=== PATIENT | female | born 1985 | race Caucasian/White ===

== ENCOUNTER 2017-06-12 14:47 | Emergency (ER) | payer MEDICAID, SELFPAY ==
[2017-06-12 14:48] VITALS: BP 134/87; PULSE 119; RESP 22; TEMP 36.7; O2SAT 100; BMI 26.2
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
[2017-06-12 15:32] VITALS: O2SAT 96
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
[2017-06-12] MEDS: Metoclopramide 10 MG/2 ML Vial IV (16:13)
[2017-06-12 16:22] LABS: Anion Gap 6 (5-15); BUN 11 mg/dL (7-18); BUN/Creat Ratio 22.1 RATIO (10-20); Calcium,Total 8.4 mg/dL (8.5-10.1); Chloride 106 mmol/L (98-107); EST Glomerular Filtration Rate 152 mL/min (>60); Est Glom Filt Rate - Afr Amer 185 mL/min (>60); Estimated Creatinine Clearance 162.95 ml/min; Glucose 86 mg/dL (74-106); Potassium 3.8 mmol/L (3.5-5.1); Sodium Level 139 mmol/L (136-145)
[2017-06-12 16:29] LABS: Pregnancy, Serum, hCG Quali. NEGATIVE Negative (0-9 Nonpreg)
[2017-06-12 16:31] LABS: Hematocrit 32.8 % (37-47); Hemoglobin 11.2 g/dl (12.0-15.0); Mean Corp Hgb Conc 34.1 g/gl (32-36); Mean Corpuscular Hgb 32.2 pg (27.0-32.0); Mean Corpuscular Volume 94.3 fL (81-99); Mean Platelet Vol. 9.9 fl (6.2-12.0); Platelet Count 239 K/mm3 (150-450); RBC Distribution Width SD 44.8 fl (35.1-43.9); Red Blood Count 3.48 M/mm3 (4.2-5.4); White Blood Count 7.5 K/mm3 (4.4-11.0)
[2017-06-12 16:34] LABS: Scan Indicated on CBC? Y/N NO
[2017-06-12 16:36] LABS: Red Blood Cells-Urine 0 SEEN /hpf (0-5)
[2017-06-12 16:51] LABS: Color, Urine Yellow (Yellow); Glucose, Dipstick Normal (Normal); Ketone-Dipstick 5 mg/dl (Negative); Leukocyte Esterase-Dipstick 25 /ul (Negative); Nitrite-Dipstick Negative (Negative); Occult Blood-Urine Negative /ul (Negative); Protein-Dipstick 15 mg/dl (Negative); Specific Gravity, Urine 1.015 (1.002-1.030); Urine Bilirubin Dipstick Negative (Negative); Urine Clarity Cloudy (Clear); Urine Urobilinogen 1 mg/dl (Normal)
[2017-06-12 16:57] VITALS: BP 114/77; PULSE 93; RESP 16; O2SAT 100
[2017-06-12 16:59] LABS: Bacteria 1+ /hpf (None Seen); Mucous, Urine 2+ /hpf (<or=2+); Squamous Epithelial Cells - UA 10-25 SEEN /hpf (5-10); White Blood Cells 0-5 SEEN /hpf (0-5)
[2017-06-12] MEDS: HYDROmorphone 0.5 MG/0.5 ML SYRINGE IV (17:53)
[2017-06-12] MEDS: 0.9% Normal Saline 1,000 ML 100 ML IV (17:53)
--- NOTE | 2017-06-12 17:53 | ED.RN ---
Verbal order by Dr Jiménez to hang NS 100ml/hr to each IV. Unable to enter second order.
[2017-06-12 17:59] VITALS: BP 118/76; PULSE 96; RESP 13; O2SAT 97
[2017-06-12 18:12] LABS: International Normalized Ratio 1.1; Prothrombin Time (Protime)PT. 14.4 SECONDS (11.7-14.9)
[2017-06-12 18:13] LABS: Partial Thromboplast Time 32.4 Seconds (24.1-36.2)
[2017-06-12 18:27] VITALS: BP 118/76; PULSE 96; RESP 13; O2SAT 97
== END 2017-06-12 18:18 | disposition short-term general hospital (02) ==
PROVIDERS: Emergency Provider Emergency Medicine; Family Provider Family Medicine; PCP Family Medicine
DX: S36.898A Other injury of other intra-abdominal organs, initial encounter (principal); S00.83XA Contusion of other part of head, initial encounter; S20.219A Contusion of unspecified front wall of thorax, initial encounter; Y09 Assault by unspecified means; Y93.89 Activity, other specified; Y92.89 Other specified places as the place of occurrence of the external cause; Y99.8 Other external cause status
CPT/HCPCS: 74177; 80048; 81001; 84703; 85027; 85610; 85730; 96374; 96375; 99285; J7030; Q9967; A4216

== ENCOUNTER 2018-03-06 21:22 | Emergency (ER) | payer SELFPAY ==
[2018-03-06 21:23] VITALS: BP 140/88; PULSE 127; RESP 18; TEMP 36.7; O2SAT 97; BMI 28.5
[2018-03-06 22:01] VITALS: RESP 16
[2018-03-06 22:24] LABS: Bacteria 0 SEEN /hpf (None Seen); Mucous, Urine 0 SEEN /hpf (<or=2+); Red Blood Cells-Urine 0 SEEN /hpf (0-5)
[2018-03-06 22:25] LABS: Absolute Lymphocyte Count 2.01 X10^3/ul (0.83-4.51); Absolute Neutrophil Count 5.6 X10^3/uL (2.0-7.7); Basophil# 0.03 X10^3/uL; Basophil% 0.3 % (0-1); Eosinophils% 3.4 % (0-5); Hematocrit 41.4 % (37-47); Hemoglobin 14.4 g/dl (12.0-15.0); Lymphocyte # 2.01 X10^3/ul (4.0); Lymphocyte % 23.1 % (19-41); Mean Corp Hgb Conc 34.8 g/gl (32-36); Mean Corpuscular Hgb 33.3 pg (27.0-32.0); Mean Corpuscular Volume 95.6 fL (81-99); Mean Platelet Vol. 9.9 fl (6.2-12.0); Monocyte# 0.77 X10^3/uL; Monocyte% 8.9 % (0-10); Neutrophil # 5.58 X10^3/uL (2.7-7.7); Neutrophil % 64.2 % (47-70); Platelet Count 311 K/mm3 (150-450); RBC Distribution Width CV 12.4 % (11.6-14.6); RBC Distribution Width SD 42.3 fl (35.1-43.9); Red Blood Count 4.33 M/mm3 (4.2-5.4); White Blood Count 8.7 K/mm3 (4.4-11.0)
[2018-03-06 22:26] LABS: POSITIVE COUNT NO; POSITIVE DIFFERENTIAL NO; POSITIVE MORPHOLOGY NO
[2018-03-06 22:27] LABS: Color, Urine Yellow (Yellow); Glucose, Dipstick Normal (Normal); Ketone-Dipstick 5 mg/dl (Negative); Leukocyte Esterase-Dipstick 100 /ul (Negative); Nitrite-Dipstick Negative (Negative); Occult Blood-Urine Negative /ul (Negative); Protein-Dipstick 30 mg/dl (Negative); Specific Gravity, Urine 1.025 (1.002-1.030); Urine Bilirubin Dipstick Negative (Negative); Urine Clarity Sl. Cloudy (Clear); Urine Urobilinogen 1 mg/dl (Normal); Urine pH 6.5 (5.0 - 8.0)
--- NOTE | 2018-03-06 22:27 | ED.DCSUM_ITS ---
- ER Visit Summary Date of Service: 03/06/18 Chief Complaint: Rash History of Present Illness: The patient is a 32 F presenting for evaluation secondary to a rash. Patient reports that over the course of last 2 weeks she has had a waxing and waning rash that is diffuse. She reports that when lesions arrived they are both burning and itching. She states that she is tried multiple [id number]-[id number] remedies and has not seemed to alleviate these. Patient denies any new exposures, she denies any sick contacts. Patient states that she typically has very clear skin, but is noticed that she has been having some more issues. She is spontaneously losing her toenails and getting cracked skin on her feet. Patient states that she does take a large amount of ibuprofen daily, 800 mg 4 times a day. She denies any recent surgeries or injections. Review of systems otherwise negative. Physical Examination: Vital signs are within normal limits except for tachycardia on triage with a rate of 127 on my exam with a rate of 100, patient is afebrile. General: Patient is well-nourished well-developed and in no acute distress. Head: Normocephalic, atraumatic Eyes: Pupils equal round and reactive bilaterally, extra occular motion intact bialterally ENT: Moist mucous membranes Neck: Supple, no lymphadenopathy, no JVD, no meningismus CVS: Heart regular rate and rhythm, no murmurs, rubs or gallops, radial pulses 2+ bilaterally Resp: Respirations nondistressed, lung sounds clear bilaterally Abdomen: Soft, nontender, nondistended, no palpable masses, normal bowel sounds Back: Nontender Extremities: Nontender, atraumatic, active full range of motion, no peripheral edema Skin: warm, diffuse nonpalpable blanching macules on the patient's arms legs and back. Patient has evidence of cracked skin on the soles of her feet., no petechia Neuro: Alert and oriented x 4, CN 2-12 intact, no lateralizing neurological defecits Psyc: Normal affect Test Results: CBC chemistry and urinalysis found to be unremarkable Emergency Department Course and Treatment: Patient presented secondary to a rash with some swelling of her fingers and loss of skin on her feet. There was some concern for the possibility of renal insufficiency or nephrotic syndrome given the patient's frequent use of NSAIDs, so I did obtain labs and these were found to be negative. I believe the patient would benefit from a short course of steroids. Patient will be given this, he is instructed she needs to follow-up with primary care to ensure resolution. Disposition: DC Impression: Rash This note was generated with [employer] dictation software. It may contain incorrect words, spelling, and punctuation that were not noted in review of the chart prior to signing ED Disposition - Plan for ED Patient: Disposition: Home or Assisted Living Chief Complaint: Rash Diagnosis: Rash Instructions: ED Dermatitis Non Specific Rash Prescriptions: Prednisone [Deltasone] 40 mg PO DAILY #10 tab Referrals: Madalyn Castellanos MD [Primary Care Provider] - 1-2 Weeks
[2018-03-06 22:33] LABS: Internal QC Validated? YES +Cl - CLEAR BKGD; Pregnancy, Urine Negative Negative
[2018-03-06 22:35] LABS: White Blood Cells 5-10 SEEN /hpf (0-5)
[2018-03-06 22:36] LABS: Amorphous Sediment 1+ URATE; Squamous Epithelial Cells - UA 0-5 SEEN /hpf (5-10)
[2018-03-06 22:37] LABS: Anion Gap 9 (5-15); BUN 18 mg/dL (7-18); BUN/Creat Ratio 26.9 RATIO (10-20); Calcium,Total 8.5 mg/dL (8.5-10.1); Chloride 109 mmol/L (98-107); Creatinine, Serum 0.67 mg/dL (0.55-1.02); EST Glomerular Filtration Rate 108 mL/min (>60); Est Glom Filt Rate - Afr Amer 130 mL/min (>60); Glucose 135 mg/dL (74-106); Potassium 3.5 mmol/L (3.5-5.1); Sodium Level 141 mmol/L (136-145)
[2018-03-06] MEDS: predniSONE 20 MG Tablet 40 MG PO (23:05)
[2018-03-06 23:06] VITALS: RESP 14
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
== END 2018-03-06 23:07 | disposition home or self-care (01) ==
PROVIDERS: Emergency Provider Emergency Medicine; Family Provider Family Medicine; PCP Family Medicine
DX: R21 Rash and other nonspecific skin eruption (principal); Z72.0 Tobacco use
CPT/HCPCS: 80048; 81001; 81025; 85025; 99283

== ENCOUNTER 2018-04-02 08:57 | Emergency (ER) | payer SELFPAY ==
[2018-04-02 08:58] VITALS: BP 108/69; PULSE 111; RESP 20; TEMP 36.6; O2SAT 99; BMI 24.3
--- NOTE | 2018-04-02 09:14 | CT_ITS ---
STUDY: CT ABDOMEN AND PELVIS WITHOUT CONTRAST REASON FOR EXAM: Female, 33 years old. Abdominal pain. RADIATION DOSAGE (If Supplied By Facility): CTDIvol = ( 9.10 ) mGy, DLP = ( 488.98 ) mGycm TECHNIQUE: Transaxial images were obtained from the dome of the diaphragm to the symphysis pubis without oral contrast, and without intravenous contrast. Sagittal and coronal images were reconstructed. Individualized dose optimization techniques were used for this CT. COMPARISON: CT of the abdomen and pelvis dated June 12, 2017. FINDINGS: There is bilateral basilar dependent atelectasis. No pleural effusions are visualized. The visualized portions of the heart are within normal limits. Normal liver. Normal gallbladder and extrahepatic biliary system. Normal spleen. Normal pancreas. Normal bilateral adrenal glands. Normal right kidney. Normal left kidney. Normal visualized stomach. There is no evidence for dilated bowel, ascites or pneumoperitoneum. Stool is visible throughout the colon with scattered diverticula. There is non-visualization of the appendix. Normal abdominal aorta. Normal inferior vena cava. Normal retroperitoneum. Normal urinary bladder. Normal visualized uterus. There is a small umbilical hernia containing fat. Normal osseous structures. CT/Abdomen/Pelvis without Cont IMPRESSION: No CT evidence of acute intra-abdominal disease. Electronically Signed: Laila Patel MD at 10:40 EST , Service support ,
--- NOTE | 2018-04-02 09:18 | ED.DCSUM_ITS ---
- ER Visit Summary Date of Service: 04/02/18 Chief Complaint: Abdominal pain History of Present Illness: The patient is a 33 F who presents for abdominal pain. Pain began last night and is been constant, gradually worsening in intensity. Main pain is in the left lower quadrant but is radiating now into th e back and into the right side. Patient has associated nausea but denies any vomiting, diarrhea, fever, chest pain or shortness of breath. She has associated dysuria and hematuria. She states she just finished her period. Patient has a history of hemoperitoneum secondary to a right ovarian cyst rupture and is status post right oophorectomy. She is also had surgery on her left ovary for cyst removal. She has history of colitis as well. Denies any history of kidney stones. Patient has tried ibuprofen for pain. She is not on any blood thinners. Physical Examination: Vital signs: afebrile, hemodynamically stable, no hypoxia on room air General: well nourished, well developed, tearful and appears uncomfortable, holding hand to her left lower quadrant Skin: warm, dry, no rash, no pallor HEENT: normocephalic and atraumatic; PERRL, EOMI, moist mucous membranes Cardiovascular: Tachycardic rate and rhythm without murmurs, no peripheral edema, 2+ pulses all distal extremities Respiratory: No increased work of breathing, lungs are clear to auscultation bilaterally, no rales, rhonchi or wheezing Abdominal: Abdomen is soft, tender in the left lower quadrant with rebound tenderness, tender in the right lower quadrant, right CVA tenderness positive, normoactive bowel sounds, no guarding, no masses MSK: Moves all extremities, no deformities, normal strength Neuro: Awake and alert, oriented ?4. No facial droop, sensation and motor function intact and symmetric Test Results: Abnormal Lab Results 04/02/18 04/02/18 04/02/18 09:25 09:25 09:35 WBC 14.4 H RBC 4.24 Hgb 13.9 Hct 40.9 MCV 96.5 MCH 32.8 H MCHC 34.0 RDW 12.8 RDW Differential 43.5 Plt Count 286 MPV 9.9 Immature Gran % (Auto) 0.200 Neut % (Auto) 83.9 H Lymph % (Auto) 8.3 L [place] % (Auto) 7.3 Eos % (Auto) 0.2 Baso % (Auto) 0.1 Absolute Neuts (auto) 12.1 H Absolute Lymphs (auto) 1.20 Total Counted Not Reportable Sodium Potassium Chloride Carbon Dioxide Anion Gap BUN Creatinine Estim Creat Clear Calc Est GFR (MDRD) Af Amer Est GFR (MDRD) Non-Af BUN/Creatinine Ratio Glucose Calcium Total Bilirubin AST ALT Alkaline Phosphatase Total Protein Albumin Globulin Albumin/Globulin Ratio Urine Color Brown Urine Clarity Cloudy Urine pH 8.0 Ur Specific [place] 1.015 Urine Protein 100 H Urine Glucose (UA) Normal Urine Ketones 15 H Urine Occult Blood 250 H Urine Nitrite Negative Urine Bilirubin Negative Urine Urobilinogen Normal Ur Leukocyte Esterase 100 H Urine RBC > 100 SEEN Urine WBC 0-5 SEEN Ur Squamous Epith Cells 0-5 SEEN Urine Bacteria 1+ Urine Mucus 0 SEEN Urine Test Negative 04/02/18 09:35 WBC RBC Hgb Hct MCV MCH MCHC RDW RDW Differential Plt Count MPV Immature Gran % (Auto) Neut % (Auto) Lymph % (Auto) [place] % (Auto) Eos % (Auto) Baso % (Auto) Absolute Neuts (auto) Absolute Lymphs (auto) Total Counted Sodium 135 L Potassium 3.6 Chloride 101 Carbon Dioxide 27.0 Anion Gap 7 BUN 9 Creatinine 0.65 Estim Creat Clear Calc 124.18 Est GFR (MDRD) Af Amer 134 Est GFR (MDRD) Non-Af 111 BUN/Creatinine Ratio 13.8 Glucose 114 H Calcium 8.7 Total Bilirubin 1.20 H AST 16 ALT 34 Alkaline Phosphatase 63 Total Protein 7.5 Albumin 3.7 Globulin 3.8 Albumin/Globulin Ratio 1.0 Urine Color Urine Clarity Urine pH Ur Specific [place] Urine Protein Urine Glucose (UA) Urine Ketones Urine Occult Blood Urine Nitrite Urine Bilirubin Urine Urobilinogen Ur Leukocyte Esterase Urine RBC Urine WBC Ur Squamous Epith Cells Urine Bacteria Urine Mucus Urine Test Clinical Impression(s) from Imaging Studies Abdomen/Pelvis CT 04/02/18 09:14 IMPRESSION: No CT evidence of acute intra-abdominal disease. Electronically Signed: Laila Patel MD at 10:40 EST , Service support , Pelvis Ultrasound 04/02/18 11:35 IMPRESSION: Status post right oophorectomy. No acute abnormality is seen. Electronically Signed: Jhonny Rhodes MD at 13:04 EST , Service support , Medications Given Discontinued Medications Sodium Chloride () 1,000 mls @ 1,000 mls/hr IV .Q1H ONE Stop: 04/02/18 10:13 Last Admin: 04/02/18 09:37 Dose: 1,000 mls/hr Ketorolac Tromethamine (Toradol) 15 mg IV X1 ONE Stop: 04/02/18 14:49 Last Admin: 04/02/18 14:56 Dose: 15 mg Morphine Sulfate () 4 mg IV X1 ONE Stop: 04/02/18 09:15 Last Admin: 04/02/18 09:37 Dose: 4 mg Morphine Sulfate () 4 mg IV X1 ONE Stop: 04/02/18 11:45 Last Admin: 04/02/18 12:02 Dose: 4 mg Ondansetron HCl (Zofran) 4 mg IV X1 ONE Stop: 04/02/18 09:15 Last Admin: 04/02/18 09:37 Dose: 4 mg Emergency Department Course and Treatment: Patient presents for gradually worsening left lower quadrant abdominal pain and appears very uncomfortable. She does have gross hematuria in her urine sample and also has history of hemorrhagic cysts and colitis. CT scan of the abdomen and pelvis performed. Patient given IV fluids, morphine and Zofran for symptomatic relief. She had initial improvement with the morphine. UA showed hematuria without any sign of infection. Labs were unremarkable. CT scan of the abdomen and pelvis showed no acute process. Because of patient's continued lower abdominal pain pain requiring another dose of morphine, pelvic ultrasound was performed and showed no sign of ovarian torsion, cyst or other acute gynecologic pathology. Patient was unable to tolerate the transvaginal ultrasound and states that blood gushed out afterwards. On further questioning, patient states she was on her period yesterday but does not think she is on it today. A pelvic exam was attempted, and noted that patient has a maxi pad in her underwear that shows spotting with blood that appears old. It appeared consistent with menstrual bleeding, which would explain patient's hematuria. Patient would not tolerate lying flat for the pelvic exam and complained that her right upper quadrant and right side of her chest was painful. She began using profanity against the nurse and I, insisting that she be sat back up, so pelvic exam was aborted without any visualization of the external genitalia or the vagina. I do suspect patient's hematuria is secondary to menstrual blood. Because patient is complaining of the severe right-sided upper abdominal pain and chest pain that was not a complaint when she first presented, she was given Toradol for additional pain and a chest x-ray performed to rule out any obvious pathology. There was no right upper quadrant pathology noted on her CT scan. X-ray showed no infiltrate, pneumothorax, or free air under the diaphragm. Patient's pelvic ultrasound had shown no free fluid in the pelvis, and the CT scan showed the same. Patient's workup is not showing any findings that would be concerning for causing peritonitis or irritation to the diaphragm. Patient did have improvement with the Toradol. She went to the bathroom and had vaginal bleeding consistent with menstrual period. She said her period was post and yesterday and we discussed that sometimes menstrual periods will last longer than normal. Patient was given a prescription for naproxen and discharged home. She is to follow-up with her primary care doctor. Treatment Plan: [] Disposition: [] Impression: Dysmenorrhea This note was generated with [employer] dictation software. It may contain incorrect words, spelling, and punctuation that were not noted in review of the chart prior to signing ED Disposition - Plan for ED Patient: Disposition: Home or Assisted Living Instructions: ED Bleed Irregular Vaginal, ED Cramping Menstrual Prescriptions: Naproxen [Naprosyn] 500 mg PO BID PRN #20 tab Referrals: Madalyn Castellanos MD [Primary Care Provider] - 1-2 Days if not improving Additional Instructions: Please use naproxen as needed for pain. Follow-up with your doctor if you are not having improvement in 1-2 days. If you have any worsening of your condition or any new concerning symptoms, please return immediately to the emergency department for another evaluation.
[2018-04-02 09:30] LABS: Mucous, Urine 0 SEEN /hpf (<or=2+)
[2018-04-02] MEDS: Morphine 4 MG/ML Syringe IV ×2 (09:37→12:02)
[2018-04-02] MEDS: Ondansetron 4 MG/2 ML Vial IV (09:37)
[2018-04-02] MEDS: 0.9% Normal Saline 1,000 ML 1000 ML IV (09:37)
[2018-04-02 09:46] LABS: Absolute Neutrophil Count 12.1 X10^3/uL (2.0-7.7); Basophil# 0.01 X10^3/uL; Basophil% 0.1 % (0-1); Eosinophil# 0.03 X10^3/uL; Eosinophils% 0.2 % (0-5); Hematocrit 40.9 % (37-47); Hemoglobin 13.9 g/dl (12.0-15.0); Lymphocyte % 8.3 % (19-41); Mean Corpuscular Hgb 32.8 pg (27.0-32.0); Mean Corpuscular Volume 96.5 fL (81-99); Mean Platelet Vol. 9.9 fl (6.2-12.0); Monocyte# 1.06 X10^3/uL; Monocyte% 7.3 % (0-10); Neutrophil # 12.11 X10^3/uL (2.7-7.7); Neutrophil % 83.9 % (47-70); Platelet Count 286 K/mm3 (150-450); RBC Distribution Width CV 12.8 % (11.6-14.6); RBC Distribution Width SD 43.5 fl (35.1-43.9); Red Blood Count 4.24 M/mm3 (4.2-5.4); White Blood Count 14.4 K/mm3 (4.4-11.0)
[2018-04-02 09:47] LABS: Internal QC Validated? YES +Cl - CLEAR BKGD; Pregnancy, Urine Negative Negative
[2018-04-02 09:49] LABS: POSITIVE COUNT NO; POSITIVE DIFFERENTIAL NO; POSITIVE MORPHOLOGY NO
[2018-04-02 09:49] LABS: Color, Urine Brown (Yellow); Glucose, Dipstick Normal (Normal); Ketone-Dipstick 15 mg/dl (Negative); Leukocyte Esterase-Dipstick 100 /ul (Negative); Nitrite-Dipstick Negative (Negative); Occult Blood-Urine 250 /ul (Negative); Protein-Dipstick 100 mg/dl (Negative); Specific Gravity, Urine 1.015 (1.002-1.030); Urine Bilirubin Dipstick Negative (Negative); Urine Clarity Cloudy (Clear); Urine Urobilinogen Normal (Normal)
[2018-04-02 09:53] LABS: Bacteria 1+ /hpf (None Seen); Red Blood Cells-Urine > 100 SEEN /hpf (0-5); Squamous Epithelial Cells - UA 0-5 SEEN /hpf (5-10); White Blood Cells 0-5 SEEN /hpf (0-5)
[2018-04-02 10:04] LABS: AST(SGOT) 16 U/L (15-37); Alanine Aminotransfer ALT/SGPT 34 U/L (13-56); Albumin, Serum 3.7 g/dL (3.2-5.0); Alkaline Phosphatase 63 U/L (45-117); Anion Gap 7 (5-15); BUN 9 mg/dL (7-18); BUN/Creat Ratio 13.8 RATIO (10-20); Calcium,Total 8.7 mg/dL (8.5-10.1); Chloride 101 mmol/L (98-107); Creatinine, Serum 0.65 mg/dL (0.55-1.02); EST Glomerular Filtration Rate 111 mL/min (>60); Est Glom Filt Rate - Afr Amer 134 mL/min (>60); Estimated Creatinine Clearance 124.18 ml/min; Globulin 3.8 g/dL (2.2-4.2); Glucose 114 mg/dL (74-106); Potassium 3.6 mmol/L (3.5-5.1); Protein, Total 7.5 g/dL (6.4-8.2); Sodium Level 135 mmol/L (136-145)
[2018-04-02 10:07] VITALS: BP 102/69; PULSE 79; RESP 16; O2SAT 99
--- NOTE | 2018-04-02 11:35 | US_ITS ---
STUDY: ULTRASOUND OF THE FEMALE PELVIS - COMPLETE REASON FOR EXAM: Female, 33 years old. Pelvic pain and abdominal pain. LMP: March 29, 2018. TECHNIQUE: Transabdominal TECHNICAL QUALITY: Adequate. COMPARISON: None. FINDINGS: The uterus is retroflexed and is tilted to the left side of the pelvis. The uterus measures 8.3 cm x 5.6 cm x 4.9 cm. Normal uterine cervix. The endometrium measures 8 mm in thickness, and is hyperechoic. There is no demonstrated endometrial mass. There is no demonstrated myometrial mass. I.U.D. - The patient does not have an I.U.D. The patient is status post right oophorectomy. The left ovary is visualized. The left ovary measures 5.2 cm x 5.2 cm x 3.8 cm. There is no left ovarian cyst or ovarian mass. There is no visualized left adnexal mass or complex lesion. There is normal arterial and normal venous vascularity. There is no fluid in the cul-de-sac. The pre void volume of the bladder was 121 ml. Polycystic ovary disease: No. US/Pelvic (Non ) IMPRESSION: Status post right oophorectomy. No acute abnormality is seen. Electronically Signed: Jhonny Rhodes MD at 13:04 EST , Service support ,
[2018-04-02 12:44] VITALS: BP 113/69; PULSE 97; RESP 18; O2SAT 98
[2018-04-02 14:38] VITALS: RESP 18
--- NOTE | 2018-04-02 14:48 | RAD_ITS ---
STUDY: X-RAY CHEST REASON FOR EXAM: Female, 33 years old. Right upper quadrant and left lower quadrant pain TECHNIQUE: PA and lateral views of the chest. COMPARISON: None. FINDINGS: The lungs are clear and expanded. There is no demonstrated pleural abnormality. Normal size heart. Normal mediastinum and lelia. Normal visualized pulmonary arteries. Normal visualized aortic arch and descending thoracic aorta. Normal visualized thoracic spine. Normal visualized ribs, clavicles, and shoulders. There is no demonstrated abnormality of the visualized soft tissue structures of the upper abdomen. RAD/Chest PA and Lateral IMPRESSION: Normal x-ray examination of the chest. Electronically Signed: Jhonny Rhodes MD at 16:04 EST , Service support ,
[2018-04-02] MEDS: Ketorolac 15 MG/ML Vial IV (14:56)
--- NOTE | 2018-04-02 15:46 | ED.DEP ---
ED Disposition - Plan for ED Patient: Disposition: Home or Assisted Living Instructions: ED Cramping Menstrual, ED Bleed Irregular Vaginal Prescriptions: Naproxen [Naprosyn] 500 mg PO BID PRN #20 tab Referrals: Madalyn Castellanos MD [Primary Care Provider] - 1-2 Days if not improving Additional Instructions: Please use naproxen as needed for pain. Follow-up with your doctor if you are not having improvement in 1-2 days. If you have any worsening of your condition or any new concerning symptoms, please return immediately to the emergency department for another evaluation.
[2018-04-02 16:02] VITALS: RESP 18; O2SAT 97
== END 2018-04-02 16:02 | disposition home or self-care (01) ==
PROVIDERS: Emergency Provider Emergency Medicine; Family Provider Family Medicine; PCP Family Medicine
DX: N94.6 Dysmenorrhea, unspecified (principal); Z72.0 Tobacco use
CPT/HCPCS: 71046; 74176; 76856; 80053; 81001; 81025; 85025; 93976; 96361; 96374; 96375; 96376; 99283; J7030; A4216; J2405

== ENCOUNTER 2019-06-11 04:36 | Emergency (ER) | payer MEDICAID, SELFPAY ==
[2018-06-17 14:47] VITALS: BMI 28.1
[2019-06-11 04:38] VITALS: BP 135/92; PULSE 91; RESP 18; TEMP 36.3; O2SAT 99; BMI 30.5
--- NOTE | 2019-06-11 04:46 | CT_ITS ---
STUDY: CT ABDOMEN AND PELVIS WITH CONTRAST REASON FOR EXAM: Female, 34 years old. Lower abdomen pain x 2 days, UTI ? Prior right oophorectomy, left ovarian cyst removed. RADIATION DOSAGE (If Supplied By Facility): CTDIvol = ( 17.10 ) mGy, DLP = ( 968.98 ) mGycm TECHNIQUE: Transaxial images were obtained from the dome of the diaphragm to the symphysis pubis with oral contrast. Oral and amp; IV Gastrografin and amp; 100mL Isovue-370 was administered. Sagittal and coronal images were reconstructed. Individualized dose optimization techniques were used for this CT. COMPARISON: CT abdomen/pelvis from 04/02/2018. FINDINGS: The visualized lung bases are unremarkable. The visualized portions of the heart are within normal limits. Normal liver. Focal fatty infiltration along the falciform ligament. Normal gallbladder and extrahepatic biliary system. Normal spleen. Normal pancreas. Normal bilateral adrenal glands. Normal right kidney. Normal left kidney. No ureteral calculus or hydronephrosis. Normal visualized stomach. Normal small intestine. Normal colon. The appendix is visualized and appears normal. Normal abdominal aorta. Normal inferior vena cava. Normal retroperitoneum. Normal urinary bladder. There is a left adnexal round hyperdensity measuring approximately 3.2 cm in diameter. There is a small umbilical hernia containing fat. Normal osseous structures. CT/Abdomen/Pelvis WITH Contrast IMPRESSION: Negative enhanced CT of the abdomen and pelvis for acute abnormality. New left adnexal rounded 3.2 cm hypodensity likely representing ovarian cyst. Further evaluation with pelvic ultrasound could be obtained. Electronically Signed: Joseluis Pires, at 7:12 EDT Tel , Service support ,
[2019-06-11] MEDS: Dicyclomine 20 MG/2 ML Vial IM (04:56)
[2019-06-11] MEDS: Ondansetron 4 MG/2 ML Vial IV (04:56)
[2019-06-11] MEDS: 0.9% Normal Saline 1,000 ML 125 ML IV (05:17)
[2019-06-11 05:35] LABS: Mucous, Urine 0 SEEN /hpf (<or=2+); Squamous Epithelial Cells - UA 0 SEEN /hpf (5-10)
[2019-06-11 05:39] LABS: Absolute Lymphocyte Count 1.96 X10^3/uL (0.83-4.51); Basophil# 0.02 X10^3/uL; Basophil% 0.3 % (0-1); Eosinophil# 0.46 X10^3/uL; Eosinophils% 5.8 % (0-5); Hematocrit 38.6 % (37-47); Hemoglobin 13.6 g/dL (12.0-15.0); Lymphocyte # 1.96 X10^3/ul (4.0); Lymphocyte % 24.5 % (19-41); Mean Corp Hgb Conc 35.2 g/dL (32-36); Mean Corpuscular Hgb 32.6 pg (27.0-32.0); Mean Corpuscular Volume 92.6 fL (81-99); Mean Platelet Vol. 10.8 fl (6.2-12.0); Monocyte# 0.58 X10^3/uL; Monocyte% 7.3 % (0-10); NRBC Flagged by Analyzer 0 % (0-5); Neutrophil # 4.96 X10^3/uL (2.7-7.7); Neutrophil % 61.8 % (47-70); Platelet Count 181 K/mm3 (150-450); RBC Distribution Width CV 11.9 % (11.6-14.6); RBC Distribution Width SD 40.8 fl (35.1-43.9); Red Blood Count 4.17 M/mm3 (4.2-5.4)
[2019-06-11 05:43] LABS: Color, Urine Brown (Yellow); Glucose, Dipstick Normal (Normal); Ketone-Dipstick 15 mg/dl (Negative); Leukocyte Esterase-Dipstick 500 /ul (Negative); Nitrite-Dipstick Positive (Negative); Occult Blood-Urine 250 /ul (Negative); Protein-Dipstick 100 mg/dl (Negative); Urine Clarity Cloudy (Clear); Urine Urobilinogen 4 mg/dl (Normal); Urine pH 6.5 (5.0 - 8.0)
[2019-06-11 05:46] LABS: Internal QC Validated? YES +Cl - CLEAR BKGD; Pregnancy, Serum, hCG Quali. NEGATIVE Negative
[2019-06-11 05:53] LABS: ALB/GLOB Ratio 1.1 RATIO (0.9-2.4); AST(SGOT) 27 U/L (15-37); Alanine Aminotransfer ALT/SGPT 46 U/L (13-56); Albumin, Serum 3.6 g/dL (3.2-5.0); Alkaline Phosphatase 46 U/L (45-117); Anion Gap 6 (5-15); BUN 9 mg/dL (7-18); BUN/Creat Ratio 17.9 RATIO (10-20); Calcium,Total 8.4 mg/dL (8.5-10.1); Chloride 105 mmol/L (98-107); EST Glomerular Filtration Rate 149 mL/min (>60); Est Glom Filt Rate - Afr Amer 181 mL/min (>60); Estimated Creatinine Clearance 154.17 ml/min; Globulin 3.4 g/dL (2.2-4.2); Glucose 109 mg/dL (74-106); Potassium 2.9 mmol/L (3.5-5.1); Sodium Level 138 mmol/L (136-145)
[2019-06-11 05:54] LABS: Urine Bilirubin Dipstick 1 mg/dL (Negative)
[2019-06-11 05:55] LABS: Bacteria 2+ /hpf (None Seen); Red Blood Cells-Urine > 100 SEEN /hpf (0-5); White Blood Cells >100 SEEN /hpf (0-5)
[2019-06-11] MEDS: Ketorolac 30 MG/ML Syringe IV (05:57)
[2019-06-11 06:02] LABS: Lactic Acid 0.8 mmol/L (0.4-1.9)
[2019-06-11 06:06] VITALS: BP 138/95; PULSE 78; RESP 18; TEMP 36.8; O2SAT 100
[2019-06-11] MEDS: Ciprofloxacin 400 MG/200 ML BAG 200 MG IV (06:15)
--- NOTE | 2019-06-11 06:27 | ED.VISSUMM ---
- ER Visit Summary Date of Service: 06/11/19 Chief Complaint: [Abdominal pain] History of Present Illness: The patient is a 34 F [presents to the emergency department complaint of abdominal pain that started 3 days ago. Patient denies any fever. She is had nausea but no vomiting. She describes some dark urine but no frequency or dysuria. She actually states that she has been urinating less than usual. Her last menstrual period was week and a half ago. Pain is become worse since yesterday and is mostly left lower quadrant and suprapubic. Patient has history of ulcerative colitis. She has had no prior abdominal surgeries.] Physical Examination: [HEENT-PERRLA, EOMI. Cranial nerves II through XII grossly intact. TMs clear. Mucous membranes moist. No adenopathy. Cardiovascular-regular rate and rhythm without murmur or ectopy Lungs-clear to auscultation, chest wall stable without crepitus or subcu emphysema Abdomen-normoactive bowel sounds, soft. Patient has tenderness palpation over the left lower quadrant and suprapubic region. There is no rebound, rigidity, or peritoneal signs. Extremities-intact ?4, normal range of motion, normal pulses, atraumatic] Test Results: [CBC with differential obtained was normal. Chemistries unremarkable other than a slightly depressed potassium of 2.9. Urinalysis was positive for 500 leukocyte esterase, positive nitrites, grade 100 WBCs, greater than 100 RBCs and +2 bacteria. hCG was negative.] Emergency Department Course and Treatment: [IV line established. She given Zofran IV as well as Bentyl IM. He was started on Cipro 400 mg IV. Patient was given Toradol 30 mg IV.] Treatment Plan: [Care of patient turned over the morning physician awaiting CT results and final disposition] Disposition: [Pending] Impression: [Abdominal pain UTI] This note was generated with [employer] dictation software. It may contain incorrect words, spelling, and punctuation that were not noted in review of the chart prior to signing ED Disposition - Plan for ED Patient: Referrals: Care Physician,No Primary [Primary Care Provider] -
[2019-06-11 07:09] VITALS: BP 138/95; PULSE 78; RESP 18; TEMP 36.8; O2SAT 100
--- NOTE | 2019-06-11 07:20 | ED.VISSUMM ---
- ER Visit Summary Date of Service: 06/11/19 This patient was checked out to me with a CT pending. This has returned. Test Results: Clinical Impression(s) from Imaging Studies Abdomen/Pelvis CT 06/11/19 04:46 IMPRESSION: Negative enhanced CT of the abdomen and pelvis for acute abnormality. New left adnexal rounded 3.2 cm hypodensity likely representing ovarian cyst. Further evaluation with pelvic ultrasound could be obtained. Electronically Signed: Joseluis Pires, at 7:12 EDT Tel , Service support , Emergency Department Course and Treatment: Patient is resting comfortably. She was given a dose of Cipro IV. 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 Treatment Plan: Patient will be discharged with Cipro, Pyridium, and Zofran. Instructed to use Tylenol and/or ibuprofen for pain. Follow-up with Dr. Faustin in 1 week if not improving. Return to the emergency department for any worsening symptoms. Disposition: To home in improved and stable condition. Impression: 1. Urinary tract infection. 2. Left ovarian cyst. This note was generated with [employer] dictation software. It may contain incorrect words, spelling, and punctuation that were not noted in review of the chart prior to signing ED Disposition - Plan for ED Patient: Instructions: ED CYSTITIS Female Adult, ED Cyst Ovarian Prescriptions: Ciprofloxacin [Cipro] 500 mg PO BID #14 tablet Phenazopyridine HCl [Pyridium] 200 mg PO BID PRN PRN #10 tablet PRN Reason: Pain Ondansetron [Zofran Odt] 4 mg PO Q8H PRN PRN #10 tablet PRN Reason: Nausea Referrals: Prema Faustin DO [STAFF PHYSICIAN] - 1 Week if not improving
[2019-06-11 07:47] VITALS: BP 136/86; PULSE 83; RESP 16; TEMP 36.4; O2SAT 100
== END 2019-06-11 07:56 | disposition home or self-care (01) ==
LOC: ED 05:13
PROVIDERS: Emergency Provider Emergency Medicine
DX: N39.0 Urinary tract infection, site not specified (principal); N83.202 Unspecified ovarian cyst, left side; Z72.0 Tobacco use
CPT/HCPCS: 74177; 80053; 81001; 83605; 84703; 85025; 87086; 87088; 87186; 96361; 96365; 96366; 96372; 96375; 99284; J7030; Q9967; A4216; J0744; J2405

== ENCOUNTER 2020-01-22 12:37 | Emergency (ER) | payer MEDICAID, SELFPAY ==
[2020-01-22 12:38] VITALS: BP 104/49; PULSE 58; RESP 14; TEMP 35.9; O2SAT 100; BMI 29.2
--- NOTE | 2020-01-22 13:02 | EKG12_ITS ---
Test Reason : DIZZINESS/SOB Blood Pressure : / mmHG Vent. Rate : 056 BPM Atrial Rate : 056 BPM P-R Int : 162 ms QRS Dur : 104 ms QT Int : 442 ms P-R-T Axes : 048 052 054 degrees QTc Int : 426 ms Sinus bradycardia Nonspecific T wave abnormality Abnormal ECG Confirmed by DEON BARKLEY, JOSEPH ([id number]), online content editor SIDNEY STEWART ([id number]) on 01/25/2020 1:21:22 PM Referred By: RADHA/LUH Confirmed By:JOSEPH CHAVARRIA MD
--- NOTE | 2020-01-22 13:03 | CT_ITS ---
STUDY: CTA CHEST REASON FOR EXAM: Female, 34 years old. DIZZINESS, CONGESTION, NOVAK, BODY ACHES, FATIGUE. RADIATION DOSAGE (If Supplied By Facility): CTDIvol = ( 18.98 ) mGy, DLP = ( 1548.35 ) mGycm TECHNIQUE: The examination was performed with the intravenous administration of IV 100mL Isovue-370. Post-processing of the angiographic images was performed, with multiplanar reformation and 3D reconstruction. Individualized dose optimization techniques were used for this CT. COMPARISON: None. FINDINGS: Normal enhancement of the main pulmonary artery and right and left pulmonary arteries. Normal enhancement of the bilateral peripheral pulmonary arteries. There is no demonstrated pulmonary embolism. Normal thoracic aorta and visualized great vessels. There is no demonstrated aortic dissection. Normal heart and pericardium. Normal mediastinum. Normal hilar regions. Normal visualized trachea and bronchi. The lungs are well expanded. Minimal increased markings at the lung bases suggestive of atelectasis. Minimal increased markings in the posterior aspect of the right upper lobe abutting the right major fissure. Minimal increased markings are also seen in the lateral anterior aspect of the right middle lobe. Normal pleura. Normal chest wall structures. Normal osseous structures. Normal visualized upper abdomen. CT/CTA Chest W/WO Contrast IMPRESSION: Mild degree of nonspecific increased markings at the lung bases as well as the posterior aspect of the right upper lobe and anterior aspect of the right middle. This may represent either atelectasis and/or early infiltrates. Follow-up is recommended. Electronically Signed: Jhonny Rhodes, at 14:56 EST , Service support ,
--- NOTE | 2020-01-22 13:03 | CT_ITS ---
STUDY: CT SOFT TISSUE NECK WITH CONTRAST REASON FOR EXAM: Female, 34 years old. DIZZINESS, CONGESTION, NOVAK, BODY ACHES, FATIGUE. RADIATION DOSAGE (If Supplied By Facility): CTDIvol = ( 18.98 ) mGy, DLP = ( 1548.35 ) mGycm TECHNIQUE: The patient was scanned in a multi-detector CT scanner. High resolution transaxial imaging was performed following intravenous administration of IV 100mL Isovue-370. Sagittal and coronal images were reconstructed. Individualized dose optimization techniques were used for this CT. COMPARISON: None. FINDINGS: Normal bilateral parotid glands. Normal bilateral assembly detailer spaces. Normal bilateral parapharyngeal spaces. Normal bilateral carotid spaces. Normal bilateral sublingual and submandibular glands and spaces. Normal visualized nasopharynx. Normal retropharyngeal space. Normal perivertebral space. Inhomogeneous enlargement with the 1.2 cm x 1.3 cm area of enhancement involving the left tonsils. Inflammatory change should be ruled out. The visualized tongue, tongue base and oropharynx are normal. The visualized cervical lymph nodes (levels I-) are within normal size limits, and maintain normal morphology. There is no demonstrated solid or cystic mass lesion. There is no abnormal contrast enhancement. Normal epiglottis, bilateral vallecula and hypopharynx. The pre-epiglottic and paraglottic adipose spaces are normal. Normal visualized bilateral piriform sinuses, aryepiglottic folds, vocal cords, and arytenoid-cricoid articulations. Normal subglottic trachea. Normal bilateral lobes of the thyroid gland. Normal visualized pulmonary apices. Normal visualized paranasal sinuses. Normal visualized cervical spine. CT/Soft Tissue Neck WITH Contrast IMPRESSION: Inhomogeneous enlargement with area of enhancement in the left tonsils. Tonsillitis should be ruled out. Electronically Signed: Jhonny Rhodes, at 14:58 EST , Service support ,
[2020-01-22] MEDS: Ondansetron 4 MG/2 ML Vial IV (13:42)
[2020-01-22] MEDS: 0.9% Normal Saline 1,000 ML 1000 ML IV (13:42)
[2020-01-22] MEDS: Ketorolac 15 MG/ML Vial IV (13:42)
[2020-01-22 14:08] LABS: Absolute Lymphocyte Count 2.88 X10^3/uL (0.83-4.51); Absolute Neutrophil Count 5.9 X10^3/uL (2.0-7.7); Basophil# 0.05 X10^3/uL; Basophil% 0.5 % (0-1); Eosinophil# 0.68 X10^3/uL; Eosinophils% 6.5 % (0-5); Hematocrit 42.4 % (37-47); Hemoglobin 14.5 g/dL (12.0-15.0); Lymphocyte # 2.88 X10^3/ul (4.0); Lymphocyte % 27.3 % (19-41); Mean Corp Hgb Conc 34.2 g/dL (32-36); Mean Corpuscular Hgb 32.3 pg (27.0-32.0); Mean Corpuscular Volume 94.4 fL (81-99); Mean Platelet Vol. 10.2 fl (6.2-12.0); Monocyte# 0.99 X10^3/uL; Monocyte% 9.4 % (0-10); NRBC Flagged by Analyzer 0 % (0-5); Neutrophil # 5.91 X10^3/uL (2.7-7.7); Platelet Count 336 K/mm3 (150-450); RBC Distribution Width CV 12.3 % (11.6-14.6); RBC Distribution Width SD 42.8 fl (35.1-43.9); Red Blood Count 4.49 M/mm3 (4.2-5.4); White Blood Count 10.5 K/mm3 (4.4-11.0)
[2020-01-22 14:13] LABS: Anion Gap 4 (5-15); BUN 14 mg/dL (7-18); BUN/Creat Ratio 27.1 RATIO (10-20); Calcium,Total 9.1 mg/dL (8.5-10.1); Chloride 101 mmol/L (98-107); Creatinine, Serum 0.52 mg/dL (0.55-1.02); EST Glomerular Filtration Rate 144 mL/min (>60); Est Glom Filt Rate - Afr Amer 174 mL/min (>60); Glucose 75 mg/dL (74-106); Potassium 3.4 mmol/L (3.5-5.1); Sodium Level 135 mmol/L (136-145)
[2020-01-22 14:49] VITALS: PULSE 57; RESP 8; O2SAT 100
[2020-01-22 15:14] VITALS: PULSE 61; RESP 10; O2SAT 100
--- NOTE | 2020-01-22 15:42 | ED.DCSUM_ITS ---
- ER Visit Summary Date of Service: 01/22/20 Chief Complaint: Sore throat, cough, myalgias History of Present Illness: The patient is a 34 F presenting with multiple complaints. She states her symptoms started on Saturday. She had subjective fever and chills. She has had a sore throat. She has painful swallowing but no difficulty swallowing. She complains of chest pain and shortness of breath. She has a dry cough. She has myalgias. She has been exposed to Covid. She has dizziness with no syncope. She is a smoker. Physical Examination: Vitals are stable. Patient is afebrile. Alert no acute distress. HEENT exam pharyngeal erythema, uvula midline, left greater than right tonsillar swelling Neck is supple. No meningismus Lungs are clear and equal bilaterally. Heart is regular rate and rhythm. Abdomen is soft nontender nondistended. Extremities are unremarkable. Skin is warm and dry. No rash No focal neurologic deficit. Remainder of exam is unremarkable. Emergency Department Course and Treatment: EKG is sinus bradycardia rate of 56. CBC, chemistries unremarkable. Troponin is negative. Rapid strep is negative. Covid is negative. She is given IV fluids, Toradol, Zofran. CT soft tissue neck shows Inhomogeneous enlargement with area of enhancement in the left tonsils. Tonsillitis should be ruled out. CTA chest shows Mild degree of nonspecific increased markings at the lung bases as well as the posterior aspect of the right upper lobe and anterior aspect of the right middle. This may represent either atelectasis and/or early infiltrates. Follow-up is recommended. Patient continues to feel fatigued and does not feel she can go home. She has been observed in the ED for several hours. She now states that she has had reactions in the past with Toradol which has made her very sleepy. She is now more awake and alert on multiple re-evaluations. She was given Zithromax secondary to penicillin allergy for her tonsillitis. Discussed with hospitalist for observation. Patient was seen by the hospitalist. She is awake and alert with a pulse ox of 100% on room air. She does not qualify for admission at this time. She is advised possibility of false negative Covid test and advised to continue social distancing. Advised signs and symptoms for which to return to the ED. She was given prescription for Zithromax. Disposition: Discharge home Impression: Viral illness; tonsillitis This note was generated with [employer] dictation software. It may contain incorrect words, spelling, and punctuation that were not noted in review of the chart prior to signing ED Disposition - Plan for ED Patient: Referrals: Care Physician,No Primary [Primary Care Provider] -
[2020-01-22 16:12] VITALS: O2SAT 100
[2020-01-22 16:28] LABS: Mucous, Urine 0 SEEN /hpf (<or=2+); Red Blood Cells-Urine 0 SEEN /hpf (0-5)
[2020-01-22 16:31] LABS: Color, Urine Yellow (Yellow); Glucose, Dipstick Normal (Normal); Ketone-Dipstick 5 mg/dl (Negative); Leukocyte Esterase-Dipstick 25 /ul (Negative); Nitrite-Dipstick Negative (Negative); Occult Blood-Urine Negative /ul (Negative); Protein-Dipstick 30 mg/dl (Negative); Specific Gravity, Urine 1.025 (1.002-1.030); Urine Bilirubin Dipstick Negative (Negative); Urine Clarity Cloudy (Clear); Urine Urobilinogen 1 mg/dl (Normal)
[2020-01-22 16:51] LABS: Amphetamine Urine VISTA POSITIVE (<1000 ng/mL); Barbiturate Urine VISTA NEGATIVE (< 200 ng/mL); Benzodiazepine Urine VISTA NEGATIVE (< 200 ng/mL); Cocaine Urine VISTA NEGATIVE (< 300 ng/mL); Ecstacy Urine VISTA POSITIVE (< 500 ng/mL); Methadone Urine VISTA NEGATIVE (< 300 ng/mL); PCP Urine VISTA NEGATIVE (< 25 ng/mL); THC Urine VISTA NEGATIVE (< 50 ng/mL); Vista UDS pH Range 5
[2020-01-22 17:02] VITALS: BP 108/69; PULSE 60; RESP 12; O2SAT 93
[2020-01-22 17:11] LABS: White Blood Cells 0-5 SEEN /hpf (0-5)
[2020-01-22 17:12] LABS: Amorphous Sediment 2+; Bacteria 2+ /hpf (None Seen); Calcium Oxalate Crystals Ur 2+ /hpf (<or=2+); Squamous Epithelial Cells - UA 10-25 SEEN /hpf (5-10)
--- NOTE | 2020-01-22 17:50 | ED.DEP ---
ED Disposition - Plan for ED Patient: Instructions: ED Tonsillitis Prescriptions: Azithromycin [Zithromax Z-Odin] 250 mg PO UD #1 box Prescription Printed Referrals: Ananda Mckeon MD [STAFF PHYSICIAN] - Obey Brown MD [NON-STAFF] -
[2020-01-22] MEDS: Azithromycin 250 MG Tablet 500 MG PO (17:54)
[2020-01-22 18:10] VITALS: BP 112/82; PULSE 55; RESP 18; O2SAT 97
== END 2020-01-22 18:11 | disposition home or self-care (01) ==
LOC: ED 13:42
PROVIDERS: Emergency Provider Emergency Medicine
DX: J03.90 Acute tonsillitis, unspecified (principal); B34.9 Viral infection, unspecified; Z20.828 Contact with and (suspected) exposure to other viral communicable diseases; F17.200 Nicotine dependence, unspecified, uncomplicated
CPT/HCPCS: 70491; 71275; 80048; 80307; 81001; 84484; 85025; 87426; 87880; 93005; 96361; 96374; 96375; 99284; J7030; Q9967; A4216; J2405

== ENCOUNTER 2020-10-31 18:21 | Emergency (ER) | payer MEDICAID, SELFPAY ==
[2020-10-31 18:22] VITALS: BP 127/89; PULSE 101; RESP 16; TEMP 36.4; O2SAT 98; BMI 24.3
[2020-10-31 20:12] LABS: Internal QC Validated? YES +Cl - CLEAR BKGD; Pregnancy, Serum, hCG Quali. NEGATIVE Negative
[2020-10-31 20:15] LABS: Anion Gap 6 (5-15); BUN 16 mg/dL (7-18); BUN/Creat Ratio 30.8 RATIO (10-20); Calcium,Total 9.1 mg/dL (8.5-10.1); Chloride 103 mmol/L (98-107); Creatinine, Serum 0.52 mg/dL (0.55-1.02); EST Glomerular Filtration Rate 142 mL/min (>60); Est Glom Filt Rate - Afr Amer 172 mL/min (>60); Estimated Creatinine Clearance 146.84 ml/min; Glucose 84 mg/dL (74-106); Potassium 3.7 mmol/L (3.5-5.1); Sodium Level 136 mmol/L (136-145)
[2020-10-31 20:19] LABS: Absolute Lymphocyte Count 2.16 X10^3/uL (0.83-4.51); Absolute Neutrophil Count 7.5 X10^3/uL (2.0-7.7); Basophil# 0.04 X10^3/uL; Basophil% 0.4 % (0-1); Eosinophil# 0.36 X10^3/uL; Eosinophils% 3.3 % (0-5); Hematocrit 29.8 % (37-47); Hemoglobin 9.8 g/dL (12.0-15.0); Lymphocyte # 2.16 X10^3/ul (0.83-4.51); Lymphocyte % 19.6 % (19-41); Mean Corp Hgb Conc 32.9 g/dL (32-36); Mean Corpuscular Hgb 30.2 pg (27.0-32.0); Mean Platelet Vol. 10.3 fl (6.2-12.0); Monocyte% 8.2 % (0-10); NRBC Flagged by Analyzer 0 % (0-5); Neutrophil # 7.52 X10^3/uL (2.7-7.7); Neutrophil % 68.1 % (47-70); Platelet Count 314 K/mm3 (150-450); RBC Distribution Width CV 13.3 % (11.6-14.6); RBC Distribution Width SD 45.1 fl (35.1-43.9); Red Blood Count 3.24 M/mm3 (4.2-5.4)
--- NOTE | 2020-10-31 20:52 | ED.RN ---
Name called; pt not in waiting area. [id number]
== END 2020-10-31 20:45 | disposition left against medical advice (07) ==
LOC: ED 20:57
DX: N93.9 Abnormal uterine and vaginal bleeding, unspecified (principal)
CPT/HCPCS: 80048; 84703; 85025

== ENCOUNTER 2022-01-27 20:32 | Emergency (ER) | payer MEDICAID, SELFPAY ==
[2022-01-27 20:32] VITALS: BP 135/88; PULSE 89; RESP 18; TEMP 36.2; O2SAT 99; BMI 29.1
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
[2022-01-27] MEDS: Clindamycin HCl 150 MG Capsule 300 MG PO (21:11)
[2022-01-27 21:17] VITALS: BP 130/67; PULSE 70; RESP 16
== END 2022-01-27 21:17 | disposition home or self-care (01) ==
PROVIDERS: Emergency Provider Emergency Medicine; Visit Provider Emergency Medicine
DX: H92.01 Otalgia, right ear (principal); K08.89 Other specified disorders of teeth and supporting structures; F17.210 Nicotine dependence, cigarettes, uncomplicated; H91.90 Unspecified hearing loss, unspecified ear; K02.9 Dental caries, unspecified; R42 Dizziness and giddiness
CPT/HCPCS: 99284

== ENCOUNTER 2022-04-03 14:01 | Emergency (ER) | payer MEDICAID, SELFPAY ==
[2022-04-03 14:02] VITALS: BP 152/104; PULSE 79; RESP 24; TEMP 37; O2SAT 98; BMI 28.0
--- NOTE | 2022-04-03 14:20 | EKG12_ITS ---
Test Reason : CP Blood Pressure : / mmHG Vent. Rate : 069 BPM Atrial Rate : 069 BPM P-R Int : 158 ms QRS Dur : 094 ms QT Int : 384 ms P-R-T Axes : 030 036 031 degrees QTc Int : 411 ms Normal sinus rhythm Normal ECG Confirmed by GINO BARKLEY, CHAD ([id number]), loan expeditor ALINA CASTRO ([id number]) on 04/04/2022 1:45:21 PM Referred By: AR Confirmed By:CHAD CHRISTIAN MD
--- NOTE | 2022-04-03 14:20 | ED.VIS.DYS ---
HPI History of Present Illness Chief Complaint: Chest Pain Informant: patient and spouse/S.O. Narrative Narrative: Sent from urgent care for evaluation. Upper respiratory symptoms for the past 2 weeks cough mild productive sputum subjective fevers. A week ago saw urgent care placed on doxycycline last dose today. She goes to [facility] for history of IV drug use she has been clean for 6 months. Reported as a nurse to evaluate her reported there was Rales. She went back to urgent care and was sent directly here without any testing. States yesterday increasing dyspnea. Tobacco history. Denies recent travel or surgeries. No history of PE or DVT. Denies any asthma or COPD history. Mild chest discomfort with cough. [facility] Medical History Substance abuse Home Medications clindamycin HCl 300 mg capsule (Cleocin HCl) 300 mg PO Q6H #40 CAPSULES 01/27/22 [Rx Last Taken Unknown] naproxen 500 mg tablet 500 mg PO BID #14 tabs 01/27/22 [Rx Last Taken Unknown] albuterol sulfate 90 mcg/actuation aerosol inhaler (Ventolin HFA) 1 - 2 puff inhalation Q4H PRN PRN Wheezing ##1 04/03/22 [Rx Last Taken Unknown] Allergy/AdvReac Type Severity Reaction Status Date / Time cefaclor [From Ceclor] Allergy Unknown Verified 04/03/22 14:04 duloxetine [From Cymbalta] Allergy Other Verified 04/03/22 14:04 Penicillins Allergy Unknown Verified 04/03/22 14:04 tramadol Allergy PT UNSURE Verified 04/03/22 14:04 OF REACTION ketorolac [From Toradol] AdvReac PT UNSURE Verified 04/03/22 14:04 OF REACTION Social History Smoking Status: Current every day smoker tobacco type: cigarettes ROS ROS ED Constitutional Constitutional ED: Reports fever(s); Denies chills or sweats Eyes Eyes: Denies change in vision ENT ENT ED: Denies dysphagia or sore throat Cardiovascular Cardiovascular: Denies chest pain, leg edema, palpitations or racing heartbeat Respiratory/Chest Respiratory/Chest: Reports cough and dyspnea; Denies dyspnea on exertion Gastrointestinal Gastrointestinal: Denies abdominal pain, diarrhea, nausea or vomiting Genitourinary Genitourinary ED: Denies dysuria, hematuria or urinary frequency Musculoskeletal Musculoskeletal: Denies back pain, extremity pain or neck pain Integumentary Denies rash or wounds Neurologic Neurologic: Denies headache(s), paresthesias or weakness EXAM Physical Exam Const Vital Signs: 04/03/22 14:02 04/03/22 14:04 Temperature 98.6 F Temperature Source Temporal Pulse Rate 79 Respiratory Rate 24 H Respiratory Effort Normal Blood Pressure 152/104 H Blood Pressure Mean 120 Pulse Ox 98 Oxygen Delivery Method Room Air Positive well nourished and well developed General Appearance ED: well developed and NAD HEENT Reports moist mucous membranes normocephalic and atraumatic Eyes PERRL, EOMs intact bilaterally and conjunctivae normal General Eye ED: Yes normal appearance of both eyes Neck no lymphadenopathy and supple General: Negative for tenderness Chest Wall Chest: Negative for tenderness Resp normal respiratory effort and normal air movement Effort and Inspection: symmetric chest movement; Negative for respiratory distress Cardio regular rate, regular rhythm and no murmurs Peripheral Pulses: pulses 2+ throughout GI normal to inspection, nondistended, normoactive bowel sounds and non-tender Palpation: Negative for guarding or rebound tenderness present Back/Spine no CVA tenderness and no thoracic nor lumbar tenderness Extremity normal to inspection General Extremety ED: Negative for edema or tenderness General Extremity: Negative for edema Neuro oriented x3 and no sensory deficits noted Sensorium / Orientation: awake and alert Skin no rashes or lesions noted and no wounds MDM MDM MDM Narrative Medical decision making narrative: Interventions / MDM: Differential diagnosis: Acute bronchitis, pneumonia, viral syndrome Diagnosis considered but do not suspect: Pulmonary embolism however PERC criteria negative, pneumothorax however symmetric breath sounds. My EKG interpretation: Sinus rate of 69, no ST or T wave changes. Imaging independently reviewed and interpreted by myself: 2 view chest x-ray: No pneumothorax no infiltrates External documents reviewed: N/A Test considered but not ordered:N/A ED course: All protocol EKG per nursing obtained was normal. History evaluation upper respiratory symptoms with dyspnea she has no PE risk factors PE RC criteria negative. There is no rales on my exam. Two-view chest x-ray interpreted by myself and read by radiology no acute process. Discussed viral syndrome with the patient. Discussed tobacco cessation. I discussed adjunct therapies to help with cough symptoms. She understands. She reports wheezing at home, she has used inhaler before. Albuterol MDI sent to her pharmacy. Return precautions. Outpatient follow-up given. All questions were answered. Re-evaluation: stable Disposition discussed with patient/family/significant other: Case discussed with consulting clinician: N/A Radiography Diagnostic Testing: Clinical Impression(s) from Imaging Studies Chest X-Ray 04/03/22 14:39 IMPRESSION: Normal x-ray examination of the chest. Electronically Signed: Jhonny Rhodes MD at 14:58 EST , EKG Initial EKG: Attestation: I personally reviewed and interpreted this EKG as follows: Comments: Sinus rate of 69, no ST or T wave changes. Discharge Plan Triage Chief Complaint: Chest Pain Other Complaint: Shortness of Breath ED Provider: Ulises Martin Dx/Rx/DC Orders Clinical Impression: Bronchitis, Tobacco dependence Instructions: ED Bronchitis, No Antibiotic (Adult) Prescriptions: New albuterol sulfate [Ventolin HFA] 90 mcg/actuation HFA aerosol inhaler 1 - 2 puff inhalation Q4H PRN PRN (Reason: Wheezing) Qty: 1 0RF No Action clindamycin HCl [Cleocin HCl] 300 mg capsule 300 mg PO Q6H Qty: 40 0RF naproxen 500 mg tablet 500 mg PO BID Qty: 14 0RF Primary Care Provider: Care Physician,No Primary Referrals: Tami Garcia [Non-Staff] - 1-2 Weeks Care Physician,No Primary [Primary Care Provider] - Disposition Disposition: Home, Self Care
--- NOTE | 2022-04-03 14:39 | RAD_ITS ---
STUDY: X-RAY CHEST REASON FOR EXAM: Female, 37 years old. 2 week history of cough and shortness of breath. TECHNIQUE: PA and lateral views of the chest. COMPARISON: Comparison is made with prior study dated 04/02/2018. FINDINGS: The lungs are clear and expanded. There is no demonstrated pleural abnormality. Normal size heart. Normal mediastinum and lelia. Normal visualized pulmonary arteries. Normal visualized aortic arch and descending thoracic aorta. Normal visualized thoracic spine. Normal visualized ribs, clavicles, and shoulders. There is no demonstrated abnormality of the visualized soft tissue structures of the upper abdomen. RAD/Chest PA and Lateral IMPRESSION: Normal x-ray examination of the chest. Electronically Signed: Jhonny Rhodes MD at 14:58 EST ,
--- NOTE | 2022-04-03 15:39 | CM.ED ---
Social Work Note Referral Source: Case Find Referral Reason: no PCP SW met with patient and patient's guest and introduced herself and role as [facility] Acls Specialist. Patient was agreeable to speak to SW and provided permission for SW to speak with guest present. SW inquired about patient's insurance and current PCP. Patient verified insurance and stated she did not have a PCP. SW provided patient with a list of PCP accepting new patients in network with her insurance. Patient was receptive towards list, no other needs voiced at this time. Saba Jain MSW, [place]
== END 2022-04-03 15:48 | disposition home or self-care (01) ==
PROVIDERS: Emergency Provider Emergency Medicine; Visit Provider Emergency Medicine
DX: J40 Bronchitis, not specified as acute or chronic (principal); F17.210 Nicotine dependence, cigarettes, uncomplicated
CPT/HCPCS: 71046; 93005; 99282

== ENCOUNTER → 2022-05-01 | Outpatient (CLI) | payer MEDICAID, SELFPAY ==
[2022-05-01 16:18] LABS: Absolute Lymphocyte Count 3.38 X10^3/uL (0.83-4.51); Absolute Neutrophil Count 3.5 X10^3/uL (2.0-7.7); Basophil# 0.05 X10^3/uL; Basophil% 0.6 % (0-1); Eosinophil# 0.43 X10^3/uL; Eosinophils% 5.3 % (0-5); Hematocrit 37.1 % (37-47); Hemoglobin 11.2 g/dL (12.0-15.0); Lymphocyte # 3.38 X10^3/ul (0.83-4.51); Lymphocyte % 41.7 % (19-41); Mean Corp Hgb Conc 30.2 g/dL (32-36); Mean Corpuscular Hgb 23.7 pg (27.0-32.0); Mean Corpuscular Volume 78.6 fL (81-99); Mean Platelet Vol. 9.5 fl (6.2-12.0); Monocyte# 0.71 X10^3/uL; Monocyte% 8.8 % (0-10); NRBC Flagged by Analyzer 0 % (0-5); Neutrophil # 3.51 X10^3/uL (2.7-7.7); Neutrophil % 43.4 % (47-70); Platelet Count 390 K/mm3 (150-450); RBC Distribution Width CV 16.2 % (11.6-14.6); RBC Distribution Width SD 46.5 fl (35.1-43.9); Red Blood Count 4.72 M/mm3 (4.2-5.4); White Blood Count 8.1 K/mm3 (4.4-11.0)
[2022-05-01 16:42] LABS: AST(SGOT) 30 U/L (15-37); Alanine Aminotransfer ALT/SGPT 70 U/L (13-56); Albumin, Serum 3.9 g/dL (3.2-5.0); Alkaline Phosphatase 58 U/L (45-117); Anion Gap 6 (5-15); BUN 11 mg/dL (7-18); BUN/Creat Ratio 16.9 RATIO (10-20); Calcium,Total 9.3 mg/dL (8.5-10.1); Chloride 108 mmol/L (98-107); Creatinine, Serum 0.65 mg/dL (0.55-1.02); EST Glomerular Filtration Rate 109 mL/min (>60); Est Glom Filt Rate - Afr Amer 132 mL/min (>60); Globulin 3.8 g/dL (2.2-4.2); Glucose 83 mg/dL (74-106); Potassium 3.9 mmol/L (3.5-5.1); Protein, Total 7.7 g/dL (6.4-8.2); Sodium Level 139 mmol/L (136-145)
[2022-05-01 17:20] LABS: HIV - WCH Non-Reactive (Nonreactive); Hepatitis B Surface Antibody Reactive
[2022-05-02 13:28] LABS: Iron 22 ug/dL (50-170); Iron Binding Capacity,Total 485 ug/dL (250-450); PERCENT IRON SATURATION 4.5 % (15.0-55.0)
== END | disposition home or self-care (01) ==
LOC: LAB 15:53
PROVIDERS: Visit Provider Nurse Practitioner Family
DX: F19.11 Other psychoactive substance abuse, in remission (principal); D64.9 Anemia, unspecified
CPT/HCPCS: 36415; 80053; 80074; 83540; 83550; 85025; 86703; 86706; 86708

== ENCOUNTER → 2022-09-13 | Outpatient (CLI) | payer MEDICAID, SELFPAY ==
[2022-09-13 16:48] LABS: Hematocrit 37.7 % (37-47); Hemoglobin 12.6 g/dL (12.0-15.0); Mean Corp Hgb Conc 33.4 g/dL (32-36); Mean Corpuscular Hgb 32.5 pg (27.0-32.0); Mean Corpuscular Volume 97.2 fL (81-99); Mean Platelet Vol. 10.7 fl (6.2-12.0); Platelet Count 283 K/mm3 (150-450); RBC Distribution Width CV 14.3 % (11.6-14.6); RBC Distribution Width SD 50.9 fl (35.1-43.9); Red Blood Count 3.88 M/mm3 (4.2-5.4); White Blood Count 8.1 K/mm3 (4.4-11.0)
[2022-09-13 17:21] LABS: Vitamin D,25 Hydroxy 34.9 ng/mL
[2022-09-13 17:29] LABS: ALB/GLOB Ratio 1.2 RATIO (0.9-2.4); AST(SGOT) 32 U/L (15-37); Alanine Aminotransfer ALT/SGPT 58 U/L (13-56); Albumin, Serum 3.7 g/dL (3.2-5.0); Alkaline Phosphatase 49 U/L (45-117); Anion Gap 6 (5-15); BUN 17 mg/dL (7-18); BUN/Creat Ratio 25.3 RATIO (10-20); Chloride 110 mmol/L (98-107); Creatinine, Serum 0.67 mg/dL (0.55-1.02); EST Glomerular Filtration Rate 105 mL/min (>60); Est Glom Filt Rate - Afr Amer 127 mL/min (>60); Globulin 3.2 g/dL (2.2-4.2); Glucose 69 mg/dL (74-106); Iron Binding Capacity,Total 279 ug/dL (250-450); Potassium 3.8 mmol/L (3.5-5.1); Protein, Total 6.9 g/dL (6.4-8.2); Sodium Level 142 mmol/L (136-145); Thyroid Stim Hormone (TSH) 1.98 uIU/mL (0.358-3.74)
== END | disposition home or self-care (01) ==
PROVIDERS: Referring Provider Nurse Practitioner Family; Visit Provider Nurse Practitioner Family
DX: R53.83 Other fatigue (principal); D50.9 Iron deficiency anemia, unspecified; G47.10 Hypersomnia, unspecified
CPT/HCPCS: 36415; 80053; 82306; 83550; 84443; 85027

== ENCOUNTER 2022-10-03 22:35 | Emergency (ER) | payer MEDICAID, SELFPAY ==
[2022-10-03 22:37] VITALS: BP 137/90; PULSE 93; RESP 16; TEMP 36.4; O2SAT 98; BMI 25.0
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
--- NOTE | 2022-10-03 23:15 | RAD_ITS ---
INDICATION: injury EXAMINATION/TECHNIQUE: X-RAY - LEFT XR Foot Min 3 Views 3 VIEWS COMPARISON: FINDINGS: SOFT TISSUES: No soft tissue swelling or gas. No radiopaque foreign body. BONES/JOINTS: There is a plantar calcaneal spur. No acute fracture or subluxation.. Normal alignment. Preservation of the joint space.. No sclerotic or destructive changes observed. RAD/Foot min 3 Views IMPRESSION: No acute bony injury of the left foot. Electronically Signed: Jhon Krishnamurthy MD at 23:31 EDT ,
[2022-10-03 23:59] VITALS: PULSE 78; RESP 18; O2SAT 97
== END 2022-10-04 | disposition home or self-care (01) ==
PROVIDERS: Emergency Provider Emergency Medicine; Visit Provider Emergency Medicine
DX: S90.32XA Contusion of left foot, initial encounter (principal); F17.210 Nicotine dependence, cigarettes, uncomplicated; W01.0XXA Fall on same level from slipping, tripping and stumbling without subsequent striking against object, initial encounter
CPT/HCPCS: 73630; 99283

== ENCOUNTER 2022-11-01 06:57 | Emergency (ER) | payer MEDICAID, SELFPAY ==
[2022-11-01 06:58] VITALS: BP 129/90; PULSE 101; RESP 18; TEMP 36.5; O2SAT 98; BMI 24.5
--- NOTE | 2022-11-01 07:27 | EDS_ITS ---
HPI History of Present Illness Chief Complaint: General Illness [facility] Medical History History of ischemic colitis Substance abuse Home Medications omeprazole magnesium 20 mg tablet,delayed release (Prilosec OTC) 20 mg PO DAILY 05/08/22 [History Last Taken Unknown] buprenorphine 1.4 mg-naloxone 0.36 mg sublingual tablet (Zubsolv) 1 tab sublingual Q24H 10/03/22 [History Last Taken Unknown] doxycycline hyclate 100 mg capsule 100 mg PO BID 5 days #10 caps 11/01/22 [Rx Last Taken Unknown] ondansetron 4 mg disintegrating tablet 4 mg PO Q8H PRN nausea and vomiting 3 days #9 tabs 11/01/22 [Rx Last Taken Unknown] Allergy/AdvReac Type Severity Reaction Status Date / Time cefaclor [From Ceclor] Allergy Unknown Verified 11/01/22 07:04 duloxetine [From Cymbalta] Allergy Other Verified 11/01/22 07:04 Penicillins Allergy Unknown Verified 11/01/22 07:04 tramadol Allergy PT UNSURE Verified 11/01/22 07:04 OF REACTION ketorolac [From Toradol] AdvReac PT UNSURE Verified 11/01/22 07:04 OF REACTION Social History Smoking Status: Current every day smoker tobacco type: cigarettes EXAM Physical Exam Const Vital Signs: 11/01/22 06:58 11/01/22 07:03 Temperature 97.7 F L Temperature Source Oral Pulse Rate 101 H Respiratory Rate 18 Respiratory Effort Short of Breath Respiratory Pattern Normal Blood Pressure 129/90 H Blood Pressure Mean 103 Pulse Ox 98 Oxygen Delivery Method Room Air MDM MDM MDM Narrative Medical decision making narrative: HISTORY OF PRESENT ILLNESS: 37-year-old female with patient notes body aches sinus pressure nausea and vomiting for 3 days. States she is concerned may have Q-tip stuck in her left ear. Notes this occurred 4 days ago. she further notes skin lesions. No sick contacts. Notes fever and chills. REVIEW OF SYSTEMS: Pertinent positives: Sinus pressure, nausea and vomiting Pertinent negatives: Abdominal pain PHYSICAL EXAM: Nursing triage notes reviewed, Vital signs reviewed Constitutional: please see mdm HENT: MMM, left and right TM pearly hutchins, no hyperemia no evidence of ear foreign body. Eyes: Pupils equal round and reactive to light, Extraocular muscles intact Neck: No stridor, no JVD, full neck ROM Lungs: Clear to auscultation, No wheezing or rales. No increased work of breathing, no conversational dyspnea, no accessory muscle use, no nasal flaring. No respiratory distress noted Heart: Regular rate and rhythm, No murmurs, No rubs and No gallops, 2+ distal pulses (radial, femoral, posterior tibial) in all extremities Abdomen: Soft, there is no tenderness, rigidity, rebound or guarding, no obvious peritoneal signs, no palpable pulsatile abdominal masses, no auscultated abdominal bruit : No CVAT Extremities: No edema Neuro: Alert and oriented x3, neuro exam at baseline, cranial nerves II through XII are intact. No pain with extraocular muscle movement. There is negative test of skew. Normal speech. 5 of 5 strength in upper and lower extremities in flexion extension. Intact sensation to light touch in upper and lower extremity dermatomes. No truncal or extremity ataxia. No dysdiadochokinesia. Normal gait. 2+ reflexes. No meningeal signs. Negative Babinski. NIH of 0 Skin: Scattered excoriations appears like skin picking with surrounding erythema no obvious fluctuance induration or crepitus noted MEDICAL DECISION MAKING: Chief Complaint: Sinus pressure, nausea vomit External records reviewed: Last encounter for bronchitis in 2022, last ED visit for left foot contusion in September 2022 Factors affecting care: History of opioid abuse Social determinants of health: History of opioid abuse ALL IMAGES (IF OBTAINED) HAVE BEEN PERSONALLY REVIEWED AND INTERPRETED BY MYSELF. MDM Narrative: The patient was hemodynamically stable, afebrile, nontoxic-appearing I considered the following differential diagnosis: Viral illness, pneumonia I obtained COVID swab, chest x-ray give symptomatic treatment in the form of ibuprofen, Tylenol and Zofran. Chest x-ray by my read shows evidence of left- sided infiltrate. COVID and flu swab are negative. Will give oral antibiotics here for home-going. The patient and/or family, caregivers express understanding. The patient and/or family, caregivers agrees with the plan. Shared decision making: I will have a discussion with the patient and or visitors regarding risk/benefits of further testing or admission. They will be made aware of of the risk/benefits inherent in this decision they will be given the opportunity to voice understanding. Total critical care time today provided was at least 0 minutes. This excludes separately billable procedures. Critical care time (if documented) is secondary to the patient having high probability of clinically significant/life threatening deterioration in the patient's condition which required my urgent intervention. Impression: 1. Community-acquired pneumonia Dispo: Discharge Radiography Chest X-Ray - ED: Read by ED Physician Diagnostic Testing: Clinical Impression(s) from Imaging Studies Chest X-Ray 11/01/22 09:30 IMPRESSION: Lingular infiltrate. Electronically Signed: Jhonny Rhodes MD at 9:12 EDT , Chest x-ray read reviewed myself shows evidence of infiltrate. Discharge Plan Triage Chief Complaint: General Illness ED Provider: Jarvis Conde Dx/Rx/DC Orders Clinical Impression: Community acquired pneumonia Prescriptions: New doxycycline hyclate 100 mg capsule 100 mg PO BID 5 Days Qty: 10 0RF ondansetron 4 mg tablet,disintegrating 4 mg PO Q8H PRN (Reason: nausea and vomiting) 3 Days Qty: 9 0RF No Action omeprazole magnesium [Prilosec OTC] 20 mg tablet,delayed release (DR/EC) 20 mg PO DAILY Zubsolv 1.4-0.36 mg tablet, sublingual 1 tab SUBLINGUAL Q24H Patient Comments: DISSOLVE ONE TABLET UNDER THE TONGUE EVERY DAY Stand Alone Forms: ED Work / School Excuse [facility] Care [facility] - Activity Restrictions/Additional Instructions: Thank you for trusting us with your care today! Please take Tylenol (2 pills, 650 mg), ibuprofen (2 pills, 400 mg) every 6 hours as needed for pain and fever control. Please take antibiotics until course is complete Please return to the emergency department if your symptoms change or worsen. Specifically cannot tell antibiotic by mouth. Develop worsening shortness of breath. Please follow with your primary care physician for further outpatient evaluation and management. Disposition Disposition: Home, Self Care
[2022-11-01] MEDS: Ibuprofen 200 MG Tablet 400 MG PO (08:28)
[2022-11-01] MEDS: Ondansetron ODT 4 MG Tablet PO (08:29)
[2022-11-01] MEDS: Acetaminophen 325 MG Tablet PO (08:29)
--- NOTE | 2022-11-01 09:30 | RAD_ITS ---
STUDY: X-RAY CHEST REASON FOR EXAM: Female, 37 years old. Cough, SOB TECHNIQUE: PA and lateral views of the chest. COMPARISON: Comparison is made with prior study April 03, 2022. FINDINGS: Lingular infiltrate. There is no demonstrated pleural abnormality. Normal size heart. Normal mediastinum and lelia. Normal visualized pulmonary arteries. Normal visualized aortic arch and descending thoracic aorta. Normal visualized thoracic spine. Normal visualized ribs, clavicles, and shoulders. There is no demonstrated abnormality of the visualized soft tissue structures of the upper abdomen. RAD/Chest PA and Lateral IMPRESSION: Lingular infiltrate. Electronically Signed: Jhonny Rhodes MD at 9:12 EDT ,
[2022-11-01] MEDS: Doxycycline 100 MG CAPSULE PO (10:00)
[2022-11-01 10:04] VITALS: BP 120/81; PULSE 68; RESP 16; TEMP 36.7; O2SAT 98
== END 2022-11-01 10:08 | disposition home or self-care (01) ==
PROVIDERS: Emergency Provider Emergency Medicine; Visit Provider Emergency Medicine
DX: J18.9 Pneumonia, unspecified organism (principal); F11.10 Opioid abuse, uncomplicated; F17.210 Nicotine dependence, cigarettes, uncomplicated
CPT/HCPCS: 71046; 87428; 99283

== ENCOUNTER 2022-11-11 04:48 | Inpatient (IN) | payer MEDICAID, SELFPAY ==
[2022-11-11] VITALS (7 sets, daily range): BP systolic 138–161; BP diastolic 71–98; PULSE 57–81; RESP 14–18; TEMP 35.8–37.2; O2SAT 95–100; BMI 24.5; BMI 24.0
--- NOTE | 2022-11-11 05:07 | CT_ITS ---
EXAM: CT abdomen and pelvis with contrast. HISTORY: diffuse pain TECHNIQUE: CT Abdomen And Pelvis W/ Contrast Injection. A radiation dose optimization technique was used for this scan. COMPARISON: CT abdomen and pelvis June 11, 2019. LIMITATIONS: None. LOWER CHEST: Normal. LIVER: Normal. GALLBLADDER: Normal. BILE DUCTS: Normal. PANCREAS: Normal. SPLEEN: Normal. ADRENAL GLANDS: Normal. KIDNEYS/URETERS/BLADDER: Normal. AORTA: Normal caliber. BOWEL/MESENTERY: Multiple loops of proximal and mid small bowel are dilated with air-fluid levels measuring up to 3.8 cm in diameter. The zone of transition is likely within the right lower quadrant. There is wall thickening of few of the dilated loops proximal to the transition point. Multiple punctate hyperdensities, likely metallic, are presumably ingested within the stomach and small bowel. APPENDIX: Normal. PERITONEUM: Mild free fluid in abdomen and pelvis. REPRODUCTIVE ORGANS: 5.5 cm left ovarian cyst. Parauterine vessels are prominent, greater on the left. BONES/SOFT TISSUES: No acute fracture. OTHER: None. CONCLUSION: Mid small bowel obstruction. Zone of transition is likely in the right lower quadrant. Associated small bowel wall thickening consistent with enteritis. Mild free fluid. 5.5 cm left ovarian cyst. Pelvic ultrasound is recommended. Electronically Signed: James Fitzgerald MD at 6:47 EDT , CT/Abdomen/Pelvis W IV Cont ONLY IMPRESSION: undefined
--- NOTE | 2022-11-11 05:08 | EDS_ITS ---
HPI HPI - GI History of Present Illness Chief Complaint: Abd Pain Informant: patient, spouse/S.O. and EMS Narrative Narrative: Patient presenting by EMS at 5 AM for diffuse abdominal pain that is severe and has been going on for a couple days, but has become severe this morning. She has been vomiting. She does not know what it looks like. She think she had a bowel movement that was normal. Prior abdominal surgery is only removal of one of her ovaries. She is in a lot of pain and is very upset that I am asking her questions and therefore is a poor informant, limiting the history and exam. PFSH PFS Medical History History of ischemic colitis Substance abuse Home Medications buprenorphine 1.4 mg-naloxone 0.36 mg sublingual tablet (Zubsolv) 1 tab sublingual Q24H 10/03/22 [History Last Taken Unknown] Allergy/AdvReac Type Severity Reaction Status Date / Time cefaclor [From Ceclor] Allergy Unknown Verified 11/11/22 04:49 duloxetine [From Cymbalta] Allergy Other Verified 11/11/22 04:49 Penicillins Allergy Unknown Verified 11/11/22 04:49 tramadol Allergy PT UNSURE Verified 11/11/22 04:49 OF REACTION ketorolac [From Toradol] AdvReac PT UNSURE Verified 11/11/22 04:49 OF REACTION Social History Smoking Status: Current every day smoker tobacco type: cigarettes ROS ROS ED Review of Systems ROS Unobtainable: other Details: Limited ROS due to acuity Constitutional Constitutional ED: Reports fever(s) and subjective Eyes Eyes: Denies change in vision or diplopia Cardiovascular Cardiovascular: Denies chest pain or palpitations Respiratory/Chest Respiratory/Chest: Denies cough or dyspnea Gastrointestinal Gastrointestinal: Reports abdominal pain, nausea and vomiting; Denies diarrhea or melena Musculoskeletal Musculoskeletal: Denies neck pain Integumentary Denies abscess or rash Neurologic Neurologic: Denies headache(s), paresthesias or weakness Psychiatric Psychiatric: Reports anxiety; Denies suicidal thoughts EXAM Physical Exam Const Vital Signs: 11/11/22 04:49 11/11/22 06:49 11/11/22 07:44 Temperature 98.9 F Temperature Source Temporal Pulse Rate 67 57 L 58 L Respiratory Rate 16 14 Blood Pressure 157/98 H 138/71 H 160/97 H Blood Pressure Mean 117 93 118 Pulse Ox 97 98 Oxygen Delivery Method Room Air Positive well nourished and well developed Constitutional Narrative: In painful distress, moaning General Appearance ED: well developed HEENT Reports moist mucous membranes normocephalic and atraumatic Eyes PERRL and EOMs intact bilaterally Neck full ROM and supple Resp normal respiratory effort and clear to auscultation bilaterally Cardio regular rate, regular rhythm and no murmurs Rate: Negative for tachycardic GI non-distended GI Narrative: Diffuse tenderness. Voluntary guarding. Not distended. Bowel sounds are normal. Auscultation: normoactive bowel sounds Palpation: soft Back/Spine General Back: other FROM Extremity normal to inspection General Extremety ED: Negative for edema, pulses abnormal or tenderness General Extremity: Negative for edema or pulses abnormal Neuro oriented x3, CN's II-XII intact bilaterally and no sensory deficits noted Sensorium / Orientation: awake and alert Motor Exam: strength 5/5 throughout Psych Mood & Affect: anxious and tearful Skin no rashes or lesions noted and no wounds MDM MDM MDM Narrative Medical decision making narrative: Labs and a CT of the abdomen/pelvis were obtained, I reviewed the images and the report which I agree with, consistent with a small bowel obstruction. Liver enzymes and lipase are within normal limits, negative, blood counts show mild leukocytosis. She is doing better after morphine and Zofran but still nauseated and still in pain. Discussed with hospitalist for admission and placed an NG in the ED; portable KUB shows good placement on my interpretation 1 view. Discussed with surgery and subsequently obtained additional information from the patient. She did not ingest any known metallic foreign bodies, she does take iron pills on occasion, does not recall taking them in the last day or 2. Also no history in her or family of inflammatory bowel disease, and the episode of ischemic colitis that she had in the past is of unknown etiology and she states was a one-time thing about 10 years ago not at this hospital. Lab Data Attestation: I reviewed the patient's lab results. Labs: Laboratory Results - last 24 hr 11/11/22 11/11/22 05:20 07:20 WBC 12.5 H RBC 5.44 H Hgb 17.5 H Hct 53.0 H MCV 97.4 MCH 32.2 H MCHC 33.0 RDW Std Deviation 45.0 H RDW Coeff of Celestino 12.7 Plt Count 368 MPV 10.2 Immature Gran % (Auto) 0.300 Neut % (Auto) 69.7 Lymph % (Auto) 21.3 Dawes % (Auto) 5.1 Eos % (Auto) 3.0 Baso % (Auto) 0.6 Absolute Neuts (auto) 8.7 H Absolute Lymphs (auto) 2.66 Nucleated RBC % 0 Sodium 134 L Potassium 4.2 Chloride 99 Carbon Dioxide 30.0 Anion Gap 5 BUN 9 Creatinine 0.63 Estim Creat Clear Calc 123.33 Est GFR (MDRD) Af Amer 136 Est GFR (MDRD) Non-Af 112 BUN/Creatinine Ratio 14.2 Glucose 131 H Lactic Acid 1.2 Calcium 10.0 Total Bilirubin 0.50 AST 25 ALT 43 Alkaline Phosphatase 67 Total Protein 8.8 H Albumin 4.3 Globulin 4.5 H Albumin/Globulin Ratio 1.0 Lipase 19 Serum , Qual NEGATIVE Urine Color Yellow Urine Clarity Sl. Cloudy Urine pH 8.0 Ur Specific Keller 1.010 Urine Protein 15 H Urine Glucose (UA) Normal Urine Ketones Negative Urine Occult Blood Negative Urine Nitrite Negative Urine Bilirubin Negative Urine Urobilinogen Normal Ur Leukocyte Esterase Negative Urine RBC 0 SEEN Urine WBC 0 SEEN Ur Squamous Epith Cells 0-5 SEEN Amorphous Sediment 1+ Urine Bacteria 1+ Urine Mucus 0 SEEN Radiography Diagnostic Testing: Clinical Impression(s) from Imaging Studies Abdomen/Pelvis CT 11/11/22 05:07 IMPRESSION: undefined CONCLUSION: Mid small bowel obstruction. Zone of transition is likely in the right lower quadrant. Associated small bowel wall thickening consistent with enteritis. Mild free fluid. 5.5 cm left ovarian cyst. Pelvic ultrasound is recommended. Electronically Signed: James Fitzgerald MD at 6:47 EDT Reading Location ID and State: [id number] / [place] Management Discussion w/another healthcare provider: Hospitalist and Electrical Mechanical Technician (Elijah Salas) Discharge Plan Dx/Rx/DC Orders Clinical Impression: Small bowel obstruction, Diffuse abdominal pain, Vomiting Disposition Disposition: Acute Care Hospital [facility]
[2022-11-11] MEDS: 0.9% Normal Saline (1000mL) 1,000 ML 1000 ML IV (05:22)
[2022-11-11] MEDS: Ondansetron 4 MG/2 ML Vial IV ×2 (05:22→17:51)
[2022-11-11] MEDS: Morphine 4 MG/ML Syringe IV ×2 (05:22→07:25)
[2022-11-11 05:32] LABS: Absolute Lymphocyte Count 2.66 X10^3/uL (0.83-4.51); Absolute Neutrophil Count 8.7 X10^3/uL (2.0-7.7); Basophil# 0.07 X10^3/uL; Basophil% 0.6 % (0-1); Eosinophil# 0.37 X10^3/uL; Hemoglobin 17.5 g/dL (12.0-15.0); Lymphocyte # 2.66 X10^3/ul (0.83-4.51); Lymphocyte % 21.3 % (19-41); Mean Corpuscular Hgb 32.2 pg (27.0-32.0); Mean Corpuscular Volume 97.4 fL (81-99); Mean Platelet Vol. 10.2 fl (6.2-12.0); Monocyte# 0.64 X10^3/uL; Monocyte% 5.1 % (0-10); NRBC Flagged by Analyzer 0 % (0-5); Neutrophil # 8.69 X10^3/uL (2.7-7.7); Neutrophil % 69.7 % (47-70); Platelet Count 368 K/mm3 (150-450); RBC Distribution Width CV 12.7 % (11.6-14.6); Red Blood Count 5.44 M/mm3 (4.2-5.4); White Blood Count 12.5 K/mm3 (4.4-11.0)
--- NOTE | 2022-11-11 05:35 | ED.RN ---
pt was crying and yelling due to abdominal pain, skin cool, clammy, diaphoretic at times and IV dressing was changed by Flory Le RN. Pt's face with profuse diaphoresis, pt's skin with goose bumps.
[2022-11-11 05:52] LABS: Internal QC Validated? YES +Cl - CLEAR BKGD; Pregnancy, Serum, hCG Quali. NEGATIVE Negative
[2022-11-11 06:04] LABS: AST(SGOT) 25 U/L (15-37); Alanine Aminotransfer ALT/SGPT 43 U/L (13-56); Albumin, Serum 4.3 g/dL (3.2-5.0); Alkaline Phosphatase 67 U/L (45-117); Anion Gap 5 (5-15); BUN 9 mg/dL (7-18); BUN/Creat Ratio 14.2 RATIO (10-20); Chloride 99 mmol/L (98-107); Creatinine, Serum 0.63 mg/dL (0.55-1.02); EST Glomerular Filtration Rate 112 mL/min (>60); Est Glom Filt Rate - Afr Amer 136 mL/min (>60); Estimated Creatinine Clearance 123.33 ml/min; Globulin 4.5 g/dL (2.2-4.2); Glucose 131 mg/dL (74-106); Lipase 19 U/L (13-75); Potassium 4.2 mmol/L (3.5-5.1); Protein, Total 8.8 g/dL (6.4-8.2); Sodium Level 134 mmol/L (136-145)
[2022-11-11 06:41] LABS: Lactic Acid 1.2 mmol/L (0.4-1.9)
--- NOTE | 2022-11-11 07:13 | RAD_ITS ---
INDICATION: NG Insertion EXAMINATION/TECHNIQUE: X-RAY - XR Abdomen 1 View COMPARISON: CT dated November 11, 2022 FINDINGS: BOWEL GAS PATTERN: There is an enteric tube in place terminating within the gastric fundus. Non-obstructive. No bowel or stomach distention. There is retained contrast within the gastric fundus. FREE AIR: Not assessed on a single supine view. LOWER CHEST: No acute pathology. BONES AND SOFT TISSUES: No acute pathology. RAD/Abdomen Single View (Portable) IMPRESSION: Nonspecific bowel gas pattern. Electronically Signed: Vandana Jenkins MD at 8:09 EDT ,
[2022-11-11 07:32] LABS: Mucous, Urine 0 SEEN /hpf (<or=2+); Red Blood Cells-Urine 0 SEEN /hpf (0-5); White Blood Cells 0 SEEN /hpf (0-5)
[2022-11-11 07:36] LABS: Color, Urine Yellow (Yellow); Glucose, Dipstick Normal (Normal); Ketone-Dipstick Negative (Negative); Leukocyte Esterase-Dipstick Negative /ul (Negative); Nitrite-Dipstick Negative (Negative); Occult Blood-Urine Negative /ul (Negative); Protein-Dipstick 15 mg/dl (Negative); Urine Bilirubin Dipstick Negative (Negative); Urine Clarity Sl. Cloudy (Clear); Urine Urobilinogen Normal (Normal)
--- NOTE | 2022-11-11 07:37 | PCM.HP.STD ---
HPI - General General Date of Admission: 11/11/22 Date of Service: 11/11/22 Chief Complaint: abdominal pain, nausea and vomiting HPI Narrative MARILY BOCANEGRA, is a 37 F with no significant PMH who presents via the ED on 11/11/2022 with a complaint of diffuse abdominal pain. Abdominal pain started a few days ago, and she had associated nausea and vomiting. Her symptoms were persistent so she came in to the ED. She has a history of previous abdominal surgery, supoosedly an oophrectomy. Review of systems is otherwise negative Vitals in the ED were BP of 138/71, AK of 57, RR of 14 and oxygen sats of 98% on room air. CBC showed Hb of 17.5, wbc of 12.5 and platelets of 368. CHemistry was largely unremarkable and significant only for sodium of 134. Urinalysis showed no evidence of UTI. CT abdomen and pelvis showed mid small bowel obstruction with the zone of transition likely in the right lower quadrant and associated small bowel wall thickening consistent with enteritis, as well as mild free fluid and a 5.5cm left ovarian cyst. She is being admitted to be managed for small bowel obstruction [facility] Medical History History of ischemic colitis Substance abuse Home Medications buprenorphine 1.4 mg-naloxone 0.36 mg sublingual tablet (Zubsolv) 1 tab sublingual Q24H 10/03/22 [History Last Taken Unknown] Allergy/AdvReac Type Severity Reaction Status Date / Time cefaclor [From Ceclor] Allergy Unknown Verified 11/11/22 04:49 duloxetine [From Cymbalta] Allergy Other Verified 11/11/22 04:49 Penicillins Allergy Unknown Verified 11/11/22 04:49 tramadol Allergy PT UNSURE Verified 11/11/22 04:49 OF REACTION ketorolac [From Toradol] AdvReac PT UNSURE Verified 11/11/22 04:49 OF REACTION Social History (Updated 11/11/22 @ 09:44 by Jennifer Meadows) household members: significant other housing: apartment number of children: 1 current occupational status: employed Smoking Status: Current every day smoker tobacco type: cigarettes alcohol intake: never substance use type: former substance user ROS Constitutional Constitutional: Reports anorexia and malaise; Denies chills, fatigue, fever(s) or weakness Eyes Eyes: Denies change in vision ENT HEENT: Denies dysphagia or sore throat Cardiovascular Cardiovascular: Denies chest pain, edema, orthopnea, palpitations, paroxysmal nocturnal dyspnea or syncope Respiratory/Chest Respiratory/Chest: Denies cough, shortness of breath at rest or shortness of breath with exertion Gastrointestinal Gastrointestinal: Reports abdominal pain, nausea and vomiting; Denies diarrhea, hematemesis, hematochezia or melena Genitourinary Genitourinary: Denies dysuria, nocturia or urinary frequency Musculoskeletal Musculoskeletal: Denies back pain, joint pain or muscle weakness Neurologic Neurologic: Denies confusion, dizziness, focal weakness or headache(s) Psychiatric Psychiatric: Denies anxiety or depression Vital Signs Vital Signs Vital Signs: 11/11/22 04:49 11/11/22 06:49 Temperature 98.9 F Temperature Source Temporal Pulse Rate 67 57 L Respiratory Rate 16 14 Blood Pressure 157/98 H 138/71 H Blood Pressure Mean 117 93 Pulse Ox 97 98 Oxygen Delivery Method Room Air Weight Weight: 161 lb 9.581 oz Body Mass Index (BMI) 24.5 Physical Exam Const alert and oriented x3 Constitutional Narrative: very uncomfortable due to abdominal pain General Appearance: cooperative HEENT normocephalic and head/scalp atraumatic Mouth: dry mucous membranes Eyes PERRL and EOMs intact bilaterally Neck no lymphadenopathy and supple Lymph Lymphatic: no lymphadenopathy noted Resp normal respiratory effort, normal air movement and clear to auscultation bilaterally Cardio regular rate, regular rhythm, S1 normal heart sound, S2 normal heart sound and no murmurs GI GI Narrative: abdomen soft, diffusely tender, no guarding or rebound tenderness, increased hyperactive bowel sounds Extremity normal capillary refill, no clubbing, cyanosis or edema and no calf tenderness General Extremity: no tenderness to palpation of joints or extremities Skin General Skin Exam: no breakdown Neuro CN's II-XII intact bilaterally, no focal motor deficits and no sensory deficits noted Motor Exam: strength 5/5 throughout and general weakness Psych thought process normal and cooperative Attitude: agitated Results Lab / Micro Data 11/11/22 05:20 11/11/22 05:20 Labs: Laboratory Results - last 24 hr 11/11/22 05:20: WBC 12.5 H, RBC 5.44 H, Hgb 17.5 H, Hct 53.0 H, MCV 97.4, MCH 32.2 H, MCHC 33.0, RDW Std Deviation 45.0 H, RDW Coeff of Celestino 12.7, Plt Count 368, MPV 10.2, Immature Gran % (Auto) 0.300, Neut % (Auto) 69.7, Lymph % (Auto) 21.3, Izard % (Auto) 5.1, Eos % (Auto) 3.0, Baso % (Auto) 0.6, Absolute Neuts (auto) 8.7 H, Absolute Lymphs (auto) 2.66, Nucleated RBC % 0, Sodium 134 L, Potassium 4.2, Chloride 99, Carbon Dioxide 30.0, Anion Gap 5, BUN 9, Creatinine 0.63, Estim Creat Clear Calc 123.33, Est GFR (MDRD) Af Amer 136, Est GFR (MDRD) Non-Af 112, BUN/Creatinine Ratio 14.2, Glucose 131 H, Lactic Acid 1.2, Calcium 10.0, Total Bilirubin 0.50, AST 25, ALT 43, Alkaline Phosphatase 67, Total Protein 8.8 H, Albumin 4.3, Globulin 4.5 H, Albumin/Globulin Ratio 1.0, Lipase 19, Serum , Qual NEGATIVE Radiology Impression Abdomen/Pelvis CT 11/11/22 05:07 IMPRESSION: undefined Assessment & Plan Assessment/Plan (1) Small bowel obstruction: PLAN: Plan #Small bowel obstruction admitted with a complaint of nausea and vomiting. CT abdomen showed mid small bowel obstruction, with transition point in right lower quadrant admit to med surg keep NPO NG tube inserted in ED as she was persistently vomiting consult general surgery hyrate with iVF IV morphine prn for pain DVT prophylaxis: lovenox Charges/Coding Visit Charges Inpatient E&M: 79501 Init Hosp L3
[2022-11-11] MEDS: Oxymetazoline 0.05% 1 SPRAY SPRAY.BTL 2 SPRAY NASAL (07:42)
[2022-11-11 07:48] LABS: Amorphous Sediment 1+; Bacteria 1+ /hpf (None Seen); Squamous Epithelial Cells - UA 0-5 SEEN /hpf (5-10)
--- NOTE | 2022-11-11 07:56 | NURSING ---
MED SURG [facility]ALI SBO
[2022-11-11 09:32] LABS: Amphetamine Urine VISTA NEGATIVE (<1000 ng/mL); Barbiturate Urine VISTA NEGATIVE (< 200 ng/mL); Benzodiazepine Urine VISTA NEGATIVE (< 200 ng/mL); Cocaine Urine VISTA NEGATIVE (< 300 ng/mL); Ecstacy Urine VISTA NEGATIVE (< 500 ng/mL); Methadone Urine VISTA NEGATIVE (< 300 ng/mL); PCP Urine VISTA NEGATIVE (< 25 ng/mL); THC Urine VISTA NEGATIVE (< 50 ng/mL); Vista UDS pH Range 8
[2022-11-11] MEDS: 0.9% Normal Saline (1000mL) 1,000 ML 125 ML IV ×2 (10:36→17:51)
[2022-11-11] MEDS: 0.9% Saline Lock 10 ML Syringe IV (10:36)
--- NOTE | 2022-11-11 14:28 | EX.PCM.CON.S ---
Assessment & Plan Assessment/Plan (1) Small bowel obstruction: PLAN: This is a 37-year-old female with past medical history inclusive of polysubstance use, tobacco use, and a remote episode of ischemic colitis who presents with signs and symptoms of a small bowel obstruction developing just yesterday. Nasogastric tube was placed by emergency medicine with only a modest amount of output. Radiology notes on the follow-up KUB that patient's bowel gas pattern is nonspecific and nonobstructive. Her CT imaging is directly reviewed and there is evidence of dilated and decompressed small bowel as well as bowel wall thickening consistent with enteritis. This latter feature is unusual for typical small bowel obstructions and does not seem to be localized just to the terminal ileum but throughout the jejunum. Patient is also mildly diaphoretic. Taking these observations together, I remain suspicious for a cause of this clinical picture other than a mechanical obstruction. Patient denies any drug use recently. She is rather uncooperative during my exam and I have to repeatedly ask her for permission to examine her abdomen. Eventually she complies with my requests and my exam findings are found under that section of this note. I have asked for her cooperation as a means of facilitating her care. I also shared with her that it is highly unusual to experience ischemic colitis in one's 20s but patient insists that she only had these pain medications around the time of her prior issue. Given patient's reassuring exam, recommend: ? Continued NG tube decompression ? Initiation of small bowel follow-through this afternoon ? Maintain aspiration precautions (patient was briefed about this concern and encouraged to be out of bed in a chair or upright as possible during her small bowel follow-through) HPI Consult Data Date of Consult: 11/11/22 HPI Narrative Reason for Consultation: Small bowel obstruction HPI Narrative: MARILY BOCANEGRA, is a 37 F who presented to [facility] earlier today due to complaints of severe abdominal pain and associated nausea and vomiting. She states that the symptoms began yesterday without precedent. He states that the abdominal pain is diffuse and not localized to any particular region of the abdomen. ER work-up is notable for CBC with evidence of hemoconcentration given a hemoglobin of 17.5 and leukocytosis of 12,500. CT imaging of the abdomen pelvis shows evidence of a small bowel obstruction with likely transition in the right lower quadrant. Additionally radiology noted some thickening of the small bowel consistent with enteritis. Lastly they identified some hyperdense lesions scattered throughout the stomach and small bowel. Patient confirms a history of iron tablet ingestion and states that she takes these tablets for a diagnosis of anemia. She confirms that she has had some of this medication in the past couple of days. Patient has a remote history of ischemic colitis that she estimates approximately 10 years ago. She is not able to give much further detail and attempts to evade further questioning because of pain complaints. She confesses to a history of polysubstance abuse, but states that this is primarily pain medications. Patient has a history of laparoscopic oophorectomy which she describes as secondary to an ovarian torsion event. Lastly patient denies any family history of inflammatory bowel disease or other GI diagnoses. [facility] Medical History History of ischemic colitis Substance abuse Home Medications buprenorphine 1.4 mg-naloxone 0.36 mg sublingual tablet (Zubsolv) 1 tab sublingual Q24H 10/03/22 [History Last Taken Unknown] Allergy/AdvReac Type Severity Reaction Status Date / Time cefaclor [From Ceclor] Allergy Unknown Verified 11/11/22 04:49 duloxetine [From Cymbalta] Allergy Other Verified 11/11/22 04:49 Penicillins Allergy Unknown Verified 11/11/22 04:49 tramadol Allergy PT UNSURE Verified 11/11/22 04:49 OF REACTION ketorolac [From Toradol] AdvReac PT UNSURE Verified 11/11/22 04:49 OF REACTION Social History (Updated 11/11/22 @ 09:44 by Jennifer Meadows) household members: significant other housing: apartment number of children: 1 current occupational status: employed Smoking Status: Current every day smoker tobacco type: cigarettes alcohol intake: never substance use type: former substance user Physical Exam Const alert Constitutional Narrative: Appears in distress and agitated. Overall uncooperative. Repeatedly questions whether she can remove her nasogastric tube. Resp normal respiratory effort GI GI Narrative: Nondistended, soft, voluntary guarding present. Nasogastric tube in place with yellow bilious output of moderate volume Lab / Micro Data 11/11/22 05:20 11/11/22 05:20 Labs: Laboratory Results - last 24 hr 11/11/22 05:20: WBC 12.5 H, RBC 5.44 H, Hgb 17.5 H, Hct 53.0 H, MCV 97.4, MCH 32.2 H, MCHC 33.0, RDW Std Deviation 45.0 H, RDW Coeff of Celestino 12.7, Plt Count 368, MPV 10.2, Immature Gran % (Auto) 0.300, Neut % (Auto) 69.7, Lymph % (Auto) 21.3, Baldwin % (Auto) 5.1, Eos % (Auto) 3.0, Baso % (Auto) 0.6, Absolute Neuts (auto) 8.7 H, Absolute Lymphs (auto) 2.66, Nucleated RBC % 0, Sodium 134 L, Potassium 4.2, Chloride 99, Carbon Dioxide 30.0, Anion Gap 5, BUN 9, Creatinine 0.63, Estim Creat Clear Calc 123.33, Est GFR (MDRD) Af Amer 136, Est GFR (MDRD) Non-Af 112, BUN/Creatinine Ratio 14.2, Glucose 131 H, Lactic Acid 1.2, Calcium 10.0, Total Bilirubin 0.50, AST 25, ALT 43, Alkaline Phosphatase 67, Total Protein 8.8 H, Albumin 4.3, Globulin 4.5 H, Albumin/Globulin Ratio 1.0, Lipase 19, Serum , Qual NEGATIVE 11/11/22 07:20: Urine Color Yellow, Urine Clarity Sl. Cloudy, Urine pH 8.0, Ur Specific Ophelia 1.010, Urine Protein 15 H, Urine Glucose (UA) Normal, Urine Ketones Negative, Urine Occult Blood Negative, Urine Nitrite Negative, Urine Bilirubin Negative, Urine Urobilinogen Normal, Ur Leukocyte Esterase Negative, Urine RBC 0 SEEN, Urine WBC 0 SEEN, Ur Squamous Epith Cells 0-5 SEEN, Amorphous Sediment 1+, Urine Bacteria 1+, Urine Mucus 0 SEEN 11/11/22 08:50: Urine Opiates Screen POSITIVE H, Urine Methadone Screen NEGATIVE, Ur Barbiturates Screen NEGATIVE, Ur Phencyclidine Scrn NEGATIVE, Ur Amphetamines Screen NEGATIVE, MDMA (Ecstasy) Screen NEGATIVE, U Benzodiazepines Scrn NEGATIVE, Urine Cocaine Screen NEGATIVE, U Cannabinoids Screen NEGATIVE, Ur Drug Screen Comment Radiology Impression Abdomen/Pelvis CT 11/11/22 05:07 IMPRESSION: undefined KUB X-Ray 11/11/22 07:13 IMPRESSION: Nonspecific bowel gas pattern. Electronically Signed: Vandana Jenkins MD at 8:09 EDT , Charges/Coding Visit Charges Inpatient E&M: 35615 Init Hosp L2
--- NOTE | 2022-11-11 14:50 | RAD_ITS ---
STUDY: LIMITED GASTROGRAFIN SMALL BOWEL FOLLOW-THROUGH EXAMINATION. REASON FOR EXAM: Female, 37 years old. F/u SBO -- Films: Immediately post GG, 6 h, 12 h, and 24h TECHNIQUE: Gastrografin was introduced through the indwelling nasogastric tube. Immediate image as well as a 6 hour and 12 hour image were obtained. COMPARISON: Comparison is made with prior abdominal radiographs dated November 11, 2022. FINDINGS: There is mild dilatation of small bowel loops. Within 12 hours, the entire colon is opacified. No residual small bowel contrast is seen. RAD/Small Bowel Series Only IMPRESSION: Findings suggestive of a possible small bowel ileus. Electronically Signed: Jhonny Rhodes MD at 8:57 EDT ,
[2022-11-11] MEDS: Morphine 2 MG/ML Syringe IV ×2 (17:51→22:27)
[2022-11-12] MEDS: 0.9% Normal Saline (1000mL) 1,000 ML 125 ML IV (02:13)
[2022-11-12 03:30] VITALS: BP 147/73; PULSE 68; RESP 16; TEMP 36.6; O2SAT 97
[2022-11-12 07:03] LABS: Absolute Lymphocyte Count 3.06 X10^3/uL (0.83-4.51); Absolute Neutrophil Count 5.9 X10^3/uL (2.0-7.7); Basophil# 0.02 X10^3/uL; Basophil% 0.2 % (0-1); Eosinophil# 0.11 X10^3/uL; Eosinophils% 1.1 % (0-5); Hematocrit 39.1 % (37-47); Lymphocyte # 3.06 X10^3/ul (0.83-4.51); Lymphocyte % 30.1 % (19-41); Mean Corp Hgb Conc 33.2 g/dL (32-36); Mean Corpuscular Volume 99.2 fL (81-99); Mean Platelet Vol. 10.7 fl (6.2-12.0); Monocyte# 1.05 X10^3/uL; Monocyte% 10.3 % (0-10); NRBC Flagged by Analyzer 0 % (0-5); Neutrophil # 5.92 X10^3/uL (2.7-7.7); Neutrophil % 58.1 % (47-70); Platelet Count 315 K/mm3 (150-450); RBC Distribution Width CV 12.8 % (11.6-14.6); RBC Distribution Width SD 46.8 fl (35.1-43.9); Red Blood Count 3.94 M/mm3 (4.2-5.4); White Blood Count 10.2 K/mm3 (4.4-11.0)
[2022-11-12 07:29] LABS: Anion Gap 5 (5-15); BUN 14 mg/dL (7-18); Calcium,Total 8.4 mg/dL (8.5-10.1); Chloride 110 mmol/L (98-107); Creatinine, Serum 0.37 mg/dL (0.55-1.02); EST Glomerular Filtration Rate 209 mL/min (>60); Est Glom Filt Rate - Afr Amer 253 mL/min (>60); Glucose 87 mg/dL (74-106); Potassium 3.8 mmol/L (3.5-5.1); Sodium Level 141 mmol/L (136-145)
--- NOTE | 2022-11-12 08:28 | PN.SURG_ITS ---
Subjective Subjective Patient was evaluated this morning in conjunction with Dr. Salas. Patient notes fulness in her upper abdomen, however does not feel bloated. She denies nausea, vomiting, fever. She denies flatus and BM. She continues to have the NG tube in place and was off of suction overnight. Patient did not have any nausea over night being off of suction. KUB and small bowel follow-through were obtained yesterday. Results were reviewed with the patient this morning. Contrast appears all in the colon. At 6 hours after contrast, there appears to be a moderate amount of contrast within the stomach suggestive of some degree of gastroparesis. Patient does note she was teated for pneumonia approximately 10 days ago. Objective Data Objective Data Vital Signs: Vital Signs Temp Pulse Resp BP Pulse Ox O2 Del Method 98 F 68 16 147/73 H 97 Room Air 11/12/22 03:30 11/12/22 03:30 11/12/22 03:30 11/12/22 03:30 11/12/22 03:30 11/12/22 03:30 Oxygen Delivery Method Room Air Weight: 157 lb 13.616 oz Body Mass Index (BMI) 24.0 Intake & Output: Intake and Output for Last 24 Hours 11/10/22 11/11/22 11/12/22 23:59 23:59 23:59 Intake Total 1906.25 / 1906.25 1000 / 1000 Output Total 300 / 300 Balance 1606.25 / 1606.25 1000 / 1000 Lab / Micro Data 11/12/22 05:32 11/12/22 05:32 Labs: Laboratory Results - last 24 hr 11/11/22 08:50: Urine Opiates Screen POSITIVE H, Urine Methadone Screen NEGATIVE, Ur Barbiturates Screen NEGATIVE, Ur Phencyclidine Scrn NEGATIVE, Ur Amphetamines Screen NEGATIVE, MDMA (Ecstasy) Screen NEGATIVE, U Benzodiazepines Scrn NEGATIVE, Urine Cocaine Screen NEGATIVE, U Cannabinoids Screen NEGATIVE, Ur Drug Screen Comment 11/12/22 05:32: WBC 10.2, RBC 3.94 L, Hgb 13.0, Hct 39.1, MCV 99.2 H, MCH 33.0 H , MCHC 33.2, RDW Std Deviation 46.8 H, RDW Coeff of Celestino 12.8, Plt Count 315, MPV 10.7, Immature Gran % (Auto) 0.200, Neut % (Auto) 58.1, Lymph % (Auto) 30.1, Sterling % (Auto) 10.3 H, Eos % (Auto) 1.1, Baso % (Auto) 0.2, Absolute Neuts (auto) 5.9, Absolute Lymphs (auto) 3.06, Nucleated RBC % 0, Sodium 141, Potassium 3.8, Chloride 110 H, Carbon Dioxide 26.0, Anion Gap 5, BUN 14, Creatinine 0.37 L, Estim Creat Clear Calc 210.00, Est GFR (MDRD) Af Amer 253, Est GFR (MDRD) Non-Af 209, BUN/Creatinine Ratio 38.0 H, Glucose 87, Calcium 8.4 L Physical Exam GI normal to inspection, nondistended, normoactive bowel sounds Assessment & Plan Assessment/Plan (1) Small bowel obstruction: PLAN: Dr. Salas also evaluated this patient at the same setting Plan to remove NG tube this morning Start clear liquids If patient tolerated clear liquids, plan to advance to full liquids later today Potential discharge tomorrow We will continue to monitor this patient Charges/Coding Visit Charges Inpatient E&M: 38451 Subs Hosp L1
--- NOTE | 2022-11-12 08:44 | PN.HOSP_ITS ---
Reason for Visit Reason for Visit: Diagnoses Unspecified intestinal obstruction, unspecified as to partial versus complete o bstruction (11/11/22) Subjective Subjective Feels well. NGT removed. Objective Data Objective Data Vital Signs: Vital Signs Temp Pulse Resp BP Pulse Ox O2 Del Method 36.6 C 68 16 147/73 H 97 Room Air 11/12/22 03:30 11/12/22 03:30 11/12/22 03:30 11/12/22 03:30 11/12/22 03:30 11/12/22 03:30 Oxygen Delivery Method Room Air Weight: 71.6 kg Body Mass Index (BMI) 24.0 Intake & Output: Intake and Output for Last 24 Hours 11/10/22 11/11/22 11/12/22 23:59 23:59 23:59 Intake Total 1906.25 / 1906.25 1000 / 1000 Output Total 300 / 300 Balance 1606.25 / 1606.25 1000 / 1000 Lab / Micro Data 11/12/22 05:32 11/12/22 05:32 Labs: Laboratory Results - last 24 hr 11/11/22 08:50: Urine Opiates Screen POSITIVE H, Urine Methadone Screen NEGATIVE, Ur Barbiturates Screen NEGATIVE, Ur Phencyclidine Scrn NEGATIVE, Ur Amphetamines Screen NEGATIVE, MDMA (Ecstasy) Screen NEGATIVE, U Benzodiazepines Scrn NEGATIVE, Urine Cocaine Screen NEGATIVE, U Cannabinoids Screen NEGATIVE, Ur Drug Screen Comment 11/12/22 05:32: WBC 10.2, RBC 3.94 L, Hgb 13.0, Hct 39.1, MCV 99.2 H, MCH 33.0 H , MCHC 33.2, RDW Std Deviation 46.8 H, RDW Coeff of Celestino 12.8, Plt Count 315, MPV 10.7, Immature Gran % (Auto) 0.200, Neut % (Auto) 58.1, Lymph % (Auto) 30.1, Deuel % (Auto) 10.3 H, Eos % (Auto) 1.1, Baso % (Auto) 0.2, Absolute Neuts (auto) 5.9, Absolute Lymphs (auto) 3.06, Nucleated RBC % 0, Sodium 141, Potassium 3.8, Chloride 110 H, Carbon Dioxide 26.0, Anion Gap 5, BUN 14, Creatinine 0.37 L, Estim Creat Clear Calc 210.00, Est GFR (MDRD) Af Amer 253, Est GFR (MDRD) Non-Af 209, BUN/Creatinine Ratio 38.0 H, Glucose 87, Calcium 8.4 L Physical Exam Const alert and no apparent distress HEENT head/scalp atraumatic Resp normal respiratory effort, no retractions, no use of accessory muscles and clear to auscultation bilaterally Cardio regular rate, regular rhythm, S1 normal heart sound and S2 normal heart sound GI normal to inspection, nondistended, normoactive bowel sounds, soft to palpation, non-tender and non-distended Psych affect normal Assessment & Plan Assessment/Plan (1) Small bowel obstruction: PLAN: CT abdomen showed mid small bowel obstruction, with transition point in right lower quadrant clear diet tolerated advanced to full liquids. NG tube inserted in ED as she was persistently vomiting general surgery following PLAN: Plan DVT prophylaxis: lovenox Charges/Coding Visit Charges Inpatient E&M: 31264 Subs Hosp L2
[2022-11-12] MEDS: Ondansetron 4 MG/2 ML Vial IV ×2 (08:54→17:06)
[2022-11-12] MEDS: Morphine 2 MG/ML Syringe IV ×2 (08:55→17:06)
[2022-11-12] MEDS: 0.9% Saline Lock 10 ML Syringe IV (08:55)
[2022-11-12 09:30] VITALS: BP 117/73; PULSE 75; RESP 16; TEMP 36.6; O2SAT 99
--- NOTE | 2022-11-12 11:10 | CASEMGMT ---
RN LETTY Face to Face with patient for initial transition planning/care coordination assessment. RN CM introduced self and role at [facility]. Patient lying in bed, alert and oriented. Patient willing to participate in assessment and is able to answer all questions appropriately. Care providers, pharmacy, and demographics verified. Patient wishes to discharge home, denies need for home health at this time. Patient states she has no further needs or concerns at this time. CM to follow for discharge planning needs that may arise. PCP: Tami Garcia Specialists: none Preferred Pharmacy: [facility] at discharge. Insurance: [facility] Prescription Benefit: yes Living Will/HPOA: none LNOK: sister Living Arrangements: Patient lives with boyfriend in a 2nd floor apartment. Patient is independent and able to ambulate stairs at home. Transportation: self, friends DME/HHC: Patient denies DME in the home. No previous HHC or SNF Disposition Plan: Patient to discharge home with family support and follow-up plans in place. Joanna SILVER, RN, CM
--- NOTE | 2022-11-12 13:21 | CASEMGMT ---
Social Work SW introduced self and role to patient. SW explained SDOH indicator and patient agreed to answer questions. Pt did not indicate any current needs due to having assistance with [employer]. Pt reports moving this week but now that she is sick her partner will be completing this move for her. Pt reports having some needs but that they are already in progress to be solved due to [employer] and probation assistance. Pt denied the need for any further assistance and denied resources. Lou Denson [employer]ATERWORKS SUPERVISOR, BED [employer] BREAKFAST INNKEEPER
[2022-11-12 15:30] VITALS: BP 124/76; PULSE 72; RESP 18; TEMP 36.7; O2SAT 98
[2022-11-12 21:30] VITALS: BP 109/66; PULSE 56; RESP 16; TEMP 36.6; O2SAT 98
[2022-11-13 03:30] VITALS: BP 102/67; PULSE 55; RESP 16; TEMP 36.6; O2SAT 97
[2022-11-13] MEDS: Morphine 2 MG/ML Syringe IV (05:25)
[2022-11-13] MEDS: Ondansetron 4 MG/2 ML Vial IV (05:25)
[2022-11-13 05:57] LABS: Absolute Lymphocyte Count 3.05 X10^3/uL (0.83-4.51); Absolute Neutrophil Count 1.7 X10^3/uL (2.0-7.7); Basophil# 0.04 X10^3/uL; Basophil% 0.7 % (0-1); Eosinophil# 0.37 X10^3/uL; Eosinophils% 6.5 % (0-5); Hemoglobin 11.8 g/dL (12.0-15.0); Lymphocyte # 3.05 X10^3/ul (0.83-4.51); Lymphocyte % 53.7 % (19-41); Mean Corp Hgb Conc 32.8 g/dL (32-36); Mean Corpuscular Hgb 32.6 pg (27.0-32.0); Mean Corpuscular Volume 99.4 fL (81-99); Mean Platelet Vol. 10.3 fl (6.2-12.0); Monocyte# 0.46 X10^3/uL; Monocyte% 8.1 % (0-10); NRBC Flagged by Analyzer 0 % (0-5); Neutrophil # 1.74 X10^3/uL (2.7-7.7); Neutrophil % 30.6 % (47-70); Platelet Count 256 K/mm3 (150-450); RBC Distribution Width CV 12.6 % (11.6-14.6); RBC Distribution Width SD 46.3 fl (35.1-43.9); Red Blood Count 3.62 M/mm3 (4.2-5.4); White Blood Count 5.7 K/mm3 (4.4-11.0)
[2022-11-13 06:39] LABS: Anion Gap 3 (5-15); BUN 9 mg/dL (7-18); BUN/Creat Ratio 21.8 RATIO (10-20); Calcium,Total 8.1 mg/dL (8.5-10.1); Chloride 108 mmol/L (98-107); Creatinine, Serum 0.41 mg/dL (0.55-1.02); EST Glomerular Filtration Rate 184 mL/min (>60); Est Glom Filt Rate - Afr Amer 222 mL/min (>60); Estimated Creatinine Clearance 189.51 ml/min; Glucose 80 mg/dL (74-106); Potassium 3.9 mmol/L (3.5-5.1); Sodium Level 138 mmol/L (136-145)
--- NOTE | 2022-11-13 08:29 | PN.HOSP_ITS ---
Reason for Visit Reason for Visit: Diagnoses Unspecified intestinal obstruction, unspecified as to partial versus complete o bstruction (11/11/22) Subjective Subjective Tolerating diet. No BM nor flatus today. Objective Data Objective Data Vital Signs: Vital Signs Temp Pulse Resp BP Pulse Ox O2 Del Method 36.6 C 55 L 16 102/67 97 Room Air 11/13/22 03:30 11/13/22 03:30 11/13/22 03:30 11/13/22 03:30 11/13/22 03:30 11/13/22 03:30 Oxygen Delivery Method Room Air Weight: 71.6 kg Body Mass Index (BMI) 24.0 Intake & Output: Intake and Output for Last 24 Hours 11/11/22 11/12/22 11/13/22 23:59 23:59 23:59 Intake Total 1906.25 / 1906.25 3840 / 4090 360 / 360 Output Total 300 / 300 Balance 1606.25 / 1606.25 3840 / 4090 360 / 360 Lab / Micro Data 11/13/22 05:14 11/13/22 05:14 Labs: Laboratory Results - last 24 hr 11/13/22 05:14: WBC 5.7, RBC 3.62 L, Hgb 11.8 L, Hct 36.0 L, MCV 99.4 H, MCH 32.6 H, MCHC 32.8, RDW Std Deviation 46.3 H, RDW Coeff of Celestino 12.6, Plt Count 256, MPV 10.3, Immature Gran % (Auto) 0.400, Neut % (Auto) 30.6 L, Lymph % (Auto) 53.7 H, Carver % (Auto) 8.1, Eos % (Auto) 6.5 H, Baso % (Auto) 0.7, Absolute Neuts (auto) 1.7 L, Absolute Lymphs (auto) 3.05, Nucleated RBC % 0, Sodium 138, Potassium 3.9, Chloride 108 H, Carbon Dioxide 27.0, Anion Gap 3 L, BUN 9, Creatinine 0.41 L, Estim Creat Clear Calc 189.51, Est GFR (MDRD) Af Amer 222, Est GFR (MDRD) Non-Af 184, BUN/Creatinine Ratio 21.8 H, Glucose 80, Calcium 8.1 L Radiography Diagnostic Testing: Radiology Impression Small Bowel X-Ray 11/11/22 14:50 IMPRESSION: Findings suggestive of a possible small bowel ileus. Electronically Signed: Jhonny Rhodes MD at 8:57 EDT , Physical Exam Const alert and no apparent distress Constitutional Narrative: flat affect. Resp normal respiratory effort, no retractions, no use of accessory muscles and clear to auscultation bilaterally Cardio regular rate, regular rhythm, S1 normal heart sound and S2 normal heart sound GI normal to inspection, nondistended, normoactive bowel sounds, soft to palpation, non-tender and non-distended Assessment & Plan Assessment/Plan (1) Small bowel obstruction: PLAN: CT abdomen showed mid small bowel obstruction, with transition point in right lower quadrant clear diet tolerated advanced to full liquids. NG tube inserted in ED as she was persistently vomiting. DC'd on 11/12. Has tolerated diet. general surgery following DW constance Thompson for discharge. PLAN: Plan DVT prophylaxis: lovenox
[2022-11-13 09:18] VITALS: BP 96/47; PULSE 50; RESP 18; TEMP 36.6; O2SAT 98
--- NOTE | 2022-11-13 09:41 | PCM.PN.SRG ---
Subjective Subjective Patient seen and examined during AM rounds. She denies any significant abdominal discomfort. She confirms tolerance of her diet yesterday. Objective Data Objective Data Vital Signs: Vital Signs Temp Pulse Resp BP Pulse Ox O2 Del Method 97.8 F 50 L 28 H 96/47 L 98 Room Air 11/13/22 09:18 11/13/22 09:18 11/13/22 09:18 11/13/22 09:18 11/13/22 09:18 11/13/22 09:18 Oxygen Delivery Method Room Air Weight: 157 lb 13.616 oz Body Mass Index (BMI) 24.0 Intake & Output: Intake and Output for Last 24 Hours 11/11/22 11/12/22 11/13/22 23:59 23:59 23:59 Intake Total 1906.25 / 1906.25 3840 / 4090 360 / 360 Output Total 300 / 300 Balance 1606.25 / 1606.25 3840 / 4090 360 / 360 Lab / Micro Data 11/13/22 05:14 11/13/22 05:14 Labs: Laboratory Results - last 24 hr 11/13/22 05:14: WBC 5.7, RBC 3.62 L, Hgb 11.8 L, Hct 36.0 L, MCV 99.4 H, MCH 32.6 H, MCHC 32.8, RDW Std Deviation 46.3 H, RDW Coeff of [place]est[place] 12.6, Plt Count 256, MPV 10.3, Immature Gran % (Auto) 0.400, Neut % (Auto) 30.6 L, Lymph % (Auto) 53.7 H, [place] % (Auto) 8.1, Eos % (Auto) 6.5 H, Baso % (Auto) 0.7, Absolute Neuts (auto) 1.7 L, Absolute Lymphs (auto) 3.05, Nucleated RBC % 0, Sodium 138, Potassium 3.9, Chloride 108 H, Carbon Dioxide 27.0, Anion Gap 3 L, BUN 9, Creatinine 0.41 L, Estim Creat Clear Calc 189.51, Est GFR (MDRD) Af Amer 222, Est GFR (MDRD) Non-Af 184, BUN/Creatinine Ratio 21.8 H, Glucose 80, Calcium 8.1 L Physical Exam Const oriented x3 and no apparent distress Resp normal respiratory effort GI GI Narrative: Nondistended, soft, minimally tender to palpation Assessment & Plan Assessment/Plan (1) Small bowel obstruction: PLAN: Patient's status post successful Gastrografin challenge with tolerance of a diet?reinitiated yesterday. Abdominal exam was benign today. Did recommend patient discharge on a soft, low residue diet with lots of water x2 weeks in case patient has persistently edematous small bowel. Also recommended follow-up with patient's PCP within 1 to 2 weeks of hospital discharge. From a surgical standpoint patient is cleared for discharge today. Charges/Coding Visit Charges Inpatient E&M: 06063 Subs Hosp L2
--- NOTE | 2022-11-13 10:17 | DS.PCM_ITS ---
Providers Date of Admission: 11/11/22 Primary Care Physician: Tami [facility] Consultations 11/11/22 09:38 Consult: General Surgery Routine Consulting Provider: Jose Salas Reason for Consult: small bowel obstruction EMERGENT Consult: No MD Notified: Yes Date Notified: 11/11/22 Time Notified: 07:49 Method of Notification: Text Reason For Visit: SMALL BOWEL OBSTRUCTION Diagnosis Discharge Diagnosis (1) Small bowel obstruction: Status: Acute Code(s): K56.609 - Unspecified intestinal obstruction, unspecified as to partial versus complete obstruction Plan: CT abdomen showed mid small bowel obstruction, with transition point in right lower quadrant clear diet tolerated advanced to full liquids. NG tube inserted in ED as she was persistently vomiting. DC'd on 11/12. Has tolerated diet. general surgery following DW constance Thompson for discharge. Plan H/O substance abuse: receives Zubsolve through Dr. Lloyd. Last Rx filled on 10/15 for #28. Follow up with Dr. Lloyd. Additionally, I will not prescribe narcotics upon discharge. May use acetaminophen and/or ibuprofen for pain control. DVT prophylaxis: lovenox Medications at Discharge Home Medications buprenorphine 1.4 mg-naloxone 0.36 mg sublingual tablet (Zubsolv) 1 tab sublingual Q24H 10/03/22 acetaminophen 500 mg capsule 1,000 mg (2 x 500 mg) PO Q6H PRN pain #30 caps 11/13/22 ondansetron 4 mg disintegrating tablet 4 mg PO Q6H PRN nausea and vomiting #10 tabs 11/13/22 Hospital Course Operations None Procedures None Summary of Care Provided Minutes Spent on Discharge: 35 Weight / BMI Weight Weight: 71.6 kg Body Mass Index (BMI) 24.0 ABG / Lab / Microbiology Data 11/13/22 05:14 11/13/22 05:14 Laboratory: Laboratory Results - last 24 hr 11/13/22 05:14: WBC 5.7, RBC 3.62 L, Hgb 11.8 L, Hct 36.0 L, MCV 99.4 H, MCH 32.6 H, MCHC 32.8, RDW Std Deviation 46.3 H, RDW Coeff of [place] 12.6, Plt Count 256, MPV 10.3, Immature Gran % (Auto) 0.400, Neut % (Auto) 30.6 L, Lymph % (Auto) 53.7 H, [place] % (Auto) 8.1, Eos % (Auto) 6.5 H, Baso % (Auto) 0.7, Absolute Neuts (auto) 1.7 L, Absolute Lymphs (auto) 3.05, Nucleated RBC % 0, Sodium 138, Potassium 3.9, Chloride 108 H, Carbon Dioxide 27.0, Anion Gap 3 L, BUN 9, Creatinine 0.41 L, Estim Creat Clear Calc 189.51, Est GFR (MDRD) Af Amer 222, Est GFR (MDRD) Non-Af 184, BUN/Creatinine Ratio 21.8 H, Glucose 80, Calcium 8.1 L D/C Instructions Discharge Diet: - ([place]ud[place] diet, advance as tolerated. Avoid high-fiber foods. ) Call your doctor if you observe: - (worsening abdominal pain. ) Meaningful Use Info Meaningful Use Diagnoses (Choose all that apply): None applicable Discharge Plan Admission Admit Date/Time: 11/11/22 07:47 Attending Provider: Ananda Caratgena [facility] Providers: Jose Salas; Patricia Green Instructions Additional Instructions / Restrictions: You had a small bowel obstruction. It fortunately resolved spontaneously. Start with a bland diet and advance as tolerated. You may take acetaminophen pain control. Resume your Zubsolv as previously prescribe with Dr. Lloyd and follow up with Dr. Lloyd per your normal routine. Discharge Orders/Prescriptions Prescriptions: New acetaminophen 500 mg capsule 1,000 mg PO Q6H PRN (Reason: pain) Qty: 30 0RF ondansetron 4 mg tablet,disintegrating 4 mg PO Q6H PRN (Reason: nausea and vomiting) Qty: 10 0RF Continued Zubsolv 1.4-0.36 mg tablet, sublingual 1 tab SUBLINGUAL Q24H Patient Comments: DISSOLVE ONE TABLET UNDER THE TONGUE EVERY DAY [facility]: [facility] - Within 2 Weeks Disposition Disposition (needs filled in before D/C Order can be placed): Home, Self Care Charges/Coding Visit Charges Inpatient E&M: 63345 Disch Hosp >30min
--- NOTE | 2022-11-13 11:05 | PHA.DC.MC.R ---
Pharmacy [facility] has performed discharge medication reconciliation and counseling for this patient. The patient's discharge medication list was reviewed for discrepancies and discrepancies were resolved. The patient was counseled on the following discharge medications and changes in medications for homegoing were reviewed. The Reason for Use, instructions for use, and potential side effects were reviewed for all new medications. The patient's questions regarding all of their medications were answered. 1. Acetaminophen 1000 mg PO Q6H PRN pain 2. Ondansetron 4 mg PO Q6H PRN n/v The patient was able to verbally demonstrate an understanding of their discharge medications. Medications at Discharge Home Medications buprenorphine 1.4 mg-naloxone 0.36 mg sublingual tablet (Zubsolv) 1 tab sublingual Q24H 10/03/22 acetaminophen 500 mg capsule 1,000 mg (2 x 500 mg) PO Q6H PRN pain #30 caps 11/13/22 ondansetron 4 mg disintegrating tablet 4 mg PO Q6H PRN nausea and vomiting #10 tabs 11/13/22
--- NOTE | 2022-11-13 11:26 | CASEMGMT ---
Patient has order for discharge. RN CM in to discuss needs at discharge. Patient denies needs at discharge. Patient had no further questions or concerns.
== END 2022-11-13 12:45 | disposition home or self-care (01) | DRG 247 ==
LOC: ED 07:11 → PCU 11-12 07:02
PROVIDERS: Emergency Medicine; Physician Assistant; Admitting Provider Student in an Organized Health Care Education/Training Program; Emergency Provider Emergency Medicine
DX: K56.609 Unspecified intestinal obstruction, unspecified as to partial versus complete obstruction (principal); F17.210 Nicotine dependence, cigarettes, uncomplicated; K31.84 Gastroparesis
CPT/HCPCS: 36415; 74018; 74177; 74250; 80048; 80053; 80307; 81001; 83605; 83690; 84703; 85025; 97802; 99285; 99406; J7030; Q9967; A4216; J2405

== ENCOUNTER 2023-01-03 09:55 | Emergency (ER) | payer MEDICAID, SELFPAY ==
[2023-01-03 09:57] VITALS: BP 117/81; PULSE 79; RESP 16; TEMP 37.2; O2SAT 100; BMI 23.4
--- NOTE | 2023-01-03 10:08 | RAD_ITS ---
STUDY: X-RAY CHEST REASON FOR EXAM: Female, 37 years old. Shortness of breath. Cough. TECHNIQUE: Frontal and lateral views of the chest. COMPARISON: November 01, 2022. FINDINGS: Stable mild hyperinflation. There is no demonstrated pleural abnormality. Normal size heart. Normal mediastinum and lelia. Normal visualized pulmonary arteries. Normal visualized aortic arch and descending thoracic aorta. Normal visualized thoracic spine. Normal visualized ribs, clavicles, and shoulders. No abnormality of the visualized soft tissue structures of the upper abdomen. RAD/Chest PA and Lateral IMPRESSION: Stable mild hyperinflation with no acute or active cardiopulmonary disease. Electronically Signed: Malik Brooke MD at 10:56 [facility] ,
--- NOTE | 2023-01-03 10:09 | EX.ED.VIS.UR ---
HPI HPI - URI History of Present Illness Chief Complaint: Shortness of Breath Narrative Narrative: 37-year-old female presents with upper respiratory infection type symptoms for the last 4 days. She states she has had shortness of breath, cough productive of yellow to green sputum, runny nose, occasional sore throat, and body aches. She had subjective fever as well and started getting the chills. She is a smoker. She states she had pneumonia twice this year already. She denies any exacerbating or alleviating factors, stating that she has cut back on her smoking since she has been ill. ROS ROS ED ROS Narrative Constitutional: Subjective fever, positive chills. HEENT: Occasional ore throat. No neck pain. No loss of vision. Positive rhinorrhea. Cardiovascular: No chest pain. No palpitations. No pedal edema. Respiratory: Productive cough, positive shortness of breath. Abdominal: No abdominal pain. No nausea. No vomiting. Genitourinary: No dysuria. No hematuria. Musculoskeletal: No myalgias. No arthralgias. Neurologic: No headaches. No dizziness. No lightheadedness. Skin: No rash. No change in color. Psychiatric: No depression. No anxiety. [facility] Medical History History of ischemic colitis Substance abuse Home Medications buprenorphine 1.4 mg-naloxone 0.36 mg sublingual tablet (Zubsolv) 1 tab sublingual Q24H 10/03/22 [History Last Taken Unknown] acetaminophen 500 mg capsule 1,000 mg (2 x 500 mg) PO Q6H PRN pain #30 caps 11/13/22 [Rx Last Taken Unknown] ondansetron 4 mg disintegrating tablet 4 mg PO Q6H PRN nausea and vomiting #10 tabs 11/13/22 [Rx Last Taken Unknown] albuterol sulfate 90 mcg/actuation aerosol inhaler (Ventolin HFA) 1 - 2 puff inhalation Q4H PRN PRN Wheezing #1 ea 01/03/23 [Rx Last Taken Unknown] prednisone 20 mg tablet 40 mg (2 x 20 mg) PO DAILY #7 tabs 01/03/23 [Rx Last Taken Unknown] Allergy/AdvReac Type Severity Reaction Status Date / Time cefaclor [From Ceclor] Allergy Unknown Verified 01/03/23 09:55 duloxetine [From Cymbalta] Allergy Other Verified 01/03/23 09:55 Penicillins Allergy Unknown Verified 01/03/23 09:55 tramadol Allergy PT UNSURE Verified 01/03/23 09:55 OF REACTION ketorolac [From Toradol] AdvReac PT UNSURE Verified 01/03/23 09:55 OF REACTION Social History household members: significant other housing: apartment number of children: 1 current occupational status: employed Smoking Status: Current every day smoker tobacco type: cigarettes alcohol intake: never substance use type: former substance user EXAM Physical Exam Narrative Exam Narrative: Afebrile. Vital signs noted. HEENT: Normocephalic. Atraumatic. PERRL, EOMI. Neck soft and supple. No point tenderness or step off. Positive nasal congestion. Airway patent. No drooling or trismus. Cardiovascular: Regular rate and rhythm. No murmurs, rubs, or gallops appreciated. Respiratory: No tachypnea. Lungs clear to auscultation bilaterally. Gastrointestinal: Abdomen soft, nontender, with normoactive bowel sounds. No rebound or guarding. Neurological: Awake. Alert. Nonfocal, nonlateralizing. Skin: No rash. Normal color. No pallor. Musculoskeletal: No pedal edema. Full range of motion extremities. Const Vital Signs: 01/03/23 09:57 01/03/23 10:18 Temperature 99 F Temperature Source Temporal Pulse Rate 79 Respiratory Rate 16 Respiratory Effort Normal Respiratory Depth Normal Respiratory Pattern Normal Blood Pressure 117/81 H Blood Pressure Mean 93 Pulse Ox 100 Oxygen Delivery Method Room Air MDM MDM MDM Narrative Medical decision making narrative: In the differential diagnosis of viral syndrome versus pneumonia versus pneumothorax for shortness of breath. She may have COVID versus influenza versus bronchitis as she is a smoker. Smoking cessation was discussed. Her pulse ox is 100% on room air, and I have low concern for pulmonary embolism as she is PERC negative. I do feel two-view chest x-ray is indicated. She will be swabbed for COVID and influenza as well. 2 view chest x-ray interpreted by myself independently shows no evidence of an acute pneumonia or consolidation, no pneumothorax. I do not feel antibiotics are indicated. Her respiratory swabs for COVID and influenza a and B are negative. Smoking cessation was discussed with her. I do not feel antibiotics are indicated for pneumonia, however she will be given prescriptions for an albuterol inhaler and prednisone burst for 7 days which she has taken previously. I do not feel she requires observation at this time. Return instructions to the emergency department were reviewed. Disposition is discharged home in stable condition. Radiography Diagnostic Testing: Clinical Impression(s) from Imaging Studies Chest X-Ray 01/03/23 10:08 IMPRESSION: Stable mild hyperinflation with no acute or active cardiopulmonary disease. Electronically Signed: Malik Brooke MD at 10:56 EST , Discharge Plan Triage Chief Complaint: Shortness of Breath ED Provider: Kevin Gregory Dx/Rx/DC Orders Clinical Impression: URI (upper respiratory infection), Bronchitis Instructions: ED Bronchitis, No Antibiotic (Adult), ED URI, Viral, No Abx (Adult) Prescriptions: New prednisone 20 mg tablet 40 mg PO DAILY Qty: 7 0RF albuterol sulfate [Ventolin HFA] 90 mcg/actuation HFA aerosol inhaler 1 - 2 puff inhalation Q4H PRN PRN (Reason: Wheezing) Qty: 1 0RF No Action Zubsolv 1.4-0.36 mg tablet, sublingual 1 tab SUBLINGUAL Q24H Patient Comments: DISSOLVE ONE TABLET UNDER THE TONGUE EVERY DAY acetaminophen 500 mg capsule 1,000 mg PO Q6H PRN (Reason: pain) Qty: 30 0RF ondansetron 4 mg tablet,disintegrating 4 mg PO Q6H PRN (Reason: nausea and vomiting) Qty: 10 0RF Primary Care Provider: [facility] Estrella [facility] - 1 Week if not improving Activity Restrictions/Additional Instructions: Stop smoking. Medications as directed. Disposition Disposition: Home, Self Care
== END 2023-01-03 11:41 | disposition home or self-care (01) ==
PROVIDERS: Emergency Provider Emergency Medicine; Visit Provider Emergency Medicine
DX: J06.9 Acute upper respiratory infection, unspecified (principal); F17.210 Nicotine dependence, cigarettes, uncomplicated; J40 Bronchitis, not specified as acute or chronic
CPT/HCPCS: 71046; 87428; 99282

== ENCOUNTER 2023-01-08 09:34 | Emergency (ER) | payer MEDICAID, SELFPAY ==
[2023-01-08 09:35] VITALS: BP 134/83; PULSE 93; RESP 14; TEMP 36.7; O2SAT 98; BMI 23.2
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
[2023-01-08 10:44] LABS: Erythrocyte Sedimentation Rate 13 mm/hr (0-30)
[2023-01-08 10:46] LABS: Absolute Lymphocyte Count 0.78 X10^3/uL (0.83-4.51); Absolute Neutrophil Count 3.9 X10^3/uL (2.0-7.7); Basophil# 0.02 X10^3/uL; Basophil% 0.4 % (0-1); Hematocrit 40.4 % (37-47); Hemoglobin 13.5 g/dL (12.0-15.0); Lymphocyte # 0.78 X10^3/ul (0.83-4.51); Lymphocyte % 16.1 % (19-41); Mean Corp Hgb Conc 33.4 g/dL (32-36); Mean Corpuscular Hgb 31.1 pg (27.0-32.0); Mean Corpuscular Volume 93.1 fL (81-99); Mean Platelet Vol. 9.9 fl (6.2-12.0); Monocyte# 0.12 X10^3/uL; Monocyte% 2.5 % (0-10); NRBC Flagged by Analyzer 0 % (0-5); Neutrophil % 80.8 % (47-70); Platelet Count 398 K/mm3 (150-450); RBC Distribution Width CV 12.3 % (11.6-14.6); RBC Distribution Width SD 42.6 fl (35.1-43.9); Red Blood Count 4.34 M/mm3 (4.2-5.4); White Blood Count 4.8 K/mm3 (4.4-11.0)
[2023-01-08 10:48] LABS: Alcohol, Blood (Medical)-Serum < 3.0 mg/dL
[2023-01-08 10:52] LABS: ALB/GLOB Ratio 0.9 RATIO (0.9-2.4); AST(SGOT) 24 U/L (15-37); Alanine Aminotransfer ALT/SGPT 34 U/L (13-56); Albumin, Serum 3.6 g/dL (3.2-5.0); Alkaline Phosphatase 66 U/L (45-117); Anion Gap 4 (5-15); BUN 17 mg/dL (7-18); BUN/Creat Ratio 34.1 RATIO (10-20); Chloride 105 mmol/L (98-107); EST Glomerular Filtration Rate 148 mL/min (>60); Est Glom Filt Rate - Afr Amer 179 mL/min (>60); Globulin 3.8 g/dL (2.2-4.2); Glucose 140 mg/dL (74-106); Potassium 4.3 mmol/L (3.5-5.1); Protein, Total 7.4 g/dL (6.4-8.2); Sodium Level 135 mmol/L (136-145)
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
[2023-01-08 11:04] LABS: Amphetamine Urine VISTA POSITIVE (<1000 ng/mL); Barbiturate Urine VISTA NEGATIVE (< 200 ng/mL); Benzodiazepine Urine VISTA NEGATIVE (< 200 ng/mL); Cocaine Urine VISTA NEGATIVE (< 300 ng/mL); Ecstacy Urine VISTA NEGATIVE (< 500 ng/mL); Methadone Urine VISTA NEGATIVE (< 300 ng/mL); PCP Urine VISTA NEGATIVE (< 25 ng/mL); THC Urine VISTA NEGATIVE (< 50 ng/mL); Vista UDS pH Range 7
== END 2023-01-08 12:27 | disposition home or self-care (01) ==
PROVIDERS: Emergency Provider Emergency Medicine; Visit Provider Emergency Medicine
DX: J06.9 Acute upper respiratory infection, unspecified (principal); F15.10 Other stimulant abuse, uncomplicated; S09.93XA Unspecified injury of face, initial encounter; R63.4 Abnormal weight loss; T74.11XA Adult physical abuse, confirmed, initial encounter; Y07.030 Male partner, current, perpetrator of maltreatment and neglect; Y04.2XXA Assault by strike against or bumped into by another person, initial encounter; F17.210 Nicotine dependence, cigarettes, uncomplicated; F41.9 Anxiety disorder, unspecified; F32.A Depression, unspecified
CPT/HCPCS: 80053; 80307; 82077; 85025; 85652; 99285; A4216

== ENCOUNTER 2023-05-17 07:30 | Emergency (ER) | payer MEDICAID, SELFPAY ==
[2023-05-17 07:31] VITALS: BP 103/84; PULSE 72; RESP 15; TEMP 36.2; O2SAT 100; BMI 25.9
--- NOTE | 2023-05-17 07:40 | EKG12_ITS ---
Test Reason : SYNCOPE Blood Pressure : / mmHG Vent. Rate : 060 BPM Atrial Rate : 060 BPM P-R Int : 186 ms QRS Dur : 096 ms QT Int : 392 ms P-R-T Axes : 052 038 031 degrees QTc Int : 392 ms Normal sinus rhythm with sinus arrhythmia Normal ECG Confirmed by DEON BARKLEY, JOSEPH ([id number]), editor continuity and script ALINA CASTRO ([id number]) on 05/20/2023 11:05:09 AM Referred By: Emil Confirmed By:JOSEPH CHAVARRIA MD
--- NOTE | 2023-05-17 07:40 | EX.ED.DYSGE1 ---
HPI History of Present Illness Chief Complaint: Syncope Informant: patient and EMS Narrative Narrative: 38-year-old presents after syncopal episode. 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 She states she has been feeling relatively well lately. She is been drinking plenty of fluids lately, mostly water or occasionally a caffeinated beverage, no more than 1 cup of coffee in the mornings. She had some coffee this morning, she went out to smoke and then when she came back and she felt lightheaded and this progressed to a syncopal episode. She had no injury, she was already sitting. There were other residents who witnessed this. She had no other prodromal symptoms that she can recall except she has been having some abdominal cramping since she states she just started her menstrual cycle. No recent illness. No chest discomfort or palpitations or sudden headaches prior to this episode. States she has had this happen before but it has been a while. [facility] Medical History Bowel obstruction Depression History of ischemic colitis Low iron Ovarian torsion Substance abuse Home Medications buprenorphine 1.4 mg-naloxone 0.36 mg sublingual tablet (Zubsolv) 1 tab sublingual Q24H 10/03/22 [History Last Taken 01/07/23] acetaminophen 500 mg capsule 1,000 mg (2 x 500 mg) PO Q6H PRN pain #30 caps 11/13/22 [Rx Last Taken Unknown] albuterol sulfate 90 mcg/actuation aerosol inhaler (Ventolin HFA) 1 - 2 puff inhalation Q4H PRN PRN Wheezing #1 ea 01/03/23 [Rx Last Taken Unknown] Allergy/AdvReac Type Severity Reaction Status Date / Time cefaclor [From Ceclor] Allergy Unknown Verified 01/08/23 09:35 duloxetine [From Cymbalta] Allergy Other Verified 01/08/23 09:35 Penicillins Allergy Unknown Verified 01/08/23 09:35 tramadol Allergy PT UNSURE Verified 01/08/23 09:35 OF REACTION ketorolac [From Toradol] AdvReac PT UNSURE Verified 01/08/23 09:35 OF REACTION Surgical History H/O shoulder surgery History of hip surgery Hx of knee surgery Hx of tympanostomy tubes Social History household members: significant other housing: apartment number of children: 1 current occupational status: employed Smoking Status: Current every day smoker tobacco type: cigarettes alcohol intake: never substance use type: former substance user ROS ROS ED Constitutional Constitutional ED: Denies chills or fever(s) Eyes Eyes: Denies change in vision or diplopia ENT ENT ED: Denies rhinorrhea or sore throat Cardiovascular Cardiovascular: Reports lightheadedness and syncope; Denies chest pain or palpitations Respiratory/Chest Respiratory/Chest: Denies cough or dyspnea Gastrointestinal Gastrointestinal: Denies abdominal pain, diarrhea, nausea or vomiting Genitourinary Genitourinary ED: Denies dysuria or hematuria Musculoskeletal Musculoskeletal: Denies back pain or neck pain Integumentary Denies abscess or rash Neurologic Neurologic: Denies headache(s), paresthesias or weakness Psychiatric Psychiatric: Denies anxiety or suicidal thoughts EXAM Physical Exam Const Vital Signs: 05/17/23 07:31 05/17/23 08:09 Temperature 97.2 F L Temperature Source Temporal Pulse Rate 72 Pulse Rate [Lying] 57 L Pulse Rate [Sitting (for 1 minute prior to obtaining)] 55 L Pulse Rate [Standing (for 1 minute prior to obtaining)] 72 Respiratory Rate 15 Blood Pressure 103/84 H Blood Pressure [Lying] 99/60 Blood Pressure [Sitting (for 1 minute prior to obtaining)] 102/73 Blood Pressure [Standing (for 1 minute prior to obtaining)] 109/82 H Blood Pressure Mean 90 Blood Pressure Mean [Lying] 73 Blood Pressure Mean [Sitting (for 1 minute prior to obtaining)] 82 Blood Pressure Mean [Standing (for 1 minute prior to obtaining)] 91 Pulse Ox 100 Oxygen Delivery Method Room Air Positive well nourished and well developed Constitutional Narrative: Well-appearing General Appearance ED: well developed and NAD HEENT Reports moist mucous membranes normocephalic and atraumatic Eyes PERRL and EOMs intact bilaterally Neck full ROM and supple Chest Wall inspection of chest normal and palpation of chest normal Resp normal respiratory effort and clear to auscultation bilaterally Cardio regular rate, regular rhythm and no murmurs GI non-tender and non-distended Auscultation: normoactive bowel sounds Palpation: soft Back/Spine no CVA tenderness General Back: other FROM Extremity normal to inspection General Extremety ED: Negative for edema, pulses abnormal or tenderness General Extremity: Negative for edema or pulses abnormal Neuro oriented x3, CN's II-XII intact bilaterally and no sensory deficits noted Sensorium / Orientation: awake and alert Motor Exam: strength 5/5 throughout Psych mental status grossly normal Skin no rashes or lesions noted and no wounds MDM MDM MDM Narrative Medical decision making narrative: My suspicion is the patient has a vagal episode related to abdominal cramping, related to her menstrual cycle. She feels normal now and she is not dehydrated clinically. Her heart rate is on the low side around 60. She is on no AV amee blockade medications. She has had iron deficiency anemia in the past, so anemia is in the differential as is dehydration, cardiac dysrhythmia, ectopic , less likely to be a seizure since this was witnessed and there were no reports of that. Patient says she woke up sweaty, but that is a nonspecific symptom that can go along with any cause of syncope. Her EKG is normal. I reviewed her labs they are normal as well, and her is negative ruling out ectopic. No telemetry events here. Orthostatics negative, the patient felt a little lightheaded when she first stood up and then it faded and she felt normal, which is a normal reaction. Patient reassured, more likely to be vagal reaction, not able to rule out dysrhythmia but she did not have symptoms to suggest that, and as I discussed with her, this is a low risk syncope and she is stable for discharge and close outpatient follow-up. Lab Data Attestation: I reviewed the patient's lab results. Labs: Laboratory Results - last 24 hr 05/17/23 07:37 WBC 6.0 RBC 4.16 L Hgb 14.0 Hct 40.3 MCV 96.9 MCH 33.7 H MCHC 34.7 RDW Std Deviation 45.7 H RDW Coeff of Celest[place] 12.7 Plt Count 267 MPV 10.0 Immature Gran % (Auto) 0.200 Neut % (Auto) 39.1 L Lymph % (Auto) 42.9 H [place] % (Auto) 9.2 Eos % (Auto) 7.8 H Baso % (Auto) 0.8 Absolute Neuts (auto) 2.3 Absolute Lymphs (auto) 2.57 Nucleated RBC % 0 Sodium 141 Potassium 4.0 Chloride 112 H Carbon Dioxide 25.0 Anion Gap 4 L BUN 12 Creatinine 0.61 Estim Creat Clear Calc 136.80 Est GFR (MDRD) Af Amer 142 Est GFR (MDRD) Non-Af 117 BUN/Creatinine Ratio 19.7 Glucose 104 Calcium 8.6 Serum , Qual NEGATIVE Rhythm Strip Rhythm Strip: Sinus Rhythm Rate: 60 Ectopy: None EKG Initial EKG: Attestation: I personally reviewed and interpreted this EKG as follows: Interpretation: Sinus Rhythm and No Acute Injury Pattern Comments: Normal EKG Prior EKG tracings: available for review Prior: Unchanged Discharge Plan Triage Chief Complaint: Syncope ED Provider: Brian Hernadez Dx/Rx/DC Orders Clinical Impression: Vasovagal syncope Instructions: ED Fainting, Vagal Reaction Prescriptions: No Action Zubsolv 1.4-0.36 mg tablet, sublingual 1 tab SUBLINGUAL Q24H Patient Comments: DISSOLVE ONE TABLET UNDER THE TONGUE EVERY DAY acetaminophen 500 mg capsule 1,000 mg PO Q6H PRN (Reason: pain) Qty: 30 0RF albuterol sulfate [Ventolin HFA] 90 mcg/actuation HFA aerosol inhaler 1 - 2 puff inhalation Q4H PRN PRN (Reason: Wheezing) Qty: 1 0RF [facility]-5 Days if not improving Disposition Disposition: Home, Self Care
[2023-05-17 07:52] LABS: Absolute Lymphocyte Count 2.57 X10^3/uL (0.83-4.51); Absolute Neutrophil Count 2.3 X10^3/uL (2.0-7.7); Basophil# 0.05 X10^3/uL; Basophil% 0.8 % (0-1); Eosinophil# 0.47 X10^3/uL; Eosinophils% 7.8 % (0-5); Hematocrit 40.3 % (37-47); Lymphocyte # 2.57 X10^3/ul (0.83-4.51); Lymphocyte % 42.9 % (19-41); Mean Corp Hgb Conc 34.7 g/dL (32-36); Mean Corpuscular Hgb 33.7 pg (27.0-32.0); Mean Corpuscular Volume 96.9 fL (81-99); Monocyte# 0.55 X10^3/uL; Monocyte% 9.2 % (0-10); NRBC Flagged by Analyzer 0 % (0-5); Neutrophil # 2.34 X10^3/uL (2.7-7.7); Neutrophil % 39.1 % (47-70); Platelet Count 267 K/mm3 (150-450); RBC Distribution Width CV 12.7 % (11.6-14.6); RBC Distribution Width SD 45.7 fl (35.1-43.9); Red Blood Count 4.16 M/mm3 (4.2-5.4)
[2023-05-17 07:55] LABS: Internal QC Validated? YES +Cl - CLEAR BKGD; Pregnancy, Serum, hCG Quali. NEGATIVE Negative
[2023-05-17 08:00] LABS: Anion Gap 4 (5-15); BUN 12 mg/dL (7-18); BUN/Creat Ratio 19.7 RATIO (10-20); Calcium,Total 8.6 mg/dL (8.5-10.1); Chloride 112 mmol/L (98-107); Creatinine, Serum 0.61 mg/dL (0.55-1.02); EST Glomerular Filtration Rate 117 mL/min (>60); Est Glom Filt Rate - Afr Amer 142 mL/min (>60); Glucose 104 mg/dL (74-106); Sodium Level 141 mmol/L (136-145)
[2023-05-17 08:09] VITALS: BP 102/73; BP 109/82; BP 99/60; PULSE 55; PULSE 57; PULSE 72
[2023-05-17 08:40] VITALS: BP 91/68; PULSE 60; RESP 16; TEMP 36.6; O2SAT 98
== END 2023-05-17 08:41 | disposition home or self-care (01) ==
PROVIDERS: Emergency Provider Emergency Medicine; Visit Provider Emergency Medicine
DX: R55 Syncope and collapse (principal); F15.11 Other stimulant abuse, in remission; F11.11 Opioid abuse, in remission; F17.210 Nicotine dependence, cigarettes, uncomplicated
CPT/HCPCS: 80048; 84703; 85025; 93005; 99284; A4216

== ENCOUNTER → 2023-05-27 | Outpatient (CLI) | payer MEDICAID, SELFPAY ==
[2023-05-27 10:36] LABS: Hematocrit 42.1 % (37-47); Hemoglobin 14.6 g/dL (12.0-15.0); Mean Corp Hgb Conc 34.7 g/dL (32-36); Mean Corpuscular Hgb 33.6 pg (27.0-32.0); Mean Corpuscular Volume 96.8 fL (81-99); Platelet Count 301 K/mm3 (150-450); RBC Distribution Width CV 12.2 % (11.6-14.6); RBC Distribution Width SD 43.8 fl (35.1-43.9); Red Blood Count 4.35 M/mm3 (4.2-5.4); White Blood Count 9.9 K/mm3 (4.4-11.0)
[2023-05-27 11:03] LABS: Vitamin B12 374 pg/mL (211-911)
[2023-05-27 12:00] LABS: ALB/GLOB Ratio 1.1 RATIO (0.9-2.4); AST(SGOT) 48 U/L (15-37); Alanine Aminotransfer ALT/SGPT 83 U/L (13-56); Albumin, Serum 4.1 g/dL (3.2-5.0); Alkaline Phosphatase 56 U/L (45-117); Anion Gap 7 (5-15); BUN 20 mg/dL (7-18); BUN/Creat Ratio 30.1 RATIO (10-20); Chloride 106 mmol/L (98-107); Creatinine, Serum 0.66 mg/dL (0.55-1.02); EST Glomerular Filtration Rate 106 mL/min (>60); Est Glom Filt Rate - Afr Amer 128 mL/min (>60); Globulin 3.6 g/dL (2.2-4.2); Glucose 85 mg/dL (74-106); Iron 202 ug/dL (50-170); Iron Binding Capacity,Total 329 ug/dL (250-450); PERCENT IRON SATURATION 61.4 % (15.0-55.0); Potassium 3.6 mmol/L (3.5-5.1); Protein, Total 7.7 g/dL (6.4-8.2); Sodium Level 138 mmol/L (136-145); Thyroid Stim Hormone (TSH) 0.66 uIU/mL (0.358-3.74)
[2023-05-29 12:09] LABS: Vitamin D 1,25-Dihydroxy 29.3 pg/mL (24.8-81.5)
== END | disposition home or self-care (01) ==
LOC: LAB 10:16
PROVIDERS: PCP Nurse Practitioner Family; Referring Provider Nurse Practitioner Family; Visit Provider Nurse Practitioner Family
DX: D50.9 Iron deficiency anemia, unspecified (principal); E56.9 Vitamin deficiency, unspecified; R53.83 Other fatigue
CPT/HCPCS: 36415; 80053; 82607; 82652; 82746; 83540; 83550; 84443; 85027

== ENCOUNTER → 2023-09-04 | Outpatient (CLI) | payer MEDICAID, SELFPAY | END | disposition home or self-care (01) | LOC: SL 11:26 | PROVIDERS: PCP Nurse Practitioner Family; Visit Provider Nurse Practitioner Family | DX: G47.10 Hypersomnia, unspecified (principal) | CPT/HCPCS: 95806 ==

== ENCOUNTER 2023-11-15 22:46 | Emergency (ER) | payer SELFPAY ==
[2023-11-15 22:47] VITALS: BP 133/91; PULSE 63; RESP 18; TEMP 36.6; O2SAT 100; BMI 26.1
[2023-11-16] MEDS: Amox/Clavulanate 875 MG Tablet PO (01:18)
--- NOTE | 2023-11-16 02:00 | EX.ED.DYSGE1 ---
HPI History of Present Illness Chief Complaint: Ear Problem Narrative Narrative: Patient is a 30-year-old female with past medical history of substance abuse on Vivitrol, depression who presented to the emergency department with a chief complaint of right ear discharge. Patient states that she was following with ears nose and throat for right ear problems for a significant mount time however notes that she lost her insurance and had to discontinue this. States that she has not followed up with them in quite some time. States that she had discharge out of her right ear now for several weeks and states that she finally was able to come in today for the evaluation management. Patient states that she had been using Tylenol/ibuprofen for pain control. [facility] Medical History Ovarian torsion Low iron Depression Bowel obstruction History of ischemic colitis Substance abuse Home Medications ?Medication ?Instructions ?Recorded ?Last Taken ?Type buprenorphine 1.4 mg-naloxone 0.36 1 tab sublingual Q24H 10/03/22 01/07/23 History mg sublingual tablet (Zubsolv) acetaminophen 500 mg capsule 1,000 mg (2 x 500 mg) PO Q6H PRN 11/13/22 Unknown Rx pain #30 caps albuterol sulfate 90 mcg/actuation 1 - 2 puff inhalation Q4H PRN PRN 01/03/23 Unknown Rx aerosol inhaler (Ventolin HFA) Wheezing #1 ea amoxicillin 875 mg-potassium 1 tab PO Q12H 7 days #14 tabs 11/16/23 Unknown Rx clavulanate 125 mg tablet Allergy/AdvReac Type Severity Reaction Status Date / Time cefaclor (From Ceclor) Allergy Unknown Verified 11/15/23 22:47 duloxetine (From Cymbalta) Allergy Other Verified 11/15/23 22:47 Penicillins Allergy Unknown Verified 11/15/23 22:47 tramadol Allergy PT UNSURE Verified 11/15/23 22:47 OF REACTION ketorolac (From Toradol) AdvReac PT UNSURE Verified 11/15/23 22:47 OF REACTION Surgical History Hx of tympanostomy tubes Hx of knee surgery History of hip surgery H/O shoulder surgery Social History household members: significant other housing: apartment number of children: 1 current occupational status: employed Smoking Status: Current every day smoker tobacco type: cigarettes alcohol intake: never substance use type: former substance user ROS ROS ED ROS Narrative Constitutional: Denies fevers, chills, headaches, lightness, dizziness Eyes, ears, nose, throat: Complains of right ear discharge as noted above Cardiovascular: Denies chest pain or palpitations Respiratory: Denies shortness of breath Neurological: Denies numbness, weakness, tingling Skin: Denies rashes or lesions EXAM Physical Exam Narrative Exam Narrative: General: Patient is lying in bed rest comfortably did not appear to be acute distress Head: Atraumatic, normocephalic Eyes ears, nose, throat: PERRL bilaterally, EOMI bilaterally, no conjunctival injection noted, patient does have some discharge noted in her right external auditory ear canal however no evidence of otitis externa, is finding suggestive of a right otitis media, left ear evaluated TMs normal bilaterally, external auditory canal normal on the left side as well. No concern for mastoiditis Neck: Soft, supple, trachea midline Cardiovascular: Regular rate and rhythm no murmurs gallops rubs noted Respiratory: Clear to auscultation bilaterally no rales rhonchi or wheezes noted Abdomen: Soft, nondistended, nontender to palpation bowel sounds present x 4 Extremities: +5/5 strength noted in the bilateral upper and lower extremities Neurological: Patient follow commands knew that she was at [facility] years 2023 Skin: Warm, dry, intact Const Vital Signs: 11/15/23 22:47 Temperature 97.9 F Temperature Source Oral Pulse Rate 63 Respiratory Rate 18 Blood Pressure 133/91 H Blood Pressure Mean 105 Pulse Ox 100 Oxygen Delivery Method Room Air MDM MDM MDM Narrative Medical decision making narrative: Patient is a 38-year-old female who presented to the Emergency Department with a chief complaint of right ear discharge. Patient will have a workup performed on the differential diagnose includes but not limited to otitis externa, otitis media. Does appear that the patient has a right otitis media she will be given her first dose of antibiotics here. States that she has not had amoxicillin since being a child and does not recall what the reaction is. Patient states that she has had Augmentin in the past and tolerated this well without any difficulty. She will be given a dose of Augmentin here. On reevaluation the patient and she tolerated this antibiotic well she will be given a prescription for this sent to her pharmacy. She was advised to follow-up with her primary care physician outpatient setting. She is encouraged return with worsening symptoms or other concerns. She is agreeable to plan she would like to go home concerns answered she is discharged home in stable condition. Discharge Plan Triage Chief Complaint: Ear Problem ED Provider: Duc Oden Dx/Rx/DC Orders Clinical Impression: Otitis media Prescriptions: New amoxicillin-pot clavulanate 875-125 mg tablet 1 tab PO Q12H 7 Days Qty: 14 0RF No Action Zubsolv 1.4-0.36 mg tablet, sublingual 1 tab SUBLINGUAL Q24H Patient Comments: DISSOLVE ONE TABLET UNDER THE TONGUE EVERY DAY acetaminophen 500 mg capsule 1,000 mg PO Q6H PRN (Reason: pain) Qty: 30 0RF albuterol sulfate [Ventolin HFA] 90 mcg/actuation HFA aerosol inhaler 1 - 2 puff inhalation Q4H PRN PRN (Reason: Wheezing) Qty: 1 0RF Primary Care Provider: Jennifer Kwon Referrals: Jenniefr Kwon, [employer] [Primary Care Provider] - Activity Restrictions/Additional Instructions: Follow with your primary care physician outpatient setting. Take antibiotics as prescribed. Return with worsening symptoms or other concerns. Print Language: Nepali Disposition Disposition: Home, Self Care
== END 2023-11-16 02:11 | disposition home or self-care (01) ==
PROVIDERS: Emergency Provider Emergency Medicine; PCP Nurse Practitioner Family; Visit Provider Emergency Medicine
DX: H66.91 Otitis media, unspecified, right ear (principal); F32.A Depression, unspecified; Z79.899 Other long term (current) drug therapy; F17.210 Nicotine dependence, cigarettes, uncomplicated
CPT/HCPCS: 99282

== ENCOUNTER 2024-02-12 22:30 | Emergency (ER) | payer SELFPAY ==
[2024-02-12 22:31] VITALS: BP 126/88; PULSE 72; RESP 15; TEMP 36.7; O2SAT 100; BMI 26.3
[2024-02-12 22:40] VITALS: O2SAT 100
--- NOTE | 2024-02-12 22:49 | RAD_ITS ---
EXAM: XR CHEST, 2 VIEWS CLINICAL INDICATION: cough TECHNIQUE: Frontal and lateral views of the chest. COMPARISON: 01/03/2023 FINDINGS: LUNGS AND PLEURAL SPACES: No significant abnormality. No consolidation or edema. No pneumothorax. No effusion. HEART: No significant abnormality. Cardiac silhouette not enlarged. MEDIASTINUM: Central airways and mediastinal contour are unremarkable. BONES/JOINTS: No significant abnormality. No acute fracture. SOFT TISSUES: No significant abnormality. RAD/Chest PA and Lateral IMPRESSION: No radiographic evidence of acute cardiopulmonary disease. Electronically Signed: Carlos Eduardo Salazar DO at 23:10 EST ,
--- NOTE | 2024-02-12 23:35 | EDS_ITS ---
HPI History of Present Illness Chief Complaint: Shortness of Breath Informant: patient Narrative Narrative: Patient is a 38-year-old female with past medical history of smoking but she denies any diagnosis of COPD or emphysema. She states that over the last 2 days she has had increased fatigue sinus pressure and cough. She states that she has had pneumonia in the past. The patient reports she has concern she is developing pneumonia at this time because of her progressive symptoms and therefore comes in for evaluation [facility] Medical History Ovarian torsion Low iron Depression Bowel obstruction History of ischemic colitis Substance abuse Home Medications ?Medication ?Instructions ?Recorded ?Last Taken ?Type acetaminophen 500 mg capsule 1,000 mg (2 x 500 mg) PO Q6H PRN 11/13/22 Unknown Rx pain #30 caps albuterol sulfate 90 mcg/actuation 1 - 2 puff inhalation Q4H PRN PRN 01/03/23 Unknown Rx aerosol inhaler (Ventolin HFA) Wheezing #1 ea ibuprofen 800 mg tablet 800 mg PO TID PRN PRN pain 02/12/24 Unknown History naltrexone microspheres 380 mg 380 mg IM QMONTH 02/12/24 Unknown History intramuscular suspension,extended release (Vivitrol) azelastine 137 mcg (0.1 %) nasal 2 spray intranasal BID #30 mL 02/13/24 Unknown Rx spray benzonatate 200 mg capsule 200 mg PO TID PRN cough #30 caps 02/13/24 Unknown Rx prednisone 20 mg tablet 40 mg (2 x 20 mg) PO DAILY 5 days 02/13/24 Unknown Rx #10 tabs Allergy/AdvReac Type Severity Reaction Status Date / Time cefaclor (From Ceclor) Allergy Unknown Verified 02/12/24 22:34 duloxetine (From Cymbalta) Allergy Other Verified 02/12/24 22:34 Penicillins Allergy Unknown Verified 02/12/24 22:34 tramadol Allergy PT UNSURE Verified 02/12/24 22:34 OF REACTION ketorolac (From Toradol) AdvReac PT UNSURE Verified 02/12/24 22:34 OF REACTION Surgical History Hx of tympanostomy tubes Hx of knee surgery History of hip surgery H/O shoulder surgery Social History household members: significant other housing: apartment number of children: 1 current occupational status: employed Smoking Status: Current every day smoker tobacco type: cigarettes and e- cigarettes alcohol intake: never substance use type: former substance user ROS ROS ED Constitutional Constitutional ED: Denies chills or fever(s) Eyes Eyes: Denies change in vision or diplopia ENT ENT ED: Reports rhinorrhea; Denies sore throat Cardiovascular Cardiovascular: Denies chest pain Respiratory/Chest Respiratory/Chest: Reports cough; Denies dyspnea Gastrointestinal Gastrointestinal: Denies abdominal pain, diarrhea, nausea or vomiting Genitourinary Genitourinary ED: Denies dysuria Musculoskeletal Musculoskeletal: Reports myalgias Integumentary Denies rash Neurologic Neurologic: Denies headache(s) Hematologic/Lymphatic Hematologic/Lymphatic: Denies easy bleeding or easy bruising Allergic/Immunologic Allergic/Immunologic ED: Denies mouth swelling or tongue swelling EXAM Physical Exam Const Vital Signs: 02/12/24 22:31 02/12/24 22:40 Temperature 98.1 F Temperature Source Temporal Pulse Rate 72 Respiratory Rate 15 Respiratory Effort Normal Non-Labored Respiratory Depth Normal Respiratory Pattern Normal Blood Pressure 126/88 H Blood Pressure Mean 100 Pulse Ox 100 Oxygen Delivery Method Room Air Room Air Positive well nourished and well developed General Appearance ED: well developed; Negative for pallor HEENT HEENT Narrative: Nasal mucosa is hyperemic and boggy with enlarged inferior nasal turbinates right greater than left There is cobblestoning noted in the posterior pharynx consistent with sinus drainage without airway edema or compromise No secondary findings to suggest infection Eyes PERRL and EOMs intact bilaterally Neck supple and no JVD Neck Narrative: No nuchal rigidity or meningeal signs Chest Wall palpation of chest normal Resp normal respiratory effort Resp Narrative: Breath sounds are diminished throughout with faint expiratory wheeze diffusely and scattered rhonchi in the bilateral bases consistent with history of smoking but no signs of respiratory distress Cardio regular rate and regular rhythm Extremity normal to inspection Extremity Narrative: No asymmetric edema no pitting edema negative Homans' sign bilaterally Neuro oriented x3, CN's II-XII intact bilaterally and no sensory deficits noted Sensorium / Orientation: alert Motor Exam: strength 5/5 throughout Psych mental status grossly normal Skin no rashes or lesions noted General Skin Exam: Negative for jaundice or pallor MDM MDM MDM Narrative Medical decision making narrative: Patient arrived to the ER with stable vitals. Her pulse ox was 100% on room air and she had no signs of respiratory distress. Her constellation of symptoms and physical exam is most consistent with a viral URI which could be related to COVID versus influenza versus RSV. Therefore a viral swab will be obtained. Physical exam does not suggest pneumonia but she has concern for this so a two- view chest x-ray was ordered. X-ray confirmed no acute lung pathology such as pneumonia pneumothorax or pleural effusion. Viral swab was negative for COVID RSV or influenza but her constellation of symptoms is most consistent with a developing viral process. However at this time she is not in respiratory distress and she is not requiring supplemental oxygen so there is no need for further workup. Patient will be discharged home with symptomatic care History & Record Review Discussion w/independent historian: Patient Radiography Diagnostic Testing: Clinical Impression(s) from Imaging Studies Chest X-Ray 02/12/24 22:49 IMPRESSION: No radiographic evidence of acute cardiopulmonary disease. Electronically Signed: Carlos Eduardo Salazar DO at 23:10 EST , 2 view chest x-ray as interpreted by the emergency medicine physician reveals no acute infiltrate pneumothorax pleural effusion or widening the mediastinum Discharge Plan Triage Chief Complaint: Shortness of Breath ED Provider: Gopi Betts Dx/Rx/DC Orders Clinical Impression: Viral upper respiratory tract infection with cough, Tobacco use disorder, moderate, dependence Instructions: ED URI, Viral, No Abx (Adult) Prescriptions: New prednisone 20 mg tablet 40 mg PO DAILY 5 Days Qty: 10 0RF azelastine 137 mcg (0.1 %) spray,non-aerosol 2 spray intranasal BID Qty: 30 0RF Rx Instructions: administer into each nostril benzonatate 200 mg capsule 200 mg PO TID PRN (Reason: cough) Qty: 30 0RF No Action acetaminophen 500 mg capsule 1,000 mg PO Q6H PRN (Reason: pain) Qty: 30 0RF albuterol sulfate [Ventolin HFA] 90 mcg/actuation HFA aerosol inhaler 1 - 2 puff inhalation Q4H PRN PRN (Reason: Wheezing) Qty: 1 0RF Vivitrol 380 mg suspension,extended rel recon 380 mg IM QMONTH ibuprofen 800 mg tablet 800 mg PO TID PRN PRN (Reason: pain) Primary Care Provider: Jennifer Kwon Referrals: Jennifer Kwon, [employer] [Primary Care Provider] - Activity Restrictions/Additional Instructions: You tested negative for COVID influenza and RSV and your chest x-ray does not show pneumonia. Your symptoms and exam are consistent with an upper respiratory tract infection which is a viral infection and will typically take 2 to 3 weeks to resolve completely. Take the prescribed medication as directed to help reduce symptoms and return to the ER should you have any further concerns Print Language: Thai Disposition Disposition: Home, Self Care
[2024-02-13] MEDS: Benzonatate 100 MG Capsule 200 MG PO (00:27)
[2024-02-13] MEDS: predniSONE 20 MG Tablet 60 MG PO (00:27)
== END 2024-02-13 00:29 | disposition home or self-care (01) ==
PROVIDERS: Emergency Provider Emergency Medicine; PCP Nurse Practitioner Family; Visit Provider Emergency Medicine
DX: J06.9 Acute upper respiratory infection, unspecified (principal); F17.210 Nicotine dependence, cigarettes, uncomplicated; F17.290 Nicotine dependence, other tobacco product, uncomplicated; R05.9 Cough, unspecified
CPT/HCPCS: 71046; 87631; 99283

== ENCOUNTER → 2024-03-27 | Outpatient (CLI) | payer OTHER, SELFPAY | END | disposition home or self-care (01) | LOC: LABSPEC 17:00 | PROVIDERS: PCP Nurse Practitioner Family | DX: N39.0 Urinary tract infection, site not specified (principal) | CPT/HCPCS: 87086 ==

== ENCOUNTER → 2024-03-31 | Outpatient (CLI) | payer OTHER, SELFPAY ==
[2024-03-31 12:47] LABS: Absolute Lymphocyte Count 2.69 X10^3/uL (0.83-4.51); Absolute Neutrophil Count 2.2 X10^3/uL (2.0-7.7); Basophil# 0.03 X10^3/uL; Basophil% 0.5 % (0-1); Eosinophil# 0.28 X10^3/uL; Eosinophils% 4.8 % (0-5); Hematocrit 42.9 % (37-47); Hemoglobin 14.4 g/dL (12.0-15.0); Lymphocyte # 2.69 X10^3/ul (0.83-4.51); Lymphocyte % 46.1 % (19-41); Mean Corp Hgb Conc 33.6 g/dL (32-36); Mean Corpuscular Hgb 31.2 pg (27.0-32.0); Mean Corpuscular Volume 92.9 fL (81-99); Mean Platelet Vol. 10.4 fl (6.2-12.0); Monocyte# 0.59 X10^3/uL; Monocyte% 10.1 % (0-10); NRBC Flagged by Analyzer 0 % (0-5); Neutrophil # 2.24 X10^3/uL (2.7-7.7); Neutrophil % 38.3 % (47-70); Platelet Count 250 K/mm3 (150-450); RBC Distribution Width CV 12.8 % (11.6-14.6); RBC Distribution Width SD 43.6 fl (35.1-43.9); Red Blood Count 4.62 M/mm3 (4.2-5.4); White Blood Count 5.8 K/mm3 (4.4-11.0)
[2024-03-31 13:57] LABS: AST(SGOT) 48 U/L (15-37); Alanine Aminotransfer ALT/SGPT 84 U/L (13-56); Albumin, Serum 3.9 g/dL (3.2-5.0); Alkaline Phosphatase 56 U/L (45-117); Anion Gap 6 (5-15); BUN 17 mg/dL (7-18); BUN/Creat Ratio 27.9 RATIO (10-20); Calcium,Total 9.2 mg/dL (8.5-10.1); Chloride 107 mmol/L (98-107); Cholesterol 202 mg/dL (200); Creatinine, Serum 0.61 mg/dL (0.55-1.02); EST Glomerular Filtration Rate 116 mL/min (>60); Est Glom Filt Rate - Afr Amer 141 mL/min (>60); Globulin 3.9 g/dL (2.2-4.2); Glucose 89 mg/dL (74-106); High Density Lipoprotein 71 mg/dL; Potassium 4.5 mmol/L (3.5-5.1); Protein, Total 7.8 g/dL (6.4-8.2); Sodium Level 137 mmol/L (136-145); Triglycerides 65 mg/dL; Very Low Density Lipoprotein 13 mg/dL (5-40)
== END | disposition home or self-care (01) ==
PROVIDERS: PCP Nurse Practitioner Family
DX: Z13.6 Encounter for screening for cardiovascular disorders (principal); Z13.1 Encounter for screening for diabetes mellitus; Z13.220 Encounter for screening for lipoid disorders
CPT/HCPCS: 36415; 80053; 80061; 83036; 84443; 85025

== ENCOUNTER → 2024-07-10 | Outpatient (CLI) | payer OTHER, SELFPAY ==
[2024-07-10 10:41] LABS: Bacteria 0 SEEN /hpf (None Seen); Mucous, Urine 0 SEEN /hpf (<or=2+)
[2024-07-10 11:21] LABS: Color, Urine Yellow (Yellow); Glucose, Dipstick Normal (Normal); Ketone-Dipstick Negative (Negative); Leukocyte Esterase-Dipstick Negative /ul (Negative); Nitrite-Dipstick Negative (Negative); Occult Blood-Urine Negative /ul (Negative); Protein-Dipstick 15 mg/dl (Negative); Specific Gravity, Urine 1.015 (1.002-1.030); Urine Bilirubin Dipstick Negative (Negative); Urine Clarity Clear (Clear); Urine Urobilinogen Normal (Normal)
[2024-07-10 11:28] LABS: Absolute Lymphocyte Count 2.13 X10^3/uL (0.83-4.51); Absolute Neutrophil Count 4.4 X10^3/uL (2.0-7.7); Basophil# 0.03 X10^3/uL; Basophil% 0.4 % (0-1); Eosinophil# 0.34 X10^3/uL; Eosinophils% 4.6 % (0-5); Hematocrit 44.3 % (37-47); Hemoglobin 15.1 g/dL (12.0-15.0); Lymphocyte # 2.13 X10^3/ul (0.83-4.51); Lymphocyte % 28.6 % (19-41); Mean Corp Hgb Conc 34.1 g/dL (32-36); Mean Corpuscular Hgb 31.9 pg (27.0-32.0); Mean Corpuscular Volume 93.7 fL (81-99); Mean Platelet Vol. 10.4 fl (6.2-12.0); Monocyte# 0.54 X10^3/uL; Monocyte% 7.2 % (0-10); NRBC Flagged by Analyzer 0 % (0-5); Neutrophil # 4.41 X10^3/uL (2.7-7.7); Neutrophil % 59.1 % (47-70); Platelet Count 276 K/mm3 (150-450); RBC Distribution Width CV 12.7 % (11.6-14.6); Red Blood Count 4.73 M/mm3 (4.2-5.4); White Blood Count 7.5 K/mm3 (4.4-11.0)
[2024-07-10 11:36] LABS: Red Blood Cells-Urine 0-5 SEEN /hpf (0-5); Squamous Epithelial Cells - UA 0-5 SEEN /hpf (5-10); White Blood Cells 0-5 SEEN /hpf (0-5)
[2024-07-10 12:25] LABS: Iron 267 ug/dL (50-170); Iron Binding Capacity,Total 337 ug/dL (250-450); Iron Binding Capacity,Unsat 70 ug/dL (228-428)
[2024-07-10 12:27] LABS: Ferritin 23 ng/mL (22-378); Thyroid Stim Hormone (TSH) 0.883 uIU/mL (0.300-4.200); Vitamin B12 602 pg/mL (180-914); Vitamin D,25 Hydroxy 27.8 ng/mL (30-100)
[2024-07-10 15:38] LABS: Color, Urine Straw (Yellow); Glucose, Dipstick Normal (Normal); Ketone-Dipstick Negative (Negative); Leukocyte Esterase-Dipstick Negative /ul (Negative); Nitrite-Dipstick Negative (Negative); Occult Blood-Urine Negative /ul (Negative); Protein-Dipstick Negative (Negative); Specific Gravity, Urine 1.005 (1.002-1.030); Urine Bilirubin Dipstick Negative (Negative); Urine Clarity Clear (Clear); Urine Urobilinogen Normal (Normal); Urine pH 6.5 (5.0 - 8.0)
[2024-07-15 14:08] LABS: HEPATITIS B SURFACE AG Negative (Negative); Hep C Antibodies Reactive (Non Reactive); Hepatitis A IgM Antibody Negative (Negative); Hepatitis B Core AB IgM Negative (Negative); Hepatitis C Quant 251000 IU/mL (.)
== END | disposition home or self-care (01) ==
PROVIDERS: PCP Nurse Practitioner Family
DX: R74.8 Abnormal levels of other serum enzymes (principal); R53.83 Other fatigue; R35.0 Frequency of micturition
CPT/HCPCS: 36415; 80074; 81001; 81002; 82306; 82607; 82728; 83540; 83550; 84443; 85025; 87086; 87088

== ENCOUNTER → 2024-07-22 | Outpatient (CLI) | payer OTHER, SELFPAY ==
[2024-07-22 15:47] LABS: International Normalized Ratio 0.9; Prothrombin Time (Protime)PT. 12.1 SECONDS (11.7-14.9)
[2024-07-22 16:39] LABS: ALB/GLOB Ratio 1.6 RATIO (0.9-2.4); AST(SGOT) 27 U/L (<=31); Alanine Aminotransfer ALT/SGPT 43 U/L (<=34); Albumin, Serum 4.5 g/dL (3.5-5.0); Alkaline Phosphatase 48 U/L (35-104); Anion Gap 13 (5-15); BUN 14 mg/dL (4-19); BUN/Creat Ratio 21.7 RATIO (10-20); Calcium,Total 9.2 mg/dL (7.6-11.0); Carbon Dioxide 19.2 mmol/L (21.0-32.0); Chloride 105 mmol/L (98-108); Creatinine, Serum 0.63 mg/dL (0.70-1.20); EST Glomerular Filtration Rate 116 (>60); Globulin 2.8 g/dL (2.2-4.2); Glucose 116 mg/dL (70-99); Potassium 3.8 mmol/L (3.3-5.1); Protein, Total 7.2 g/dL (5.9-8.4); Sodium Level 138 mmol/L (133-145); Total Bilirubin 0.47 mg/dL (0.00-1.30)
[2024-07-22 16:49] LABS: HIV Nonreactive (Nonreactive)
[2024-07-26 23:07] LABS: Hepatitis C Genotype 1a (.)
== END | disposition home or self-care (01) ==
LOC: LAB 14:34
PROVIDERS: Student in an Organized Health Care Education/Training Program; PCP Nurse Practitioner Family
DX: B18.2 Chronic viral hepatitis C (principal)
CPT/HCPCS: 36415; 80053; 85610; 86703; 87902

== ENCOUNTER → 2024-07-30 | Outpatient (CLI) | payer OTHER, SELFPAY ==
--- OUTSIDE RECORDS SUMMARY | 2024-07-30 07:13 | XMS RPT_ITS | CCD ---
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 liver, risk for hepatocellular carcinoma, diabetes, and heart disease due to iron accumulation. Life expectancy may be decreased in individuals who develop cirrhosis. Treatment for clinically symptomatic individuals may include therapeutic phlebotomy. Liver transplant may be used to treat end stage liver failure. For preventive care, monitoring for iron overload is recommended for patients who are homozygous for c.845G>A (p.Hvp792Uhl) and have yet to experience clinical symptoms. Comments: The most common HFE variants associated with hereditary hemochromatosis are c.845G>A (p.Ruy722Kml), c.187C>G (p.Yto74Vfw), c.193A>T (p.Zue87Fnc). While patients homozygous for c.845G>A (p.Kea405Fmp) are the most likely to present clinical symptoms, less than 10% develop clinically significant iron overload with tissue and organ damage. Genetic counseling is recommended to discuss the potential clinical implications of positive results, as well as recommendations for testing family members. Genetic Coordinators are available for health care providers to discuss results at [phone] Test Details: Three variants analyzed: c.845G>A (p.Gjo958Iaa), commonly referred to as C282Y c.187C>G (p.Zew37Mkr), commonly referred to as H63D c.193A>T (p.Ijn46Yaj), commonly referred to as S65C Methods/Limitations: DNA Analysis of the HFE gene (NM_000410.4) was performed by PCR amplification followed by restriction enzyme digestion analyses. Results must be combined with clinical information for the most accurate interpretation. Molecular- based testing is highly accurate, but as in any laboratory test, diagnostic errors may occur. False positive or false negative results may occur for reasons that include genetic variants, blood transfusions, bone marrow transplantation, somatic or tissue-specific mosaicism, mislabeled samples, or erroneous representation of family relationships. This test was developed and its performance characteristics determined by [employer]. It has not been cleared or approved by the Food and Drug Administration. References: Ignacio BR, Law PC, Andres KV, Stiven LW, Payton ; [employer]. Diagnosis and management of hemochromatosis: 2011 practice guideline by the [employer] Liver Diseases. Hepatology. 2011 Aug;54(1):328-43. doi: 10.1002/hep.08532. PMID: 73645048; PMCID: DJH8015368. Asif G, Aida P, Aury DW, Lynn H, Cuong O, Kaiden S, Balta I, Sage M, Saranya S. [facility] best practice guidelines for the molecular genetic diagnosis of hereditary hemochromatosis (HH). Eur J Hum Anali. 2016 May;24(4):479-95. doi: 10.1038/ejhg.2015.128. Epub 2014Aug 25. PMID: 02124785; PMCID: ZHX9875991. Reviewed by: Comment Reference Range: . Technical Component performed at [facility] RTP Professional Component performed by: Joe Mack, PhD, [facility] TPTGD5, [facility], [address] [facility] [id number] Performed at: [facility] RT [address] [facility], [facility], [place] [id number] Brickmason: Alesia Olivares [facility], Phone: [phone] Performed at: [address] [id number] Brickmason: Junior Vo PhD, Phone: [phone] Performed By: #### L 881.8562, Q169.4440, Z5764.9085 ####[facility] [address] [place], [address] Hepatitis C Genotypeon 07-26 HEP C GENOTYPE 1a Normal . [facility] Comment on above: Order Comment: Test( s) 457273-Pjmamnbca C Genotypewas developed and its performance characteristicsdetermined by [facility]. It has not been cleared or approvedby the Food and Drug Administration. Result Comment: Perf ormed at: [address], [place] [id number] Brickmason: Radha Lord MD, Phone: [phone] Performed By: #### L 7000.8000, L3410.9992, L3890.6006 ####[facility] [address] [place], [address] Anion gap in Serum or Plasma Ordered By: Xiomara Aguillon on 07-22-2024 Anion gap [Moles/Vol] 13 mmol/L 5- [facility] BUN/creatinine ratioOrdered By: Xiomara Aguillon on 07-22-2024 Urea nitrogen/Creatinine [Mass ratio] 21.7 mg/mg High 10-20 [facility] Bilirubin, totalOrdered By: Xiomara Aguillon on 07-22-2024 Bilirubin [Mass/Vol] 0.47 mg/dL 0.00-1.30 [facility] Carbon dioxide, total [Moles /volume] in Central venous bloodOrdered By: Xiomara Aguillon on 07-22-2024 CO2 [Moles/Vol] 19.2 mmol/L Low 21.0-32.0 [facility] Chloride assayOrdered By: Margo Aguillon on 07-22-2024 Chloride [Moles/Vol] 105 mmol/L 98-108 [facility] Comprehensive Metabolic Prof ilon 07-22-2024 Albumin [Mass/Vol] 4.5 g/dL Normal 3.5-5.0 [facility] Comment on above: Performed By: #### L 500.4050, L300.3900, L3410.9992 ####[facility] [address] [place], [address] Albumin/Globulin [Mass ratio] 1.6 {ratio} Normal 0.9-2.4 [facility] Comment on above: Performed By: #### L 500.4050, L300.3900, L3410.9992 ####[facility] [address] [place], [address] ALK PHOS 48 U/L Normal 35-104 [facility] Comment on above: Performed By: #### L 500.4050, L300.3900, L3410.9992 ####[facility] [address] [place], [address] ALT [Catalytic activity/Vol] 43 U/L High <=34 [facility] Comment on above: Performed By: #### L 500.4050, L300.3900, L3410.9992 ####[facility] [address] [place], [address] AST [Catalytic activity/Vol] 27 U/L Normal <=31 [facility] Comment on above: Performed By: #### L 500.4050, L300.3900, L3410.9992 ####[facility] [address] [place], [address] Bilirubin [Mass/Vol] 0.47 mg/dL Normal 0.00-1.30 [facility] Comment on above: Performed By: #### L 500.4050, L300.3900, L3410.9992 ####[facility] [address] [place], [address] BUN/CRE 21.7 RATIO High 10-20 [facility] Comment on above: Performed By: #### L 500.4050, L300.3900, L3410.9992 ####[facility] [address] [place], [address] Calcium [Mass/Vol] 9.2 mg/dL Normal 7.6-11.0 [facility] Comment on above: Performed By: #### L 500.4050, L300.3900, L3410.9992 ####[facility] [address] [place], [address] Chloride [Moles/Vol] 105 mmol/L Normal 98-108 [facility] Comment on above: Performed By: #### L 500.4050, L300.3900, L3410.9992 ####[facility] [address] [place], [address] CO2 [Moles/Vol] 19.2 mmol/L Low 21.0-32.0 [facility] Comment on above: Performed By: #### L 500.4050, L300.3900, L3410.9992 ####[facility] [address] [place], [address] Creatinine [Mass/Vol] 0.63 mg/dL Low 0.70-1.20 [facility] Comment on above: Performed By: #### L 500.4050, L300.3900, L3410.9992 ####[facility] [address] [place], [address] GAP 13 Normal 5-15 [facility] Comment on above: Performed By: #### L 500.4050, L300.3900, L3410.9992 ####[facility] [address] [place], [address] GFR/1.73 sq M.predicted among non-blacks MDRD (S/P/Bld) [Vol rate/Area] 116 mL/min/{1.73_m2} Normal >60 [facility] Comment on above: Result Comment: mL/m in/1.73m2 CKD-EPI Creatinine Equation (2020) Performed By: #### L 500.4050, L300.3900, L3410.9992 ####[facility] [address] [place], [address] Globulin (S) [Mass/Vol] 2.8 g/dL Normal 2.2-4.2 [facility] Comment on above: Performed By: #### L 500.4050, L300.3900, L3410.9992 ####[facility] [address] [place], [address] Glucose [Mass/Vol] 116 mg/dL High 70-99 [facility] Comment on above: Performed By: #### L 500.4050, L300.3900, L3410.9992 ####[facility] [address] [place], [address] Potassium [Moles/Vol] 3.8 mmol/L Normal 3.3-5.1 [facility] Comment on above: Performed By: #### L 500.4050, L300.3900, L3410.9992 ####[facility] [address] [place], [address] Sodium [Moles/Vol] 138 mmol/L Normal 133-145 [facility] Comment on above: Performed By: #### L 500.4050, L300.3900, L3410.9992 ####[facility] [address] [place], [address] T PROT 7.2 g/dL Normal 5.9-8.4 [facility] Comment on above: Performed By: #### L 500.4050, L300.3900, L3410.9992 ####[facility] [address] [place], [address] Urea nitrogen [Mass/Vol] 14 mg/dL Normal 4-19 [facility] Comment on above: Performed By: #### L 500.4050, L300.3900, L3410.9992 ####[facility] [address] [place], [address] Gastroenterology Visit Repor ton 07-22-2024 Gastroenterology Visit Report [facility] [address] [place] [address] OFFICE VISIT Date of Service: 07/22/24 MR#: [id number] Acct: [id number] Name: MARILEE BOCANEGRA Rep #: [id number] : 1985 Provider: ZOË Benoit Age/Sex: 39/F Location: [facility] Status: Signed Intake Vital Signs 02/12/24 22:31 07/21/24 08:07 Height 5 ft 8 in 5 ft 8 in Intake Visit Reasons: pre colonoscopy abdominal pain Chief Complaint: hep C Allergies cefaclor (From Ceclor) Allergy (Verified 02/12/24 22:34) Unknown duloxetine (From Cymbalta) Allergy (Verified 02/12/24 22:34) Other Penicillins Allergy (Verified 02/12/24 22:34) Unknown tramadol Allergy (Verified 02/12/24 22:34) PT UNSURE OF REACTION ketorolac (From Toradol) Adverse Reaction (Verified 02/12/24 22:34) PT UNSURE OF REACTION Medications ???Medication ???Instructions ???Recorded ???Confirmed ???Type acetaminophen 500 mg capsule 1,000 mg (2 x 500 mg) PO Q6H PRN 0 11/13/22 07/22/24 Rx pain #30 caps ibuprofen 800 mg tablet 800 mg PO TID PRN PRN pain 4 07/22/24 History cholecalciferol (vitamin D3) 50 50 mcg PO QDAY 07/22/24 07/22/24 H istory mcg (2,000 unit) capsule omeprazole 40 mg capsule,delayed mg PO QDAY 07/22/24 07/22/24 Histo ry release Patient : No Nurse's Note: OV 07/22/24 Pt here to establish care with [facility]. Pt reports abdominal pain, constipation, gas, bloating, and heartburn. Prior hx of colonoscopy in 2012. Takes omeprazole daily. PFSH Medical History Ovarian torsion Low iron Depression Bowel obstruction History of ischemic colitis Substance abuse Surgical History Hx of tympanostomy tubes Hx of knee surgery History of hip surgery H/O shoulder surgery Social History household members: significant other housing: apartment number of children: 1 current occupational status: employed Smoking Status: Current every day smoker tobacco type: cigarettes and e-cigarettes alcohol intake: never substance use type: former substance user HPI HPI Chief Complaint: hep C Details: MARILEE BOCANEGRA, is a 39 F who presents to the office today for establishment with [facility]. Referred to [facility] from PCP for hep C, elevated LFTs and elevated iron with high saturation and low ferritin. Pt has hx of IVDU in past but has been sober for about 17 months on Vivitrol. She has been sober from alcohol for 8 years. She has not had treatment for hepatitis C. Per chart she had hep c antibody in 2022. Pt notes she typically has low iron. She endorses fatigue and intermittent abdominal pain. She had a colonoscopy about 10 years ago for ischemic colitis and was found to have polyps. ROS Const Constitutional: Positive for fatigue and headache(s); No fever(s) or weight change ENT ENT: Positive for headache(s); No difficulty swallowing Gastro GI: Positive for abdominal pain, bloating, constipation, heartburn, excessive flatus and Blood in stool; No belching, change in bowel habits, change in stool character, coffee ground emesis, cramping, diarrhea, difficulty swallowing, feeling full early, incontinent of stools, Vomiting blood/hematemesis, loose stools, Black,tarry stools, nausea/dyspepsia, pain with swallowing, vomiting or other Musc Musculoskeletal: Positive for joint pain, back pain, muscle cramps and sciatica Skin Skin: No yellowing of the eye or itchy eyes Neuro Neurology: Positive for headache(s) Psych Psychiatric: No anxiety and No depression Endo Endocrine: Positive for fatigue; No weight change Aller/Imm Allergy/Immunologic: No itchy eyes Ho/Lymp Hematologic/Lymphatic: No easy bleeding or easy bruising Exam Const General: cooperative and healthy appearing Resp Effort Inspection: normal respiratory effort Cardio Rate: regular rate Rhythm: regular rhythm GI Inspection: normal to inspection Auscultation: normal bowel sounds Palpation: soft, no hepatosplenomegaly and nontender Assessment and Plan Assessment and Plan (1) Hepatitis C: Status: Acute Plan: Marilee is a 39 yo female pt here today for evaluation of hepatitis c antibodies with viral load. She has never been treated for acute infection. Per chart, it does show she positive antibody for Hepatitis C in 2022 as well as form June 2024. SHe will need treatment for Hep C and will f/u with Dr. Hopper for this. Blood work from June 2024 also showing, elevated iron, high saturation and low ferritin. Elevated iron is consistent with hereditary hemochromatosis however ferritin is lower end of normal which would be abnormal for someone with hemochromatosis. Will order genetic testing for HFE. She will will al (more content not included)... Normal [facility] Glomerular filtration rate ( GFR) estimation/1.73 sq m using serum, plasma, or whole bOrdered By: Xiomara Aguillon on 07-22-2024 GFR/1.73 sq M.predicted among non-blacks MDRD (S/P/Bld) [Vol rate/Area] 116 mL/min/{1.73_m2} >60 [facility] Comment on above: mL/min/1.73m2 CKD-EP I Creatinine Equation (2020) HIVon 07-22-2024 HIV Non-Reactive Normal Nonreactive [facility] Comment on above: Result Comment: Non- Reactive Reactive Repeatedly reactive samples must be confirmed according to CDC recommended confirmatory algorithms. The subresults for either HIVAG or AHIV can be used as an aid in the selection of the confirmation algorithm for reactive samples. Send out specimens with Reactive results to [facility] for confirmation. Order the HIV antibody detection and differentiation: #[id number] Performed By: #### L 7000.8000, L3410.9992, L3890.6006 ####[facility] [address] [place], [place], [id number] International normalized rat io (INR) calculationOrdered By: Xiomara Aguillon on 07-22-2024 INR Coag (Bld) [Relative time] 0.9 {INR} [facility] Laboratory - Chemistry and C hemistry - challengeOrdered By: Xiomara Aguillon on 07-22-2024 AST [Catalytic activity/Vol] 27 U/L <32 [facility] No Panel InformationOrdered By: Meenakshi Fernández on 07-22-2024 HIV (1&2) Antibody Non-Reactive Nonreactive [facility] Comment on above: Non-ReactiveReactive Repeatedly reactive samples must be confirmed according to CDC recommended confirmatory algorithms. The subresults for either HIVAG or AHIV can be used as an aid in the selection of the confirmation algorithm for reactive samples.Send out specimens with Reactive results to [facility] for confirmation.Order the HIV antibody detection and differentiation: #[id number] Potassium measurement (mass/ volume)Ordered By: Xiomara Aguillon on 07-22-2024 Potassium (Unsp spec) [Mass/Vol] 3.8 mmol/L 3.3-5.1 [facility] Prothrombin Time w/INRon INR Coag (PPP) [Relative time] 0.9 {INR} Normal [facility] Comment on above: Performed By: #### L 500.4050, L300.3900, L3410.9992 ####[facility] [address] [place], [place], [address] PT Coag (PPP) [Time] 12.1 s Normal 11.7-14.9 [facility] Comment on above: Performed By: #### L 500.4050, L300.3900, L3410.9992 ####[facility] [address] [place], [address] Prothrombin timeOrdered By: Xiomara Aguillon on 07-22-2024 PT Coag (PPP) [Time] 12.1 s 11.7-14.9 [facility] Serum creatinine measurement (mass/volume)Ordered By: Xiomara Aguillon on 07-22-2024 Creatinine [Mass/Vol] 0.63 mg/dL Low 0.70-1.20 [facility] Serum globulin measurementOr dered By: Xiomara Aguillon on 07-22-2024 Globulin (S) [Mass/Vol] 2.8 g/dL 2.2-4.2 [facility] Serum glucose measurement (m ass/volume)Ordered By: Xiomara Aguillon on 07-22-2024 Glucose [Mass/Vol] 116 mg/dL High 70-99 [facility] Serum or plasma alanine miranda otransferase (ALT) measurementOrdered By: Xiomara Aguillon on 07-22-2024 ALT [Catalytic activity/Vol] 43 U/L High <35 [facility] Serum or plasma albumin erasto urement (mass/volume)Ordered By: Xiomara Aguillon on 07-22-2024 Albumin [Mass/Vol] 4.5 g/dL 3.5-5.0 [facility] Serum or plasma albumin/glob ulin mass ratioOrdered By: Xiomara Aguillon on 07-22-2024 Albumin/Globulin [Mass ratio] 1.6 {ratio} 0.9-2.4 [facility] Serum or plasma alkaline rigo sphatase measurementOrdered By: Xiomara Aguillon on 07-22-2024 ALP [Catalytic activity/Vol] 48 U/L 35-104 [facility] Serum or plasma calcium erasto urement (mass/volume)Ordered By: Xiomara Aguillon on 07-22-2024 Calcium [Mass/Vol] 9.2 mg/dL 7.6-11.0 [facility] Serum or plasma urea nitroge n measurement (mass/volume)Ordered By: Xiomara Aguillon on 07-22-2024 Urea nitrogen [Mass/Vol] 14 mg/dL 4-19 [facility] Sodium levelOrdered By: Dorota Aguillon on 07-22-2024 Sodium [Moles/Vol] 138 mmol/L 133-145 [facility] Total proteinOrdered By: Alyson Aguillon on 07-22-2024 Protein [Mass/Vol] 7.2 g/dL 5.9-8.4 [facility] Hepatitis Panel Acuteon 05-2 HCV Interpretat Comment Normal . [facility] Comment on above: Result Comment: Posi tive HCV antibody screen with the presence of HCV RNA is consistent with active infection. Performed at: [facility] [address] [id number] Brickmason: Junior Vo PhD, Phone: [phone] Performed at: [facility] [address] [id number] Brickmason: Radha Lord MD, Phone: [phone] Performed By: #### L 503.0106, L400.0001, L501.9520, L503.6550, L506.1001, L503.6030, M100.2200, L100.0100, L3000.0375 ####[facility] [address] [place], [place], [address] HCV log 10 5.400 Normal . [facility] Comment on above: Result Comment: Resu lt Units: log10 IU/mL Performed By: #### L 503.0106, L400.0001, L501.9520, L503.6550, L506.1001, L503.6030, M100.2200, L100.0100, L3000.0375 ####[facility] [address] [place], [place], [address] HEP B CORE,IgM Negative Normal Negative [facility] Comment on above: Performed By: #### L 503.0106, L400.0001, L501.9520, L503.6550, L506.1001, L503.6030, M100.2200, L100.0100, L3000.0375 ####[facility] [address] [place], [place], [address] HEP B SURF AG Negative Normal Negative [facility] Comment on above: Performed By: #### L 503.0106, L400.0001, L501.9520, L503.6550, L506.1001, L503.6030, M100.2200, L100.0100, L3000.0375 ####[facility] [address] [place], [place], [address] Hep C Quant 313272 IU/mL Normal . [facility] Comment on above: Performed By: #### L 503.0106, L400.0001, L501.9520, L503.6550, L506.1001, L503.6030, M100.2200, L100.0100, L3000.0375 ####[facility] [address] [place], [place], [address] HEP C VIRUS AB Reactive Abnormal Non Reactive [facility] Comment on above: Performed By: #### L 503.0106, L400.0001, L501.9520, L503.6550, L506.1001, L503.6030, M100.2200, L100.0100, L3000.0375 ####[facility] [address] [place], [place], [address] HEPATITIS A-IgM Negative Normal Negative [facility] Comment on above: Result Comment: A ne gative anti-HAV IgM result suggests no recent or current HAV infection. Performed By: #### L 503.0106, L400.0001, L501.9520, L503.6550, L506.1001, L503.6030, M100.2200, L100.0100, L3000.0375 ####[facility] [address] [place], [address] Test Informatio Comment Normal . [facility] Comment on above: Result Comment: The quantitative range of this assay is 15 IU/mL to 100 million IU/mL. Performed By: #### L 503.0106, L400.0001, L501.9520, L503.6550, L506.1001, L503.6030, M100.2200, L100.0100, L3000.0375 ####[facility] [address] [place], [address] Urine Cultureon 07-12-2024 URC Below infection leve l. Mixed Gram Positive Organisms [place] Count <1000 MIXC Mixed contaminants. Submit a new specimen if indicated. Normal [facility] Comment on above: Performed By: #### L 400.2010, M100.2200 ####[facility] [address] [facility] [place], [place], [address] URC Below infection leve l. Mixed Gram Positive Organisms [place] Count 1000-10,000 MIXC Mixed contaminants. Submit a new specimen if indicated. Normal [facility] Comment on above: Performed By: #### L 503.0106, L400.0001, L501.9520, L503.6550, L506.1001, L503.6030, M100.2200, L100.0100, L3000.0375 ####[facility] [address] [place], [place], [address] Absolute lymphocyte countOrd ered By: Zebulun Beam on 07-10-2024 Lymphocytes Auto (Unsp spec) [#/Vol] 2.13 10*3/uL 0.83-4.51 [facility] Absolute neutrophil countOrd ered By: Zebulun Beam on 07-10-2024 Neutrophils (Bld) [#/Vol] 4.4 10*3/uL 2.0-7.7 [facility] Automated lymphocyte count a s percentage of total leukocytesOrdered By: Zebulun Beam on 07-10-2024 Lymphocytes/100 WBC Auto (Unsp spec) 28.6 % 19-41 [facility] Basophil percentageOrdered B y: Zebulun Beam on 07-10-2024 Basophils/100 WBC (Bld) 0.4 % 0-1 [facility] Bilirubin Test strip Ql (U)O rdered By: Zebulun Beam on 07-10-2024 Bilirubin Ql (U) Negative Negative [facility] CBC W/Diff, Automatedon 06-19 Absolute Lymph 2.13 X10 3/uL Normal 0.83-4.51 [facility] Comment on above: Performed By: #### L 503.0106, L400.0001, L501.9520, L503.6550, L506.1001, L503.6030, M100.2200, L100.0100, L3000.0375 ####[facility] [address] [place], [place], [id number] Absolute Neut 4.4 X10 3/uL Normal 2.0-7.7 [facility] Comment on above: Performed By: #### L 503.0106, L400.0001, L501.9520, L503.6550, L506.1001, L503.6030, M100.2200, L100.0100, L3000.0375 ####[facility] [address] [place], [address] Basophils/100 WBC (Bld) 0.4 % Normal 0-1 [facility] Comment on above: Performed By: #### L 503.0106, L400.0001, L501.9520, L503.6550, L506.1001, L503.6030, M100.2200, L100.0100, L3000.0375 ####[facility] [address] [place], [address] Eosinophils/100 WBC (Bld) 4.6 % Normal 0-5 [facility] Comment on above: Performed By: #### L 503.0106, L400.0001, L501.9520, L503.6550, L506.1001, L503.6030, M100.2200, L100.0100, L3000.0375 ####[facility] [address] [place], [phone] Erythrocyte distribution width (RBC) [Ratio] 12.7 % Normal 11.6-14.6 [facility] Comment on above: Performed By: #### L 503.0106, L400.0001, L501.9520, L503.6550, L506.1001, L503.6030, M100.2200, L100.0100, L3000.0375 ####[facility] [address] [place], [place], [phone] Hematocrit (Bld) [Volume fraction] 44.3 % Normal 37-47 [facility] Comment on above: Performed By: #### L 503.0106, L400.0001, L501.9520, L503.6550, L506.1001, L503.6030, M100.2200, L100.0100, L3000.0375 ####[facility] [address] [place], [address] Hemoglobin (Bld) [Mass/Vol] 15.1 g/dL High 12.0-15.0 [facility] Comment on above: Performed By: #### L 503.0106, L400.0001, L501.9520, L503.6550, L506.1001, L503.6030, M100.2200, L100.0100, L3000.0375 ####[facility] [address] [place], [address] IG% 0.100 Normal 0.0-0.9 [facility] Comment on above: Result Comment: IG% - Immature Granulocytes (promyelocytes, myelocytes and metamyelocytes) > 1% indicates that a LEFT SHIFT is Present. Performed By: #### L 503.0106, L400.0001, L501.9520, L503.6550, L506.1001, L503.6030, M100.2200, L100.0100, L3000.0375 ####[facility] [address] [place], [address] Lymphocytes/100 WBC (Bld) 28.6 % Normal 19-41 [facility] Comment on above: Performed By: #### L 503.0106, L400.0001, L501.9520, L503.6550, L506.1001, L503.6030, M100.2200, L100.0100, L3000.0375 ####[facility] [address] [place], [address] MCH (RBC) [Entitic mass] 31.9 pg Normal 27.0-32.0 [facility] Comment on above: Performed By: #### L 503.0106, L400.0001, L501.9520, L503.6550, L506.1001, L503.6030, M100.2200, L100.0100, L3000.0375 ####[facility] [address] [place], [address] MCHC (RBC) [Mass/Vol] 34.1 g/dL Normal 32-36 [facility] Comment on above: Performed By: #### L 503.0106, L400.0001, L501.9520, L503.6550, L506.1001, L503.6030, M100.2200, L100.0100, L3000.0375 ####[facility] [address] [place], [address] MCV (RBC) [Entitic vol] 93.7 fL Normal 81-99 [facility] Comment on above: Performed By: #### L 503.0106, L400.0001, L501.9520, L503.6550, L506.1001, L503.6030, M100.2200, L100.0100, L3000.0375 ####[facility] [address] [place], [address] Monocytes/100 WBC (Bld) 7.2 % Normal 0-10 [facility] Comment on above: Performed By: #### L 503.0106, L400.0001, L501.9520, L503.6550, L506.1001, L503.6030, M100.2200, L100.0100, L3000.0375 ####[facility] [address] [place], [address] Neutrophils/100 WBC (Bld) 59.1 % Normal 47-70 [facility] Comment on above: Performed By: #### L 503.0106, L400.0001, L501.9520, L503.6550, L506.1001, L503.6030, M100.2200, L100.0100, L3000.0375 ####[facility] [address] [place], [address] Nucleated RBC (Bld) [#/Vol] 0 10*3/uL Normal 0-5 [facility] Comment on above: Performed By: #### L 503.0106, L400.0001, L501.9520, L503.6550, L506.1001, L503.6030, M100.2200, L100.0100, L3000.0375 ####[facility] [address] [place], [address] Platelet mean volume (Bld) [Entitic vol] 10.4 fL Normal 6.2-12.0 [facility] Comment on above: Performed By: #### L 503.0106, L400.0001, L501.9520, L503.6550, L506.1001, L503.6030, M100.2200, L100.0100, L3000.0375 ####[facility] [address] [place], [address] Platelets (Bld) [#/Vol] 276 10*3/uL Normal 150-450 [facility] Comment on above: Performed By: #### L 503.0106, L400.0001, L501.9520, L503.6550, L506.1001, L503.6030, M100.2200, L100.0100, L3000.0375 ####[facility] [address] [place], [address] RBC (Bld) [#/Vol] 4.73 10*6/uL Normal 4.2-5.4 [facility] Comment on above: Performed By: #### L 503.0106, L400.0001, L501.9520, L503.6550, L506.1001, L503.6030, M100.2200, L100.0100, L3000.0375 ####[facility] [address] [place], [address] RDW SD 44.0 fl High 35.1-43.9 [facility] Comment on above: Performed By: #### L 503.0106, L400.0001, L501.9520, L503.6550, L506.1001, L503.6030, M100.2200, L100.0100, L3000.0375 ####[facility] [address] [place], [address] WBC (Bld) [#/Vol] 7.5 10*3/uL Normal 4.4-11.0 [facility] Comment on above: Performed By: #### L 503.0106, L400.0001, L501.9520, L503.6550, L506.1001, L503.6030, M100.2200, L100.0100, L3000.0375 ####[facility] [address] [place], [address] Eosinophil percentageOrdered By: Zebulun Beam on 07-10-2024 Eosinophils/100 WBC (Bld) 4.6 % 0-5 [facility] Erythrocyte distribution wid th ratioOrdered By: Zebulun Beam on 07-10-2024 Erythrocyte distribution width (RBC) [Ratio] 12.7 % 11.6-14.6 [facility] Erythrocyte distribution wid th standard deviationOrdered By: Zebulun Beam on 07-10-2024 Erythrocyte distribution width (RBC) [Ratio] 44.0 fl High 35.1-43.9 [facility] Ferritinon 07-10-2024 Ferritin [Mass/Vol] 23 ng/mL Normal 22-378 [facility] Comment on above: Performed By: #### L 503.0106, L400.0001, L501.9520, L503.6550, L506.1001, L503.6030, M100.2200, L100.0100, L3000.0375 ####[facility] [address] [place], [place], [id number] Hematocrit Auto (Bld) [Volum e fraction]Ordered By: Zebulun Beam on 07-10-2024 Hematocrit (Bld) [Volume fraction] 44.3 % 37-47 [facility] Hemoglobin measurementOrdere d By: Zebulun Beam on 07-10-2024 Hemoglobin (Bld) [Mass/Vol] 15.1 g/dL High 12.0-15.0 [facility] Immature granulocytes/100 WB C Auto (Bld)Ordered By: Zebulun Beam on 07-10-2024 Immature granulocytes/100 WBC (Bld) 0.100 % 0.0-0.9 [facility] Comment on above: IG% - Immature Granu locytes (promyelocytes, myelocytes and metamyelocytes) > 1% indicates that a LEFT SHIFT is Present. Iron measurement (mass/mass) Ordered By: Zebulun Beam on 07-10-2024 Iron (Unsp spec) [Mass/Mass] 267 ug/dL High 50-170 [facility] Iron+Iron Binding Capacityon 07-10-2024 Iron [Mass/Vol] 267 ug/dL High 50-170 [facility] Comment on above: Performed By: #### L 503.0106, L400.0001, L501.9520, L503.6550, L506.1001, L503.6030, M100.2200, L100.0100, L3000.0375 ####[facility] [address] [place], [address] IRON SATURATION 79.0 High 13-59 [facility] Comment on above: Performed By: #### L 503.0106, L400.0001, L501.9520, L503.6550, L506.1001, L503.6030, M100.2200, L100.0100, L3000.0375 ####[facility] [address] [place], [address] TIBC 337 ug/dL Normal 250-450 [facility] Comment on above: Performed By: #### L 503.0106, L400.0001, L501.9520, L503.6550, L506.1001, L503.6030, M100.2200, L100.0100, L3000.0375 ####[facility] [address] [place], [address] UIBC 70 ug/dL Low 228-428 [facility] Comment on above: Performed By: #### L 503.0106, L400.0001, L501.9520, L503.6550, L506.1001, L503.6030, M100.2200, L100.0100, L3000.0375 ####[facility] [address] [place], [address] Ketones Test strip Ql (U)Ord ered By: [facility] 07-[facility] Ketones Ql (U) Negative Negative [facility] MCV (mean corpuscular volume ) determinationOrdered By: [facility] Pradeep on 07-10-2024 MCV (RBC) [Entitic vol] 93.7 fL 81-99 [facility] Mean corpuscular hemoglobin (MCH) determinationOrdered By: [facility] on 07-10-2024 MCH (RBC) [Entitic mass] 31.9 pg 27.0-32.0 [facility] Mean corpuscular hemoglobin concentration (MCHC) determinationOrdered By: [facility] on 07-10-2024 MCHC (RBC) [Mass/Vol] 34.1 g/dL 32-36 [facility] Mean platelet volume determi nationOrdered By: [facility] on 07-10-2024 Platelet mean volume (Bld) [Entitic vol] 10.4 fL 6.2-12.0 [facility] Microscopic analysis of urin e for red blood cells (RBC)Ordered By: christa Fernández on 07-10-2024 Microscopic analysis of urine for red blood cells (RBC) 0-5 SEEN /hpf 0-5 [facility] Monocyte percentageOrdered B y: [facility] on 07-10-2024 Monocytes/100 WBC (Bld) 7.2 % 0-10 [facility] Mucus LM Ql (Urine sed)Order ed By: [facility] on 07-10-2024 Mucus Ql (Urine sed) 0 SEEN /hpf [facility] Neutrophil percentageOrdered By: [facility] on 07-10-2024 Neutrophils/100 WBC (Bld) 59.1 % 47-70 [facility] Nitrite Test strip Ql (U)Ord ered By: christa Fernández on 07-10-2024 Nitrite Ql (U) Negative Negative [facility] No Panel InformationOrdered By: Meenakshi Fernández on 07-10-2024 HCV log10 Confirmation 5.400 . [facility] Comment on above: Result Units: log10 IU/mL Hepatitis C RNA Qnt (PCR) Test Info Comment . [facility] Comment on above: The quantitative ran ge of this assay is 15 IU/mL to 100million IU/mL. Hepatitis C Virus Note Comment . [facility] Comment on above: Positive HCV antibod y screen with the presence of HCV RNAis consistent with active infection.Performed at: [facility] [id number] [place], [place] [id number] Director: Junior Vo PhD, Phone: [phone] at: [facility] [address] [id number] Director: Radha Lord MD, Phone: [phone] Unsaturated Iron Binding Capacity 70 ug/dL Low 228-428 [facility] Nucleated red blood cell per centageOrdered By: Meenakshi Fernández on 07-10-2024 Nucleated RBC/100 WBC (Bld) [Ratio] 0 % 0-5 [facility] Platelet countOrdered By: Haris Fernández on 07-10-2024 Platelets (Bld) [#/Vol] 276 10*3/uL 150-450 [facility] Protein Test strip Ql (U)Ord ered By: Meenakshi Fernánedz on 07-10-2024 Protein Ql (U) Negative Negative [facility] RBC Auto (Bld) [#/Vol]Ordere d By: Meenakshi Fernández on 07-10-2024 RBC (Bld) [#/Vol] 4.73 10*6/uL 4.2-5.4 [facility] Serum or plasma ferritin shelby surement (mass/volume)Ordered By: Meenakshi Fernández on 07-10-2024 Ferritin [Mass/Vol] 23 ng/mL 22-378 [facility] Serum or plasma hepatitis B virus surface antigen detection by immunoassayOrdered By: Meenakshi Fernández on 07-10-2024 HBV surface Ag IA Ql Negative Negative [facility] Serum or plasma iron saturat ion measurement (mass fraction)Ordered By: Meenakshi Fernández on 07-10-2024 Iron saturation [Mass fraction] 79.0 % High 13-59 [facility] Squamous epithelial cells de tection in urine sediment by light microscopyOrdered By: Zebulun Beam on 07-10-2024 Epithelial cells.squamous LM Ql (Urine sed) 0-5 SEEN /hpf -10 [facility] TSH DL <= 0.005 mIU/L QnOrde red By: Zebulun Beam on 07-10-2024 TSH Qn 0.883 uIU/mL 0.300-4.200 [facility] Thyroid Stim Hormone (TSH)on 07-10-2024 TSH 0.883 uIU/mL Normal 0.300-4.200 [facility] Comment on above: Performed By: #### L 503.0106, L400.0001, L501.9520, L503.6550, L506.1001, L503.6030, M100.2200, L100.0100, L3000.0375 ####[facility] [address] [place], [place], [id number] Urinalysis, Completeon 07-10 EPI,SQUAMOUS 0-5 SEEN Normal - [facility] Comment on above: Order Comment: Urine , Random Performed By: #### L 503.0106, L400.0001, L501.9520, L503.6550, L506.1001, L503.6030, M100.2200, L100.0100, L3000.0375 ####[facility] [address] [place], [place], [id number] RBC 0-5 SEEN Normal 0-5 [facility] Comment on above: Order Comment: Urine , Random Performed By: #### L 503.0106, L400.0001, L501.9520, L503.6550, L506.1001, L503.6030, M100.2200, L100.0100, L3000.0375 ####[facility] [address] [place], [address] WBC 0-5 SEEN Normal 0-5 [facility] Comment on above: Order Comment: Urine , Random Performed By: #### L 503.0106, L400.0001, L501.9520, L503.6550, L506.1001, L503.6030, M100.2200, L100.0100, L3000.0375 ####[facility] [address] [place], [address] BACTERIA 0 SEEN Normal None Seen [facility] Comment on above: Order Comment: Urine , Random Performed By: #### L 503.0106, L400.0001, L501.9520, L503.6550, L506.1001, L503.6030, M100.2200, L100.0100, L3000.0375 ####[facility] [address] [place], [address] Mucus Ql (Urine sed) 0 SEEN Normal [facility] Comment on above: Order Comment: Urine , Random Performed By: #### L 503.0106, L400.0001, L501.9520, L503.6550, L506.1001, L503.6030, M100.2200, L100.0100, L3000.0375 ####[facility] [address] [place], [address] Urinalysis, Routine (Dipstic k)on 07-10-2024 BILIRUBIN URINE Negative Normal Negative [facility] Comment on above: Order Comment: Urine , Random Performed By: #### L 400.2010, ####[facility] [address] [place], [address] Clarity (U) Clear Normal Clear [facility] Comment on above: Order Comment: Urine , Random Performed By: #### L 400.2010, ####[facility] [address] [place], [address] Color (U) Straw Normal Yellow [facility] Comment on above: Order Comment: Urine , Random Performed By: #### L 400.2010, ####[facility] [address] [place], [address] GLUCOSE, UR Normal Normal Normal [facility] Comment on above: Order Comment: Urine , Random Performed By: #### L 400.2010, ####[facility] [address] [place], [address] KETONE UR Negative Normal Negative [facility] Comment on above: Order Comment: Urine , Random Performed By: #### L 400.2010, ####[facility] [address] [place], [address] LEUK ESTERASE Negative Normal Negative [facility] Comment on above: Order Comment: Urine , Random Performed By: #### L 400.2010, ####[facility] [address] [place], [address] Nitrite Ql (U) Negative Normal Negative [facility] Comment on above: Order Comment: Urine , Random Performed By: #### L 400.2010, ####[facility] [address] [place], [address] OCCULT BLOOD-UR Negative Normal Negative [facility] Comment on above: Order Comment: Urine , Random Performed By: #### L 400.2010, ####[facility] [address] [place], [address] pH UR 6.5 Normal 5.0 - 8.0 [facility] Comment on above: Order Comment: Urine , Random Performed By: #### L 400.2010, ####[facility] [address] [place], [address] PROT DIPSTX Negative Normal Negative [facility] Comment on above: Order Comment: Urine , Random Performed By: #### L 400.2010, ####[facility] [address] [place], [address] SP.GR. DIPSTX 1.005 Normal 1.002-1.030 [facility] Comment on above: Order Comment: Urine , Random Performed By: #### L 400.2010, ####[facility] [address] [place], [address] UROBILI Normal Normal Normal [facility] Comment on above: Order Comment: Urine , Random Performed By: #### L 400.2010, ####[facility] [address] [place], [address] Urine clarityOrdered By: Can Fernández on 07-10-2024 Clarity (U) Clear Clear [facility] Urine color determinationOrd ered By: Meenakshi Fernández on 07-10-2024 Color (U) Straw Yellow [facility] Urine cultureOrdered By: Can Fernández on 07-10-2024 Bacteria identified Cx Nom (U) Positive Abnormal [facility] Bacteria identified Cx Nom (U) Positive Abnormal [facility] Urine glucose detectionOrder ed By: Meenakshi Fernández on 07-10-2024 Glucose Ql (U) Normal mg/dl Normal [facility] Urine leukocyte esterase det ection by dipstickOrdered By: Meenakshi Fernández on 07-10-2024 Leukocyte esterase Test strip Ql (U) Negative Negative [facility] Urine pHOrdered By: Meenakshi Fernández on 07-10-2024 pH (U) 6.5 [pH] 5.0 - 8.0 [facility] Urine sediment bacteria coun t by microscopy (number/high power field)Ordered By: Meenakshi Fernández on 07-10-2024 Bacteria LM.HPF (Urine sed) [#/Area] 0 /[HPF] None Seen [facility] Urine specific gravity measu rementOrdered By: Meenakshi Fernández on 07-10-2024 Specific gravity (U) [Rel density] 1.005 1.002-1.030 [facility] Urine urobilinogen measureme ntOrdered By: Meenakshi Fernández on 07-10-2024 Urobilinogen Ql (U) Normal mg/dl Normal [facility] Vitamin B12on 07-10-2024 Cobalamin (Vitamin B12) [Mass/Vol] 602 pg/mL Normal 180-914 [facility] Comment on above: Performed By: #### L 503.0106, L400.0001, L501.9520, L503.6550, L506.1001, L503.6030, M100.2200, L100.0100, L3000.0375 ####[facility] [address] [place], [address] Vitamin B12 ser/plasOrdered By: Meenakshi Fernández on 07-10-2024 Cobalamin (Vitamin B12) [Mass/Vol] 602 pg/mL 180-914 [facility] Vitamin D,25 Hydroxyon 07-10 Vitamin D 25-OH 27.8 ng/mL Low 30-100 [facility] Comment on above: Result Comment: Bindu min D Status Deficiency: <20 ng/mL (50nmol/L) Insufficiency: 20-30 ng/mL (50-75 nmol/L) Sufficiency: 30-100 ng/mL (75-250 nmol/L) Toxicity: >100 ng/mL (>250 nmol/L) Performed By: #### L 503.0106, L400.0001, L501.9520, L503.6550, L506.1001, L503.6030, M100.2200, L100.0100, L3000.0375 ####[facility] [address] [place], [place], [id number] White blood cell (WBC) count Ordered By: Meenakshi Fernández on 07-10-2024 WBC (Bld) [#/Vol] 7.5 10*3/uL 4.4-11.0 [facility] White blood cell countOrdere d By: Meenakshi Fernández on 07-10-2024 White blood cell count 0-5 SEEN /hpf 0-5 [facility] Absolute lymphocyte countOrd ered By: bulun Beam on 03-31-2024 Lymphocytes Auto (Unsp spec) [#/Vol] 2.69 10*3/uL 0.83-4.51 [facility] Absolute neutrophil countOrd ered By: bulun Beam on 03-31-2024 Neutrophils (Bld) [#/Vol] 2.2 10*3/uL 2.0-7.7 [facility] Albumin to globulin ratioOrd ered By: bulun Beam on 03-31-2024 Albumin/Globulin [Mass ratio] 1.0 {ratio} 0.9-2.4 [facility] Automated lymphocyte count a s percentage of total leukocytesOrdered By: bulun Beam on 03-31-2024 Lymphocytes/100 WBC Auto (Unsp spec) 46.1 % High 19-41 [facility] Basophil percentageOrdered B y: Zebulun Beam on 03-31-2024 Basophils/100 WBC (Bld) 0.5 % 0-1 [facility] Bilirubin, totalOrdered By: [facility] on 03-31-2024 Bilirubin [Mass/Vol] 0.60 mg/dL 0.20-1.00 [facility] Comment on above: For patients on eltr ombopag therapy, use of Dimension [place] TBIL is not recommended. Blood urea nitrogen (BUN)/cr eatinine ratioOrdered By: [facility] on 03-31-2024 Urea nitrogen/Creatinine [Mass ratio] 27.9 mg/mg High 10-20 [facility] CBC W/Diff, Automatedon 03-21 Absolute Lymph 2.69 X10 3/uL Normal 0.83-4.51 [facility] Comment on above: Performed By: #### L 100.0100, L500.4100, L500.4050, L501.9985, L501.9520 #### [facility] [address] [place], [place], [id number] Absolute Neut 2.2 X10 3/uL Normal 2.0-7.7 [facility] Comment on above: Performed By: #### L 100.0100, L500.4100, L500.4050, L501.9985, L501.9520 #### [facility] [address] [place], [address] Basophils/100 WBC (Bld) 0.5 % Normal 0-1 [facility] Comment on above: Performed By: #### L 100.0100, L500.4100, L500.4050, L501.9985, L501.9520 #### [facility] [address] [place], [address] Eosinophils/100 WBC (Bld) 4.8 % Normal 0-5 [facility] Comment on above: Performed By: #### L 100.0100, L500.4100, L500.4050, L501.9985, L501.9520 #### [facility] [address] [place], [address] Erythrocyte distribution width (RBC) [Ratio] 12.8 % Normal 11.6-14.6 [facility] Comment on above: Performed By: #### L 100.0100, L500.4100, L500.4050, L501.9985, L501.9520 #### [facility] [address] [place], [address] Hematocrit (Bld) [Volume fraction] 42.9 % Normal 37-47 [facility] Comment on above: Performed By: #### L 100.0100, L500.4100, L500.4050, L501.9985, L501.9520 #### [facility] [address] [place], [address] Hemoglobin (Bld) [Mass/Vol] 14.4 g/dL Normal 12.0-15.0 [facility] Comment on above: Performed By: #### L 100.0100, L500.4100, L500.4050, L501.9985, L501.9520 #### [facility] [address] [place], [address] IG% 0.200 Normal 0.0-0.9 [facility] Comment on above: Result Comment: IG% - Immature Granulocytes (promyelocytes, myelocytes and metamyelocytes) > 1% indicates that a LEFT SHIFT is Present. Performed By: #### L 100.0100, L500.4100, L500.4050, L501.9985, L501.9520 #### [facility] [address] [place], [address] Lymphocytes/100 WBC (Bld) 46.1 % High 19-41 [facility] Comment on above: Performed By: #### L 100.0100, L500.4100, L500.4050, L501.9985, L501.9520 #### [facility] [address] [place], [address] MCH (RBC) [Entitic mass] 31.2 pg Normal 27.0-32.0 [facility] Comment on above: Performed By: #### L 100.0100, L500.4100, L500.4050, L501.9985, L501.9520 #### [facility] [address] [place], [address] MCHC (RBC) [Mass/Vol] 33.6 g/dL Normal 32-36 [facility] Comment on above: Performed By: #### L 100.0100, L500.4100, L500.4050, L501.9985, L501.9520 #### [facility] [address] [place], [address] MCV (RBC) [Entitic vol] 92.9 fL Normal 81-99 [facility] Comment on above: Performed By: #### L 100.0100, L500.4100, L500.4050, L501.9985, L501.9520 #### [facility] [address] [place], [address] Monocytes/100 WBC (Bld) 10.1 % High 0-10 [facility] Comment on above: Performed By: #### L 100.0100, L500.4100, L500.4050, L501.9985, L501.9520 #### [facility] [address] [place], [address] Neutrophils/100 WBC (Bld) 38.3 % Low 47-70 [facility] Comment on above: Performed By: #### L 100.0100, L500.4100, L500.4050, L501.9985, L501.9520 #### [facility] [address] [place], [address] Nucleated RBC (Bld) [#/Vol] 0 10*3/uL Normal 0-5 [facility] Comment on above: Performed By: #### L 100.0100, L500.4100, L500.4050, L501.9985, L501.9520 #### [facility] [address] [place], [address] Platelet mean volume (Bld) [Entitic vol] 10.4 fL Normal 6.2-12.0 [facility] Comment on above: Performed By: #### L 100.0100, L500.4100, L500.4050, L501.9985, L501.9520 #### [facility] [address] [place], [address] Platelets (Bld) [#/Vol] 250 10*3/uL Normal 150-450 [facility] Comment on above: Performed By: #### L 100.0100, L500.4100, L500.4050, L501.9985, L501.9520 #### [facility] [address] [place], [address] RBC (Bld) [#/Vol] 4.62 10*6/uL Normal 4.2-5.4 [facility] Comment on above: Performed By: #### L 100.0100, L500.4100, L500.4050, L501.9985, L501.9520 #### [facility] [address] [place], [address] RDW SD 43.6 fl Normal 35.1-43.9 [facility] Comment on above: Performed By: #### L 100.0100, L500.4100, L500.4050, L501.9985, L501.9520 #### [facility] [address] [place], [address] WBC (Bld) [#/Vol] 5.8 10*3/uL Normal 4.4-11.0 [facility] Comment on above: Performed By: #### L 100.0100, L500.4100, L500.4050, L501.9985, L501.9520 #### [facility] [address] [place], [address] Carbon dioxide measurementOr dered By: Zebulun Beam on 03-31-2024 CO2 [Moles/Vol] 24.0 mmol/L 21.0-32.0 [facility] Chloride measurementOrdered By: Zebulun Beam on 03-31-2024 Chloride [Moles/Vol] 107 mmol/L 98-107 [facility] Comprehensive Metabolic Prof ilon 03-31-2024 Albumin [Mass/Vol] 3.9 g/dL Normal 3.2-5.0 [facility] Comment on above: Performed By: #### L 100.0100, L500.4100, L500.4050, L501.9985, L501.9520 #### [facility] [address] [place], [address] Albumin/Globulin [Mass ratio] 1.0 {ratio} Normal 0.9-2.4 [facility] Comment on above: Performed By: #### L 100.0100, L500.4100, L500.4050, L501.9985, L501.9520 #### [facility] [address] [place], [address] ALK P 56 U/L Normal 45-117 [facility] Comment on above: Performed By: #### L 100.0100, L500.4100, L500.4050, L501.9985, L501.9520 #### [facility] [address] [place], [address] ALT [Catalytic activity/Vol] 84 U/L High 13-56 [facility] Comment on above: Performed By: #### L 100.0100, L500.4100, L500.4050, L501.9985, L501.9520 #### [facility] [address] [place], [address] AST [Catalytic activity/Vol] 48 U/L High 15-37 [facility] Comment on above: Performed By: #### L 100.0100, L500.4100, L500.4050, L501.9985, L501.9520 #### [facility] [address] [place], [address] Bilirubin [Mass/Vol] 0.60 mg/dL Normal 0.20-1.00 [facility] Comment on above: Result Comment: For patients on eltrombopag therapy, use of Dimension [place] TBIL is not recommended. Performed By: #### L 100.0100, L500.4100, L500.4050, L501.9985, L501.9520 #### [facility] [address] [place], [address] BUN/CRE 27.9 RATIO High 10-20 [facility] Comment on above: Performed By: #### L 100.0100, L500.4100, L500.4050, L501.9985, L501.9520 #### [facility] [address] [place], [address] CA,Total 9.2 mg/dL Normal 8.5-10.1 [facility] Comment on above: Performed By: #### L 100.0100, L500.4100, L500.4050, L501.9985, L501.9520 #### [facility] [address] [place], [address] Chloride [Moles/Vol] 107 mmol/L Normal 98-107 [facility] Comment on above: Performed By: #### L 100.0100, L500.4100, L500.4050, L501.9985, L501.9520 #### [facility] [address] [place], [address] CO2 [Moles/Vol] 24.0 mmol/L Normal 21.0-32.0 [facility] Comment on above: Performed By: #### L 100.0100, L500.4100, L500.4050, L501.9985, L501.9520 #### [facility] [address] [place], [address] Creatinine [Mass/Vol] 0.61 mg/dL Normal 0.55-1.02 [facility] Comment on above: Result Comment: The validity of the calculated GFR GFRAA in patients over 70 years has not been determined. Clinical correlation is essential. Performed By: #### L 100.0100, L500.4100, L500.4050, L501.9985, L501.9520 #### [facility] [address] [place], [address] EST GFR - AA 141 mL/min Normal >60 [facility] Comment on above: Result Comment: Afri can Beninese GFR Calc Performed By: #### L 100.0100, L500.4100, L500.4050, L501.9985, L501.9520 #### [facility] [address] [place], [address] GAP 6 Normal 5-15 [facility] Comment on above: Performed By: #### L 100.0100, L500.4100, L500.4050, L501.9985, L501.9520 #### [facility] [address] [place], [address] GFR/1.73 sq M.predicted among non-blacks MDRD (S/P/Bld) [Vol rate/Area] 116 mL/min/{1.73_m2} Normal >60 [facility] Comment on above: Result Comment: Non- GFR Calc Performed By: #### L 100.0100, L500.4100, L500.4050, L501.9985, L501.9520 #### [facility] [address] [place], [address] Globulin (S) [Mass/Vol] 3.9 g/dL Normal 2.2-4.2 [facility] Comment on above: Performed By: #### L 100.0100, L500.4100, L500.4050, L501.9985, L501.9520 #### [facility] [address] [place], [address] Glucose [Mass/Vol] 89 mg/dL Normal 74-106 [facility] Comment on above: Performed By: #### L 100.0100, L500.4100, L500.4050, L501.9985, L501.9520 #### [facility] [address] [place], [address] Potassium [Moles/Vol] 4.5 mmol/L Normal 3.5-5.1 [facility] Comment on above: Performed By: #### L 100.0100, L500.4100, L500.4050, L501.9985, L501.9520 #### [facility] [address] [place], [address] Sodium [Moles/Vol] 137 mmol/L Normal 136-145 [facility] Comment on above: Performed By: #### L 100.0100, L500.4100, L500.4050, L501.9985, L501.9520 #### [facility] [address] [place], [address] T PROT 7.8 g/dL Normal 6.4-8.2 [facility] Comment on above: Performed By: #### L 100.0100, L500.4100, L500.4050, L501.9985, L501.9520 #### [facility] [address] [place], [address] Urea nitrogen [Mass/Vol] 17 mg/dL Normal 7-18 [facility] Comment on above: Performed By: #### L 100.0100, L500.4100, L500.4050, L501.9985, L501.9520 #### [facility] [address] [place], [address] Eosinophil percentageOrdered By: Harisbulun Beam on 03-31-2024 Eosinophils/100 WBC (Bld) 4.8 % 0-5 [facility] Erythrocyte distribution wid th ratioOrdered By: Zebulun Beam on 03-31-2024 Erythrocyte distribution width (RBC) [Ratio] 12.8 % 11.6-14.6 [facility] Erythrocyte distribution wid th standard deviationOrdered By: bulun Beam on 03-31-2024 Erythrocyte distribution width (RBC) [Ratio] 43.6 fl 35.1-43.9 [facility] Glomerular filtration rate ( GFR) estimationOrdered By: Alanlun Beam on 03-31-2024 GFR/1.73 sq M.predicted among non-blacks MDRD (S/P/Bld) [Vol rate/Area] 116 mL/min/{1.73_m2} >60 [facility] Comment on above: Non- GFR Calc Glucose measurementOrdered B y: Meenakshi Fernández on 03-31-2024 Glucose [Mass/Vol] 89 mg/dL 74-106 [facility] Hematocrit Auto (Bld) [Volum e fraction]Ordered By: Meenakshi Fernández on 03-31-2024 Hematocrit (Bld) [Volume fraction] 42.9 % 37-47 [facility] Hemoglobin A1con 03-31-2024 HbA1c (Bld) [Mass fraction] 5.0 % Normal 3.8-5.6 [facility] Comment on above: Result Comment: Norm al < 5.7 % Prediabetic 5.7 - 6.4 % Diabetic >or= 6.5 % Please note range changes. Performed By: #### L 100.0100, L500.4100, L500.4050, L501.9985, L501.9520 ####[facility] [address] [place], [address] Hemoglobin A1c percentageOrd ered By: Meenakshi Fernández on 03-31-2024 HbA1c (Bld) [Mass fraction] 5.0 % 3.8-5.6 [facility] Comment on above: Normal < 5.7 % Predi abetic 5.7 - 6.4 % Diabetic >or= 6.5 % Please note range changes. Hemoglobin measurementOrdere d By: Meenakshi Fernández on 03-31-2024 Hemoglobin (Bld) [Mass/Vol] 14.4 g/dL 12.0-15.0 [facility] High density lipoprotein (HD L) measurementOrdered By: Meenakshi Fernández on 03-31-2024 Cholesterol in HDL [Mass/Vol] 71 mg/dL >40 [facility] Comment on above: The drugs N-Acetylcy steine and Metamizole may falsely depress this assay. Reference Range HDL <40 mg/dL Low HDL Cholesterol HDL >or= 60 mg/dL High HDL Cholesterol Immature granulocytes/100 WB C Auto (Bld)Ordered By: Meenakshi Fernández on 03-31-2024 Immature granulocytes/100 WBC (Bld) 0.200 % 0.0-0.9 [facility] Comment on above: IG% - Immature Granu locytes (promyelocytes, myelocytes and metamyelocytes) > 1% indicates that a LEFT SHIFT is Present. Laboratory - Chemistry and C hemistry - challengeOrdered By: Meenakshi Fernández on 03-31-2024 AST [Catalytic activity/Vol] 48 U/L High 15-37 [facility] Lipid Profileon 03-31-2024 Cholesterol [Mass/Vol] 202 mg/dL High 200 [facility] Comment on above: Result Comment: <200 mg/dL Desirable 200-240 mg/dL Borderline >240 mg/dL High Risk Performed By: #### L 100.0100, L500.4100, L500.4050, L501.9985, L501.9520 #### [facility] [address] [place], [address] Cholesterol in HDL [Mass/Vol] 71 mg/dL Normal [facility] Comment on above: Result Comment: The drugs N-Acetylcysteine and Metamizole may falsely depress this assay. Reference Range HDL <40 mg/dL Low HDL Cholesterol HDL >or= 60 mg/dL High HDL Cholesterol Performed By: #### L 100.0100, L500.4100, L500.4050, L501.9985, L501.9520 #### [facility] [address] [place], [address] Cholesterol in LDL [Mass/Vol] 118 mg/dL Normal 0-130 [facility] Comment on above: Performed By: #### L 100.0100, L500.4100, L500.4050, L501.9985, L501.9520 #### [facility] [address] [place], [address] Cholesterol in VLDL [Mass/Vol] 13 mg/dL Normal 5-40 [facility] Comment on above: Performed By: #### L 100.0100, L500.4100, L500.4050, L501.9985, L501.9520 #### [facility] [address] [place], [address] Triglyceride [Mass/Vol] 65 mg/dL Normal [facility] Comment on above: Result Comment: The drugs N-Acetylcysteine and Metamizole may falsely depress this assay. Serum Triglycerides Reference Interval Normal <150 mg/dL Borderline high 150 - 199 mg/dL High 200 - 499 mg/dL Very High > or = 500 mg/dL Performed By: #### L 100.0100, L500.4100, L500.4050, L501.9985, L501.9520 #### [facility] [address] [place], [address] Low density lipoprotein (LDL ) cholesterol measurementOrdered By: Harisbulun Beam on 03-31-2024 Cholesterol in LDL [Mass/Vol] 118 mg/dL 0-130 [facility] MCV (mean corpuscular volume ) determinationOrdered By: bulun Beam on 03-31-2024 MCV (RBC) [Entitic vol] 92.9 fL 81-99 [facility] Mean corpuscular hemoglobin (MCH) determinationOrdered By: bulun Beam on 03-31-2024 MCH (RBC) [Entitic mass] 31.2 pg 27.0-32.0 [facility] Mean corpuscular hemoglobin concentration (MCHC) determinationOrdered By: bulun Beam on 03-31-2024 MCHC (RBC) [Mass/Vol] 33.6 g/dL 32-36 [facility] Mean platelet volume determi nationOrdered By: Zebulun Beam on 03-31-2024 Platelet mean volume (Bld) [Entitic vol] 10.4 fL 6.2-12.0 [facility] Monocyte percentageOrdered B y: Zebulun Beam on 03-31-2024 Monocytes/100 WBC (Bld) 10.1 % High 0-10 [facility] Neutrophil percentageOrdered By: Zebulun Beam on 03-31-2024 Neutrophils/100 WBC (Bld) 38.3 % Low 47-70 [facility] Nucleated red blood cell per centageOrdered By: bulun Beam on 03-31-2024 Nucleated RBC/100 WBC (Bld) [Ratio] 0 % 0-5 [facility] Platelet countOrdered By: Haris Fernández on 03-31-2024 Platelets (Bld) [#/Vol] 250 10*3/uL 150-450 [facility] Potassium measurementOrdered By: Meenakshi Fernández on 03-31-2024 Potassium [Moles/Vol] 4.5 mmol/L 3.5-5.1 [facility] RBC Auto (Bld) [#/Vol]Ordere d By: Meenakshi Fernández on 03-31-2024 RBC (Bld) [#/Vol] 4.62 10*6/uL 4.2-5.4 [facility] Serum anion gap measurementO rdered By: Meenakshi Fernández on 03-31-2024 Anion gap [Moles/Vol] 6 mmol/L 5-15 [facility] Serum globulin measurementOr dered By: Meenakshi Fernández on 03-31-2024 Globulin (S) [Mass/Vol] 3.9 g/dL 2.2-4.2 [facility] Serum or plasma alanine miranda otransferase (ALT) measurementOrdered By: Meenakshi Fernández on 03-31-2024 ALT [Catalytic activity/Vol] 84 U/L High 13-56 [facility] Serum or plasma albumin erasto urement (mass/volume)Ordered By: Meenakshi Fernández on 03-31-2024 Albumin [Mass/Vol] 3.9 g/dL 3.2-5.0 [facility] Serum or plasma alkaline rigo sphatase measurementOrdered By: Meenakshi Fernández on 03-31-2024 ALP [Catalytic activity/Vol] 56 U/L 45-117 [facility] Serum or plasma calcium erasto urement (mass/volume)Ordered By: Meenakshi Fernández on 03-31-2024 Calcium [Mass/Vol] 9.2 mg/dL 8.5-10.1 [facility] Serum or plasma cholesterol measurement (mass/volume)Ordered By: Meenakshi Fernández on 03-31-2024 Cholesterol [Mass/Vol] 202 mg/dL High <200 [facility] Comment on above: <200 mg/dL Desirable 200-240 mg/dL Borderline >240 mg/dL High Risk Serum or plasma creatinine m easurement (mass/volume)Ordered By: Meenakshi Fernández on 03-31-2024 Creatinine [Mass/Vol] 0.61 mg/dL 0.55-1.02 [facility] Comment on above: The validity of the calculated GFR & GFRAA in patients over 70 years has not been determined. Clinical correlation is essential. Serum or plasma thyroid stim ulating hormone (TSH) measurement (units/volume)Ordered By: Meenakshi Fernández on 03-31-2024 TSH Qn 1.490 uIU/mL 0.358-3.740 [facility] Serum or plasma urea nitroge n measurement (mass/volume)Ordered By: Meenakshi Fernández on 03-31-2024 Urea nitrogen [Mass/Vol] 17 mg/dL 7-18 [facility] Sodium levelOrdered By: Alan Fernández on 03-31-2024 Sodium [Moles/Vol] 137 mmol/L 136-145 [facility] Thyroid Stim Hormone (TSH)on 03-31-2024 TSH 1.490 uIU/mL Normal 0.358-3.740 [facility] Comment on above: Performed By: #### L 100.0100, L500.4100, L500.4050, L501.9985, L501.9520 #### [facility] [address] [place], [place], [id number] Total proteinOrdered By: Can Fernández on 03-31-2024 Protein [Mass/Vol] 7.8 g/dL 6.4-8.2 [facility] Triglycerides measurementOrd ered By: Meenakshi Fernández on 03-31-2024 Triglyceride [Mass/Vol] 65 mg/dL <199 [facility] Comment on above: The drugs N-Acetylcy steine and Metamizole may falsely depress this assay.Serum Triglycerides Reference Interval Normal <150 mg/dL Borderline high 150 - 199 mg/dL High 200 - 499 mg/dL Very High > or = 500 mg/dL Very low density lipoprotein (VLDL) cholesterol measurementOrdered By: Meenakshi Fernández on 03-31-2024 Very low density lipoprotein (VLDL) cholesterol measurement 13 mg/dL 5-40 [facility] White blood cell (WBC) count Ordered By: Meenakshi Fernández on 03-31-2024 WBC (Bld) [#/Vol] 5.8 10*3/uL 4.4-11.0 [facility] Urine Cultureon 03-28-2024 [facility] Culture exhibits no growth. [facility] Comment on above: Performed By: #### M 100.2200 #### [facility] [address] [place], [place], [id number] Urine cultureOrdered By: Can garay Beam on 03-27-2024 Bacteria identified Cx Nom (U) Culture exhibits no growth. [facility] M100.678on 02-13-2024 SARS-CoV-2 (COVID-19) RNA JUAN JOSE+probe Ql (Unsp spec) Pending SARS-CoV-2 (COVID 19) Negative INFLUENZA A Negative INFLUENZA B Negative RSV PCR Negative * This is an amended result. * A prior result that was reported as final has been changed. 02/13/24 0855 by GINGER Wallis [facility] Comment on above: Performed By: #### M 100.678 #### [facility] [address] [place], [address] Chest PA and Lateralon 02-11 Chest PA and Lateral [facility] [address] [place] [address] Chest PA and Lateral MR#: [id number] Acct: [id number] Name: MARILEE BOCANEGRA OUSMANE Rep #: [id number] : 1985 F 38 From: Carlos Eduardo cifuentes DO PCP: Jennifer Kwon Bijan, [employer] Status: REG ER Study: Chest PA and Lateral Date of Exam: 02/12/24 Exam# [id number] Ordering Dr: Gopi Betts DO [id number] EXAM: XR CHEST, 2 VIEWS CLINICAL INDICATION: cough TECHNIQUE: Frontal and lateral views of the chest. COMPARISON: 01/03/2023 FINDINGS: LUNGS AND PLEURAL SPACES: No significant abnormality. No consolidation or edema. No pneumothorax. No effusion. HEART: No significant abnormality. Cardiac silhouette not enlarged. MEDIASTINUM: Central airways and mediastinal contour are unremarkable. BONES/JOINTS: No significant abnormality. No acute fracture. SOFT TISSUES: No significant abnormality. RAD/Chest PA and Lateral IMPRESSION: No radiographic evidence of acute cardiopulmonary disease. Electronically Signed: Carlos Eduardo Salazar DO at 23:10 EST , CC: Bijan [employer] Jennifer Kwon; Gopi Betts DO Cytology Teacher: Signed Normal [facility] Emergency Department Summary on 02-12-2024 Emergency Department Summary [facility] Medical Records Department [address] [place] [id number] Emergency Department Summary 02/12/24 MR#: [id number] Acct: [id number] Name: MARILEE BOCANEGRA Rep #: [id number] : 1985 38 From: Gopi Betts DO PCP: NEETA Spears, [employer] Status:REG ER Location: ED HPI History of Present Illness Chief Complaint: Shortness of Breath Informant: patient Narrative Narrative: Patient is a 38-year-old female with past medical history of smoking but she denies any diagnosis of COPD or emphysema. She states that over the last 2 days she has had increased fatigue sinus pressure and cough. She states that she has had pneumonia in the past. The patient reports she has concern she is developing pneumonia at this time because of her progressive symptoms and therefore comes in for evaluation [facility] Medical History Ovarian torsion Low iron Depression Bowel obstruction History of ischemic colitis Substance abuse Home Medications ???Medication ???Instructions ???Recorded ???Last Taken ???Type acetaminophen 500 mg capsule 1,000 mg (2 x 500 mg) PO Q6H PRN 11/13/22 Unknown Rx pain #30 caps albuterol sulfate 90 mcg/actuation 1 - 2 puff inhalation Q4H PRN PRN 01/03/23 Unknown Rx aerosol inhaler (Ventolin HFA) Wheezing #1 ea ibuprofen 800 mg tablet 800 mg PO TID PRN PRN pain 02/12/24 Unknown History naltrexone microspheres 380 mg 380 mg IM QMONTH 02/12/24 Unknown History intramuscular suspension,extended release (Vivitrol) azelastine 137 mcg (0.1 %) nasal 2 spray intranasal BID #30 mL 02/13/24 Unknown Rx spray benzonatate 200 mg capsule 200 mg PO TID PRN cough #30 caps 02/13/24 Unknown Rx prednisone 20 mg tablet 40 mg (2 x 20 mg) PO DAILY 5 days 02/13/24 Unknown Rx #10 tabs Allergy/AdvReac Type Severity Reaction Status Date / Time cefaclor (From Ceclor) Allergy Unknown Verified 02/12/24 22:34 duloxetine (From Cymbalta) Allergy Other Verified 02/12/24 22:34 Penicillins Allergy Unknown Verified 02/12/24 22:34 tramadol Allergy PT UNSURE Verified 02/12/24 22:34 OF REACTION ketorolac (From Toradol) AdvReac PT UNSURE Verified 02/12/24 22:34 OF REACTION Surgical History Hx of tympanostomy tubes Hx of knee surgery History of hip surgery H/O shoulder surgery Social History household members: significant other housing: apartment number of children: 1 current occupational status: employed Smoking Status: Current every day smoker tobacco type: cigarettes and e-cigarettes alcohol intake: never substance use type: former substance user ROS ROS ED Constitutional Constitutional ED: Denies chills or fever(s) Eyes Eyes: Denies change in vision or diplopia ENT ENT ED: Reports rhinorrhea; Denies sore throat Cardiovascular Cardiovascular: Denies chest pain Respiratory/Chest Respiratory/Chest: Reports cough; Denies dyspnea Gastrointestinal Gastrointestinal: Denies abdominal pain, diarrhea, nausea or vomiting Genitourinary Genitourinary ED: Denies dysuria Musculoskeletal Musculoskeletal: Reports myalgias Integumentary Denies rash Neurologic Neurologic: Denies headache(s) Hematologic/Lymphatic Hematologic/Lymphatic: Denies easy bleeding or easy bruising Allergic/Immunologic Allergic/Immunologic ED: Denies mouth swelling or tongue swelling EXAM Physical Exam Const Vital Signs: 02/12/24 22:31 02/12/24 22:40 Temperature 98.1 F Temperature Source Temporal Pulse Rate 72 Respiratory Rate 15 Respiratory Effort Normal Non-Labored Respiratory Depth Normal Respiratory Pattern Normal Blood Pressure 126/88 H Blood Pressure Mean 100 Pulse Ox 100 Oxygen Delivery Method Room Air Room Air Positive well nourished and well developed General Appearance ED: well developed; Negative for pallor HEENT HEENT Narrative: Nasal mucosa is hyperemic and boggy with enlarged inferior nasal turbinates right greater than left There is cobblestoning noted in the posterior pharynx consistent with sinus drainage without airway edema or compromise No secondary findings to suggest infection Eyes PERRL and EOMs intact bilaterally Neck supple and no JVD Neck Narrative: No nuchal rigidity or meningeal signs Chest Wall palpation of chest normal Resp normal respiratory effort Resp Narrative: Breath sounds are diminished throughout with faint expiratory wheeze diffusely and scattered rhonchi in the bilateral bases consistent with history of smoking but no signs of respiratory distress Cardio regular rate and regular rhythm Extremity normal to inspection Extremity Narrative: No a (more content not included)... Normal [facility] Emergency Department Summary on 11-16-2023 Emergency Department Summary [facility] Medical Records Department [address] [place] [address] Emergency Department Summary 11/16/23 MR#: [id number] Acct: [id number] Name: MARILEE BOCANEGRA OUSMANE Rep #: [id number] : 1985 38 From: Duc Oden DO PCP: NEETA Spears, TIGHT COOPER-C Status:REG ER Location: ED HPI History of Present Illness Chief Complaint: Ear Problem Narrative Narrative: Patient is a 30-year-old female with past medical history of substance abuse on Vivitrol, depression who presented to the emergency department with a chief complaint of right ear discharge. Patient states that she was following with ears nose and throat for right ear problems for a significant mount time however notes that she lost her insurance and had to discontinue this. States that she has not followed up with them in quite some time. States that she had discharge out of her right ear now for several weeks and states that she finally was able to come in today for the evaluation management. Patient states that she had been using Tylenol/ibuprofen for pain control. [facility] Medical History Ovarian torsion Low iron Depression Bowel obstruction History of ischemic colitis Substance abuse Home Medications ???Medication ???Instructions ???Recorded ???Last Taken ???Type buprenorphine 1.4 mg-naloxone 0.36 1 tab sublingual Q24H 10/03/22 01/07/23 History mg sublingual tablet (Zubsolv) acetaminophen 500 mg capsule 1,000 mg (2 x 500 mg) PO Q6H PRN 11/13/22 Unknown Rx pain #30 caps albuterol sulfate 90 mcg/actuation 1 - 2 puff inhalation Q4H PRN PRN 01/03/23 Unknown Rx aerosol inhaler (Ventolin HFA) Wheezing #1 ea amoxicillin 875 mg-potassium 1 tab PO Q12H 7 days #14 tabs 11/16/23 Unknown Rx clavulanate 125 mg tablet Allergy/AdvReac Type Severity Reaction Status Date / Time cefaclor (From Ceclor) Allergy Unknown Verified 11/15/23 22:47 duloxetine (From Cymbalta) Allergy Other Verified 11/15/23 22:47 Penicillins Allergy Unknown Verified 11/15/23 22:47 tramadol Allergy PT UNSURE Verified 11/15/23 22:47 OF REACTION ketorolac (From Toradol) AdvReac PT UNSURE Verified 11/15/23 22:47 OF REACTION Surgical History Hx of tympanostomy tubes Hx of knee surgery History of hip surgery H/O shoulder surgery Social History household members: significant other housing: apartment number of children: 1 current occupational status: employed Smoking Status: Current every day smoker tobacco type: cigarettes alcohol intake: never substance use type: former substance user ROS ROS ED ROS Narrative Constitutional: Denies fevers, chills, headaches, lightness, dizziness Eyes, ears, nose, throat: Complains of right ear discharge as noted above Cardiovascular: Denies chest pain or palpitations Respiratory: Denies shortness of breath Neurological: Denies numbness, weakness, tingling Skin: Denies rashes or lesions EXAM Physical Exam Narrative Exam Narrative: General: Patient is lying in bed rest comfortably did not appear to be acute distress Head: Atraumatic, normocephalic Eyes ears, nose, throat: PERRL bilaterally, EOMI bilaterally, no conjunctival injection noted, patient does have some discharge noted in her right external auditory ear canal however no evidence of otitis externa, is finding suggestive of a right otitis media, left ear evaluated TMs normal bilaterally, external auditory canal normal on the left side as well. No concern for mastoiditis Neck: Soft, supple, trachea midline Cardiovascular: Regular rate and rhythm no murmurs gallops rubs noted Respiratory: Clear to auscultation bilaterally no rales rhonchi or wheezes noted Abdomen: Soft, nondistended, nontender to palpation bowel sounds present x 4 Extremities: +5/5 strength noted in the bilateral upper and lower extremities Neurological: Patient follow commands knew that she was at [facility] years 2023 Skin: Warm, dry, intact Const Vital Signs: 11/15/23 22:47 Temperature 97.9 F Temperature Source Oral Pulse Rate 63 Respiratory Rate 18 Blood Pressure 133/91 H Blood Pressure Mean 105 Pulse Ox 100 Oxygen Delivery Method Room Air MDM MDM MDM Narrative Medical decision making narrative: Patient is a 38-year-old female who presented to the Emergency Department with a chief complaint of right ear discharge. Patient will have a workup performed on the differential diagnose includes but not limited to otitis externa, otitis media. Does appear that the patient has a right otitis media she will be given her first dose of antibiotics here. States that she has not had amoxicillin since being a child and do (more content not included)... Normal [facility] CNOVon 09-09-2023 CNOV Office Visit (UCWSTR ) -- MARILEE BOCANEGRA ([id number]) 1985 F CHT Date Time Provider Department 09/09/23 8:30 AM JENNIFER FULLER [facility] During your visit today, we recorded the following information about you: Temperature Pulse Respiration Blood pressure 98.2 degrees 82/minute 20/minute 120/80 Weight 76.8 kg Jennifer Fuller APRN.CNP 09/09/2023 9:27 AM Signed This note was created using NoteWriter. Subjective Marilee Bocanegra is a 38 year old female. 38 year old female with PMH GERD presents for eye complaints. Acute onset this morning. Endorses that she woke up this morning Bilateral eyes, left greater than right +eyelids crusting +drainage +itching Denies trauma or injury Denies feelings of FB Denies pain. Denies loss or reduced vision. Denies URI sx. Denies cough Denies skin rash or lesions. 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 The history is provided by the patient. No tractor trailer truck driver was used. Eye Problem This is a new problem. The current episode started today. The problem occurs constantly. The problem has been unchanged. Pertinent negatives include no abdominal pain, anorexia, arthralgias, chest pain, chills, congestion, coughing, fatigue, fever, headaches, nausea, rash, sore throat, swollen glands, visual change or vomiting. Nothing aggravates the symptoms. She has tried nothing for the symptoms. The treatment provided no relief. PAST MEDICAL HISTORY Diagnosis Date Anxiety Depression Fibromyalgia 2000 Migraine S/P shoulder surgery PAST SURGICAL HISTORY Procedure Laterality Date ORTHOPEDIC SURGERY HX Left 11/05/2012 Left knee arthroscopy with chondroplasty ORTHOPEDIC SURGERY HX Left 11/05/2012 Left hip arthroscopy ORTHOPEDIC SURGERY HX Left 10/15/2013 Left hip arthroscopy ORTHOPEDIC SURGERY HX Left Left shoulder x 4 ORTHOPEDICS SURGERY HX L hip surgery x 2 in [place] OVARIAN CYST RIGHT, FLUID removal of right ovarian cyst/ruptured ALLERGIES Ceclor [Cefaclor], Cymbalta [Duloxetine], and Penicillins MEDICATIONS VITAMIN D 25 mcg (1,000 unit) tab tablet Take 1 tablet by mouth every afternoon. thiamine (VITAMIN B1) 100 mg tablet Take 1 tablet by mouth every afternoon. VIVITROL 380 mg injection omeprazole (PRILOSEC) 40 mg capsule Take 40 mg by mouth once daily. ciprofloxacin HCl (CILOXAN) 0.3 % ophthalmic solution Use 1-2 drops inside both lower eyelid(s) every 2 hours while awake for 2 days, then 1-2 drops every 4 hours for next 5 days. albuterol HFA (PROVENTIL HFA, VENTOLIN HFA) 90 mcg/actuation inhaler Inhale 2 Puffs as instructed every 4 hours as needed for wheezing/shortness of breath. (Patient not taking: Reported on 09/09/2023) meloxicam (MOBIC) 7.5 mg tablet Take 7.5 mg by mouth once daily. (Patient not taking: Reported on 03/27/2022) naproxen (NAPROSYN) 500 mg tablet Take 500 mg by mouth twice daily with meals. (Patient not taking: Reported on 03/27/2022) DICYCLOMINE HCL (BENTYL ORAL) Take by mouth. (Patient not taking: Reported on 03/27/2022) SERTRALINE HCL (ZOLOFT ORAL) Take by mouth. (Patient not taking: Reported on 03/27/2022) busPIRone (BUSPAR) 15 mg tablet Take 15 mg by mouth three times daily. (Patient not taking: Reported on 03/27/2022) Ujtjgmro-Zi-Gnm-Fe-FA tab Take 1 tablet by mouth once daily. (Patient not taking: Reported on 03/27/2022) FAMILY HISTORY Problem Relation Age of Onset Diabetes Paternal Grandmother Hypertension Mother other (depression) Mother Hypertension Father COPD Father other (Chronic pain) Father Thyroid Maternal Aunt Social History Tobacco Use Smoking status: Every Day Packs/day: 0.50 Years: 8.00 Additional pack years: 0.00 Total pack years: 4.00 Types: Cigarettes Smokeless tobacco: Never Substance Use Topics Alcohol use: Yes Comment: rarely Drug use: No Review of Systems Constitutional: Negative for chills, fatigue and fever. HENT: Negative for congestion, ear pain, rhinorrhea, sinus pressure, sinus pain and sore throat. Eyes: Positive for discharge, redness and itching. Negative for photophobia, pain and visual disturbance. Respiratory: Negative for apnea, cough, choking and chest tightness. Cardiovascular: Negative for chest pain, palpitations and leg swelling. Gastrointestinal: Negative for abdominal pain, anorexia, diarrhea, nausea and vomiting. Musculoskeletal: Negative for arthralgias, back pain and gait problem. Skin: Negative for rash. Allergic/Immunologic: Negative for environmental allergies, food allergies and immunocompromised state. Neurological: Negative for dizziness, facial asymmetry and headaches. Hematological: Negative for adenopathy. Does not bruise/bleed easily. Psychiatric/Behavioral: Negative for agitation. Objective BP 120/80 Pulse 82 Temp 36.8 ?C (98.2 ?F) Resp 20 Wt 76.8 (more content not included)... Normal [facility] Basophil percentageOrdered B y: [facility] Jennifer Kwon on 05-27-2023 Bilirubin [Mass/Vol] 0.60 mg/dL 0.20-1.00 [facility] Comment on above: For patients on eltr ombopag therapy, use of Dimension [place] TBIL is not recommended. Chloride [Moles/Vol] 106 mmol/L 98-107 [facility] Glucose [Mass/Vol] 85 mg/dL 74-106 [facility] Hemoglobin (Bld) [Mass/Vol] 14.6 g/dL 12.0-15.0 [facility] Potassium [Moles/Vol] 3.6 mmol/L 3.5-5.1 [facility] Protein [Mass/Vol] 7.7 g/dL 6.4-8.2 [facility] Sodium [Moles/Vol] 138 mmol/L 136-145 [facility] WBC (Bld) [#/Vol] 9.9 10*3/uL 4.4-11.0 [facility] Determination of erythrocyte mean corpuscular volume (MCV)Ordered By: [facility] Jennifer Kwon on 05-27-2023 MCV (RBC) [Entitic vol] 96.8 fL 81-99 [facility] Erythrocyte distribution wid th ratioOrdered By: [facility] Jennifer Kwon on 05-27-2023 Erythrocyte distribution width (RBC) [Ratio] 12.2 % 11.6-14.6 [facility] Erythrocyte distribution wid th standard deviationOrdered By: [facility] Jennifer Kwon on 05-27-2023 Erythrocyte distribution width (RBC) [Entitic vol] 43.8 fL 35.1-43.9 [facility] Hematocrit Auto (Bld) [Volum e fraction]Ordered By: [facility] Jennifer Kwon on 05-27-2023 Hematocrit (Bld) [Volume fraction] 42.1 % 37-47 [facility] Iron measurement (mass/mass) Ordered By: [facility] Jennifer Kwon on 05-27-2023 Iron (Unsp spec) [Mass/Mass] 202 ug/dL 50-170 [facility] Laboratory - Chemistry and C hemistry - challengeOrdered By: [facility] Jennifer Kwon on 05-27-2023 Albumin/Globulin [Mass ratio] 1.1 {ratio} 0.9-2.4 [facility] ALP [Catalytic activity/Vol] 56 U/L 45-117 [facility] ALT [Catalytic activity/Vol] 83 U/L 13-56 [facility] CO2 [Moles/Vol] 25.0 mmol/L 21.0-32.0 [facility] Cobalamin (Vitamin B12) [Mass/Vol] 374 pg/mL 211-911 [facility] Globulin (S) [Mass/Vol] 3.6 g/dL 2.2-4.2 [facility] Urea nitrogen/Creatinine [Mass ratio] 30.1 mg/mg 10-20 [facility] Laboratory - Hematology and Cell countsOrdered By: [facility] Jennifer Kwon on 05-27-2023 MCH (RBC) [Entitic mass] 33.6 pg 27.0-32.0 [facility] MCHC (RBC) [Mass/Vol] 34.7 g/dL 32-36 [facility] Platelet mean volume (Bld) [Entitic vol] 10.0 fL 6.2-12.0 [facility] Platelets (Bld) [#/Vol] 301 10*3/uL 150-450 [facility] No Panel InformationOrdered By: [facility] Jennifer Kwon on 05-27-2023 Estimated GFR (MDRD) Amer 128 mL/min >60 [facility] Comment on above: GFR Calc Estimated GFR (MDRD) Non-Af Amer 106 mL/min >60 [facility] Comment on above: Non- GFR Calc Folate 27.80 ng/mL 3.1-55.4 [facility] Total Iron Binding Capacity 329 ug/dL 250-450 [facility] RBC Auto (Bld) [#/Vol]Ordere d By: [facility] Jennifer Doyle on 05-27-2023 RBC (Bld) [#/Vol] 4.35 10*6/uL 4.2-5.4 [facility] Serum or plasma calcitriol m easurement (mass/volume)Ordered By: [facility] Jennifer Kwon on 05-27-2023 1,25-dihydroxyvitamin D3 [Mass/Vol] 29.3 pg/mL 24.8-81.5 [facility] Comment on above: Performed at: - [address] [id number] Director: Radha Lord MD, Phone: [phone] Serum or plasma calcium erasto urement (mass/volume)Ordered By: [facility] Jennifer Kwon on 05-27-2023 Calcium [Mass/Vol] 9.0 mg/dL 8.5-10.1 [facility] Serum or plasma creatinine m easurement (mass/volume)Ordered By: [facility] K[facility] on 05-27-2023 Creatinine [Mass/Vol] 0.66 mg/dL 0.55-1.02 [facility] Comment on above: The validity of the calculated GFR & GFRAA in patients over 70 years has not been determined. Clinical correlation is essential. Serum or plasma iron saturat ion measurement (mass fraction)Ordered By: [facility] Kwon on 05-27-2023 Iron saturation [Mass fraction] 61.4 % 15.0-55.0 [facility] Serum or plasma thyroid stim ulating hormone (TSH) measurement (units/volume)Ordered By: [facility] Kwon on 05-27-2023 TSH Qn 0.66 uIU/mL 0.358-3.74 [facility] Serum or plasma urea nitroge n measurement (mass/volume)Ordered By: [facility] Kwon on 05-27-2023 Urea nitrogen [Mass/Vol] 20 mg/dL 7-18 [facility] Thin prep Papanicolaou smear with manual screeningOrdered By: [facility] Kwon on 05-27-2023 Thin prep Papanicolaou smear with manual screening 4.1 g/dL 3.2-5.0 [facility] Thin prep Papanicolaou smear with manual screening 48 U/L 15-37 [facility] Thin prep Papanicolaou smear with manual screening 7 5-15 [facility] CNOVon 05-21-2023 CNOV Office Visit (UCWSTR ) -- SHRUTHIMARILEE Lan Taylor ([id number]) 1985 F T Date Time Provider Department 05/21/23 11:00 AM MIGUEL BRYANT [facility] During your visit today, we recorded the following information about you: Temperature Pulse Respiration Blood pressure 98.1 degrees 70/minute 16/minute 122/70 Weight 76 kg Miguel Bryant APRN.TIE HACKER 05/21/2023 12:04 PM Signed Subjective HPI Nontoxic-appearing female presents urgent care chief complaint cough chest congestion. Duration of symptoms 2 to 3 weeks. Associated symptoms listed above. Most prominent symptom today is cough. He is currently living in a fdc. Was seen by the nurse. Last week states she did have some wheezing as per nurse auscultation. She did have a syncopal episode last week. Was sent to [facility] via EMS. No abnormal findings were noted on assessment. States blood pressure was a little lower than normal for her. Otherwise she was discharged in stable condition. Presents today with persistent cough. History of pneumonia. Concerned about possible pneumonia. States history of drug use. Has been clean for 3 months. 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 Denies any fever body aches chills productive cough chest pain shortness of breath pleuritic pain hemoptysis nausea vomiting abdominal pain or change in bowel or bladder habits past medical history prescription medications allergies reviewed. Denies chance of . Is not breast-feeding. .Patient presents with: Chest Congestion: sob x couple weeks PAST MEDICAL HISTORY Diagnosis Date Anxiety Depression Fibromyalgia 2000 Migraine S/P shoulder surgery PAST SURGICAL HISTORY Procedure Laterality Date ORTHOPEDIC SURGERY HX Left 11/05/2012 Left knee arthroscopy with chondroplasty ORTHOPEDIC SURGERY HX Left 11/05/2012 Left hip arthroscopy ORTHOPEDIC SURGERY HX Left 10/15/2013 Left hip arthroscopy ORTHOPEDIC SURGERY HX Left Left shoulder x 4 ORTHOPEDICS SURGERY HX L hip surgery x 2 in [place] OVARIAN CYST RIGHT, FLUID removal of right ovarian cyst/ruptured ALLERGIES Ceclor [Cefaclor], Cymbalta [Duloxetine], and Penicillins MEDICATIONS omeprazole (PRILOSEC) 40 mg capsule Take 40 mg by mouth once daily. VIVITROL 380 mg injection meloxicam (MOBIC) 7.5 mg tablet Take 7.5 mg by mouth once daily. (Patient not taking: Reported on 03/27/2022) naproxen (NAPROSYN) 500 mg tablet Take 500 mg by mouth twice daily with meals. (Patient not taking: Reported on 03/27/2022) DICYCLOMINE HCL (BENTYL ORAL) Take by mouth. (Patient not taking: Reported on 03/27/2022) SERTRALINE HCL (ZOLOFT ORAL) Take by mouth. (Patient not taking: Reported on 03/27/2022) busPIRone (BUSPAR) 15 mg tablet Take 15 mg by mouth three times daily. (Patient not taking: Reported on 03/27/2022) Ditppscg-Qt-Qqb-Fe-FA tab Take 1 tablet by mouth once daily. (Patient not taking: Reported on 03/27/2022) FAMILY HISTORY Problem Relation Age of Onset Diabetes Paternal Grandmother Hypertension Mother other (depression) Mother Hypertension Father COPD Father other (Chronic pain) Father Thyroid Maternal Aunt Social History Tobacco Use Smoking status: Every Day Packs/day: 0.50 Years: 8.00 Additional pack years: 0.00 Total pack years: 4.00 Types: Cigarettes Smokeless tobacco: Never Substance Use Topics Alcohol use: Yes Comment: rarely Drug use: No BP 122/70 Pulse 70 Temp 36.7 ?C (98.1 ?F) Resp 16 Wt 76 kg (167 lb 8.8 oz) LMP 08/05/2016 SpO2 99% BMI 26.24 kg/m? Review of Systems Constitutional: Negative for chills, fever and malaise/fatigue. HENT: Positive for congestion. Negative for ear discharge, ear pain, sinus pain and sore throat. Eyes: Negative for blurred vision, pain, discharge and redness. Respiratory: Positive for cough. Negative for hemoptysis, sputum production, shortness of breath, wheezing and stridor. Cardiovascular: Negative for chest pain. Gastrointestinal: Negative for abdominal pain, diarrhea, nausea and vomiting. Musculoskeletal: Negative for myalgias. Skin: Negative for itching and rash. Neurological: Negative for dizziness and headaches. Objective Physical Exam Constitutional: General: She is not in acute distress. Appearance: She is not diaphoretic. HENT: Head: Normocephalic. Jaw: No trismus, tenderness, swelling or pain on movement. Mouth/Throat: Mouth: Mucous membranes are moist. Pharynx: Oropharynx is clear. Uvula midline. No pharyngeal swelling, oropharyngeal exudate, posterior oropharyngeal erythema or uvula swelling. Eyes: Conjunctiva/sclera: Conjunctivae normal. Pupils: Pupils are equal, round, and reactive to light. Cardiovascular: Rate and Rhythm: Normal rate and regular rhythm. Heart sounds: Normal heart sounds. Pulmonary: Effort: Pulmonary effort is normal. No tachypn (more content not included)... Normal [facility] XR CHEST 2V FRONTAL/LATon XR CHEST 2V FRONTAL/LAT * * *Final Report* * * DATE OF EXAM: May 21 2023 11:23AM WOX [id number] - XR CHEST 2V FRONTAL/LAT / PROCEDURE REASON: Acute cough * * * * Physician Interpretation * * * * EXAMINATION: CHEST RADIOGRAPH (2 VIEW FRONTAL and LATERAL) CLINICAL HISTORY: Acute cough MQ: [id number] EXAM DATE/TIME: 05/21/2023 11:23 AM COMPARISON: Chest x-ray dated April 27, 2022 RESULT: Lines, tubes, and devices: None. Lungs and pleura: No consolidation. No lung mass. No pleural effusion. No pneumothorax. Cardiomediastinal silhouette: Normal cardiomediastinal silhouette. Bones and soft tissues: Unremarkable. IMPRESSION: No acute radiographic abnormality. Cytology Teacher: PSCEmil Transcribe Date/Time: May 21 2023 11:26A Dictated by : GEOVANNA MIR MD This examination was interpreted and the report reviewed and electronically signed by: GEOVANNA MIR MD on May 21 2023 11:27AM EST [id number] Normal [facility] XR Chest PA and Lateralon IMPRESSION: No acute radiographic abnormality. Cytology Teacher: ROMAINE Transcribe Date/Time: May 21 2023 11:26A Dictated by : GEOVANNA MIR MD This examination was interpreted and the report reviewed and electronically signed by: GEOVANNA MIR MD on May 21 2023 11:27AM [facility] DIVISION OF RADIOLOGY * * *Final Report* * * DATE OF EXAM: May 21 2023 11:23AM WOX 5291 - XR CHEST 2V FRONTAL/LAT / PROCEDURE REASON: Acute cough * * * * Physician Interpretation * * * * EXAMINATION: CHEST RADIOGRAPH (2 VIEW FRONTAL & LATERAL) CLINICAL HISTORY: Acute cough MQ: XC2_6 EXAM DATE/TIME: 05/21/2023 11:23 AM COMPARISON: Chest x-ray dated April 27, 2022 RESULT: Lines, tubes, and devices: None. Lungs and pleura: No consolidation. No lung mass. No pleural effusion. No pneumothorax. Cardiomediastinal silhouette: Normal cardiomediastinal silhouette. Bones and soft tissues: Unremarkable. DIVISION OF RADIOLOGY Provider, [facility] - 05/21/2023 * * *Final Report* * * DATE OF EXAM: May 21 2023 11:23AM WOX 5291 - XR CHEST 2V FRONTAL/LAT / PROCEDURE REASON: Acute cough * * * * Physician Interpretation * * * * EXAMINATION: CHEST RADIOGRAPH (2 VIEW FRONTAL & LATERAL) CLINICAL HISTORY: Acute cough MQ: XC2_6 EXAM DATE/TIME: 05/21/2023 11:23 AM COMPARISON: Chest x-ray dated April 27, 2022 RESULT: Lines, tubes, and devices: None. Lungs and pleura: No consolidation. No lung mass. No pleural effusion. No pneumothorax. Cardiomediastinal silhouette: Normal cardiomediastinal silhouette. Bones and soft tissues: Unremarkable. IMPRESSION IMPRESSION: No acute radiographic abnormality. Cytology Teacher: ROMAINE Transcribe Date/Time: May 21 2023 11:26A Dictated by : GEOVANNA MIR MD This examination was interpreted and the report reviewed and electronically signed by: GEOVANNA MIR MD on May 21 2023 11:27AM [facility] Radiology Study observation (narrative) [facility] XR Chest PA and LateralOrder ed By: [facility] Provider on 05-21-2023 [facility] Absolute lymphocyte countOrd ered By: Brian Hernadez on 05-17-2023 Lymphocytes Auto (Unsp spec) [#/Vol] 2.57 10*3/uL 0.83-4.51 [facility] Automated lymphocyte count a s percentage of total leukocytesOrdered By: Brian Hernadez on 05-17-2023 Lymphocytes/100 WBC Auto (Unsp spec) 42.9 % 19-41 [facility] Basophil percentageOrdered B y: Brian Hernadez on 05-17-2023 Basophils/100 WBC (Bld) 0.8 % 0-1 [facility] Chloride [Moles/Vol] 112 mmol/L 98-107 [facility] Eosinophils/100 WBC (Bld) 7.8 % 0-5 [facility] Glucose [Mass/Vol] 104 mg/dL 74-106 [facility] Comment on above: Fasting Glucose resu lt from 100 to 125 mg/dL suggests IMPAIRED HOMEOSTASIS per A.D.A. criteria. Hemoglobin (Bld) [Mass/Vol] 14.0 g/dL 12.0-15.0 [facility] Monocytes/100 WBC (Bld) 9.2 % 0-10 [facility] Neutrophils (Bld) [#/Vol] 2.3 10*3/uL 2.0-7.7 [facility] Neutrophils/100 WBC (Bld) 39.1 % 47-70 [facility] Potassium [Moles/Vol] 4.0 mmol/L 3.5-5.1 [facility] Sodium [Moles/Vol] 141 mmol/L 136-145 [facility] WBC (Bld) [#/Vol] 6.0 10*3/uL 4.4-11.0 [facility] Determination of erythrocyte mean corpuscular volume (MCV)Ordered By: Brian Hernadez on 05-17-2023 MCV (RBC) [Entitic vol] 96.9 fL 81-99 [facility] Erythrocyte distribution wid th ratioOrdered By: Brian Hernadez on 05-17-2023 Erythrocyte distribution width (RBC) [Ratio] 12.7 % 11.6-14.6 [facility] Erythrocyte distribution wid th standard deviationOrdered By: Brian Hernadez on 05-17-2023 Erythrocyte distribution width (RBC) [Entitic vol] 45.7 fL 35.1-43.9 [facility] Hematocrit Auto (Bld) [Volum e fraction]Ordered By: Brian Hernadez on 05-17-2023 Hematocrit (Bld) [Volume fraction] 40.3 % 37-47 [facility] Immature granulocytes/100 WB C Auto (Bld)Ordered By: Brian Hernadez on 05-17-2023 Immature granulocytes/100 WBC (Bld) 0.200 % 0.0-0.9 [facility] Comment on above: IG% - Immature Granu locytes (promyelocytes, myelocytes and metamyelocytes) > 1% indicates that a LEFT SHIFT is Present. Laboratory - Chemistry and C hemistry - challengeOrdered By: Brian Hernadez on 05-17-2023 CO2 [Moles/Vol] 25.0 mmol/L 21.0-32.0 [facility] Urea nitrogen/Creatinine [Mass ratio] 19.7 mg/mg 10-20 [facility] Laboratory - Hematology and Cell countsOrdered By: Brian Hernadez on 05-17-2023 MCH (RBC) [Entitic mass] 33.7 pg 27.0-32.0 [facility] MCHC (RBC) [Mass/Vol] 34.7 g/dL 32-36 [facility] Nucleated RBC/100 WBC (Bld) [Ratio] 0 % 0-5 [facility] Platelet mean volume (Bld) [Entitic vol] 10.0 fL 6.2-12.0 [facility] Platelets (Bld) [#/Vol] 267 10*3/uL 150-450 [facility] No Panel InformationOrdered By: Brian Hernadez on 05-17-2023 Estimated Creatinine Clearance Calc 136.80 ml/min [facility] Estimated GFR (MDRD) Amer 142 mL/min >60 [facility] Comment on above: GFR Calc Estimated GFR (MDRD) Non-Af Amer 117 mL/min >60 [facility] Comment on above: Non- GFR Calc RBC Auto (Bld) [#/Vol]Ordere d By: Brian Hernadez on 05-17-2023 RBC (Bld) [#/Vol] 4.16 10*6/uL 4.2-5.4 [facility] Serum or plasma calcium erasto urement (mass/volume)Ordered By: Brian Hernadez on 05-17-2023 Calcium [Mass/Vol] 8.6 mg/dL 8.5-10.1 [facility] Serum or plasma choriogonado tropin detectionOrdered By: Brian Hernadez on 05-17-2023 HCG ( test) Ql Negative [facility] Serum or plasma creatinine m easurement (mass/volume)Ordered By: Brian Hernadez on 05-17-2023 Creatinine [Mass/Vol] 0.61 mg/dL 0.55-1.02 [facility] Comment on above: The validity of the calculated GFR & GFRAA in patients over 70 years has not been determined. Clinical correlation is essential. Serum or plasma urea nitroge n measurement (mass/volume)Ordered By: Brian Hernadez on 05-17-2023 Urea nitrogen [Mass/Vol] 12 mg/dL 7-18 [facility] Thin prep Papanicolaou smear with manual screeningOrdered By: Brian Hernadez on 05-17-2023 Thin prep Papanicolaou smear with manual screening 4 5-15 [facility] Absolute lymphocyte countOrd ered By: Julian Jiménez on 01-08-2023 Lymphocytes Auto (Unsp spec) [#/Vol] 0.78 10*3/uL 0.83-4.51 [facility] Basophil percentageOrdered B y: Julian Jiménez on 01-08-2023 Basophils/100 WBC (Bld) 0.4 % 0-1 [facility] Bilirubin [Mass/Vol] 0.50 mg/dL 0.20-1.00 [facility] Comment on above: For patients on eltr ombopag therapy, use of Dimension [place] TBIL is not recommended. Chloride [Moles/Vol] 105 mmol/L 98-107 [facility] Eosinophils/100 WBC (Bld) 0.0 % 0-5 [facility] Glucose [Mass/Vol] 140 mg/dL 74-106 [facility] Comment on above: Fasting Glucose resu lt greater than or equal to 126 mg/dL suggests DIABETES MELLITUS per A.D.A. criteria. Neutrophils (Bld) [#/Vol] 3.9 10*3/uL 2.0-7.7 [facility] Neutrophils/100 WBC (Bld) 80.8 % 47-70 [facility] Potassium [Moles/Vol] 4.3 mmol/L 3.5-5.1 [facility] Protein [Mass/Vol] 7.4 g/dL 6.4-8.2 [facility] Sodium [Moles/Vol] 135 mmol/L 136-145 [facility] WBC (Bld) [#/Vol] 4.8 10*3/uL 4.4-11.0 [facility] Blood erythrocytes count (nu mber/volume)Ordered By: Julian Jiménez on 01-08-2023 RBC (Bld) [#/Vol] 4.34 10*6/uL 4.2-5.4 [facility] Blood hemoglobin measurement (mass/volume)Ordered By: Julian Jiménez on 01-08-2023 Hemoglobin (Bld) [Mass/Vol] 13.5 g/dL 12.0-15.0 [facility] Blood lymphocytes/100 leukoc ytesOrdered By: [place] Jiménez on 01-08-2023 Lymphocytes/100 WBC (Bld) 16.1 % 19-41 [facility] Blood monocytes/100 leukocyt esOrdered By: Julian Jiménez on 01-08-2023 Monocytes/100 WBC (Bld) 2.5 % 0-10 [facility] Blood platelet mean volumeOr dered By: Julian Jiménez on 01-08-2023 Platelet mean volume (Bld) [Entitic vol] 9.9 fL 6.2-12.0 [facility] Determination of erythrocyte mean corpuscular volume (MCV)Ordered By: Julian Jiménez on 01-08-2023 MCV (RBC) [Entitic vol] 93.1 fL 81-99 [facility] Erythrocyte sedimentation ra teOrdered By: Julian Jiménez on 01-08-2023 ESR (Bld) [Velocity] 13 mm/h 0-30 [facility] Hematocrit Auto (Bld) [Volum e fraction]Ordered By: Julian Jiménez on 01-08-2023 Hematocrit (Bld) [Volume fraction] 40.4 % 37-47 [facility] Laboratory - Chemistry and C hemistry - challengeOrdered By: Julian Jiménez on 01-08-2023 ALP [Catalytic activity/Vol] 66 U/L 45-117 [facility] ALT [Catalytic activity/Vol] 34 U/L 13-56 [facility] CO2 [Moles/Vol] 26.0 mmol/L 21.0-32.0 [facility] Globulin (S) [Mass/Vol] 3.8 g/dL 2.2-4.2 [facility] Urea nitrogen/Creatinine [Mass ratio] 34.1 mg/mg 10-20 [facility] Laboratory - Drug toxicology Ordered By: Julian Jiménez on 01-08-2023 Amphetamines Ql (U) Positive <1000 ng/mL [facility] Benzodiazepines Ql (U) Negative < 200 ng/mL [facility] Cannabinoids Screen Ql (U) Negative < 50 ng/mL [facility] Cocaine Ql (U) Negative < 300 ng/mL [facility] Opiates Ql (U) Negative < 300 ng/mL [facility] Laboratory - Hematology and Cell countsOrdered By: Jul[place] Jiménez on 01-08-2023 Erythrocyte distribution width (RBC) [Entitic vol] 42.6 fL 35.1-43.9 [facility] Erythrocyte distribution width (RBC) [Ratio] 12.3 % 11.6-14.6 [facility] Immature granulocytes/100 WBC (Bld) 0.200 % 0.0-0.9 [facility] Comment on above: IG% - Immature Granu locytes (promyelocytes, myelocytes and metamyelocytes) > 1% indicates that a LEFT SHIFT is Present. MCH (RBC) [Entitic mass] 31.1 pg 27.0-32.0 [facility] Nucleated RBC/100 WBC (Bld) [Ratio] 0 % 0-5 [facility] MCHC Auto (RBC) [Mass/Vol]Or dered By: Julian Jiménez on 01-08-2023 MCHC (RBC) [Mass/Vol] 33.4 g/dL 32-36 [facility] No Panel InformationOrdered By: Julian Jiménez on 01-08-2023 Estimated Creatinine Clearance Calc 155.40 ml/min [facility] Estimated GFR (MDRD) Amer 179 mL/min >60 [facility] Comment on above: GFR Calc Estimated GFR (MDRD) Non-Af Amer 148 mL/min >60 [facility] Comment on above: Non- GFR Calc Ethyl Alcohol Level < 3.0 mg/dL [facility] Comment on above: The serum:whole bloo d ethanol ratio is approximately 1.14and varies slightly with hematocrit. Medical Alcohol reference interval and critical value innon-tolerant individuals; 50 - 100 Impairment 100 Intoxication 100 - 250 Severe Poisoning 250 - 400 Deep/possible fatal coma MDMA (Ecstasy) Screen Negative < 500 ng/mL [facility] Urine Barbiturates Screen Negative < 200 ng/mL [facility] Urine Drug Screen Comment [facility] Comment on above: CONFIRMATORY TESTING FOR ALL POSITIVE URINE DRUG SCREENRESULTS WILL ONLY BE SENT OUT UPON PHYSICIAN ORDER. VISTA Urine Drug Screen methods provide only preliminaryanalytical test results. A more specific alternate chemicalmethod must be used in order to obtain a confirmedanalytical result. Gas chromatography/mass spectrometery(GC/MS) is the preferred confirmatory method. Clinicalconsideration and professional judgement should be appliedto any drug of abuse test result, particularly whenpreliminary positive results are used. URINE TCA TESTING MUST BE ORDERED SEPARATELY. USE TESTMNEMONIC: [facility] Urine Methadone Screen Negative < 300 ng/mL [facility] Platelets bldOrdered By: Julian Jiménez on 01-08-2023 Platelets (Bld) [#/Vol] 398 10*3/uL 150-450 [facility] Serum or plasma albumin erasto urement (mass/volume)Ordered By: Julian Jiménez on 01-08-2023 Albumin [Mass/Vol] 3.6 g/dL 3.2-5.0 [facility] Serum or plasma albumin/glob ulin mass ratioOrdered By: Julian Jiménez on 01-08-2023 Albumin/Globulin [Mass ratio] 0.9 {ratio} 0.9-2.4 [facility] Serum or plasma calcium erasto urement (mass/volume)Ordered By: Julian Jiménez on 01-08-2023 Calcium [Mass/Vol] 9.0 mg/dL 8.5-10.1 [facility] Serum or plasma creatinine m easurement (mass/volume)Ordered By: Julian Jiménez on 01-08-2023 Creatinine [Mass/Vol] 0.50 mg/dL 0.55-1.02 [facility] Comment on above: The validity of the calculated GFR & GFRAA in patients over 70 years has not been determined. Clinical correlation is essential. Serum or plasma urea nitroge n measurement (mass/volume)Ordered By: Julian Jiménez on 01-08-2023 Urea nitrogen [Mass/Vol] 17 mg/dL 7-18 [facility] Thin prep Papanicolaou smear with manual screeningOrdered By: [facility]23 Thin prep Papanicolaou smear with manual screening 24 U/L 15-37 [facility] Thin prep Papanicolaou smear with manual screening 4 5-15 [facility] Urine phencyclidine (PCP) de tectionOrdered By: Julian Jiménez on 01-08-2023 Phencyclidine Ql (U) Negative < 25 ng/mL [facility] Influenza virus A and B and SARS-CoV-2 (COVID-19) Ag panel - Upper respiratory specimOrdered By: Kevin Gregory on 01-03-2023 SARS-CoV-2 (COVID-19) RNA JUAN JOSE+probe Ql (Resp) [facility] Absolute lymphocyte countOrd ered By: Alejandra Britton on 11-13-2022 Lymphocytes Auto (Unsp spec) [#/Vol] 3.05 10*3/uL 0.83-4.51 [facility] Basophil percentageOrdered B y: Alejandra Britton on 11-13-2022 Basophils/100 WBC (Bld) 0.7 % 0-1 [facility] Chloride [Moles/Vol] 108 mmol/L 98-107 [facility] Eosinophils/100 WBC (Bld) 6.5 % 0-5 [facility] Glucose [Mass/Vol] 80 mg/dL 74-106 [facility] Neutrophils (Bld) [#/Vol] 1.7 10*3/uL 2.0-7.7 [facility] Neutrophils/100 WBC (Bld) 30.6 % 47-70 [facility] Potassium [Moles/Vol] 3.9 mmol/L 3.5-5.1 [facility] Sodium [Moles/Vol] 138 mmol/L 136-145 [facility] WBC (Bld) [#/Vol] 5.7 10*3/uL 4.4-11.0 [facility] Blood erythrocytes count (nu mber/volume)Ordered By: Alejandra Britton on 11-13-2022 RBC (Bld) [#/Vol] 3.62 10*6/uL 4.2-5.4 [facility] Blood hemoglobin measurement (mass/volume)Ordered By: Alejandra Britton on 11-13-2022 Hemoglobin (Bld) [Mass/Vol] 11.8 g/dL 12.0-15.0 [facility] Blood lymphocytes/100 leukoc ytesOrdered By: Alejandra Britton on 11-13-2022 Lymphocytes/100 WBC (Bld) 53.7 % 19-41 [facility] Blood monocytes/100 leukocyt esOrdered By: Alejandra Britton on 11-13-2022 Monocytes/100 WBC (Bld) 8.1 % 0-10 [facility] Blood platelet mean volumeOr dered By: Alejandra Britton on 11-13-2022 Platelet mean volume (Bld) [Entitic vol] 10.3 fL 6.2-12.0 [facility] Determination of erythrocyte mean corpuscular volume (MCV)Ordered By: Alejandra Britton on 11-13-2022 MCV (RBC) [Entitic vol] 99.4 fL 81-99 [facility] Hematocrit Auto (Bld) [Volum e fraction]Ordered By: Alejandra Britton on 11-13-2022 Hematocrit (Bld) [Volume fraction] 36.0 % 37-47 [facility] Laboratory - Chemistry and C hemistry - challengeOrdered By: Alejandra Britton on 11-13-2022 CO2 [Moles/Vol] 27.0 mmol/L 21.0-32.0 [facility] Urea nitrogen/Creatinine [Mass ratio] 21.8 mg/mg 10-20 [facility] Laboratory - Hematology and Cell countsOrdered By: Alejandra Britton on 11-13-2022 Erythrocyte distribution width (RBC) [Entitic vol] 46.3 fL 35.1-43.9 [facility] Erythrocyte distribution width (RBC) [Ratio] 12.6 % 11.6-14.6 [facility] Immature granulocytes/100 WBC (Bld) 0.400 % 0.0-0.9 [facility] Comment on above: IG% - Immature Granu locytes (promyelocytes, myelocytes and metamyelocytes) > 1% indicates that a LEFT SHIFT is Present. MCH (RBC) [Entitic mass] 32.6 pg 27.0-32.0 [facility] Nucleated RBC/100 WBC (Bld) [Ratio] 0 % 0-5 [facility] MCHC Auto (RBC) [Mass/Vol]Or dered By: Alejandra Britton on 11-13-2022 MCHC (RBC) [Mass/Vol] 32.8 g/dL 32-36 [facility] No Panel InformationOrdered By: Alejandra Britton on 11-13-2022 Estimated Creatinine Clearance Calc 189.51 ml/min [facility] Estimated GFR (MDRD) Amer 222 mL/min >60 [facility] Comment on above: GFR Calc Estimated GFR (MDRD) Non-Af Amer 184 mL/min >60 [facility] Comment on above: Non- GFR Calc Platelets bldOrdered By: Jennifer Britton on 11-13-2022 Platelets (Bld) [#/Vol] 256 10*3/uL 150-450 [facility] Serum or plasma calcium erasto urement (mass/volume)Ordered By: Alejandra Britton on 11-13-2022 Calcium [Mass/Vol] 8.1 mg/dL 8.5-10.1 [facility] Serum or plasma creatinine m easurement (mass/volume)Ordered By: Alejandra Britton on 11-13-2022 Creatinine [Mass/Vol] 0.41 mg/dL 0.55-1.02 [facility] Comment on above: The validity of the calculated GFR & GFRAA in patients over 70 years has not been determined. Clinical correlation is essential. Serum or plasma urea nitroge n measurement (mass/volume)Ordered By: Alejandra Britton on 11-13-2022 Urea nitrogen [Mass/Vol] 9 mg/dL 7-18 [facility] Thin prep Papanicolaou smear with manual screeningOrdered By: Alejandra Britton on 11-13-2022 Thin prep Papanicolaou smear with manual screening 3 5-15 [facility] Absolute lymphocyte countOrd ered By: Brian Hernadez on 11-11-2022 Lymphocytes Auto (Unsp spec) [#/Vol] 2.66 10*3/uL 0.83-4.51 [facility] Amorphous sediment detection in urine sediment by light microscopyOrdered By: Brian Hernadez on 11-11-2022 Amorphous sediment LM Ql (Urine sed) 1+ [facility] Basophil percentageOrdered B y: Brian Hernadez on 11-11-2022 Basophil percentage 0 SEEN /hpf 0-5 [facility] Basophils/100 WBC (Bld) 0.6 % 0-1 [facility] Bilirubin [Mass/Vol] 0.50 mg/dL 0.20-1.00 [facility] Comment on above: For patients on eltr ombopag therapy, use of Dimension [place] TBIL is not recommended. Chloride [Moles/Vol] 99 mmol/L 98-107 [facility] Eosinophils/100 WBC (Bld) 3.0 % 0-5 [facility] Glucose [Mass/Vol] 131 mg/dL 74-106 [facility] Comment on above: Fasting Glucose resu lt greater than or equal to 126 mg/dL suggests DIABETES MELLITUS per A.D.A. criteria. Lactate [Moles/Vol] 1.2 mmol/L 0.4-2.0 [facility] Neutrophils (Bld) [#/Vol] 8.7 10*3/uL 2.0-7.7 [facility] Neutrophils/100 WBC (Bld) 69.7 % 47-70 [facility] Potassium [Moles/Vol] 4.2 mmol/L 3.5-5.1 [facility] Protein [Mass/Vol] 8.8 g/dL 6.4-8.2 [facility] Sodium [Moles/Vol] 134 mmol/L 136-145 [facility] WBC (Bld) [#/Vol] 12.5 10*3/uL 4.4-11.0 [facility] Beta hCG serum qualOrdered B y: Brian Hernadez on 11-11-2022 Beta HCG ( test) Ql Negative [facility] Bilirubin Test strip Ql (U)O rdered By: Brian Hernadez on 11-11-2022 Bilirubin Ql (U) Negative Negative [facility] Blood erythrocytes count (nu mber/volume)Ordered By: Brian Hernadez on 11-11-2022 RBC (Bld) [#/Vol] 5.44 10*6/uL 4.2-5.4 [facility] Blood hemoglobin measurement (mass/volume)Ordered By: Brian Hernadez on 11-11-2022 Hemoglobin (Bld) [Mass/Vol] 17.5 g/dL 12.0-15.0 [facility] Blood lymphocytes/100 leukoc ytesOrdered By: Brian Hernadez on 11-11-2022 Lymphocytes/100 WBC (Bld) 21.3 % 19-41 [facility] Blood monocytes/100 leukocyt esOrdered By: Brian Hernadez on 11-11-2022 Monocytes/100 WBC (Bld) 5.1 % 0-10 [facility] Blood platelet mean volumeOr dered By: Brian Hernadez on 11-11-2022 Platelet mean volume (Bld) [Entitic vol] 10.2 fL 6.2-12.0 [facility] Determination of erythrocyte mean corpuscular volume (MCV)Ordered By: Brian Hernadez on 11-11-2022 MCV (RBC) [Entitic vol] 97.4 fL 81-99 [facility] Hematocrit Auto (Bld) [Volum e fraction]Ordered By: Brian Hernadez on 11-11-2022 Hematocrit (Bld) [Volume fraction] 53.0 % 37-47 [facility] Ketones Test strip Ql (U)Ord ered By: Brian Hernadez on 11-11-2022 Ketones Ql (U) Negative Negative [facility] Laboratory - Chemistry and C hemistry - challengeOrdered By: Brian Hernadez on 11-11-2022 ALP [Catalytic activity/Vol] 67 U/L 45-117 [facility] ALT [Catalytic activity/Vol] 43 U/L 13-56 [facility] CO2 [Moles/Vol] 30.0 mmol/L 21.0-32.0 [facility] Globulin (S) [Mass/Vol] 4.5 g/dL 2.2-4.2 [facility] Lipase [Catalytic activity/Vol] 19 U/L 13-75 [facility] Comment on above: Please note:LIPASE r evised reference range effective 22. New Lipase methodology. Expected to produce lower values than the previous assay method. NEW Reference Range: 13 - 75 U/L Urea nitrogen/Creatinine [Mass ratio] 14.2 mg/mg 10-20 [facility] Laboratory - Drug toxicology Ordered By: Jeannette Agrawal on 11-11-2022 Amphetamines Ql (U) Negative <1000 ng/mL [facility] Benzodiazepines Ql (U) Negative < 200 ng/mL [facility] Cannabinoids Screen Ql (U) Negative < 50 ng/mL [facility] Cocaine Ql (U) Negative < 300 ng/mL [facility] Opiates Ql (U) Positive < 300 ng/mL [facility] Laboratory - Hematology and Cell countsOrdered By: Brian Hernadez on 11-11-2022 Erythrocyte distribution width (RBC) [Entitic vol] 45.0 fL 35.1-43.9 [facility] Erythrocyte distribution width (RBC) [Ratio] 12.7 % 11.6-14.6 [facility] Immature granulocytes/100 WBC (Bld) 0.300 % 0.0-0.9 [facility] Comment on above: IG% - Immature Granu locytes (promyelocytes, myelocytes and metamyelocytes) > 1% indicates that a LEFT SHIFT is Present. MCH (RBC) [Entitic mass] 32.2 pg 27.0-32.0 [facility] Nucleated RBC/100 WBC (Bld) [Ratio] 0 % 0-5 [facility] MCHC Auto (RBC) [Mass/Vol]Or dered By: Brian Hernadez on 11-11-2022 MCHC (RBC) [Mass/Vol] 33.0 g/dL 32-36 [facility] Mucus LM Ql (Urine sed)Order ed By: Brian Hernadez on 11-11-2022 Mucus Ql (Urine sed) 0 SEEN /hpf [facility] Nitrite Test strip Ql (U)Ord ered By: Brian Hernadez on 11-11-2022 Nitrite Ql (U) Negative Negative [facility] No Panel InformationOrdered By: Jeannette Agrawal on 11-11-2022 MDMA (Ecstasy) Screen Negative < 500 ng/mL [facility] Urine Barbiturates Screen Negative < 200 ng/mL [facility] Urine Drug Screen Comment [facility] Comment on above: CONFIRMATORY TESTING FOR ALL POSITIVE URINE DRUG SCREENRESULTS WILL ONLY BE SENT OUT UPON PHYSICIAN ORDER. VISTA Urine Drug Screen methods provide only preliminaryanalytical test results. A more specific alternate chemicalmethod must be used in order to obtain a confirmedanalytical result. Gas chromatography/mass spectrometery(GC/MS) is the preferred confirmatory method. Clinicalconsideration and professional judgement should be appliedto any drug of abuse test result, particularly whenpreliminary positive results are used. URINE TCA TESTING MUST BE ORDERED SEPARATELY. USE TESTMNEMONIC: [facility] Urine Methadone Screen Negative < 300 ng/mL [facility] No Panel InformationOrdered By: Brian Hernadez on 11-11-2022 Estimated Creatinine Clearance Calc 123.33 ml/min [facility] Estimated GFR (MDRD) Amer 136 mL/min >60 [facility] Comment on above: GFR Calc Estimated GFR (MDRD) Non-Af Amer 112 mL/min >60 [facility] Comment on above: Non- GFR Calc Platelets bldOrdered By: Aristeo Hernadez on 11-11-2022 Platelets (Bld) [#/Vol] 368 10*3/uL 150-450 [facility] Protein Test strip Ql (U)Ord ered By: Brian Hernadez on 11-11-2022 Protein Ql (U) 15 mg/dl Negative [facility] Serum or plasma albumin erasto urement (mass/volume)Ordered By: Brian Hernadez on 11-11-2022 Albumin [Mass/Vol] 4.3 g/dL 3.2-5.0 [facility] Serum or plasma albumin/glob ulin mass ratioOrdered By: Brian Hernadez on 11-11-2022 Albumin/Globulin [Mass ratio] 1.0 {ratio} 0.9-2.4 [facility] Serum or plasma calcium erasto urement (mass/volume)Ordered By: Brian Hernadez on 11-11-2022 Calcium [Mass/Vol] 10.0 mg/dL 8.5-10.1 [facility] Serum or plasma creatinine m easurement (mass/volume)Ordered By: Brian Hernadez on 11-11-2022 Creatinine [Mass/Vol] 0.63 mg/dL 0.55-1.02 [facility] Comment on above: The validity of the calculated GFR & GFRAA in patients over 70 years has not been determined. Clinical correlation is essential. Serum or plasma urea nitroge n measurement (mass/volume)Ordered By: Brian Hernadez on 11-11-2022 Urea nitrogen [Mass/Vol] 9 mg/dL 7-18 [facility] Squamous epithelial cells de tection in urine sediment by light microscopyOrdered By: Brian Hernadez on 11-11-2022 Epithelial cells.squamous LM Ql (Urine sed) 0-5 SEEN /hpf 5-10 [facility] Thin prep Papanicolaou smear with manual screeningOrdered By: Brian Hernadez on 11-11-2022 Thin prep Papanicolaou smear with manual screening 25 U/L 15-37 [facility] Thin prep Papanicolaou smear with manual screening 5 5-15 [facility] Urine blood detectionOrdered By: Brian Hernadez on 11-11-2022 RBC Ql (U) Negative Negative [facility] RBC Ql (U) 0 SEEN /hpf 0-5 [facility] Urine clarityOrdered By: Aristeo Hernadez on 11-11-2022 Clarity (U) Sl. Cloudy Clear [facility] Urine color determinationOrd ered By: Brian Hernadez on 11-11-2022 Color (U) Yellow Yellow [facility] Urine glucose detectionOrder ed By: Brian Hernadez on 11-11-2022 Glucose Ql (U) Normal mg/dl Normal [facility] Urine leukocyte esterase det ection by dipstickOrdered By: Brian Hernadez on 11-11-2022 Leukocyte esterase Test strip Ql (U) Negative Negative [facility] Urine pHOrdered By: Brian Hernadez on 11-11-2022 pH (U) 8.0 [pH] 5.0 - 8.0 [facility] Urine phencyclidine (PCP) de tectionOrdered By: Jeannette Agrawal on 11-11-2022 Phencyclidine Ql (U) Negative < 25 ng/mL [facility] Urine sediment bacteria coun t by microscopy (number/high power field)Ordered By: Brian Hernadez on 11-11-2022 Bacteria LM.HPF (Urine sed) [#/Area] 1 /[HPF] None Seen [facility] Urine specific gravity measu rementOrdered By: Brian Hernadez on 11-11-2022 Specific gravity (U) [Rel density] 1.010 1.002-1.030 [facility] Urobilinogen Auto test strip Ql (U)Ordered By: Brian Hernadez on 11-11-2022 Urobilinogen Ql (U) Normal mg/dl Normal [facility] Influenza virus A and B and SARS-CoV-2 (COVID-19) Ag panel - Upper respiratory specimOrdered By: Jarvis Conde on 11-01-2022 SARS-CoV-2 (COVID-19) RNA JUAN JOSE+probe Ql (Resp) [facility] SARS-CoV-2 (COVID-19) RNA JUAN JOSE+probe Ql (Resp) [facility] PAP TESTon 10-10-2022 ADEQUACY Normal [facility] Comment on above: Order Comment: Speci men Type: FLUID SPECIMEN Ordering Facility: [facility] Address: [address] [place] [address] Result Comment: Sati sfactory for interpretation Lack of menstrual history Excess blood Performed By: #### L [id number] #### [facility] CLIA [id number] [address] [place] [address] [place] CASE REPORT Normal [facility] Comment on above: Order Comment: Speci men Type: FLUID SPECIMEN Ordering Facility: [facility] Address: [address] [place] [address] Result Comment: Gyne cologic Cytology Report Case: [id number] Authorizing Provider: Jennifer Kwon NP Collected: 10/10/2022 11:15 AM Ordering Location: [facility] Received: 10/12/2022 01:56 PM First Screen: [place], Susy, CT, ASCP Specimen: Pap Test, ThinPrep, Cervix Performed By: #### L [id number] #### [facility] CLIA [id number] [address] [id number] [place] CLINICAL HISTORY, CYTOLOGY, 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 Routine Exam Normal [facility] Comment on above: Order Comment: Speci men Type: FLUID SPECIMEN Ordering Facility: [facility] Address: [address] [place] [address], [place] [address] Performed By: #### L [id number] #### [facility] CLIA [id number] [facility] [place] [address] [place] CYTOLOGY PAP OTHER INT Trichomonas vaginalis Normal [facility] Comment on above: Order Comment: Speci men Type: FLUID SPECIMEN Ordering Facility: [facility] Address: [address] [place] [address] Performed By: #### L [id number] #### [facility] CLIA [id number] [address] [place] [address] [place] FINAL PERFORMING LAB Normal [facility] Comment on above: Order Comment: Speci men Type: FLUID SPECIMEN Ordering Facility: [facility] Address: [address] [place] [address], [place] [address] Result Comment: Tech nical component, manager therapy screening performed at [facility], [address] [place], [place] [id number] CLIA# [id number] Diagnostic interpretation performed at [facility], [address] [place], [place] [address] CLIA# [id number] [employer] Employee: Scott De La Cruz M.D. Performed By: #### L [id number] #### [facility] CLIA [id number] [facility] [place] [id number] [place] GROSS DESCRIPTION A. Cervix Normal [facility] Comment on above: Order Comment: Speci men Type: FLUID SPECIMEN Ordering Facility: [facility] Address: [address] [place] [address], [place] [address] Result Comment: Glac ial Acetic Acid added. Performed By: #### L [id number] #### [facility] CLIA [id number] [address] [place] [address] [place] HPV REFLEX No HPV Normal [facility] Comment on above: Order Comment: Speci men Type: FLUID SPECIMEN Ordering Facility: [facility] Address: [address] [place] [address] Performed By: #### L [id number] #### [facility] CLIA [id number] [address] [place] [address] [place] INTERPRETATION, CYTOLOGY, 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 Normal [facility] Comment on above: Order Comment: Speci men Type: FLUID SPECIMEN Ordering Facility: [facility] Address: [address] [place] [address] Result Comment: Nega tive for intraepithelial lesion or malignancy. Performed By: #### L [id number] #### [facility] CLIA [id number] [address] [place] [address] [place] PAP DISCLAIMER COMMENT The Pap Smear is a screening test for cervical cancer. False negative results occur with all screening tests, emphasizing the need for rescreening at recommended intervals, and clinical correlation. Normal [facility] Comment on above: Order Comment: Speci men Type: FLUID SPECIMEN Ordering Facility: [facility] Address: [address] [place] [address] Performed By: #### L [id number] #### [facility] CLIA [id number] [address] [place] [address] [place] PAP DESIGN MAKER COMMENT This specimen has be en analyzed by the ThinPrep Imaging System, an automated imaging and review system, which assists the laboratory in evaluating cells on ThinPrep Pap tests. Following automated imaging, selected beth from every slide are reviewed by a manager therapy. Normal [facility] Comment on above: Order Comment: Speci men Type: FLUID SPECIMEN Ordering Facility: [facility] Address: [address] [place] [address] Performed By: #### L [id number] #### [facility] CLIA [id number] [address] [place] [address] [place] Basophil percentageOrdered B y: Jennifer Kwon on 09-13-2022 Bilirubin [Mass/Vol] 0.40 mg/dL 0.20-1.00 [facility] Comment on above: For patients on eltr ombopag therapy, use of Dimension [place] TBIL is not recommended. Chloride [Moles/Vol] 110 mmol/L 98-107 [facility] Glucose [Mass/Vol] 69 mg/dL 74-106 [facility] Potassium [Moles/Vol] 3.8 mmol/L 3.5-5.1 [facility] Protein [Mass/Vol] 6.9 g/dL 6.4-8.2 [facility] Sodium [Moles/Vol] 142 mmol/L 136-145 [facility] WBC (Bld) [#/Vol] 8.1 10*3/uL 4.4-11.0 [facility] Blood erythrocytes count (nu mber/volume)Ordered By: Jennifer Kwon on 09-13-2022 RBC (Bld) [#/Vol] 3.88 10*6/uL 4.2-5.4 [facility] Blood hemoglobin measurement (mass/volume)Ordered By: Jennifer Kwon on 09-13-2022 Hemoglobin (Bld) [Mass/Vol] 12.6 g/dL 12.0-15.0 [facility] Blood platelet mean volumeOr dered By: Jennifer Kwon on 09-13-2022 Platelet mean volume (Bld) [Entitic vol] 10.7 fL 6.2-12.0 [facility] Determination of erythrocyte mean corpuscular volume (MCV)Ordered By: Jennifer Kwon on 09-13-2022 MCV (RBC) [Entitic vol] 97.2 fL 81-99 [facility] Hematocrit Auto (Bld) [Volum e fraction]Ordered By: Jennifer Kwon on 09-13-2022 Hematocrit (Bld) [Volume fraction] 37.7 % 37-47 [facility] Laboratory - Chemistry and C hemistry - challengeOrdered By: Jennifer Kwon on 09-13-2022 ALP [Catalytic activity/Vol] 49 U/L 45-117 [facility] ALT [Catalytic activity/Vol] 58 U/L 13-56 [facility] CO2 [Moles/Vol] 26.0 mmol/L 21.0-32.0 [facility] Globulin (S) [Mass/Vol] 3.2 g/dL 2.2-4.2 [facility] Urea nitrogen/Creatinine [Mass ratio] 25.3 mg/mg 10-20 [facility] Laboratory - Hematology and Cell countsOrdered By: Jennifer Kwon on 09-13-2022 Erythrocyte distribution width (RBC) [Entitic vol] 50.9 fL 35.1-43.9 [facility] Erythrocyte distribution width (RBC) [Ratio] 14.3 % 11.6-14.6 [facility] MCH (RBC) [Entitic mass] 32.5 pg 27.0-32.0 [facility] MCHC Auto (RBC) [Mass/Vol]Or dered By: Jennifer Kwon on 09-13-2022 MCHC (RBC) [Mass/Vol] 33.4 g/dL 32-36 [facility] No Panel InformationOrdered By: Jennifer Kwon on 09-13-2022 Estimated GFR (MDRD) Amer 127 mL/min >60 [facility] Comment on above: GFR Calc Estimated GFR (MDRD) Non-Af Amer 105 mL/min >60 [facility] Comment on above: Non- GFR Calc Miscellaneous Test See comment [facility] Comment on above: TEST RESULTS LIMITS Iron 100 ug/dL 27 - 139 TESTING PERFORMED AT [facility]. ORIGINAL REPORT ON FILE IN LAB CONTAINS ADDITIONAL TEST SITE INFORMATION. Thyroid Stimulating Hormone (TSH) 1.98 uIU/mL 0.358-3.74 [facility] Total Iron Binding Capacity 279 ug/dL 250-450 [facility] Vitamin D 25-Hydroxy 34.9 ng/mL [facility] Comment on above: Vitamin D 25(OH) Sta tus Range Deficiency <20 ng/mL (50nmol/L) Insufficiency 20 - 30 ng/mL (50 - 75 nmol/L) Sufficiency 30 - 100 ng/mL (75 - 250 nmol/L) Toxicity >100 ng/mL (>250 nmol/L) Platelets bldOrdered By: Giuliana Kwon on 09-13-2022 Platelets (Bld) [#/Vol] 283 10*3/uL 150-450 [facility] Serum or plasma albumin erasto urement (mass/volume)Ordered By: Jennifer Kwon on 09-13-2022 Albumin [Mass/Vol] 3.7 g/dL 3.2-5.0 [facility] Serum or plasma albumin/glob ulin mass ratioOrdered By: Jennifer Kwon on 09-13-2022 Albumin/Globulin [Mass ratio] 1.2 {ratio} 0.9-2.4 [facility] Serum or plasma calcium erasto urement (mass/volume)Ordered By: Jennifer Kwon on 09-13-2022 Calcium [Mass/Vol] 9.0 mg/dL 8.5-10.1 [facility] Serum or plasma creatinine m easurement (mass/volume)Ordered By: Jennifer Kwon on 09-13-2022 Creatinine [Mass/Vol] 0.67 mg/dL 0.55-1.02 [facility] Comment on above: The validity of the calculated GFR & GFRAA in patients over 70 years has not been determined. Clinical correlation is essential. Serum or plasma urea nitroge n measurement (mass/volume)Ordered By: Jennifer Kwon on 09-13-2022 Urea nitrogen [Mass/Vol] 17 mg/dL 7-18 [facility] Thin prep Papanicolaou smear with manual screeningOrdered By: Jennifer Kwon on 09-13-2022 Thin prep Papanicolaou smear with manual screening 32 U/L 15-37 [facility] Thin prep Papanicolaou smear with manual screening 6 5-15 [facility] Absolute lymphocyte countOrd ered By: Jennifer Kwon on 05-01-2022 Lymphocytes Auto (Unsp spec) [#/Vol] 3.38 10*3/uL 0.83-4.51 [facility] Basophil percentageOrdered B y: Jennifer Kwon on 05-01-2022 Basophils/100 WBC (Bld) 0.6 % 0-1 [facility] Bilirubin [Mass/Vol] 0.30 mg/dL 0.20-1.00 [facility] Comment on above: For patients on eltr ombopag therapy, use of Dimension [place] TBIL is not recommended. Chloride [Moles/Vol] 108 mmol/L 98-107 [facility] Eosinophils/100 WBC (Bld) 5.3 % 0-5 [facility] Glucose [Mass/Vol] 83 mg/dL 74-106 [facility] Neutrophils (Bld) [#/Vol] 3.5 10*3/uL 2.0-7.7 [facility] Neutrophils/100 WBC (Bld) 43.4 % 47-70 [facility] Potassium [Moles/Vol] 3.9 mmol/L 3.5-5.1 [facility] Protein [Mass/Vol] 7.7 g/dL 6.4-8.2 [facility] Sodium [Moles/Vol] 139 mmol/L 136-145 [facility] WBC (Bld) [#/Vol] 8.1 10*3/uL 4.4-11.0 [facility] Blood erythrocytes count (nu mber/volume)Ordered By: Jennifer Kwon on 05-01-2022 RBC (Bld) [#/Vol] 4.72 10*6/uL 4.2-5.4 [facility] Blood hemoglobin measurement (mass/volume)Ordered By: Jennifer Kwon on 05-01-2022 Hemoglobin (Bld) [Mass/Vol] 11.2 g/dL 12.0-15.0 [facility] Blood lymphocytes/100 leukoc ytesOrdered By: Jennifer Kwon on 05-01-2022 Lymphocytes/100 WBC (Bld) 41.7 % 19-41 [facility] Blood monocytes/100 leukocyt esOrdered By: Jennifer Kwon on 05-01-2022 Monocytes/100 WBC (Bld) 8.8 % 0-10 [facility] Blood platelet mean volumeOr dered By: Jennifer Kwon on 05-01-2022 Platelet mean volume (Bld) [Entitic vol] 9.5 fL 6.2-12.0 [facility] Determination of erythrocyte mean corpuscular volume (MCV)Ordered By: Jennifer Kwon on 05-01-2022 MCV (RBC) [Entitic vol] 78.6 fL 81-99 [facility] HIV 1 and HIV-2 antibody ass ay with HIV-1 p24 antigen detectionOrdered By: Jennifer Kwon on 05-01-2022 HIV 1+2 Ab+HIV1 p24 Ag IA Ql Non-Reactive Nonreactive [facility] Hematocrit Auto (Bld) [Volum e fraction]Ordered By: Jennifer Kwon on 05-01-2022 Hematocrit (Bld) [Volume fraction] 37.1 % 37-47 [facility] Iron measurement (mass/mass) Ordered By: Jennifer Kwon on 05-01-2022 Iron (Unsp spec) [Mass/Mass] 22 ug/dL 50-170 [facility] Laboratory - Chemistry and C hemistry - challengeOrdered By: Jennifer Kwon on 05-01-2022 ALP [Catalytic activity/Vol] 58 U/L 45-117 [facility] ALT [Catalytic activity/Vol] 70 U/L 13-56 [facility] CO2 [Moles/Vol] 25.0 mmol/L 21.0-32.0 [facility] Globulin (S) [Mass/Vol] 3.8 g/dL 2.2-4.2 [facility] Urea nitrogen/Creatinine [Mass ratio] 16.9 mg/mg 10-20 [facility] Laboratory - Hematology and Cell countsOrdered By: Jennifer Kwon on 05-01-2022 Erythrocyte distribution width (RBC) [Entitic vol] 46.5 fL 35.1-43.9 [facility] Erythrocyte distribution width (RBC) [Ratio] 16.2 % 11.6-14.6 [facility] Immature granulocytes/100 WBC (Bld) 0.200 % 0.0-0.9 [facility] Comment on above: IG% - Immature Granu locytes (promyelocytes, myelocytes and metamyelocytes) > 1% indicates that a LEFT SHIFT is Present. MCH (RBC) [Entitic mass] 23.7 pg 27.0-32.0 [facility] Nucleated RBC/100 WBC (Bld) [Ratio] 0 % 0-5 [facility] MCHC Auto (RBC) [Mass/Vol]Or dered By: Jennifer Kwon on 05-01-2022 MCHC (RBC) [Mass/Vol] 30.2 g/dL 32-36 [facility] No Panel InformationOrdered By: Jennifer Kwon on 05-01-2022 Estimated GFR (MDRD) Amer 132 mL/min >60 [facility] Comment on above: GFR Calc Estimated GFR (MDRD) Non-Af Amer 109 mL/min >60 [facility] Comment on above: Non- GFR Calc Total Iron Binding Capacity 485 ug/dL 250-450 [facility] Platelets bldOrdered By: Giuliana Kwon on 05-01-2022 Platelets (Bld) [#/Vol] 390 10*3/uL 150-450 [facility] Serum hepatitis B virus surf grace antibody IgG detectionOrdered By: Jennifer Kwon on 05-01-2022 HBV surface IgG Ql (S) Reactive [facility] Comment on above: Non Reactive: Incons istent with immunity less than <10 mIU/mL Reactive: Consistent with immunity greater than or equal to 10 mIU/mL Serum or plasma albumin erasto urement (mass/volume)Ordered By: Jennifer Kwon on 05-01-2022 Albumin [Mass/Vol] 3.9 g/dL 3.2-5.0 [facility] Serum or plasma albumin/glob ulin mass ratioOrdered By: Jennifer Kwon on 05-01-2022 Albumin/Globulin [Mass ratio] 1.0 {ratio} 0.9-2.4 [facility] Serum or plasma calcium erasto urement (mass/volume)Ordered By: Jennifer Kwon on 05-01-2022 Calcium [Mass/Vol] 9.3 mg/dL 8.5-10.1 [facility] Serum or plasma creatinine m easurement (mass/volume)Ordered By: Jennifer Kwon on 05-01-2022 Creatinine [Mass/Vol] 0.65 mg/dL 0.55-1.02 [facility] Comment on above: The validity of the calculated GFR & GFRAA in patients over 70 years has not been determined. Clinical correlation is essential. Serum or plasma iron saturat ion measurement (mass fraction)Ordered By: Jennifer Kwon on 05-01-2022 Iron saturation [Mass fraction] 4.5 % 15.0-55.0 [facility] Serum or plasma urea nitroge n measurement (mass/volume)Ordered By: Jennifer Kwon on 05-01-2022 Urea nitrogen [Mass/Vol] 11 mg/dL 7-18 [facility] Thin prep Papanicolaou smear with manual screeningOrdered By: Jennifer Kwon on 05-01-2022 Thin prep Papanicolaou smear with manual screening 30 U/L 15-37 [facility] Thin prep Papanicolaou smear with manual screening 6 5-15 [facility] XR CHEST 2V FRONTAL/LATon [facility] XR Chest PA and Lateralon IMPRESSION: No acute radiographic abnormality. Cytology Teacher: ROMAINE Transcribe Date/Time: Apr 27 2022 3:53P Dictated by : GEOVANNA MIR MD This examination was interpreted and the report reviewed and electronically signed by: GEOVANNA MIR MD on Apr 27 2022 3:54PM [facility] DIVISION OF RADIOLOGY * * *Final Report* * * DATE OF EXAM: Apr 27 2022 3:43PM WOX 5291 - XR CHEST 2V FRONTAL/LAT / PROCEDURE REASON: Acute cough * * * * Physician Interpretation * * * * EXAMINATION: CHEST RADIOGRAPH (2 VIEW FRONTAL & LATERAL) CLINICAL HISTORY: Acute cough MQ: XC2_6 EXAM DATE/TIME: 04/27/2022 3:43 PM COMPARISON: No relevant prior studies available. RESULT: Lines, tubes, and devices: None. Lungs and pleura: No consolidation. No lung mass. No pleural effusion. No pneumothorax. Cardiomediastinal silhouette: Normal cardiomediastinal silhouette. Bones and soft tissues: Degenerative changes. DIVISION OF RADIOLOGY Provider, Jocelyn El Garcia - 04/27/2022 * * *Final Report* * * DATE OF EXAM: Apr 27 2022 3:43PM WOX 5291 - XR CHEST 2V FRONTAL/LAT / PROCEDURE REASON: Acute cough * * * * Physician Interpretation * * * * EXAMINATION: CHEST RADIOGRAPH (2 VIEW FRONTAL & LATERAL) CLINICAL HISTORY: Acute cough MQ: XC2_6 EXAM DATE/TIME: 04/27/2022 3:43 PM COMPARISON: No relevant prior studies available. RESULT: Lines, tubes, and devices: None. Lungs and pleura: No consolidation. No lung mass. No pleural effusion. No pneumothorax. Cardiomediastinal silhouette: Normal cardiomediastinal silhouette. Bones and soft tissues: Degenerative changes. IMPRESSION IMPRESSION: No acute radiographic abnormality. Cytology Teacher: PSCB Transcribe Date/Time: Apr 27 2022 3:53P Dictated by : GEOVANNA MIR MD This examination was interpreted and the report reviewed and electronically signed by: GEOVANNA MIR MD on Apr 27 2022 3:54PM EST [facility] Radiology Study observation (narrative) [facility] XR Chest PA and LateralOrder ed By: [facility] Provider on 04-27-2022 [facility] Discharge Summaryon 07-01-19 18 Discharge Summary Normal [facility] ([place]) .Auto Diffon 06-14-2017 Basophils Auto #/vol (Bld) 0.00 10 3/mcL Normal 0.00-0.27 [facility] ([place]) Comment on above: Performed By: #### C BRUCE POWELL ANEU ####[address] [address] Basophils/100 WBC Auto (Bld) 0.5 % Normal 0.0-2.5 [facility] ([place]) Comment on above: Performed By: #### C BRUCE POWELL ANEU ####[facility] [place] [address] Eosinophils 0.40 10 3/mcL Normal 0.00-0.65 [facility] ([place]) Comment on above: Performed By: #### C BRUCE POWELL ANEU ####[facility] [place] [address] Eosinophils/100 leukocytes 7.0 % High 0.0-6.0 [facility] ([place]) Comment on above: Performed By: #### C BRUCE POWELL, ANEU ####[facility] [place] [address] Lymphocytes 1.70 10 3/mcL Normal 0.90-4.32 [facility] ([place]) Comment on above: Performed By: #### C ROMAN POWELLIFF, ANEU ####[facility] [place] [address] Lymphocytes/100 leukocytes 33.1 % Normal 20.0-40.0 [facility] ([place]) Comment on above: Performed By: #### C BRUCE POWELL, ANEU ####[address] [address] Monocytes 0.60 10 3/mcL Normal 0.09-1.40 [facility] ([place] Comment on above: Performed By: #### C BRUCE POWELL, ANEU ####[address] [address] Monocytes/100 leukocytes 12.4 % Normal 2.0-13.0 [facility] ([place] Comment on above: Performed By: #### C BRUCE POWELL, ANEU ####[address] [address] Neutrophils/100 WBC Auto (Bld) 47.0 % Low 50.0-75.0 [facility] ([place] Comment on above: Performed By: #### C SHERRY, BRUCE, ANEU ####[address] [address] .NEUABSon 06-14-2017 Neutrophils 2.40 10 3/mcL Normal 2.25-8.10 [facility] ([place]) Comment on above: Performed By: #### C SHERRY, ROMANIFF, ANEU ####[facility] [place] [address] CBCon 06-14-2017 Erythrocyte distribution width Auto Ratio (RBC) 13.6 % Normal 11.5-15.5 [facility] ([place] Comment on above: Performed By: #### C SHERRY, ADIFF, ANEU ####[address] [address] Erythrocytes (RBC) 2.88 10 6/mcL Low 4.10-5.30 [facility] ([place]) Comment on above: Performed By: #### C BRUCE POWELL ANEU ####[place] [address] Hematocrit (HCT) 27.6 % Low 34.0-46.0 [facility] ([place] Comment on above: Performed By: #### BRUCE STOREY ANEU ####[place] [address] Hemoglobin mass conc (Bld) 9.6 G/dL Low 12.0-16.0 [facility] ([place] Comment on above: Performed By: #### BRUCE STOREY ANEU ####[place] [address] MCH 33.3 pg High 27.0-33.0 [facility] ([place] Comment on above: Performed By: #### BRUCE STOREY ANEU ####[place] [address] MCHC mass conc (RBC) 34.8 G/dL Normal 32.0-36.0 [facility] ([place]) Comment on above: Performed By: #### BRUCE STOREY ANEU ####[place] [address] MCV 95.8 fL Normal 80.0-99.0 [facility] ([place] Comment on above: Performed By: #### BRUCE STOREY ANEU ####[place] [address] Platelet mean volume (PMV) 8.4 fL Normal 6.6-10.5 [facility] ([place] Comment on above: Performed By: #### BRUCE STOREY ANEU ####[place] [address] Platelets 178 10 3/mcL Normal 150-450 [facility] ([place]) Comment on above: Performed By: #### BRUCE STOREY ANEU ####[place] [address] WBC (Leukocytes) 5.10 10 3/mcL Normal 4.50-10.80 [facility] ([place]) Comment on above: Performed By: #### C BCBRUCE, ANEU ####[address] [address] Depart Summaryon 06-14-2017 Depart Summary Normal [facility] ([place]) Inpatient Patient Summaryon 06-14-2017 Inpatient Patient Summary Normal [facility] ([place]) Surgical Progress Noteon Surgical Progress Note Normal [facility]) .Auto Diffon 06-13-2017 Basophils Auto #/vol (Bld) 0.00 10 3/mcL Normal 0.00-0.27 [facility] ([place]) Comment on above: Performed By: #### C BC, ADIFF, ANEU, BMP, GFR ####[address] [address] Basophils/100 WBC Auto (Bld) 0.7 % Normal 0.0-2.5 [facility] ([place]) Comment on above: Performed By: #### C BC, ADIFF, ANEU, BMP, GFR ####[address] [address] Eosinophils 0.30 10 3/mcL Normal 0.00-0.65 [facility] ([place]) Comment on above: Performed By: #### C BC, ADIFF, ANEU, BMP, GFR ####[address] [address] Eosinophils/100 leukocytes 6.3 % High 0.0-6.0 [facility] ([place] Comment on above: Performed By: #### C BC, ADIFF, ANEU, BMP, GFR ####[address] [address] Lymphocytes 2.10 10 3/mcL Normal 0.90-4.32 [facility] ([place]) Comment on above: Performed By: #### C BC, ADIFF, ANEU, BMP, GFR ####[address] [address] Lymphocytes/100 leukocytes 43.7 % High 20.0-40.0 [facility] ([place] Comment on above: Performed By: #### C BC, ADIFF, ANEU, BMP, GFR ####[address] [address] Monocytes 0.60 10 3/mcL Normal 0.09-1.40 [facility] ([place]) Comment on above: Performed By: #### C BC, ADIFF, ANEU, BMP, GFR ####[address] [address] Monocytes/100 leukocytes 11.5 % Normal 2.0-13.0 [facility] ([place]) Comment on above: Performed By: #### C BC, ADIFF, ANEU, BMP, GFR ####[address] [address] Neutrophils/100 WBC Auto (Bld) 37.8 % Low 50.0-75.0 [facility] ([place]) Comment on above: Performed By: #### C BC, ADIFF, ANEU, BMP, GFR ####[address] [address] .GFRon 06-13-2017 eGFR (non-black) mL/min/{1.73_m2} Normal [facility] ([place]) Comment on above: Result Comment: GFR Population mean for , Non- Americans Ages 20-29 = 116 mL/min/1.73 sq.m. Ages 30-39 = 107 mL/min/1.73 sq.m. Ages 40-49 = 99 mL/min/1.73 sq.m. Ages 50-59 = 93 mL/min/1.73 sq.m. Ages 60-69 = 85 mL/min/1.73 sq.m. Ages 70+ = 75 mL/min/1.73 sq.m.Chronic Kidney Disease: Less than 60 mL/min/1.73 square metersEnd Stage Renal Disease: Less than 15 mL/min/1.73 square meters Performed By: #### C BC, ADIFF, ANEU, BMP, GFR ####[address] [address] .NEUABSon 06-13-2017 Neutrophils 1.90 10 3/mcL Low 2.25-8.10 [facility] ([place]) Comment on above: Performed By: #### C BC, ADIFF, ANEU, BMP, GFR ####[place] [address] BMPon 06-13-2017 BUN/Creatinine Ratio 21.6 ratio Normal 10.0-22.0 [facility] ([place] Comment on above: Performed By: #### C BC, ADIFF, ANEU, BMP, GFR ####[place] [address] Calcium 8.3 mg/dL Low 8.4-10.1 [facility] ([place]) Comment on above: Performed By: #### C BC, ADIFF, ANEU, BMP, GFR ####[place] [address] Chloride 110 mmol/L Normal 98-110 [facility] ([place]) Comment on above: Performed By: #### C BC, ADIFF, ANEU, BMP, GFR ####[place] [address] CO2 27 mmol/L Normal 22-32 [facility] ([place]) Comment on above: Performed By: #### C BC, ADIFF, ANEU, BMP, GFR ####[place] [address] Creatinine 0.51 mg/dL Normal 0.50-1.20 [facility] ([place]) Comment on above: Performed By: #### C BC, ADIFF, ANEU, BMP, GFR ####[place] [address] Electrolyte Balance 6.0 mEq/L Normal 4.0-15.0 [facility] ([place]) Comment on above: Performed By: #### C BC, ADIFF, ANEU, BMP, GFR ####[place] [address] Glucose mass conc 81 mg/dL Normal 70-110 [facility] ([place]) Comment on above: Performed By: #### C BC, ADIFF, ANEU, BMP, GFR ####[place] [address] Potassium molar conc 3.9 mmol/L Normal 3.5-5.0 [facility] ([place] Comment on above: Performed By: #### C BC, ADIFF, ANEU, BMP, GFR ####[place] [address] Sodium 143 mmol/L Normal 136-145 [facility] ([place]) Comment on above: Performed By: #### C BC, ADIFF, ANEU, BMP, GFR ####[place] [address] Urea nitrogen 11.0 mg/dL Normal 8.0-22.0 [facility] ([place]) Comment on above: Performed By: #### C BC, ADIFF, ANEU, BMP, GFR ####[place] [address] CBCon 06-13-2017 Erythrocyte distribution width Auto Ratio (RBC) 13.6 % Normal 11.5-15.5 [facility] ([place]) Comment on above: Performed By: #### C BC, ADIFF, ANEU, BMP, GFR ####[place] [address] Erythrocytes (RBC) 2.96 10 6/mcL Low 4.10-5.30 [facility] ([place]) Comment on above: Performed By: #### C BC, ADIFF, ANEU, BMP, GFR ####[place] [address] Hematocrit (HCT) 28.2 % Low 34.0-46.0 [facility] ([place]) Comment on above: Performed By: #### C BC, ADIFF, ANEU, BMP, GFR ####[place] [address] Hemoglobin mass conc (Bld) 9.8 G/dL Low 12.0-16.0 [facility] ([place]) Comment on above: Performed By: #### C BC, ADIFF, ANEU, BMP, GFR ####[place] [address] MCH 33.2 pg High 27.0-33.0 [facility] ([place]) Comment on above: Performed By: #### C BC, ADIFF, ANEU, BMP, GFR ####[place] [address] MCHC mass conc (RBC) 34.8 G/dL Normal 32.0-36.0 [facility] ([place] Comment on above: Performed By: #### C BC, ADIFF, ANEU, BMP, GFR ####[address] [address] MCV 95.4 fL Normal 80.0-99.0 [facility] ([place]) Comment on above: Performed By: #### C BC, ADIFF, ANEU, BMP, GFR ####[address] [address] Platelet mean volume (PMV) 8.3 fL Normal 6.6-10.5 [facility] ([place]) Comment on above: Performed By: #### C BC, ADIFF, ANEU, BMP, GFR ####[address] [address] Platelets 183 10 3/mcL Normal 150-450 [facility] ([place]) Comment on above: Performed By: #### C BC, ADIFF, ANEU, BMP, GFR ####[address] [address] WBC (Leukocytes) 4.90 10 3/mcL Normal 4.50-10.80 [facility] ([place]) Comment on above: Performed By: #### C BC, ADIFF, ANEU, BMP, GFR ####[address] [address] [address] ABD/PELVIS W/ IV CONTRAST ONLYon 06-13-2017 CT ABD/PELVIS W/ IV CONTRAST ONLY ORIGINALCT ABDOMEN/PELVIS WITH IV CONTRAST:Multiplanar coronal, sagittal, and axial reconstructions were reviewed [...] bruises, complaining of abdominal pain COMPARISON: 06/12/2017 [facility], 07/13/[address] [facility] FINDINGS: The liver is unremarkable in size, [...] findings and interpretation Interpreted By: Stu De [facility]ITAL[facility] Report By: Rui Pendleton DOElectronically Signed By: Stu De MD Dictated Date: 06/12/2017 9:50:07 PM Prelim Date: 06/12/2017 10:11:06 PM Sign Date: 06/12/2017 11:01:41 PM Normal [facility] ([place]) CT MAXILLOFACIAL W/O CONTRAS Ton 06-13-2017 CT MAXILLOFACIAL W/O CONTRAST ORIGINALCT MAXILLOFACIAL W/O CONTRAST CLINICAL STATEMENT: pain; trauma [...] sphenoid sinus and a few posterior RIGHT ethmoid air cells. A few anterior ethmoid air cells bilaterally are opacified. Thickening of the frontal sinuses bilaterally and LEFT maxillary sinus. There are no air-fluid levels in the paranasal sinuses. IMPRESSION: No maxillofacial fracture or intraorbital hematoma. Paranasal sinus disease as described above. I have personally reviewed the images of this examination and agree with the resident's findings and interpretation. Interpreted By: Audrey Young MDPreliminary Report By: Rui Pendleton DOElectronically Signed By: Audrey Young MD Dictated Date: 06/12/2017 9:45:29 PM Prelim Date: 06/12/2017 9:49:11 PM Sign Date: 06/12/2017 10:37:35 PM Normal [facility] ([place]) CT SPINE CERVICAL W/O CONTRA Francois 06-13-2017 CT SPINE CERVICAL W/O CONTRAST ORIGINALCT SPINE CERVICAL W/O CONTRAST CLINICAL STATEMENT: pain; [...] findings and interpretation Interpreted By: Stu De MDPreliminary Report By: Rui Pendleton DOElectronically Signed By: Stu De MD Dictated Date: 06/12/2017 9:42:00 PM Prelim Date: 06/12/2017 9:44:57 PM Sign Date: 06/12/2017 11:53:20 PM Normal [facility] ([place]) ED Note-Provideron 8 ED Note-Provider Normal [facility]) History and Physical Pre-Opo n 06-13-2017 History and Physical Pre-Op Normal [facility]) Patient Summary Documentson 06-13-2017 Patient Summary Documents Normal [facility] ([place]) XR CHEST 2 VIEWSon 8 Thyroid stimulating hormone (TSH) ORIGINALXR CHEST 2 VIEWS CLINICAL STATEMENT: PAIN - TRAUMA PATIENT, shortness of breath COMPARISON: None FINDINGS: The cardiomediastinal contours are normal. There is no consolidation, vascular congestion, pleural effusion, or pneumothorax. The visualized osseous structures are intact. IMPRESSION: No acute cardiopulmonary abnormality. I have personally reviewed the images of this examination and agree with the resident's findings and interpretation. Interpreted By: Audrey Youngreliminary Report By: Rui Pendleton DOElectronically Signed By: Audrey Young MD Dictated Date: 06/12/2017 9:13:00 PM Prelim Date: 06/12/2017 9:13:41 PM Sign Date: 06/12/2017 10:28:39 PM Normal [facility] ([place]) .Auto Diffon 06-12-2017 Basophils Auto #/vol (Bld) 0.00 10 3/mcL Normal 0.00-0.27 [facility] ([place]) Comment on above: Performed By: #### C BC, ADIFF, ANEU, ABORH, ANTIS ####[address] [address] Basophils/100 WBC Auto (Bld) 0.5 % Normal 0.0-2.5 [facility] ([place]) Comment on above: Performed By: #### C BC, ADIFF, ANEU, ABORH, ANTIS ####[address] [address] Eosinophils 0.20 10 3/mcL Normal 0.00-0.65 [facility] ([place]) Comment on above: Performed By: #### C BC, ADIFF, ANEU, ABORH, ANTIS ####[address] [address] Eosinophils/100 leukocytes 2.9 % Normal 0.0-6.0 [facility] ([place] Comment on above: Performed By: #### C BC, ADIFF, ANEU, ABORH, ANTIS ####[address] [address] Lymphocytes 2.20 10 3/mcL Normal 0.90-4.32 [facility] ([place] Comment on above: Performed By: #### C BC, ADIFF, ANEU, ABORH, ANTIS ####[address] [address] Lymphocytes/100 leukocytes 31.2 % Normal 20.0-40.0 [facility] ([place] Comment on above: Performed By: #### C BC, ADIFF, ANEU, ABORH, ANTIS ####[address] [address] Monocytes 0.80 10 3/mcL Normal 0.09-1.40 [facility] ([place] Comment on above: Performed By: #### C BC, ADIFF, ANEU, ABORH, ANTIS ####[address] [address] Monocytes/100 leukocytes 11.4 % Normal 2.0-13.0 [facility] ([place] Comment on above: Performed By: #### C BC, ADIFF, ANEU, ABORH, ANTIS ####[address] [address] Neutrophils/100 WBC Auto (Bld) 54.0 % Normal 50.0-75.0 [facility] ([place] Comment on above: Performed By: #### C BC, ADIFF, ANEU, ABORH, ANTIS ####[address] [address] .GFRon 06-12-2017 eGFR (non-black) mL/min/{1.73_m2} Normal [facility] ([place]) Comment on above: Result Comment: GFR Population mean for , Non- Americans Ages 20-29 = 116 mL/min/1.73 sq.m. Ages 30-39 = 107 mL/min/1.73 sq.m. Ages 40-49 = 99 mL/min/1.73 sq.m. Ages 50-59 = 93 mL/min/1.73 sq.m. Ages 60-69 = 85 mL/min/1.73 sq.m. Ages 70+ = 75 mL/min/1.73 sq.m.Chronic Kidney Disease: Less than 60 mL/min/1.73 square metersEnd Stage Renal Disease: Less than 15 mL/min/1.73 square meters Performed By: #### L IP, GFR, CMP ####[place] [address] .NEUABSon 06-12-2017 Neutrophils 3.90 10 3/mcL Normal 2.25-8.10 [facility] ([place]) Comment on above: Performed By: #### C BRUCE POWELL ANEU, ABORH, ANTIS ####[place] [address] CBCon 06-12-2017 Erythrocyte distribution width Auto Ratio (RBC) 12.9 % Normal 11.5-15.5 [facility] ([place]) Comment on above: Performed By: #### C BRUCE PWOELL ANEU, ABORH, ANTIS ####[place] [address] Erythrocytes (RBC) 3.14 10 6/mcL Low 4.10-5.30 [facility] ([place]) Comment on above: Performed By: #### C BRUCE POWELL, ANEU, ABORH, ANTIS ####[place] [address] Hematocrit (HCT) 29.5 % Low 34.0-46.0 [facility] ([place]) Comment on above: Performed By: #### C BCBRUCE, ANEU, ABORH, ANTIS ####[place] [address] Hemoglobin mass conc (Bld) 10.5 G/dL Low 12.0-16.0 [facility] ([place]) Comment on above: Performed By: #### C BC, ADIFF, ANEU, ABORH, ANTIS ####[place] [address] MCH 33.5 pg High 27.0-33.0 [facility] ([place]) Comment on above: Performed By: #### C BC, ADIFF, ANEU, ABORH, ANTIS ####[place] [address] MCHC mass conc (RBC) 35.6 G/dL Normal 32.0-36.0 [facility] ([place] Comment on above: Performed By: #### C BC, ADIFF, ANEU, ABORH, ANTIS ####[place] [address] MCV 94.1 fL Normal 80.0-99.0 [facility] ([place]) Comment on above: Performed By: #### C BC, ADIFF, ANEU, ABORH, ANTIS ####[place] [address] Platelet mean volume (PMV) 8.1 fL Normal 6.6-10.5 [facility] ([place]) Comment on above: Performed By: #### C BC, ADIFF, ANEU, ABORH, ANTIS ####[place] [address] Platelets 202 10 3/mcL Normal 150-450 [facility] ([place]) Comment on above: Performed By: #### C BC, ADIFF, ANEU, ABORH, ANTIS ####[address] [address] WBC (Leukocytes) 7.20 10 3/mcL Normal 4.50-10.80 [facility] ([place]) Comment on above: Performed By: #### C BC, ADIFF, ANEU, ABORH, ANTIS ####[place] [address] CMPon 06-12-2017 Albumin/Globulin Ratio 1.1 {ratio} Normal 0.9-1.6 [facility] ([place]) Comment on above: Performed By: #### L IP, GFR, CMP ####[place] [address] Alk Phos 86 U/L Normal 38-126 [facility] ([place]) Comment on above: Performed By: #### L IP, GFR, CMP ####[place] [address] Bili Total 0.7 mg/dL Normal 0.2-1.2 [facility] ([place]) Comment on above: Performed By: #### L IP, GFR, CMP ####[place] [address] Globulin 2.8 G/dL Normal 1.5-3.8 [facility] ([place]) Comment on above: Performed By: #### L IP, GFR, CMP ####[place] [address] Protein 5.9 G/dL Low 6.0-8.5 [facility] ([place]) Comment on above: Performed By: #### L IP, GFR, CMP ####[place] [address] Alanine aminotransferase (ALT) 297 U/L High 10-49 [facility] ([place]) Comment on above: Performed By: #### L IP, GFR, CMP ####[place] [address] Albumin 3.1 G/dL Low 3.2-4.8 [facility] ([place]) Comment on above: Performed By: #### L IP, GFR, CMP ####[place] [address] Aspartate aminotransferase (AST) 159 U/L High 8-34 [facility] ([place]) Comment on above: Performed By: #### L IP, GFR, CMP ####[place] [address] BUN/Creatinine Ratio 19.3 ratio Normal 10.0-22.0 [facility] ([place] Comment on above: Performed By: #### L IP, GFR, CMP ####[place] [address] Calcium 8.2 mg/dL Low 8.4-10.1 [facility] ([place]) Comment on above: Performed By: #### L IP, GFR, CMP ####[place] [address] Chloride 108 mmol/L Normal 98-110 [facility] ([place]) Comment on above: Performed By: #### L IP, GFR, CMP ####[place] [address] CO2 26 mmol/L Normal 22-32 [facility] ([place]) Comment on above: Performed By: #### L IP, GFR, CMP ####[place] [address] Creatinine 0.57 mg/dL Normal 0.50-1.20 [facility] ([place]) Comment on above: Performed By: #### L IP, GFR, CMP ####[place] [address] Electrolyte Balance 5.0 mEq/L Normal 4.0-15.0 [facility] ([place] Comment on above: Performed By: #### L IP, GFR, CMP ####[place] [address] Glucose mass conc 94 mg/dL Normal 70-110 [facility] ([place]) Comment on above: Performed By: #### L IP, GFR, CMP ####[place] [address] Potassium molar conc 4.0 mmol/L Normal 3.5-5.0 [facility] ([place] Comment on above: Performed By: #### L IP, GFR, CMP ####[place] [address] Sodium 139 mmol/L Normal 136-145 [facility] ([place]) Comment on above: Performed By: #### L IP, GFR, CMP ####[place] [address] Urea nitrogen 11.0 mg/dL Normal 8.0-22.0 [facility] ([place]) Comment on above: Performed By: #### L IP, GFR, CMP ####[facility] [place] [address] CT HEAD OR BRAIN W/O CONTRAS Ton 06-12-2017 CT HEAD OR BRAIN W/O CONTRAST ORIGINALCT HEAD OR BRAIN W/O CONTRAST This exam [...] periorbital soft tissue swelling. Interpreted By: Stu Dereliminary Report By: Stu De MDElectronically Signed By: Stu De MD Dictated Date: 06/12/2017 9:40:52 PM Prelim Date: 06/12/2017 9:40:52 PM Sign Date: 06/12/2017 9:42:49 PM Normal [facility] ([place]) LIPon 06-12-2017 Lipase Level 252 U/L Normal 73-393 [facility] ([place]) Comment on above: Performed By: #### L IP, GFR, CMP ####[place] [id number] [address] [place] [address] TABOon 06-12-2017 ABO/Rh Interp Positive Invalid Interpretation Code [facility] ([place]) Comment on above: Performed By: #### C BC, ADIFF, ANEU, ABORH, ANTIS ####[place] [id number] [place] [address] TABSon 06-12-2017 Antibody Screen Tango Negative Normal [facility] ([place] Comment on above: Performed By: #### C BC, ADIFF, ANEU, ABORH, ANTIS ####[place] [id number] [place] [address] Emergency Room Note on 01-23-2017 [facility] Note Normal [facility] ([place]) Patient Summary Documentson 01-23-2017 Patient Summary Documents Normal [facility] ([place]) [facility] Note on 12-21-2016 [facility] Note Normal [facility]) CT HEAD OR BRAIN W/O CONTRAS Ton 12-20-2016 CT HEAD OR BRAIN W/O CONTRAST ORIGINALCT HEAD OR BRAIN W/O CONTRAST CLINICAL STATEMENT: trauma TECHNIQUE: Axial CT images from skull base to vertex without IV contrast. This exam was performed according to our departmental dose optimization program, and includes the following measures where applicable: automated exposure control, adjustment of the mAs and/or kVp according to patient size and/or exam, and an iterative reconstruction algorithm. COMPARISON: None. FINDINGS: There is no intracranial hemorrhage, mass, mass effect or abnormal extra-axial fluid collection. No evidence of an acute territorial infarct. The ventricles are normal. The skull base and calvarium demonstrate no abnormality. The included paranasal sinuses and mastoid air cells are clear. IMPRESSION: Normal noncontrast head CT. I have personally reviewed the images of this examination and agree with the resident's findings and interpretation. Interpreted By: Tracy Tirado MDPreliminary Report By: Jennifer Carranza DOElectronically Signed By: Tracy Tirado MD Dictated Date: 12/20/2016 8:00:08 PM Prelim Date: 12/20/2016 8:01:29 PM Sign Date: 12/20/2016 8:08:07 PM Normal [facility] ([place]) Patient Summary Documentson 12-20-2016 Patient Summary Documents Normal [facility]) ED Visit Summaryon ED Visit Summary [facility] Patient: MARILEE BOCANEGRA [address] [facility] MR#: [id number] [place], [place] [address] : 1985 Ord. : Dept: Emergency Department Loc: 1EDA ER Physician Documentation Service Dt: 09/26/16 Report#: [id number] Adm Dt: 09/26/16 Dis Dt: 09/26/16 Patient Information - Type Independent: Yes - Chief Complaint Initial Complaint: RT FOOT INJ Chief Complaint: Pain, Foot-Traumatic - Nursing Triage Note Nursing Triage Note: pt states she injured her left medial foot approx 1 week ago, painful ambulattion - Allergies Allergies/Adverse Rxn: Allergies cefaclor [From [facility]] Allergy (Verified 09/26/16 19:51) Rash Penicillins Allergy (Verified 09/26/16 19:51) Rash - Narrative HPI/ROS/Exam: 09/26/16 19:55 HPI: This is a 31 yo female presenting today with a right foot pain. She stated that her pain started last week when she stepped off the stairs and felt funny as she landed on her right foot. She is able to ambulate. Pain is rated 6/10 when walking and 4/10 with rest. She has tried ice and Ibuprofen to help with the pain. On examination, lateral aspect of foot is tender to palpation. No edema, erythema. Pain is described as localized. Pt has a history of sciatica and shoulder pain and admits to taking NSAID's on regular basis. Review of systems: Gen.: No weight loss, fatigue, anorexia, insomnia, fever. Eyes: No vision loss, double vision, drainage, eye pain. ENT: No pharyngitis, dry mouth. Cardiac: No chest pain, palpitations, syncope, near syncope. Pulmonary: No shortness of breath, cough, hemoptysis. Heme/lymph: No swollen glands, fever, bleeding. GI: No abdominal pain, change in bowel habits, melena, hematemesis, hematochezia, nausea, vomiting, diarrhea. : No discharge, dysuria, frequency, urgency, hematuria. Musculoskeletal: Right foot pain Skin: No rashes. Psych: No depression, anxiety, suicidality, homicidality. Review of systems is otherwise negative unless stated above or in history of present illness. Physical Exam: Gen.: Vitals noted. No distress. Afebrile. Neck: Supple. No adenopathy. Cardiac: Regular rate rhythm. No murmur. Pulmonary: Equal breath sounds bilaterally. No adventitious breath sounds. Abdomen: Soft, nontender, nonsurgical. Normoactive bowel sounds. Back: Nontender throughout. Lower extremity: Exam of the right foot shows tenderness to palpation on the lateral aspect. The skin is intact. There is no edema, erythema or warmth. No evidence of cellulitis. Is neurovascularly intact distally. The ankle is nontender. The remainder of the extremity is nontender, specifically, nontender over the knee and fibular head. There is no tenderness or asymmetry in the calf. No suggestion of DVT. - Family History Father Family Hx: Heart Disease - Vital Signs Vitals: Vital Signs Temp Pulse Resp BP Pulse Ox 09/26/16 17:38 36.8 C 92 H 18 125/83 97 - MDM/Admission Progress Note MDM Note: 09/26/16 20:10 Medical Decision-Making: Summary: -This was a 31-year-old female presenting for 1 week of lateral right foot pain. Patient took a funny step down a stair and began to experience this throbbing 6 out of 10 pain aggravated with movement. Her presentation is concerning for soft tissue injury versus osseous abnormality and x-rays were ordered. X-rays were negative and I suspect foot sprain to be the source of the patient's injury. I explained this to her and offered nonsteroidal anti-inflammatories which she states that she already takes. The patient was provided with an orthopedic shoe and urged to follow up with podiatry because she has had this issue in the past. Patient verbalizes an understanding of this course of treatment and has agreed to follow-up as directed. She was discharged home in stable condition. Impression: 1. Foot sprain Plan: Homegoing. I discussed the differential, results and discharge plan with the patient and/or family/friend/caregiver if present. I emphasized the importance of follow-up with the physician I referred them to in the timeframe recommended. I explained reasons for the patient to return to the Emergency Department. Questions were addressed. They understand return precautions and discharge instructions. The patient and/or family/friend/caregiver expressed understanding. Disposition: Discharge Disclaimer: -Note was written using dictation software which may result in grammatical errors. - Critical Care Time Total Critical Care Time (min): 0 ED Physician Disposition - Clinical Impression Clinical Impression: Foot sprain Qualifiers: Encounter type: initial encounter Laterality: right Qualified Code(s): S93.601A - Unspecified sprain of right foot, initial encounter - Disposition Disposition: TO HOME Discharged With/To: Self - Discharge Instructions: Foot Sprain (ED) Additional Instructions: Thank you for choosing [facility] for medical needs. I enjoyed meeting you and would like you to the followin. Please make an appointment with podiatry specialist as soon as possible to address her pain. 2. Resume all home medications. 3. Return to the emergency room if your symptoms worsen or new symptoms occur. Take all medications as discussed on discharge. Referrals: Abbi Cheng DPM [Courtesy] - Normal [facility] ED Visit Summary [facility] Patient: MARILEE BOCANEGRA MR#: [id number] [place], [place] [address] : [address] Dept: Emergency Department Loc: 1EDA ER Physician Documentation Service Dt: 09/26/16 Report#: [id number] Adm Dt: 09/26/16 Dis Dt: 09/26/16 Physician in Triage - Triage Notes Notes: 09/26/16 17:43 This patient was seen in triage. Vitals are currently pending. History of Present llness: 31-year-old female with no past medical history presents after sustaining an injury to her right foot when she stepped funny about a week ago. Patient states that she is unable to walk on this foot however has had increasing pain and discomfort. Denies any wounds, rashes, numbness, tingling fever, chills. Brief Physical: Vitals are pending. Exam is limited due to the patient being examined in a chair in triage. No distress. Cardiac regular rate rhythm no murmur. Lungs clear bilaterally. Abdomen soft, nontender. ttp over 5th metarsal, plantar aspect. intact sensation to light touch, normal capillary refill For the remainder of the patient's workup and ED course, please see the main ED provider note. 09/26/16 17:[address] [facility] Foot Right - Min 3 Viewson 0 09-26-2016 Foot Right - Min 3 Views [facility] Patient: MARILEE BOCANEGRA MR#: [id number] [place], [place] [address] : 1985 [address]: Roya Florian PA-C Dept: Diagnostic Imaging Loc: 1EDA DI REPORT Service Dt:09/26/16 Report#: [id number] Adm Dt: 09/26/16 Dis Dt: Comments: STUDY: Right foot dated 09/26/2016. INDICATION: Injury 1 week ago. Tender to palpation 5th metatarsal. COMPARISON: None. ACCESSION NUMBER(S): [id number] ORDERING CLINICIAN: Roya Florian TECHNIQUE: AP, lateral, and oblique radiographs of the right foot. FINDINGS: No fracture or dislocation is evident. There is a plantar calcaneal enthesophyte. No ankle joint effusion is evident.Soft tissues are grossly unremarkable. IMPRESSION: No osseous injury is evident. Dictated by: Cheng Fang Electronically Signed by: Cheng Fang 09/26/2016 6:49 PM Normal [facility] Emergency Room Note on 08-27-2016 [facility] Note Normal [facility] ED Note-Provideron ED Note-Provider Normal [facility] Patient Summary Documentson 08-16-2016 Patient Summary Documents Normal [facility] Vital Signs Date Time Vital Sign Value Performing Clinician Facility 07-21-2024 08:07040 Body height 172.72 cm Jennifer PALOMO Work Phone: [facility] 09-11-2023 14:23-0400 Body mass index (BMI) [Ratio] 26.59 kg/m2 Austin Arnett APRN.CNP Work Phone: [facility] 09-11-2023 14:23-0400 Body temperature 98.49 [degF] Austin Arnett APRN.TIE HACKER Work Phone: [facility] 09-11-2023 14:23-0400 Body weight 77 kg Austin Arnett APRN.TIE HACKER Work Phone: [facility] 09-11-2023 14:23-0400 Diastolic blood pressure 79 mm[Hg] Austin Arnett APRN.TIE HACKER Work Phone: [facility] 09-11-2023 14:23-0400 Heart rate 85 /min Austin Arnett APRN.TIE HACKER Work Phone: [facility] 09-11-2023 14:23-0400 Respiratory rate 18 /min Austin Arnett APRN.TIE HACKER Work Phone: [facility] 09-11-2023 14:23-0400 SaO2% (BldA) [Mass fraction] 99 % Austin Arnett [employer] CLERK.TIE HACKER Work Phone: [facility] 09-11-2023 14:23-0400 Systolic blood pressure 131 mm[Hg] Austin Arnett [employer] CLERK.[employer]IE HACKER Work Phone: [facility] 09-09-2023 08:41-0400 Body mass index (BMI) [Ratio] 26.52 kg/m2 Jennifer Fuller [employer] CLERK.TIE HACKER Work Phone: [facility] 09-09-2023 08:41-0400 Body temperature 98.2 [degF] Jennifer Fuller [employer] CLERK.TIE HACKER Work Phone: [facility] 09-09-2023 08:41-0400 Body weight 76.8 kg Jennifer Fuller [employer] CLERK.TIE HACKER Work Phone: [facility] 09-09-2023 08:41-0400 Diastolic blood pressure 80 mm[Hg] Jennifer Fuller [employer] CLERK.TIE HACKER Work Phone: [facility] 09-09-2023 08:41-0400 Heart rate 82 /min Jennifer Fuller [employer] CLERK.TIE HACKER Work Phone: [facility] 09-09-2023 08:41-0400 Respiratory rate 20 /min Jennifer Fuller [employer] CLERK.TIE HACKER Work Phone: [facility] 09-09-2023 08:41-0400 SaO2% (BldA) [Mass fraction] 98 % Jennifer Fuller [employer] CLERK.TIE HACKER Work Phone: [facility] 09-09-2023 08:41-0400 Systolic blood pressure 120 mm[Hg] Jennifer Fuller [employer] CLERK.[employer]IE HACKER Work Phone: [facility] 05-21-2023 10:58-0400 Body temperature 98.1 [degF] Miguel Bryant [employer] CLERK.[employer] HACKER Work Phone: [facility] 05-21-2023 10:58-0400 Body weight 76 kg [facility] [employer] CLERK.TIE HACKER Work Phone: [facility] 05-21-2023 10:58-0400 Diastolic blood pressure 70 mm[Hg] [facility] [employer] CLERK.TIE HACKER Work Phone: [facility] 05-21-2023 10:58-0400 Heart rate 70 /min [facility] [employer] CLERK.TIE HACKER Work Phone: [facility] 05-21-2023 10:58-0400 Respiratory rate 16 /min [facility] [employer] CLERK.TIE HACKER Work Phone: [facility] 05-21-2023 10:58-0400 SaO2% (BldA) [Mass fraction] 99 % [facility] [employer] CLERK.TIE HACKER Work Phone: [facility] 05-21-2023 10:58-0400 Systolic blood pressure 122 mm[Hg] [facility] [employer] CLERK.TIE HACKER Work Phone: [facility] 05-17-2023 08:40-0400 Body temperature 97.9 [degF] [facility] 05-17-2023 08:40-0400 Diastolic blood pressure 68 mm[Hg] [facility] 05-17-2023 08:40-0400 Heart rate 60 /min [facility] 05-17-2023 08:40-0400 Respiratory rate 16 /min [facility] 05-17-2023 08:40-0400 SaO2% (BldA) [Mass fraction] 98 % [facility] 05-17-2023 08:40-0400 Systolic blood pressure 91 mm[Hg] [facility] 05-17-2023 07:31-0400 Body height 172.72 cm [facility] 05-17-2023 07:31-0400 Body mass index (BMI) [Ratio] 25.9 kg/m2 [facility] 05-17-2023 07:31-0400 Body weight 77.4 kg [facility] 01-08-2023 09:35-0500 Body height 172.72 cm [facility] Work Phone: 5(783)671-457735 [place] [address] 01-08-2023 09:35-0500 Body mass index (BMI) [Ratio] 23.2 kg/m2 [facility] Work Phone: 2(500)480-822935 [place] [address] 01-08-2023 09:35-0500 Body temperature 98.1 [degF] [facility] Work Phone: 3(928)226-001235 [place] [address] 01-08-2023 09:35-0500 Body weight 69.4 kg [facility] Work Phone: 3(185)767-602235 [place] [address] 01-08-2023 09:35-0500 Diastolic blood pressure 83 mm[Hg] [facility] Work Phone: 6(351)268-956535 [place] [address] 01-08-2023 09:35-0500 Heart rate 93 /min [facility] Work Phone: 8(628)488-136635 [place] [address] 01-08-2023 09:35-0500 Respiratory rate 14 /min [facility] Work Phone: 5(727)036-496535 [place] [address] 01-08-2023 09:35-0500 SaO2% (BldA) [Mass fraction] 98 % [facility] Work Phone: 3(111)511-144735 [place] [address] 01-08-2023 09:35-0500 Systolic blood pressure 134 mm[Hg] [facility] Work Phone: 2(722)157-197435 [place] [address] 01-03-2023 09:57-0500 Body height 172.72 cm [facility] Work Phone: 3(809)237-484635 [place] [address] 01-03-2023 09:57-0500 Body mass index (BMI) [Ratio] 23.4 kg/m2 [facility] Work Phone: 5(870)521-847435 [place] [address] 01-03-2023 09:57-0500 Body temperature 99 [degF] [facility] Work Phone: 4(267)140-927835 [place] [address] 01-03-2023 09:57-0500 Body weight 70 kg [facility] Work Phone: 7(119)703-648035 [place] [address] 01-03-2023 09:57-0500 Diastolic blood pressure 81 mm[Hg] [facility] Work Phone: 6(521)629-521635 [place] [address] 01-03-2023 09:57-0500 Heart rate 79 /min [facility] Work Phone: 7(506)055-035135 [place] [address] 01-03-2023 09:57-0500 Respiratory rate 16 /min [facility] Work Phone: 3(504)974-791335 [place] [address] 01-03-2023 09:57-0500 SaO2% (BldA) [Mass fraction] 100 % [facility] Work Phone: 5(617)767-283735 [place] [address] 01-03-2023 09:57-0500 Systolic blood pressure 117 mm[Hg] [facility] Work Phone: 2(108)105-000535 [place] [address] 11-13-2022 09:18-0400 Body temperature 97.8 [degF] [facility] Work Phone: 0(165)607-751235 [place] [address] 11-13-2022 09:18-0400 Diastolic blood pressure 47 mm[Hg] [facility] Work Phone: 5(755)813-917535 [place] [address] 11-13-2022 09:18-0400 Heart rate 50 /min [facility] Work Phone: 3(904)920-391335 [place] [address] 11-13-2022 09:18-0400 Respiratory rate 18 /min [facility] Work Phone: 3(009)594-877735 [place] [address] 11-13-2022 09:18-0400 SaO2% (BldA) [Mass fraction] 98 % [facility] Work Phone: 1(611)917-999335 [place] [address] 11-13-2022 09:18-0400 Systolic blood pressure 96 mm[Hg] [facility] Work Phone: 1(199)346-416735 [place] [address] 11-11-2022 16:20-0400 Body height 172.72 cm [facility] Work Phone: 7(424)049-083435 [place] [address] 11-11-2022 16:20-0400 Body weight 71.6 kg [facility] Work Phone: 9(929)675-811835 [place] [address] 11-11-2022 09:45-0400 Body mass index (BMI) [Ratio] 24 kg/m2 [facility] Work Phone: 0(212)030-241335 [place] [address] 11-11-2022 08:24-0400 Body temperature 96.4 [degF] [facility] 11-11-2022 08:24-0400 Diastolic blood pressure 97 mm[Hg] [facility] 11-11-2022 08:24-0400 Heart rate 58 /min [facility] 11-11-2022 08:24-0400 Respiratory rate 14 /min [facility] 11-11-2022 08:24-0400 SaO2% (BldA) [Mass fraction] 95 % [facility] 11-11-2022 08:24-0400 Systolic blood pressure 160 mm[Hg] [facility] 11-11-2022 04:49-0400 Body height 172.72 cm [facility] 11-11-2022 04:49-0400 Body mass index (BMI) [Ratio] 24.5 kg/m2 [facility] 11-11-2022 04:49-0400 Body weight 73.3 kg [facility] 11-01-2022 10:04-0400 Body temperature 98 [degF] [facility] 11-01-2022 10:04-0400 Diastolic blood pressure 81 mm[Hg] [facility] 11-01-2022 10:04-0400 Heart rate 68 /min [facility] 11-01-2022 10:04-0400 Respiratory rate 16 /min [facility] 11-01-2022 10:04-0400 SaO2% (BldA) [Mass fraction] 98 % [facility] 11-01-2022 10:04-0400 Systolic blood pressure 120 mm[Hg] [facility] 11-01-2022 06:58-0400 Body height 172.72 cm [facility] 11-01-2022 06:58-0400 Body mass index (BMI) [Ratio] 24.5 kg/m2 [facility] 11-01-2022 06:58-0400 Body weight 73.1 kg [facility] 10-03-2022 23:59-0400 Heart rate 78 /min [facility] 10-03-2022 23:59-0400 Respiratory rate 18 /min [facility] 10-03-2022 23:59-0400 SaO2% (BldA) [Mass fraction] 97 % [facility] 10-03-2022 22:37-0400 Body height 172.72 cm [facility] 10-03-2022 22:37-0400 Body mass index (BMI) [Ratio] 25 kg/m2 [facility] 10-03-2022 22:37-0400 Body temperature 97.6 [degF] [facility] 10-03-2022 22:37-0400 Body weight 74.75 kg [facility] 10-03-2022 22:37-0400 Diastolic blood pressure 90 mm[Hg] [facility] 10-03-2022 22:37-0400 Systolic blood pressure 137 mm[Hg] [facility] 04-27-2022 15:22-0500 Body temperature 97 [degF] Miguel Bryant [employer] CLERK.TIE HACKER Work Phone: [facility] 04-27-2022 15:22-0500 Body weight 85.91 kg Miguel Bryant [employer] CLERK.TIE HACKER Work Phone: [facility] 04-27-2022 15:22-0500 Diastolic blood pressure 84 mm[Hg] Miguel Bryant [employer] CLERK.TIE HACKER Work Phone: [facility] 04-27-2022 15:22-0500 Heart rate 79 /min Miguel Bryant [employer] CLERK.TIE HACKER Work Phone: [facility] 04-27-2022 15:22-0500 Respiratory rate 18 /min Miguel Bryant [employer] CLERK.TIE HACKER Work Phone: [facility] 04-27-2022 15:22-0500 SaO2% (BldA) [Mass fraction] 97 % Miguel Bryant [employer] CLERK.TIE HACKER Work Phone: [facility] 04-27-2022 15:22-0500 Systolic blood pressure 130 mm[Hg] Miguel Bryant [employer] CLERK.TIE HACKER Work Phone: [facility] 04-03-2022 14:02-0500 Body height 170.18 cm [facility] 04-03-2022 14:02-0500 Body mass index (BMI) [Ratio] 28 kg/m2 [facility] 04-03-2022 14:02-0500 Body temperature 98.6 [degF] [facility] 04-03-2022 14:02-0500 Body weight 81.19 kg [facility] 04-03-2022 14:02-0500 Diastolic blood pressure 104 mm[Hg] [facility] 04-03-2022 14:02-0500 Heart rate 79 /min [facility] 04-03-2022 14:02-0500 Respiratory rate 24 /min [facility] 04-03-2022 14:02-0500 SaO2% (BldA) [Mass fraction] 98 % [facility] 04-03-2022 14:02-0500 Systolic blood pressure 152 mm[Hg] [facility] 04-03-2022 13:29-0500 Body temperature 98.01 [degF] Krislyn Aberegg PA Work Phone: [facility] 04-03-2022 13:29-0500 Body weight 85.28 kg Krislyn Aberegg PA Work Phone: [facility] 04-03-2022 13:29-0500 Diastolic blood pressure 82 mm[Hg] Krislyn Aberegg PA Work Phone: [facility] 04-03-2022 13:29-0500 Heart rate 98 /min Krislyn Aberegg PA Work Phone: [facility] 04-03-2022 13:29-0500 Respiratory rate 16 /min Krislyn Aberegg PA Work Phone: [facility] 04-03-2022 13:29-0500 SaO2% (BldA) [Mass fraction] 98 % Krislyn Aberegg PA Work Phone: [facility] 04-03-2022 13:29-0500 Systolic blood pressure 124 mm[Hg] Krislyn Aberegg PA Work Phone: [facility] 03-27-2022 16:21-0500 Body temperature 98.4 [degF] [facility] [employer] CLERK.TIE HACKER Work Phone: [facility] 03-27-2022 16:21-0500 Body weight 87.09 kg [facility] [employer] CLERK.TIE HACKER Work Phone: [facility] 03-27-2022 16:21-0500 Diastolic blood pressure 64 mm[Hg] [facility] [employer] CLERK.TIE HACKER Work Phone: [facility] 03-27-2022 16:21-0500 Heart rate 102 /min Miguel [facility] [employer] CLERK.TIE HACKER Work Phone: [facility] 03-27-2022 16:21-0500 Respiratory rate 18 /min Miguel [facility] [employer] CLERK.TIE HACKER Work Phone: [facility] 03-27-2022 16:21-0500 SaO2% (BldA) [Mass fraction] 98 % Miguel [facility] [employer] CLERK.TIE HACKER Work Phone: [facility] 03-27-2022 16:21-0500 Systolic blood pressure 108 mm[Hg] [facility] [employer] CLERK.TIE HACKER Work Phone: [facility] 01-27-2022 21:17-0500 Diastolic blood pressure 67 mm[Hg] [facility] 01-27-2022 21:17-0500 Heart rate 70 /min [facility] 01-27-2022 21:17-0500 Respiratory rate 16 /min [facility] 01-27-2022 21:17-0500 Systolic blood pressure 130 mm[Hg] [facility] 01-27-2022 20:32-0500 Body height 165.1 cm [facility] Work Phone: 01-27-2022 20:32-0500 Body mass index (BMI) [Ratio] 29.1 kg/m2 [facility] 01-27-2022 20:32-0500 Body temperature 97.2 [degF] [facility] 01-27-2022 20:32-0500 Body weight 79.37 kg [facility] 01-27-2022 20:32-0500 SaO2% (BldA) [Mass fraction] 99 % [facility] Encounters Encounter Date Encounter Type Care Provider Facility Start: 07-30-2024 ambulatory Zebulun Beam [facility] Facili ty:[facility] Start: 07-27-2024 ambulatory Jennifer Eisenberg in [facility]SC Facility:[facility] Start: 07-22-2024 End: 07-22-2024 ambulatory Jennifer Doyle [facility] Work Phone: [facility] Work Phone: Start: 07-22-2024 End: 07-22-2024 Patient encounter procedure Zebulun Beam [facility] -Laboratory Work Phone: Start: 07-22-2024 End: 07-22-2024 Patient encounter procedure Xiomara CAMP -[facility] Work Phone: Start: 07-22-2024 End: 07-22-2024 ambulatory Jennifer Kwon [facility] Work Phone: [facility] Work Phone: Start: 07-22-2024 End: 07-22-2024 ambulatory Zebulun Beam [facility] Facility:[facility] Start: 07-10-2024 End: 07-10-2024 ambulatory Jennifer Kwon [facility] Work Phone: [facility] Work Phone: Start: 07-10-2024 End: 07-10-2024 Patient encounter procedure Zebulun Beam [facility] -Laboratory Work Phone: Start: 07-10-2024 End: 07-10-2024 ambulatory Zebulun Beam [facility] Facility:[facility] Start: 03-31-2024 End: 03-31-2024 Patient encounter procedure Zebulun Beam [facility] -Laboratory Tami Garcia Start: 03-31-2024 End: 03-31-2024 ambulatory Zebulun Beam [facility] Facility:[facility] Start: 03-27-2024 End: 03-27-2024 Patient encounter procedure Zebulun Beam [facility] -Laboratory Specimen Work Phone: Start: 03-27-2024 End: 03-27-[facility] Start: 02-12-2024 End: 02-13-2024 Emergency department patient visit Gopi Betts Facility:[facility] Start: 11-15-2023 End: 11-16-2023 Emergency department patient visit Duc Oden Facility:[facility] Start: 09-11-2023 End: 09-11-2023 Patient encounter procedure Austin Melquiades [employer].TIE HACKER Work Phone: [facility] Comment on above: Chemosis of left con junctiva (Primary Dx); Seasonal allergic rhinitis, unspecified trigger Start: 09-09-2023 End: 09-09-2023 ambulatory [facility] Facility:[facility] Start: 09-09-2023 End: 09-09-2023 Patient encounter procedure Jennifer Fuller [employer] CL[employer].TIE HACKER Work Phone: [facility] Comment on above: Acute conjunctivitis of both eyes, unspecified acute conjunctivitis type (Primary Dx) Start: 09-04-2023 End: 09-04-2023 ambulatory Jennifer Doyle [facility] Facility:[facility] Start: 05-27-2023 End: 05-27-2023 ambulatory [facility] Work Phone: Start: 05-27-2023 End: 05-27-2023 Patient encounter procedure [facility] Work Phone: Start: 05-21-2023 End: 05-21-2023 Subsequent hospital visit by physician [facility] Work Phone: Radiology Comment on above: Acute cough [R05.1] Start: 05-21-2023 End: 05-21-2023 ambulatory [facility] Facility:[facility] Start: 05-21-2023 End: 05-21-2023 Office outpatient visit 15 minutes Miguel [facility] SMALL PACKAGE AND BUNDLE SORTER CLERK.TIE HACKER Work Phone: [facility] Comment on above: Acute cough (Primary Dx) Start: 05-17-2023 End: 05-17-2023 Emergency department patient visit [facility] Work Phone: Start: 01-08-2023 End: 01-08-2023 Emergency department patient visit [facility] Work Phone: [facility] Work Phone: Start: 01-03-2023 End: 01-03-2023 Emergency department patient visit [facility] Work Phone: [facility] Work Phone: Start: 11-13-2022 Non-patient / Non-visit [facility] Work Phone: [facility] Start: 11-13-2022 Non-patient / Non-visit [facility] Work Phone: [facility] Work Phone: Start: 11-12-2022 Non-patient / Non-visit [facility] Work Phone: [facility] Work Phone: Start: 11-11-2022 Non-patient / Non-visit [facility] Work Phone: [facility] Start: 11-11-2022 [facility] Work Phone: Start: 11-11-2022 End: 11-13-2022 Evaluation and management of inpatient [facility] Work Phone: [facility] Work Phone: Start: 11-01-2022 End: 11-01-2022 Emergency department patient visit [facility] Work Phone: Start: 10-03-2022 End: 10-04-2022 Emergency department patient visit [facility] Work Phone: Start: 09-13-2022 End: 09-13-2022 ambulatory [facility] Work Phone: Start: 09-13-2022 End: 09-13-2022 Patient encounter procedure [facility] Work Phone: Start: 05-01-2022 End: 05-01-2022 ambulatory [facility] Work Phone: Start: 05-01-2022 End: 05-01-2022 Patient encounter procedure [facility] Start: 04-27-2022 End: 04-27-2022 Subsequent hospital visit by physician [facility] Work Phone: Radiology Comment on above: Acute cough [R05.1] Start: 04-27-2022 End: 04-27-2022 Office outpatient visit 15 minutes Miguel Bryant APRN.TIE HACKER Work Phone: [facility] Comment on above: Acute cough (Primary Dx) Start: 04-27-2022 Telephone encounter Miguel madden APRN.TIE HACKER Work Phone: [facility] Comment on above: Results Start: 04-03-2022 End: 04-03-2022 Emergency department patient visit [facility] Start: 04-03-2022 End: 04-03-2022 Patient encounter procedure Lokesh CAMP Work Phone: [facility] Comment on above: Chest tightness (Courtney enzo Dx); SOB (shortness of breath) Start: 03-27-2022 End: 03-27-2022 Office outpatient visit 25 minutes Miguel Bryant APRN.TIE HACKER Work Phone: [facility] Comment on above: Sinobronchitis (Prim carmelita Dx); Dental infection Start: 01-27-2022 End: 01-27-2022 Emergency department patient visit [facility] Start: 06-12-2017 End: 06-14-2017 Ambulatory FLAKITO PLUMMER Facility:A Start: 01-23-2017 End: 01-23-2017 Emergency department patient visit LISA DOTY Facility:B Start: 12-20-2016 End: 12-20-2016 Emergency department patient visit MIRIAM MILLER Facility:B Start: 09-26-2016 End: 09-26-2016 Emergency department patient visit Duke Mckeon Facility:[facility] Start: 09-26-2016 Ambulatory Facility:[id number] Start: 08-16-2016 End: 08-16-2016 Emergency department patient visit ARNOLDO OZUNA Facility:[facility] Procedures Date Procedure Procedure Detail Performing Clinician Start: 07-22-2024 Hepatitis C virus ge notype determination Jennifer Kwon [facility] Work Phone: Comment on above: Performed at: - [address] [id number] Director: Radha Lord MD, Phone: [phone] Start: 07-10-2024 Urnls dip stick/tabl et reagent auto microscopy Jennifer Kwon [facility] Work Phone: Start: 07-10-2024 Urine culture Jennifer Shah gamallaura [facility] Work Phone: Start: 07-10-2024 Hepatitis A virus an tibody, IgM type Jennifer Kwon [facility] Work Phone: Comment on above: A negative anti-HAV IgM result suggests no recent orcurrent HAV infection. Start: 07-10-2024 Hepatitis B core ant ibody measurement, IgM type Jennifer Kwon [facility] Work Phone: Start: 07-10-2024 Hepatitis C antibody measurement Jennifer Kwon [facility] Work Phone: Start: 07-10-2024 Hepatitis C virus RNA assay Jennifer Kwon [facility] Work Phone: Start: 07-10-2024 Total iron binding c apacity measurement Jennifer Kwon [facility] Work Phone: Start: 07-10-2024 Vitamin D, 25-hydrox y measurement Jennifer Kwon [facility] Work Phone: Comment on above: Vitamin D StatusDefi ciency: <20 ng/mL (50nmol/L)Insufficiency: 20-30 ng/mL (50-75 nmol/L)Sufficiency: 30-100 ng/mL (75-250 nmol/L)Toxicity: >100 ng/mL (>250 nmol/L) Start: 03-31-2024 Measurement of renal function Jennifer Kwon [facility] Work Phone: Comment on above: GFR Calc Start: 03-27-2024 Urine culture Jennifer mckoy [facility] Work Phone: Start: 05-21-2023 Radiologic exam ches t 2 views Miguel Bryant [employer] PACK[employer] AND BUNDLE SORTER CLERK.TIE HACKER Work Phone: Start: 01-03-2023 SARS-CoV-2 & FLU Ant igen (Rapid) [facility] Work Phone: Start: 01-03-2023 Plain chest X-ray [facility] Work Phone: Start: 11-11-2022 Small bowel series [facility] Work Phone: Start: 11-11-2022 Plain X-ray abdomen Start: 11-11-2022 Computed tomography of abdomen and pelvis with intravenous contrast Start: 11-01-2022 SARS-CoV-2 & FLU Ant igen (Rapid) Start: 11-01-2022 Plain chest X-ray Start: 10-03-2022 X-ray of both feet Start: 04-27-2022 Radiologic exam ches t 2 views Miguel Bryant SMALL PACKAGE AND BUNDLE SORTER CLERK.TIE HACKER Work Phone: Start: 04-03-2022 Plain chest X-ray Plan of Treatment Date Care Activity Detail Author Start: 10-11-2027 Screening for malignant neoplasm of cervix [facility] Start: 04-09-2027 HPV TESTING HPV TESTING [facility] Start: 04-09-2027 PAP TESTING PAP TESTING [facility] Start: 07-22-2024 End: 07-22-2024 Procedure [facility] Start: 10-20-2023 Covid-19 Vaccine () Covid-19 Vaccine () [facility] Start: 10-20-2023 Covid-19 Vaccine () Covid-19 Vaccine () [facility] Start: 10-20-2023 Influenza vaccination [facility] Start: 10-11-2023 Screening for malignant neoplasm of cervix Cervical Cancer Screening [facility] Start: 05-17-2023 [facility] Start: 02-18-2023 Behavioral Health Screening Behavioral Health Screening [facility] Start: 02-18-2023 Depression Assessment Depression Assessment [facility] Start: 01-08-2023 [facility] Start: 01-08-2023 Referral to service [facility] Start: 01-03-2023 [facility] Start: 11-13-2022 Patient discharge [facility] Start: 11-11-2022 Application of intermittent pneumatic compression device [facility] Start: 11-11-2022 Following clinical pathway protocol [facility] Start: 11-11-2022 Assessment of risk of venous thromboembolism [facility] Start: 11-11-2022 Insertion of catheter into peripheral vein [facility] Start: 11-11-2022 Providing care according to standard [facility] Start: 11-11-2022 Provision of activity privileges [facility] Start: 11-11-2022 Referral to general surgeon [facility] Start: 11-11-2022 Referral to occupational therapist [facility] Start: 11-11-2022 Referral to service [facility] Start: 11-11-2022 [facility] Start: 11-11-2022 Admission procedure [facility] Start: 11-11-2022 Verification routine [facility] Start: 11-11-2022 Consultation [facility] Start: 11-11-2022 Patient referral to dietitian [facility] Start: 11-01-2022 [facility] Start: 10-19-2022 Covid-19 Vaccine ( season) Covid-19 Vaccine ( season) [facility] Start: 02-18-2022 DEPRESSION ASSESSMENT DEPRESSION ASSESSMENT [facility] Start: 10-19-2021 Influenza vaccination INFLUENZA (#1) [facility] Start: 05-10-2018 Urine microalbumin profile DTaP,Tdap,Td Vaccine (3 - Td or Tdap) [facility] Start: 03-23-2016 PAP TESTING PAP TESTING [facility] Start: 2015 HPV TESTING HPV TESTING [facility] Start: 2004 Urine microalbumin profile DTAP,TDAP,TD (1 - Tdap) [facility] Start: 2003 Anxiety Screening Anxiety Screening [facility] Start: 2003 Depression Screening Depression Screening [facility] Start: 2003 HEPATITIS C SCREENING HEPATITIS C SCREENING [facility] Start: 2003 Hepatitis C screening Hepatitis C Screening [facility] Start: 2003 HIV SCREENING HIV SCREENING [facility] Start: 2003 HIV screening HIV Screening [facility] Start: 1991 PNEUMOCOCCAL (1 - PCV) PNEUMOCOCCAL (1 - PCV) [facility] Start: 1991 Pneumococcal vaccination Pneumococcal Vaccine (1 of 2 - PCV) [facility] Start: 1985 COVID-19 VACCINE (#1) COVID-19 VACCINE (#1) [facility] Start: 1985 HEPATITIS B (1 of 3 - 3-dose series) HEPATITIS B (1 of 3 - 3-dose series) [facility] metabo lic 2000 panel - Serum or Plasma [facility] Hepatitis A virus Ab [Presence] in Serum [facility] Hepatitis A virus Ig M Ab [Presence] in Serum [facility] Hepatitis B core ant ibody measurement, IgM type [facility] Hepatitis B surface antigen measurement [facility] Hepatitis C antibody measurement [facility] Liver stiffness by US.transient elastography [facility] Patient Education [facility] Work Phone: Patient referral [facility] Work Phone: Prothrombin time 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 2022 Unknown [id number] 2016 Private Health Insurance [id number] Unknown [id number] 2.16.8 [id number] Unknown [id number] 2.16.8 [id number] Unknown [id number] 2.16.8 [id number] Unknown [id number] 2.16.8 [id number] Unknown [id number] 2.16.8 [id number] Unknown [id number] 2.16.8 [id number] Unknown [id number] 2.16.8 [id number] Unknown [id number] 2.16.8 [id number] Unknown [id number] 2.16.8 [id number] Unknown [id number] 2.16.8 [id number] Social History Date Type Detail Facility Start: 01-27-2022 End: 05-17-2023 [facility] if ever smoked [facility] Start: 1985 Sex Assigned At Female [facility] Start: 03-23-2011 End: 07-21-2024 Tobacco smoking status CAIS Smokes tobacco daily [facility] History of tobacco use Cigarette Smoker [facility] Start: 03-23-2011 End: 04-27-2022 Cigarettes smoked current (pack per day) - Reported 0.5 [facility] Start: 03-23-2011 Tobacco use and exposure Smokeless tobacco non-user [facility] Start: 03-27-2022 End: 04-27-2022 Alcohol intake Current drinker of alcohol (finding) [facility] Start: 12-31-2010 Alcohol Comment rarely [facility] Start: 1985 Sex Assigned At Not on file [facility] Start: 04-27-2022 End: 05-21-2023 Tobacco use panel [facility] NEGATED: Highlighted row [facility] Work Phone: NEGATED: Highlighted row [facility] Goals Date Patient Goal Desired Activity /State Functional Status Date Assessment Result Facility 11-13-2022 Functional status Ambulates;Up a d carol;Bathroom Privilege [facility] Work Phone: 11-12-2022 Functional status None [facility] Work Phone: Mental Status Date Assessment Result Facility 05-17-2023 Cognitive function Level Of Cons ciousness Awake;Alert;Appropriate;Follow s Commands [facility] Work Phone: 11-13-2022 Cognitive function Voice/Name [facility] Work Phone: 11-01-2022 Cognitive function Level Of Cons ciousness Awake;Alert;Appropriate;Follow s Commands [facility] Work Phone: 04-03-2022 Cognitive function Voice/Name [facility] Work Phone: Clinical Notes 03-27-2022 to 07-22-2024 Note Date & Type Note Facility 07-22-2024 Evaluation note Diagnosis Onset Date Resolution Abdominal pain acute July 22, 2024 1:23pm Hepatitis C acute July 22 1:23pm Hx of colonic polyps acute July 22, 2024 1:23pm [facility] Work Phone: 1(224) 388-982007-24-2024 History of Present illness Narrative* Austin Arnett APRN.TIE HACKER - 09/11/2023 2:34 PM EDT Subjective HPI HPI Marilee Bocanegra is a 38 year old female who presents today for CC of left eye irritation/glossy,congestion, scratchy throat. This started 1 week ago. Currently on atb for left eye pink eye last 6days, not resolved eye issue. Wears contacts/not since eye irritation. PAST MEDICAL HISTORY Diagnosis Date Anxiety Depression Fibromyalgia 2000 Migraine S/P shoulder surgery PAST SURGICAL HISTORY Procedure Laterality Date ORTHOPEDIC SURGERY HX Left 11/05/2012 Left knee arthroscopy with chondroplasty ORTHOPEDIC SURGERY HX Left 11/05/2012 Left hip arthroscopy ORTHOPEDIC SURGERY HX Left 10/15/2013 Left hip arthroscopy ORTHOPEDIC SURGERY HX Left Left shoulder x 4 ORTHOPEDICS SURGERY HX L hip surgery x 2 in [place] OVARIAN CYST RIGHT, FLUID removal of right ovarian cyst/ruptured ALLERGIES Ceclor [Cefaclor], Cymbalta [Duloxetine], and Penicillins MEDICATIONS VITAMIN D 25 mcg (1,000 unit) tab tablet Take 1 tablet by mouth every afternoon. thiamine (VITAMIN B1) 100 mg tablet Take 1 tablet by mouth every afternoon. ciprofloxacin HCl (CILOXAN) 0.3 % ophthalmic solution Use 1-2 drops inside both lower eyelid(s) every 2 hours while awake for 2 days, then 1-2 drops every 4 hours for next 5 days. VIVITROL 380 mg injection albuterol HFA (PROVENTIL HFA, VENTOLIN HFA) 90 mcg/actuation inhaler Inhale 2 Puffs as instructed every 4 hours as needed for wheezing/shortness of breath. (Patient not taking: Reported on 09/09/2023) meloxicam (MOBIC) 7.5 mg tablet Take 7.5 mg by mouth once daily. (Patient not taking: Reported on 03/27/2022) naproxen (NAPROSYN) 500 mg tablet Take 500 mg by mouth twice daily with meals. (Patient not taking:Reported on 03/27/2022) DICYCLOMINE HCL (BENTYL ORAL) Take by mouth. (Patient not taking: Reported on 03/27/2022) SERTRALINE HCL (ZOLOFT ORAL) Take by mouth. (Patient not taking: Reported on 03/27/2022) omeprazole (PRILOSEC) 40 mg capsule Take 40 mg by mouth once daily. busPIRone (BUSPAR) 15 mg tablet Take 15 mg by mouth three times daily. (Patient not taking: Reported on 03/27/2022) Qncoetua-Vt-Tyk-Fe-FA tab Take 1 tablet by mouth once daily. (Patient not taking: Reportedon 03/27/2022) FAMILY HISTORY Problem Relation Age of Onset Diabetes Paternal Grandmother Hypertension Mother other (depression) Mother Hypertension Father COPD Father other (Chronic pain) Father Thyroid Maternal Aunt Social History Tobacco Use Smoking status: Every Day Packs/day: 0.50 Years: 8.00 Additional pack years: 0.00 Total pack years: 4.00 Types: Cigarettes Smokeless tobacco: Never Substance Use Topics Alcohol use: Yes Comment: rarely Drug use: No Review of Systems Constitutional: Negative for chills and fever. HENT: Positive for congestion. Negative for ear discharge, ear pain and sore throat. Eyes: Positive for discharge and redness. Negative for blurred vision, double vision, photophobia and pain. Neurological: Negative for headaches. Objective Blood pressure 131/79, pulse 85, temperature 36.9 C (98.5 F), resp. rate 18, weight 77 kg (169 lb 12.1 oz), last menstrual period 08/05/2016, SpO2 99%. Physical Exam Constitutional: General: She is not in acute distress. Appearance: She is not toxic-appearing. HENT: Right Ear: Hearing, tympanic membrane and external ear normal. Left Ear: Hearing, tympanic membrane, ear canal and external ear normal. Nose: No mucosal edema. Mouth/Throat: Pharynx: Uvula midline. Eyes: General: Right eye: No discharge. Left eye: No discharge. Conjunctiva/sclera: Right eye: Right conjunctiva is not injected. Left eye: Left conjunctiva is injected. Chemosis present. Lymphadenopathy: Cervical: Right cervical: No superficial cervical adenopathy. Left cervical: No superficial cervical adenopathy. Comments: No cervical lymphadenopathy bilaterally Neurological: Mental Status: She is oriented to person, place, and time. ASSESSMENT/PLAN: 1. Chemosis of left conjunctiva - ICD9: 372.73, ICD10: H11.422 (primary diagnosis) -use medication as prescribed -follow up if symptoms persist, worsen, change - with eye dr. Urgent f/u for worsening s/s. - OLOPATADINE 0.1 % EYE DROPS 2. Seasonal allergic rhinitis, unspecified trigger - ICD9: 477.9, ICD10: J30.2 -use medication as prescribed -follow up if symptoms persist, worsen, change - PREDNISONE 20 MG TABLET Austin Arnett APRN.TIE HACKER [facility] NoteHNO ID: [id number] Author: JENNIFER FULLER APRN.TIE HACKER Service: ? Author Type: Nurse Practitioner Type: Progress Notes Filed: 09/09/2023 09:27 Note Text: This note was created using NoteWriter. Subjective Marilee Bocanegra is a 38 year old female. 38 year old female with PMH GERD presents for eye complaints. Acute onset this morning. Endorses that she woke up this morning Bilateral eyes, left greater than right +eyelids crusting +drainage +itching Denies trauma or injury Denies feelings of FB Denies pain. Denies loss or reduced vision. Denies URI sx. Denies cough Denies skin rash or lesions. 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 The history is provided by the patient. No tractor trailer truck driver was used. Eye Problem This is a new problem. The current episode started today. The problem occurs constantly. The problem has been unchanged. Pertinent negatives include no abdominal pain, anorexia, arthralgias, chest pain, chills, congestion, coughing, fatigue, fever, headaches, nausea, rash, sore throat, swollen glands, visual change or vomiting. Nothing aggravates the symptoms. She has tried nothing for the symptoms. The treatment provided no relief. PAST MEDICAL HISTORY Diagnosis Date Anxiety Depression Fibromyalgia 2000 Migraine S/P shoulder surgery PAST SURGICAL HISTORY Procedure Laterality Date ORTHOPEDIC SURGERY HX Left 11/05/2012 Left knee arthroscopy with chondroplasty ORTHOPEDIC SURGERY HX Left 11/05/2012 Left hip arthroscopy ORTHOPEDIC SURGERY HX Left 10/15/2013 Left hip arthroscopy ORTHOPEDIC SURGERY HX Left Left shoulder x 4 ORTHOPEDICS SURGERY HX L hip surgery x 2 in [place] OVARIAN CYST RIGHT, FLUID removal of right ovarian cyst/ruptured ALLERGIES Ceclor [Cefaclor], Cymbalta [Duloxetine], and Penicillins MEDICATIONS VITAMIN D 25 mcg (1,000 unit) tab tablet Take 1 tablet by mouth every afternoon. thiamine (VITAMIN B1) 100 mg tablet Take 1 tablet by mouth every afternoon. VIVITROL 380 mg injection omeprazole (PRILOSEC) 40 mg capsule Take 40 mg by mouth once daily. ciprofloxacin HCl (CILOXAN) 0.3 % ophthalmic solution Use 1-2 drops inside both lower eyelid(s) every 2 hours while awake for 2 days, then 1-2 drops every 4 hours for next 5 days. albuterol HFA (PROVENTIL HFA, VENTOLIN HFA) 90 mcg/actuation inhaler Inhale 2 Puffs as instructed every 4 hours as needed for wheezing/shortness of breath. (Patient not taking: Reported on 09/09/2023) meloxicam (MOBIC) 7.5 mg tablet Take 7.5 mg by mouth once daily. (Patient not taking: Reported on 03/27/2022) naproxen (NAPROSYN) 500 mg tablet Take 500 mg by mouth twice daily with meals. (Patient not taking: Reported on 03/27/2022) DICYCLOMINE HCL (BENTYL ORAL) Take by mouth. (Patient not taking: Reported on 03/27/2022) SERTRALINE HCL (ZOLOFT ORAL) Take by mouth. (Patient not taking: Reported on 03/27/2022) busPIRone (BUSPAR) 15 mg tablet Take 15 mg by mouth three times daily. (Patient not taking: Reported on 03/27/2022) Msvejrzm-Fy-Xgu-Fe-FA tab Take 1 tablet by mouth once daily. (Patient not taking: Reported on 03/27/2022) FAMILY HISTORY Problem Relation Age of Onset Diabetes Paternal Grandmother Hypertension Mother other (depression) Mother Hypertension Father COPD Father other (Chronic pain) Father Thyroid Maternal Aunt Social History Tobacco Use Smoking status: Every Day Packs/day: 0.50 Years: 8.00 Additional pack years: 0.00 Total pack years: 4.00 Types: Cigarettes Smokeless tobacco: Never Substance Use Topics Alcohol use: Yes Comment: rarely Drug use: No Review of Systems Constitutional: Negative for chills, fatigue and fever. HENT: Negative for congestion, ear pain, rhinorrhea, sinus pressure, sinus pain and sore throat. Eyes: Positive for discharge, redness and itching. Negative for photophobia, pain and visual disturbance. Respiratory: Negative for apnea, cough, choking and chest tightness. Cardiovascular: Negative for chest pain, palpitations and leg swelling. Gastrointestinal: Negative for abdominal pain, anorexia, diarrhea, nausea and vomiting. Musculoskeletal: Negative for arthralgias, back pain and gait problem. Skin: Negative for rash. Allergic/Immunologic: Negative for environmental allergies, food allergies and immunocompromised state. Neurological: Negative for dizziness, facial asymmetry and headaches. Hematological: Negative for adenopathy. Does not bruise/bleed easily. Psychiatric/Behavioral: Negative for agitation. Objective BP 120/80 Pulse 82 Temp 36.8 ?C (98.2 ?F) Resp 20 Wt 76.8 kg (169 lb 5 oz) LMP 08/05/2016 SpO2 98% BMI 26.52 kg/m? Physical Exam Vitals and nursing note reviewed. Constitutional: General: She is not in acute distress. Appearance: Normal appearance. She is normal weight. She is not ill-appearing, toxic-appearing or diaphoretic. (more content not included)...[facility]07-22-2024 History of Present illness Narrative* Jennifer Fuller APRN.[facility] - 09/09/2023 8:46 AM EDT This note was created using [employer] Logic[employer]. Subjective Marliee Bocanegra is a 38 year old female. 38 year old female with PMH GERD presents for eye complaints. Acute onset this morning. Endorses that she woke up this morning Bilateral eyes, left greater than right +eyelids crusting +drainage +itching Denies trauma or injury Denies feelings of FB Denies pain. Denies loss or reduced vision. Denies URI sx. Denies cough Denies skin rash or lesions. 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 The history is provided by the patient. No tractor trailer truck driver was used. Eye Problem This is a new problem. The current episode started today. The problem occurs constantly. The problem has been unchanged. Pertinent negatives include no abdominal pain, anorexia, arthralgias, chest pain, chills, congestion, coughing, fatigue, fever, headaches, nausea, rash, sore throat, swollen glands, visual change or vomiting. Nothing aggravates the symptoms. She has tried nothing for the symptoms. The treatment provided no relief. PAST MEDICAL HISTORY Diagnosis Date Anxiety Depression Fibromyalgia 2000 Migraine S/P shoulder surgery PAST SURGICAL HISTORY Procedure Laterality Date ORTHOPEDIC SURGERY HX Left 11/05/2012 Left knee arthroscopy with chondroplasty ORTHOPEDIC SURGERY HX Left 11/05/2012 Left hip arthroscopy ORTHOPEDIC SURGERY HX Left 10/15/2013 Left hip arthroscopy ORTHOPEDIC SURGERY HX Left Left shoulder x 4 ORTHOPEDICS SURGERY HX L hip surgery x 2 in [place] OVARIAN CYST RIGHT, FLUID removal of right ovarian cyst/ruptured ALLERGIES Ceclor [Cefaclor], Cymbalta [Duloxetine], and Penicillins MEDICATIONS VITAMIN D 25 mcg (1,000 unit) tab tablet Take 1 tablet by mouth every afternoon. thiamine (VITAMIN B1) 100 mg tablet Take 1 tablet by mouth every afternoon. VIVITROL 380 mg injection omeprazole (PRILOSEC) 40 mg capsule Take 40 mg by mouth once daily. ciprofloxacin HCl (CILOXAN) 0.3 % ophthalmic solution Use 1-2 drops inside both lower eyelid(s) every 2 hours while awake for 2 days, then 1-2 drops every 4 hours for next 5 days. albuterol HFA (PROVENTIL HFA, VENTOLIN HFA) 90 mcg/actuation inhaler Inhale 2 Puffs as instructed every 4 hours as needed for wheezing/shortness of breath. (Patient not taking: Reported on 09/09/2023) meloxicam (MOBIC) 7.5 mg tablet Take 7.5 mg by mouth once daily. (Patient not taking: Reported on 03/27/2022) naproxen (NAPROSYN) 500 mg tablet Take 500 mg by mouth twice daily with meals. (Patient not taking:Reported on 03/27/2022) DICYCLOMINE HCL (BENTYL ORAL) Take by mouth. (Patient not taking: Reported on 03/27/2022) SERTRALINE HCL (ZOLOFT ORAL) Take by mouth. (Patient not taking: Reported on 03/27/2022) busPIRone (BUSPAR) 15 mg tablet Take 15 mg by mouth three times daily. (Patient not taking: Reported on 03/27/2022) Rxcvpxvh-Kf-Wjw-Fe-FA tab Take 1 tablet by mouth once daily. (Patient not taking: Reportedon 03/27/2022) FAMILY HISTORY Problem Relation Age of Onset Diabetes Paternal Grandmother Hypertension Mother other (depression) Mother Hypertension Father COPD Father other (Chronic pain) Father Thyroid Maternal Aunt Social History Tobacco Use Smoking status: Every Day Packs/day: 0.50 Years: 8.00 Additional pack years: 0.00 Total pack years: 4.00 Types: Cigarettes Smokeless tobacco: Never Substance Use Topics Alcohol use: Yes Comment: rarely Drug use: No Review of Systems Constitutional: Negative for chills, fatigue and fever. HENT: Negative for congestion, ear pain, rhinorrhea, sinus pressure, sinus pain and sore throat. Eyes: Positive for discharge, redness and itching. Negative for photophobia, pain and visual disturbance. Respiratory: Negative for apnea, cough, choking and chest tightness. Cardiovascular: Negative for chest pain, palpitations and leg swelling. Gastrointestinal: Negative for abdominal pain, anorexia, diarrhea, nausea and vomiting. Musculoskeletal: Negative for arthralgias, back pain and gait problem. Skin: Negative for rash. Allergic/Immunologic: Negative for environmental allergies, food allergies and immunocompromised state. Neurological: Negative for dizziness, facial asymmetry and headaches. Hematological: Negative for adenopathy. Does not bruise/bleed easily. Psychiatric/Behavioral: Negative for agitation. Objective BP 120/80 Pulse 82 Temp 36.8 C (98.2 F) Resp 20 Wt 76.8 kg (169 lb 5 oz) LMP 08/05/2016 SpO2 98% BMI 26.52 kg/m Physical Exam Vitals and nursing note reviewed. Constitutional: General: She is not in acute distress. Appearance: Normal appearance. She is normal weight. She is not ill-appearing, toxic-appearing or diaphoretic. HENT: Head: Normocephalic and atraumatic. Right Ear: Ear canal and external ear normal. Left Ear: Ear canal and external ear normal. Nose: Nose normal. No congestion or rhinorrhea. Mouth/Throat: Mouth: Mucous membranes are moist. Pharynx: No oropharyngeal exudate or posterior oropharyngeal erythema. Eyes: Extraocular Movements: Extraocular movements intact. Conjunctiva/sclera: Conjunctivae normal. Pupils: Pupils are equal, round, and reactive to light. Comments: Vision grossly intact. OS injected Marginal eyelid debris. OD with mild injection. NO marginal eyelid debris EOM intact PERRLA Cardiovascular: Rate and Rhythm: Normal rate and regular rhythm. Pulses: Normal pulses. Heart sounds: Normal heart sounds. No murmur heard. No friction rub. Pulmonary: Effort: Pulmonary effort is normal. No respiratory distress. Breath sounds: Normal breath sounds. No stridor. No wheezing, rhonchi or rales. Chest: Chest wall: No tenderness. Abdominal: General: Abdomen is flat. There is no distension. Palpations: Abdomen is soft. There is no mass. Tenderness: There is no abdominal tenderness. There is no right CVA tenderness, left CVA tenderness, guarding or rebound. Hernia: No hernia is present. Musculoskeletal: General: No swelling, tenderness, deformity or signs of injury. Normal range of motion. Cervical back: Normal range of motion and neck supple. No rigidity. Right lower leg: No edema. Left lower leg: No edema. Lymphadenopathy: Cervical: No cervical adenopathy. Skin: General: Skin is warm and dry. Coloration: Skin is not jaundiced or pale. Findings: No bruising, erythema, lesion or rash. Neurological: General: No focal deficit present. Mental Status: She is alert and oriented to person, place, and time. Cranial Nerves: No cranial nerve deficit. Sensory: No sensory deficit. Motor: No weakness. Coordination: Coordination normal. Gait: Gait normal. Psychiatric: Mood and Affect: Mood normal. Behavior: Behavior normal. Thought Content: Thought content normal. Judgment: Judgment normal. Assessment and Plan ASSESSMENT/PLAN: 1. Acute conjunctivitis of both eyes, unspecified acute conjunctivitis type - ICD9: 372.00, ICD10: H10.33 Bacterial - see medication orders - course and contagiousness issues discussed, including hand washing. - Instructed to call if high fever, development of periorbital redness or swelling, eye pain, visual changes, concerns or if symptoms persist. -no contact lens Discussed red flags Jennifer Fuller APRN.TIE HACKER documented [facility] History of Present illness Narrative* Elton Fowler RT(R) - 05/21/2023 11:20 AM EDT Radiology Service Progress Note PATIENT NAME: Marilee Bocanegra DATE OF SERVICE: May 21, 2023 TIME: 11:18 AM PATIENT IDENTITY VERIFICATION COMPLETED USING TWO (2) IDENTIFIERS: Name and Date of confirmedby patient verbally. FALL SCREENING: Has the patient had 2 falls in the last year or 1 fall with injury or currently using an Ambulatory Assistive Device (Walker, Cane, Wheelchair, Crutches, etc.)? No PATIENT GENDER DATA: Female. status: : No status: NO. PATIENT RELEVANT IMPLANT DATA REVIEWED: Not Applicable PATIENT PRESENTS WITH AN IMPLANTABLE OR ATTACHED DIRECTOR [employer]IANCE MARKETING: No RADIOLOGY DEPARTMENT: General X-ray: Exam(s) Completed: Chest X-Ray PERIPHERAL IV DATA: Not applicable SIGNED BY: RT John(Eliecer) May 21, 2023 11:18 AM documented in this encounterC[facility]innati [facility]04-02-2024 NoteHNO ID: [id number] Author: ELTON FOWLER RT(R) Service: Radiology Author Type: Technologist Type: Progress Notes Filed: 05/21/2023 11:24 Note Text: Radiology Service Progress Note PATIENT NAME: Marilee Bocanegra DATE OF SERVICE: May 21, 2023 TIME: 11:18 AM PATIENT IDENTITY VERIFICATION COMPLETED USING TWO (2) IDENTIFIERS: Name and Date of confirmed by patient verbally. FALL SCREENING: Has the patient had 2 falls in the last year or 1 fall with injury or currently using an Ambulatory Assistive Device (Walker, Cane, Wheelchair, Crutches, etc.)? No PATIENT GENDER DATA: Female. status: : No status: NO. PATIENT RELEVANT IMPLANT DATA REVIEWED: Not Applicable PATIENT PRESENTS WITH AN IMPLANTABLE OR ATTACHED DIRECTOR ALLIANCE MARKETING: No RADIOLOGY DEPARTMENT: General X-ray: Exam(s) Completed: Chest X-Ray PERIPHERAL IV DATA: Not applicable SIGNED BY: AUSTIN Lopez) May 21, 2023 11:18 [facility]04-02-2024 NoteHNO ID: [id number] Author: MIGUEL BRYANT APRN.TIE HACKER Service: ? Author Type: Nurse Practitioner Type: Progress Notes Filed: 05/21/2023 12:04 Note Text: Subjective HPI Nontoxic-appearing female presents urgent care chief complaint cough chest congestion. Duration of symptoms 2 to 3 weeks. Associated symptoms listed above. Most prominent symptom today is cough. He is currently living in a fdc. Was seen by the nurse. Last week states she did have some wheezing as per nurse auscultation. She did have a syncopal episode last week. Was sent to [facility] via EMS. No abnormal findings were noted on assessment. States blood pressure was a little lower than normal for her. Otherwise she was discharged in stable condition. Presents today with persistent cough. History of pneumonia. Concerned about possible pneumonia. States history of drug use. Has been clean for 3 months. 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 Denies any fever body aches chills productive cough chest pain shortness of breath pleuritic pain hemoptysis nausea vomiting abdominal pain or change in bowel or bladder habits past medical history prescription medications allergies reviewed. Denies chance of . Is not breast-feeding. .Patient presents with: Chest Congestion: sob x couple weeks PAST MEDICAL HISTORY Diagnosis Date Anxiety Depression Fibromyalgia 2000 Migraine S/P shoulder surgery PAST SURGICAL HISTORY Procedure Laterality Date ORTHOPEDIC SURGERY HX Left 11/05/2012 Left knee arthroscopy with chondroplasty ORTHOPEDIC SURGERY HX Left 11/05/2012 Left hip arthroscopy ORTHOPEDIC SURGERY HX Left 10/15/2013 Left hip arthroscopy ORTHOPEDIC SURGERY HX Left Left shoulder x 4 ORTHOPEDICS SURGERY HX L hip surgery x 2 in [place] OVARIAN CYST RIGHT, FLUID removal of right ovarian cyst/ruptured ALLERGIES Ceclor [Cefaclor], Cymbalta [Duloxetine], and Penicillins MEDICATIONS omeprazole (PRILOSEC) 40 mg capsule Take 40 mg by mouth once daily. VIVITROL 380 mg injection meloxicam (MOBIC) 7.5 mg tablet Take 7.5 mg by mouth once daily. (Patient not taking: Reported on 03/27/2022) naproxen (NAPROSYN) 500 mg tablet Take 500 mg by mouth twice daily with meals. (Patient not taking: Reported on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 previously prescribe with Dr. Lloyd and follow up with Dr. Lloyd per your normal routine. Discharge Orders/Prescriptions Prescriptions: New acetaminophen 500 mg capsule 1,000 mg PO Q6H PRN (Reason: pain) Qty: 30 0RF ondansetron 4 mg tablet,disintegrating 4 mg PO Q6H PRN (Reason: nausea and vomiting) Qty: 10 0RF Continued Zubsolv 1.4-0.36 mg tablet, sublingual 1 tab SUBLINGUAL Q24H Patient Comments: DISSOLVE ONE TABLET UNDER THE TONGUE EVERY DAY [facility] - Within 2 Weeks Disposition Disposition (needs filled in before D/C Order can be placed): Home, Self Care Charges/Coding Visit Charges Inpatient E&M: 83466 Disch Hosp >30min 11/13/22 1030 <Electronically signed by Ananda Cartagena DO> Cosigner Signature (if applicable): CC: Dr. Ananda Cartagena, DO; [facility]~ Signed [facility] Work Phone: 1(304) 887-681309-26-2023 Progress note Author Jose Salas [facility] November 13, 2022 10:17am Note Date/Time November 13, 2022 9:42am [facility] Medical Records Department [address] [place] [address] Progress Note - Surgery 11/13/22940 MR#: [id number] Acct: [id number] Name: MARILEE BOCANEGRA Rep #:[id number] : 1985 37 From: Jose Lozada PCP: [facility] atus:ADM IN Location: [place] [address] Subjective Subjective Patient seen and examined during AM rounds. She denies any significant abdominal discomfort. She confirms tolerance of her diet yesterday. Objective Data Objective Data Vital Signs: Vital Signs Temp Pulse Resp BP Pulse Ox O2 Del Method 97.8 F 50 L 28 H 96/47 L 98 Room Air 11/13/22 09:18 11/13/22 09:18 11/13/22 09:18 11/13/22 09:18 11/13/22 09:18 11/13/22 09:18 Oxygen Delivery Method Room Air Weight: 157 lb 13.616 oz Body Mass Index (BMI) 24.0 Intake & Output: Intake and Output for Last 24 Hours 11/11/22 11/12/22 11/13/22 23:59 23:59 23:59 Intake Total 1906.25 / 1906.25 3840 / 4090 360 / 360 Output Total 300 / 300 Balance 1606.25 / 1606.25 3840 / 4090 360 / 360 Lab / Micro Data 11/13/22 05:14 11/13/22 05:14 Labs: Laboratory Results - last 24 hr 11/13/22 05:14: WBC 5.7, RBC 3.62 L, Hgb 11.8 L, Hct 36.0 L, MCV 99.4 H, MCH 32.6 H, MCHC 32.8, RDW Std Deviation 46.3 H, RDW Coeff of Celestino 12.6, Plt Count 256, MPV 10.3, Immature Gran % (Auto) 0.400, Neut % (Auto) 30.6 L, Lymph % (Auto) 53.7 H, Bleckley % (Auto) 8.1, Eos % (Auto) 6.5 H, Baso % (Auto) 0.7, Absolute Neuts (auto) 1.7 L, Absolute Lymphs (auto) 3.05, Nucleated RBC % 0, Sodium 138, Potassium 3.9, Chloride 108 H, Carbon Dioxide 27.0, Anion Gap 3 L, BUN 9, Creatinine 0.41 L, Estim Creat Clear Calc 189.51, Est GFR (MDRD) Af Amer 222, Est GFR (MDRD) Non-Af 184, BUN/Creatinine Ratio 21.8 H, Glucose 80, Calcium8.1 L Physical Exam Const oriented x3 and no apparent distress Resp normal respiratory effort GI GI Narrative: Nondistended, soft, minimally tender to palpation Assessment & Plan Assessment/Plan (1) Small bowel obstruction: PLAN: Patient's status post successful Gastrografin challenge with tolerance of a diet?reinitiated yesterday. Abdominal exam was benign today. Did recommend patient discharge on a soft, low residue diet with lots of water x2 weeks in case patient has persistently edematous small bowel. Also recommended follow-upwith patient's PCP within 1 to 2 weeks of hospital discharge. From a surgical standpoint patient is cleared for discharge today. Charges/Coding Visit Charges Inpatient E&M: 16280 Subs Hosp L2 11/13/22 1017 <Electronically signed by Jose Salas MD> Cosigner Signature (if applicable): CC: ~ Signed [facility] Work Phone: 1([phone]) 966-273409-26-2023 Progress note Author Ananda Cartagena [facility] November 13, 2022 10:16am Note Date/Time November 13, 2022 8:31am [facility] Medical Records Department [address] [place] [address] Progress Note - Hospitalist 11/13/22 0829 MR#: [id number] Acct: [id number] Name: MARILEE BOCANEGRA Rep #:[id number] : 1985 37 From: Ananda Cartagena DO [facility] Location: [place] [id number] Reason for Visit Reason for Visit: Diagnoses Unspecified intestinal obstruction, unspecified as to partial versus complete obstruction (11/11/22) Subjective Subjective Tolerating diet. No BM nor flatus today. Objective Data Objective Data Vital Signs: Vital Signs Temp Pulse Resp BP Pulse Ox O2 Del Method 36.6 C 55 L 16 102/67 97 Room Air 11/13/22 03:30 11/13/22 03:30 11/13/22 03:30 11/13/22 03:30 11/13/22 03:30 11/13/22 03:30 Oxygen Delivery Method Room Air Weight: 71.6 kg Body Mass Index (BMI) 24.0 Intake & Output: Intake and Output for Last 24 Hours 11/11/22 11/12/22 11/13/22 23:59 23:59 23:59 Intake Total 1906.25 / 1906.25 3840 / 4090 360 / 360 Output Total 300 / 300 Balance 1606.25 / 1606.25 3840 / 4090 360 / 360 Lab / Micro Data 11/13/22 05:14 11/13/22 05:14 Labs: Laboratory Results - last 24 hr 11/13/22 05:14: WBC 5.7, RBC 3.62 L, Hgb 11.8 L, Hct 36.0 L, MCV 99.4 H, MCH 32.6 H, MCHC 32.8, RDW Std Deviation 46.3 H, RDW Coeff of Celestino 12.6, Plt Count 256, MPV 10.3, Immature Gran % (Auto) 0.400, Neut % (Auto) 30.6 L, Lymph % (Auto) 53.7 H, Bleckley % (Auto) 8.1, Eos % (Auto) 6.5 H, Baso % (Auto) 0.7, Absolute Neuts (auto) 1.7 L, Absolute Lymphs (auto) 3.05, Nucleated RBC % 0, Sodium 138, Potassium 3.9, Chloride 108 H, Carbon Dioxide 27.0, Anion Gap 3 L, BUN 9, Creatinine 0.41 L, Estim Creat Clear Calc 189.51, Est GFR (MDRD) Af Amer 222, Est GFR (MDRD) Non-Af 184, BUN/Creatinine Ratio 21.8 H, Glucose 80, Calcium8.1 L Radiography Diagnostic Testing: Radiology Impression Small Bowel X-Ray 11/11/22 14:50 IMPRESSION: Findings suggestive of a possible small bowel ileus. Electronically Signed: Jhonny Rhodes MD at 8:57 EDT , Physical Exam Const alert and no apparent distress Constitutional Narrative: flat affect. Resp normal respiratory effort, no retractions, no use of accessory muscles and clearto auscultation bilaterally Cardio regular rate, regular rhythm, S1 normal heart sound and S2 normal heart sound GI normal to inspection, nondistended, normoactive bowel sounds, soft to palpation,non-tender and non-distended Assessment & Plan Assessment/Plan (1) Small bowel obstruction: PLAN: CT abdomen showed mid small bowel obstruction, with transition point in right lower quadrant clear diet tolerated advanced to full liquids. NG tube inserted in ED as she was persistently vomiting. DC'd on 11/12. Has tolerated diet. general surgery following DW Dr. Salas ok for discharge. PLAN: Plan DVT prophylaxis: lovenox 11/13/22 1016 <Electronically signed by Ananda Cartagena DO> Cosigner Signature (if applicable): CC: ~ Signed [facility] Work Phone: [phone]) 656-231709-25-2023 Progress note Author Ananda Cartagena [facility] November 12, 2022 2:43pm Note Date/Time November 12, 2022 8:47am [facility] Medical Records Department [address] [place] [address] Progress Note - Hospitalist 11/12/22 0844 MR#: [id number] Acct: [id number] Name: MARILEE BOCANEGRA Rep #:[id number] : 1985 37 From: Ananda Cartagena DO PCP: [facility] atus:ADM IN Location: [facility] [id number] Reason for Visit Reason for Visit: Diagnoses Unspecified intestinal obstruction, unspecified as to partial versus complete obstruction (11/11/22) Subjective Subjective Feels well. NGT removed. Objective Data Objective Data Vital Signs: Vital Signs Temp Pulse Resp BP Pulse Ox O2 Del Method 36.6 C 68 16 147/73 H 97 Room Air 11/12/22 03:30 11/12/22 03:30 11/12/22 03:30 11/12/22 03:30 11/12/22 03:30 11/12/22 03:30 Oxygen Delivery Method Room Air Weight: 71.6 kg Body Mass Index (BMI) 24.0 Intake & Output: Intake and Output for Last 24 Hours 11/10/22 11/11/22 11/12/22 23:59 23:59 23:59 Intake Total 1906.25 / 1906.25 1000 / 1000 Output Total 300 / 300 Balance 1606.25 / 1606.25 1000 / 1000 Lab / Micro Data 11/12/22 05:32 11/12/22 05:32 Labs: Laboratory Results - last 24 hr 11/11/22 08:50: Urine Opiates Screen POSITIVE H, Urine Methadone Screen NEGATIVE, Ur Barbiturates Screen NEGATIVE, Ur Phencyclidine Scrn NEGATIVE, Ur Amphetamines Screen NEGATIVE, MDMA (Ecstasy) Screen NEGATIVE, U Benzodiazepines Scrn NEGATIVE, Urine Cocaine Screen NEGATIVE, U Cannabinoids Screen NEGATIVE, UrDrug Screen Comment 11/12/22 05:32: WBC 10.2, RBC 3.94 L, Hgb 13.0, Hct 39.1, MCV 99.2 H, MCH 33.0 H, MCHC 33.2, RDW Std Deviation 46.8 H, RDW Coeff of Celestino 12.8, Plt Count 315, MPV10.7, Immature Gran % (Auto) 0.200, Neut % (Auto) 58.1, Lymph % (Auto) 30.1, Bleckley % (Auto) 10.3 H, Eos % (Auto) 1.1, Baso % (Auto) 0.2, Absolute Neuts (auto)5.9, Absolute Lymphs (auto) 3.06, Nucleated RBC % 0, Sodium 141, Potassium 3.8, Chloride 110 H, Carbon Dioxide 26.0, Anion Gap 5, BUN 14, Creatinine 0.37 L, Estim Creat Clear Calc 210.00, Est GFR (MDRD) Af Amer 253, Est GFR (MDRD) Non-Af209, BUN/Creatinine Ratio 38.0 H, Glucose 87, Calcium 8.4 L Physical Exam Const alert and no apparent distress HEENT head/scalp atraumatic Resp normal respiratory effort, no retractions, no use of accessory muscles and clearto auscultation bilaterally Cardio regular rate, regular rhythm, S1 normal heart sound and S2 normal heart sound GI normal to inspection, nondistended, normoactive bowel sounds, soft to palpation,non-tender and non-distended Psych affect normal Assessment & Plan Assessment/Plan (1) Small bowel obstruction: PLAN: CT abdomen showed mid small bowel obstruction, with transition point in right lower quadrant clear diet tolerated advanced to full liquids. NG tube inserted in ED as she was persistently vomiting general surgery following PLAN: Plan DVT prophylaxis: lovenox Charges/Coding Visit Charges Inpatient E&M: 94258 Subs Hosp L2 11/12/22 1443 <Electronically signed by Ananda Cartagena DO> Cosigner Signature (if applicable): CC: ~ Signed [facility] Work Phone: 1(618) 807-543709-25-2023 Progress note Author Alejandra Britton [facility] November 12, 2022 8:36am Note Date/Time November 12, 2022 8:37am [facility] Medical Records Department [address] [place] [address] Progress Note - Surgery 11/12/22 0828 MR#: [id number] Acct: [id number] Name: MARILEE BOCANEGRA Rep #:[id number] : 1985 37 From: Alejandra CAMP PA-C PCP: [facility] atus:ADM IN Location: [place] [address] Subjective Subjective Patient was evaluated this morning in conjunction with Dr. Salas. Patient notes fulness in her upper abdomen, however does not feel bloated. She denies nausea, vomiting, fever. She denies flatus and BM. She continues to have the NG tube in place and was off of suction overnight. Patient did not have any nausea overnight being off of suction. KUB and small bowel follow-through were obtainedyesterday. Results were reviewed with the patient this morning. Contrast appearsall in the colon. At 6 hours after contrast, there appears to be a moderate amount of contrast within the stomach suggestive of some degree of gastroparesis. Patient does note she was teated for pneumonia approximately 10 days ago. Objective Data Objective Data Vital Signs: Vital Signs Temp Pulse Resp BP Pulse Ox O2 Del Method 98 F 68 16 147/73 H 97 Room Air 11/12/22 03:30 11/12/22 03:30 11/12/22 03:30 11/12/22 03:30 11/12/22 03:30 11/12/22 03:30 Oxygen Delivery Method Room Air Weight: 157 lb 13.616 oz Body Mass Index (BMI) 24.0 Intake & Output: Intake and Output for Last 24 Hours 11/10/22 11/11/22 11/12/22 23:59 23:59 23:59 Intake Total 1906.25 / 1906.25 1000 / 1000 Output Total 300 / 300 Balance 1606.25 / 1606.25 1000 / 1000 Lab / Micro Data 11/12/22 05:32 11/12/22 05:32 Labs: Laboratory Results - last 24 hr 11/11/22 08:50: Urine Opiates Screen POSITIVE H, Urine Methadone Screen NEGATIVE, Ur Barbiturates Screen NEGATIVE, Ur Phencyclidine Scrn NEGATIVE, Ur Amphetamines Screen NEGATIVE, MDMA (Ecstasy) Screen NEGATIVE, U Benzodiazepines Scrn NEGATIVE, Urine Cocaine Screen NEGATIVE, U Cannabinoids Screen NEGATIVE, UrDrug Screen Comment 11/12/22 05:32: WBC 10.2, RBC 3.94 L, Hgb 13.0, Hct 39.1, MCV 99.2 H, MCH 33.0 H, MCHC 33.2, RDW Std Deviation 46.8 H, RDW Coeff of Celestino 12.8, Plt Count 315, MPV10.7, Immature Gran % (Auto) 0.200, Neut % (Auto) 58.1, Lymph % (Auto) 30.1, Bleckley % (Auto) 10.3 H, Eos % (Auto) 1.1, Baso % (Auto) 0.2, Absolute Neuts (auto)5.9, Absolute Lymphs (auto) 3.06, Nucleated RBC % 0, Sodium 141, Potassium 3.8, Chloride 110 H, Carbon Dioxide 26.0, Anion Gap 5, BUN 14, Creatinine 0.37 L, Estim Creat Clear Calc 210.00, Est GFR (MDRD) Af Amer 253, Est GFR (MDRD) Non-Af209, BUN/Creatinine Ratio 38.0 H, Glucose 87, Calcium 8.4 L Physical Exam GI normal to inspection, nondistended, normoactive bowel sounds Assessment & Plan Assessment/Plan (1) Small bowel obstruction: PLAN: Dr. Salas also evaluated this patient at the same setting Plan to remove NG tube this morning Start clear liquids If patient tolerated clear liquids, plan to advance to full liquids later today Potential discharge tomorrow We will continue to monitor this patient Charges/Coding Visit Charges Inpatient E&M: 52066 Subs Hosp L1 11/12/22 0836 <Electronically signed by Alejandra CAMP PA-C> Cosigner Signature (if applicable): CC: ~ Signed [facility] Work Phone: 1(333) 312-521509-24-2023 Consult note Author Jose Salas [facility] November 11, 2022 3:05pm Note Date/Time November 11, 2022 2:28pm [facility] Medical Records Department [address] [place] [id number] Consultation - Surgical 11/11/22 1428 MR#: [id number] Acct: [id number] Name: MARILEE BOCANEGRA Rep #:[id number] : 1985 37 From: Jose Lozada PCP: [facility] atus[facility]AD[facility] Assessment & Plan Assessment/Plan (1) Small bowel obstruction: PLAN: This is a 37-year-old female with past medical history inclusive of polysubstance use, tobacco use, and a remote episode of ischemic colitis who presents with signs and symptoms of a small bowel obstruction developing just yesterday. Nasogastric tube was placed by emergency medicine with only a modestamount of output. Radiology notes on the follow-up KUB that patient's bowel gaspattern is nonspecific and nonobstructive. Her CT imaging is directly reviewed and there is evidence of dilated and decompressed small bowel as well as bowel wall thickening consistent with enteritis. This latter feature is unusualfor typical small bowel obstructions and does not seem to be localized just to the terminal ileum but throughout the jejunum. Patient is also mildly diaphoretic. Taking these observations together, I remain suspicious for a cause of this clinical picture other than a mechanical obstruction. Patient denies any drug use recently. She is rather uncooperative during my exam and I have to repeatedly ask her for permission to examine her abdomen. Eventually she complies with my requests and my exam findings are found under that section of this note. I have asked for her cooperation as a means of facilitating her care. I also shared with her that it is highly unusual to experience ischemic colitis in one's 20s but patient insists that she only had these pain medications around the time of her prior issue. Given patient's reassuring exam, recommend: ? Continued NG tube decompression ? Initiation of small bowel follow-through this afternoon ? Maintain aspiration precautions (patient was briefed about this concern and encouraged to be out of bed in a chair or upright as possible during her small bowel follow-through) HPI Consult Data Date of Consult: 11/11/22 HPI Narrative Reason for Consultation: Small bowel obstruction HPI Narrative: MARILEE BOCANEGRA, is a 37 F who presented to [facility] earlier today due to complaints of severe abdominal pain and associated nausea and vomiting. She states that the symptoms began yesterday without precedent. He states that the abdominal pain is diffuse and not localized to any particular region of the abdomen. ER work-up is notable for CBC with evidence of hemoconcentration given a hemoglobin of 17.5 and leukocytosis of 12,500. CT imaging of the abdomen pelvisshows evidence of a small bowel obstruction with likely transition in the right lower quadrant. Additionally radiology noted some thickening of the small bowelconsistent with enteritis. Lastly they identified some hyperdense lesions scattered throughout the stomach and small bowel. Patient confirms a history of iron tablet ingestion and states that she takes these tablets for a diagnosis of anemia. She confirms that she has had some of this medication in the past couple of days. Patient has a remote history of ischemic colitis that she estimates approximately 10 years ago. She is not able to give much further detail and attempts to evade further questioning because of pain complaints. She confessesto a history of polysubstance abuse, but states that this is primarily pain medications. Patient has a history of laparoscopic oophorectomy which she describes as secondary to an ovarian torsion event. Lastly patient denies any family history of inflammatory bowel disease or other GI diagnoses. [facility] Medical History History of ischemic colitis Substance abuse Home Medications buprenorphine 1.4 mg-naloxone 0.36 mg sublingual tablet (Zubsolv) 1 tab sublingual Q24H 10/03/22 [History Last Taken Unknown] Allergy/AdvReac Type Severity Reaction Status Date / Time cefaclor [From Ceclor] Allergy Unknown Verified 11/11/22 04:49 duloxetine [From Cymbalta] Allergy Other Verified 11/11/22 04:49 Penicillins Allergy Unknown Verified 11/11/22 04:49 tramadol Allergy PT UNSURE Verified 11/11/22 04:49 OF REACTION ketorolac [From Toradol] AdvReac PT UNSURE Verified 11/11/22 04:49 OF REACTION Social History (Updated 11/11/22 @ 09:44 by Jennifer Meadows) household members: significant other housing: apartment number of children: 1 current occupational status: employed Smoking Status: Current every day smoker tobacco type: cigarettes alcohol intake: never substance use type: former substance user Physical Exam Const alert Constitutional Narrative: Appears in distress and agitated. Overall uncooperative. Repeatedly questions whether she can remove her nasogastric tube. Resp normal respiratory effort GI GI Narrative: Nondistended, soft, voluntary guarding present. Nasogastric tube in place with yellow bilious output of moderate volume Lab / Micro Data 11/11/22 05:20 11/11/22 05:20 Labs: Laboratory Results - last 24 hr 11/11/22 05:20: WBC 12.5 H, RBC 5.44 H, Hgb 17.5 H, Hct 53.0 H, MCV 97.4, MCH 32.2 H, MCHC 33.0, RDW Std Deviation 45.0 H, RDW Coeff of Celestino 12.7, Plt Count 368, MPV 10.2, Immature Gran % (Auto) 0.300, Neut % (Auto) 69.7, Lymph % (Auto) 21.3, Bleckley % (Auto) 5.1, Eos % (Auto) 3.0, Baso % (Auto) 0.6, Absolute Neuts (auto) 8.7 H, Absolute Lymphs (auto) 2.66, Nucleated RBC % 0, Sodium 134 L, Potassium 4.2, Chloride 99, Carbon Dioxide 30.0, Anion Gap 5, BUN 9, Creatinine 0.63, Estim Creat Clear Calc 123.33, Est GFR (MDRD) Af Amer 136, Est GFR (MDRD) Non-Af 112, BUN/Creatinine Ratio 14.2, Glucose 131 H, Lactic Acid 1.2, Calcium 10.0, Total Bilirubin 0.50, AST 25, ALT 43, Alkaline Phosphatase 67, Total Protein 8.8 H, Albumin 4.3, Globulin 4.5 H, Albumin/Globulin Ratio 1.0, Lipase 19, Serum , Qual NEGATIVE 11/11/22 07:20: Urine Color Yellow, Urine Clarity Sl. Cloudy, Urine pH 8.0, Ur Specific Mecca 1.010, Urine Protein 15 H, Urine Glucose (UA) Normal, Urine Ketones Negative, Urine Occult Blood Negative, Urine Nitrite Negative, Urine Bilirubin Negative, Urine Urobilinogen Normal, Ur Leukocyte Esterase Negative, Urine RBC 0 SEEN, Urine WBC 0 SEEN, Ur Squamous Epith Cells 0-5 SEEN, Amorphous Sediment 1+, Urine Bacteria 1+, Urine Mucus 0 SEEN 11/11/22 08:50: Urine Opiates Screen POSITIVE H, Urine Methadone Screen NEGATIVE, Ur Barbiturates Screen NEGATIVE, Ur Phencyclidine Scrn NEGATIVE, Ur Amphetamines Screen NEGATIVE, MDMA (Ecstasy) Screen NEGATIVE, U Benzodiazepines Scrn NEGATIVE, Urine Cocaine Screen NEGATIVE, U Cannabinoids Screen NEGATIVE, UrDrug Screen Comment Radiology Impression Abdomen/Pelvis CT 11/11/22 05:07 IMPRESSION: undefined KUB X-Ray 11/11/22 07:13 IMPRESSION: Nonspecific bowel gas pattern. Electronically Signed: Vandana Jenkins MD at 8:09 EDT Reading Location ID and State: [facility] / [place] Tel , Service support , Charges/Coding Visit Charges Inpatient E&M: 98131 Init Hosp L2 11/11/22 1505 <Electronically signed by Jose Salas MD> Cosigner Signature (if applicable): CC: Dr. Jose Salas MD; [facility]~ Signed [facility] Work Phone: [phone]) 448-825609-24-2023 Discharge summary Author Brian Hernadez [facility] November 11, 2022 8:02am Note Date/Time November 11, 2022 5:08am [facility] Medical Records Department [address] [place] [address] Emergency Department Summary 11/11/22 MR#: [id number] Acct: [id number] Name: MARILEE BOCANEGRA Rep #:[id number] : 1985 37 From: Brian Hernadez MD [facility] atus[facility]REG ER Location: ED HPI HPI - GI History of Present Illness Chief Complaint: Abd Pain Informant: patient, spouse/S.O. and EMS Narrative Narrative: Patient presenting by EMS at 5 AM for diffuse abdominal pain that is severe and has been going on for a couple days, but has become severe this morning. She has been vomiting. She does not know what it looks like. She think she had a bowel movement that was normal. Prior abdominal surgery is only removal of one of her ovaries. She is in a lot of pain and is very upset that I am asking her questions and therefore is a poor informant, limiting the history and exam. PFSH PFSH Medical History History of ischemic colitis Substance abuse Home Medications buprenorphine 1.4 mg-naloxone 0.36 mg sublingual tablet (Zubsolv) 1 tab sublingual Q24H 10/03/22 [History Last Taken Unknown] Allergy/AdvReac Type Severity Reaction Status Date / Time cefaclor [From Ceclor] Allergy Unknown Verified 11/11/22 04:49 duloxetine [From Cymbalta] Allergy Other Verified 11/11/22 04:49 Penicillins Allergy Unknown Verified 11/11/22 04:49 tramadol Allergy PT UNSURE Verified 11/11/22 04:49 OF REACTION ketorolac [From Toradol] AdvReac PT UNSURE Verified 11/11/22 04:49 OF REACTION Social History Smoking Status: Current every day smoker tobacco type: cigarettes ROS ROS ED Review of Systems ROS Unobtainable: other Details: Limited ROS due to acuity Constitutional Constitutional ED: Reports fever(s) and subjective Eyes Eyes: Denies change in vision or diplopia Cardiovascular Cardiovascular: Denies chest pain or palpitations Respiratory/Chest Respiratory/Chest: Denies cough or dyspnea Gastrointestinal Gastrointestinal: Reports abdominal pain, nausea and vomiting; Denies diarrhea or melena Musculoskeletal Musculoskeletal: Denies neck pain Integumentary Denies abscess or rash Neurologic Neurologic: Denies headache(s), paresthesias or weakness Psychiatric Psychiatric: Reports anxiety; Denies suicidal thoughts EXAM Physical Exam Const Vital Signs: 11/11/22 04:49 11/11/22 06:49 11/11/22 07:44 Temperature 98.9 F Temperature Source Temporal Pulse Rate 67 57 L 58 L Respiratory Rate 16 14 Blood Pressure 157/98 H 138/71 H 160/97 H Blood Pressure Mean 117 93 118 Pulse Ox 97 98 Oxygen Delivery Method Room Air Positive well nourished and well developed Constitutional Narrative: In painful distress, moaning General Appearance ED: well developed HEENT Reports moist mucous membranes normocephalic and atraumatic Eyes PERRL and EOMs intact bilaterally Neck full ROM and supple Resp normal respiratory effort and clear to auscultation bilaterally Cardio regular rate, regular rhythm and no murmurs Rate: Negative for tachycardic GI non-distended GI Narrative: Diffuse tenderness. Voluntary guarding. Not distended. Bowel sounds are normal. Auscultation: normoactive bowel sounds Palpation: soft Back/Spine General Back: other FROM Extremity normal to inspection General Extremety ED: Negative for edema, pulses abnormal or tenderness General Extremity: Negative for edema or pulses abnormal Neuro oriented x3, CN's II-XII intact bilaterally and no sensory deficits noted Sensorium / Orientation: awake and alert Motor Exam: strength 5/5 throughout Psych Mood & Affect: anxious and tearful Skin no rashes or lesions noted and no wounds MDM MDM MDM Narrative Medical decision making narrative: Labs and a CT of the abdomen/pelvis were obtained, I reviewed the images and thereport which I agree with, consistent with a small bowel obstruction. Liver enzymes and lipase are within normal limits, negative, blood counts show mild leukocytosis. She is doing better after morphine and Zofran but stillnauseated and still in pain. Discussed with hospitalist for admission and placed an NG in the ED; portable KUB shows good placement on my interpretation 1view. Discussed with surgery and subsequently obtained additional information from the patient. She did not ingest any known metallic foreign bodies, she does take iron pills on occasion, does not recall taking them in the last day or2. Also no history in her or family of inflammatory bowel disease, and the episode of ischemic colitis that she had in the past is of unknown etiology and she states was a one-time thing about 10 years ago not at this hospital. Lab Data Attestation: I reviewed the patient's lab results. Labs: Laboratory Results - last 24 hr 11/11/22 11/11/22 05:20 07:20 WBC 12.5 H RBC 5.44 H Hgb 17.5 H Hct 53.0 H MCV 97.4 MCH 32.2 H MCHC 33.0 RDW Std Deviation 45.0 H RDW Coeff of Celestino 12.7 Plt Count 368 MPV 10.2 Immature Gran % (Auto) 0.300 Neut % (Auto) 69.7 Lymph % (Auto) 21.3 Bleckley % (Auto) 5.1 Eos % (Auto) 3.0 Baso % (Auto) 0.6 Absolute Neuts (auto) 8.7 H Absolute Lymphs (auto) 2.66 Nucleated RBC % 0 Sodium 134 L Potassium 4.2 Chloride 99 Carbon Dioxide 30.0 Anion Gap 5 BUN 9 Creatinine 0.63 Estim Creat Clear Calc 123.33 Est GFR (MDRD) Af Amer 136 Est GFR (MDRD) Non-Af 112 BUN/Creatinine Ratio 14.2 Glucose 131 H Lactic Acid 1.2 Calcium 10.0 Total Bilirubin 0.50 AST 25 ALT 43 Alkaline Phosphatase 67 Total Protein 8.8 H Albumin 4.3 Globulin 4.5 H Albumin/Globulin Ratio 1.0 Lipase 19 Serum , Qual NEGATIVE Urine Color Yellow Urine Clarity Sl. Cloudy Urine pH 8.0 Ur Specific Mecca 1.010 Urine Protein 15 H Urine Glucose (UA) Normal Urine Ketones Negative Urine Occult Blood Negative Urine Nitrite Negative Urine Bilirubin Negative Urine Urobilinogen Normal Ur Leukocyte Esterase Negative Urine RBC 0 SEEN Urine WBC 0 SEEN Ur Squamous Epith Cells 0-5 SEEN Amorphous Sediment 1+ Urine Bacteria 1+ Urine Mucus 0 SEEN Radiography Diagnostic Testing: Clinical Impression(s) from Imaging Studies Abdomen/Pelvis CT 11/11/22 05:07 IMPRESSION: undefined CONCLUSION: Mid small bowel obstruction. Zone of transition is likely in the right lower quadrant. Associated small bowel wall thickening consistent with enteritis. Mild free fluid. 5.5 cm left ovarian cyst. Pelvic ultrasound is recommended. Electronically Signed: James Fitzgerald MD at 6:47 EDT Reading Location ID and State: [id number] / [place] Management Discussion w/another healthcare provider: Hospitalist and Csr Technician (Elijah Salas) Discharge Plan Dx/Rx/DC Orders Clinical Impression: Small bowel obstruction, Diffuse abdominal pain, Vomiting Disposition Disposition: Acute Care [facility] What to do if you have Problems For any increased pain, shortness of breath, bleeding, nausea or vomiting, chestpain, or any unexpected problems, contact your Primary Care Provider. Call [facility] ([phone]) or report to the closest Emergency Room. Call 911 if necessary. 11/11/22 08 <Electronically signed by Brian Hernadez MD> Cosigner Signature (if applicable): CC: [facility] ~ Signed [facility] Work Phone: [phone]) 655-401109-24-2023 Discharge summary Author Brian Hernadez [facility] November 11, 2022 8:02am Note Date/Time November 11, 2022 5:08am [facility] Medical Records Department [address] [place] [address] Emergency Department Summary 11/11/22 MR#: [id number] Acct: [id number] Name: MARILEE BOCANEGRA Rep #:[id number] : 1985 37 From: Brian Hernadez MD PCP: [facility] atus:REG ER Location: ED HPI HPI - GI History of Present Illness Chief Complaint: Abd Pain Informant: patient, spouse/S.O. and EMS Narrative Narrative: Patient presenting by EMS at 5 AM for diffuse abdominal pain that is severe and has been going on for a couple days, but has become severe this morning. She has been vomiting. She does not know what it looks like. She think she had a bowel movement that was normal. Prior abdominal surgery is only removal of one of her ovaries. She is in a lot of pain and is very upset that I am asking her questions and therefore is a poor informant, limiting the history and exam. [facility] Medical History History of ischemic colitis Substance abuse Home Medications buprenorphine 1.4 mg-naloxone 0.36 mg sublingual tablet (Zubsolv) 1 tab sublingual Q24H 10/03/22 [History Last Taken Unknown] Allergy/AdvReac Type Severity Reaction Status Date / Time cefaclor [From Ceclor] Allergy Unknown Verified 11/11/22 04:49 duloxetine [From Cymbalta] Allergy Other Verified 11/11/22 04:49 Penicillins Allergy Unknown Verified 11/11/22 04:49 tramadol Allergy PT UNSURE Verified 11/11/22 04:49 OF REACTION ketorolac [From Toradol] AdvReac PT UNSURE Verified 11/11/22 04:49 OF REACTION Social History Smoking Status: Current every day smoker tobacco type: cigarettes ROS ROS ED Review of Systems ROS Unobtainable: other Details: Limited ROS due to acuity Constitutional Constitutional ED: Reports fever(s) and subjective Eyes Eyes: Denies change in vision or diplopia Cardiovascular Cardiovascular: Denies chest pain or palpitations Respiratory/Chest Respiratory/Chest: Denies cough or dyspnea Gastrointestinal Gastrointestinal: Reports abdominal pain, nausea and vomiting; Denies diarrhea or melena Musculoskeletal Musculoskeletal: Denies neck pain Integumentary Denies abscess or rash Neurologic Neurologic: Denies headache(s), paresthesias or weakness Psychiatric Psychiatric: Reports anxiety; Denies suicidal thoughts EXAM Physical Exam Const Vital Signs: 11/11/22 04:49 11/11/22 06:49 11/11/22 07:44 Temperature 98.9 F Temperature Source Temporal Pulse Rate 67 57 L 58 L Respiratory Rate 16 14 Blood Pressure 157/98 H 138/71 H 160/97 H Blood Pressure Mean 117 93 118 Pulse Ox 97 98 Oxygen Delivery Method Room Air Positive well nourished and well developed Constitutional Narrative: In painful distress, moaning General Appearance ED: well developed HEENT Reports moist mucous membranes normocephalic and atraumatic Eyes PERRL and EOMs intact bilaterally Neck full ROM and supple Resp normal respiratory effort and clear to auscultation bilaterally Cardio regular rate, regular rhythm and no murmurs Rate: Negative for tachycardic GI non-distended GI Narrative: Diffuse tenderness. Voluntary guarding. Not distended. Bowel sounds are normal. Auscultation: normoactive bowel sounds Palpation: soft Back/Spine General Back: other FROM Extremity normal to inspection General Extremety ED: Negative for edema, pulses abnormal or tenderness General Extremity: Negative for edema or pulses abnormal Neuro oriented x3, CN's II-XII intact bilaterally and no sensory deficits noted Sensorium / Orientation: awake and alert Motor Exam: strength 5/5 throughout Psych Mood & Affect: anxious and tearful Skin no rashes or lesions noted and no wounds MDM MDM MDM Narrative Medical decision making narrative: Labs and a CT of the abdomen/pelvis were obtained, I reviewed the images and thereport which I agree with, consistent with a small bowel obstruction. Liver enzymes and lipase are within normal limits, negative, blood counts show mild leukocytosis. She is doing better after morphine and Zofran but stillnauseated and still in pain. Discussed with hospitalist for admission and placed an NG in the ED; portable KUB shows good placement on my interpretation 1view. Discussed with surgery and subsequently obtained additional information from the patient. She did not ingest any known metallic foreign bodies, she does take iron pills on occasion, does not recall taking them in the last day or2. Also no history in her or family of inflammatory bowel disease, and the episode of ischemic colitis that she had in the past is of unknown etiology and she states was a one-time thing about 10 years ago not at this hospital. Lab Data Attestation: I reviewed the patient's lab results. Labs: Laboratory Results - last 24 hr 11/11/22 11/11/22 05:20 07:20 WBC 12.5 H RBC 5.44 H Hgb 17.5 H Hct 53.0 H MCV 97.4 MCH 32.2 H MCHC 33.0 RDW Std Deviation 45.0 H RDW Coeff of Celestino 12.7 Plt Count 368 MPV 10.2 Immature Gran % (Auto) 0.300 Neut % (Auto) 69.7 Lymph % (Auto) 21.3 Bleckley % (Auto) 5.1 Eos % (Auto) 3.0 Baso % (Auto) 0.6 Absolute Neuts (auto) 8.7 H Absolute Lymphs (auto) 2.66 Nucleated RBC % 0 Sodium 134 L Potassium 4.2 Chloride 99 Carbon Dioxide 30.0 Anion Gap 5 BUN 9 Creatinine 0.63 Estim Creat Clear Calc 123.33 Est GFR (MDRD) Af Amer 136 Est GFR (MDRD) Non-Af 112 BUN/Creatinine Ratio 14.2 Glucose 131 H Lactic Acid 1.2 Calcium 10.0 Total Bilirubin 0.50 AST 25 ALT 43 Alkaline Phosphatase 67 Total Protein 8.8 H Albumin 4.3 Globulin 4.5 H Albumin/Globulin Ratio 1.0 Lipase 19 Serum , Qual NEGATIVE Urine Color Yellow Urine Clarity Sl. Cloudy Urine pH 8.0 Ur Specific Mecca 1.010 Urine Protein 15 H Urine Glucose (UA) Normal Urine Ketones Negative Urine Occult Blood Negative Urine Nitrite Negative Urine Bilirubin Negative Urine Urobilinogen Normal Ur Leukocyte Esterase Negative Urine RBC 0 SEEN Urine WBC 0 SEEN Ur Squamous Epith Cells 0-5 SEEN Amorphous Sediment 1+ Urine Bacteria 1+ Urine Mucus 0 SEEN Radiography Diagnostic Testing: Clinical Impression(s) from Imaging Studies Abdomen/Pelvis CT 11/11/22 05:07 IMPRESSION: undefined CONCLUSION: Mid small bowel obstruction. Zone of transition is likely in the right lower quadrant. Associated small bowel wall thickening consistent with enteritis. Mild free fluid. 5.5 cm left ovarian cyst. Pelvic ultrasound is recommended. Electronically Signed: James Fitzgerald MD at 6:47 EDT Reading Location ID and State: [facility] / [place] Management Discussion w/another healthcare provider: Hospitalist and Csr Technician (Elijah Salas) Discharge Plan Dx/Rx/DC Orders Clinical Impression: Small bowel obstruction, Diffuse abdominal pain, Vomiting Disposition Disposition: Acute Care [facility] What to do if you have Problems For any increased pain, shortness of breath, bleeding, nausea or vomiting, chestpain, or any unexpected problems, contact your Primary Care Provider. Call [facility] ([phone]) or report to the closest Emergency Room. Call 911 if necessary. 11/11/22 0802 <Electronically signed by Brian Hernadez MD> Cosigner Signature (if applicable): CC: [facility] ~ Signed [facility] Work Phone: [phone]) 557-205009-14-2023 Discharge summary Author Jarvis Conde [facility] November 01, 2022 9:42am Note Date/Time November 01, 2022 7:29am [facility] Medical Records Department [address] [place] [address] Emergency Department Summary 11/01/22 MR#: [id number] Acct: [id number] Name: MARILEE BOCANEGRA Rep #:[id number] : 1985 37 From: Jarvis Piña [facility] ER Location: ED HPI History of Present Illness Chief Complaint: General Illness PFSH PFSH Medical History History of ischemic colitis Substance abuse Home Medications omeprazole magnesium 20 mg tablet,delayed release (Prilosec OTC) 20 mg PO DAILY 05/08/22 [History Last Taken Unknown] buprenorphine 1.4 mg-naloxone 0.36 mg sublingual tablet (Zubsolv) 1 tab sublingual Q24H 10/03/22 [History Last Taken Unknown] doxycycline hyclate 100 mg capsule 100 mg PO BID 5 days #10 caps 11/01/22 [Rx Last Taken Unknown] ondansetron 4 mg disintegrating tablet 4 mg PO Q8H PRN nausea and vomiting 3 days #9 tabs 11/01/22 [Rx Last Taken Unknown] Allergy/AdvReac Type Severity Reaction Status Date / Time cefaclor [From Ceclor] Allergy Unknown Verified 11/01/22 07:04 duloxetine [From Cymbalta] Allergy Other Verified 11/01/22 07:04 Penicillins Allergy Unknown Verified 11/01/22 07:04 tramadol Allergy PT UNSURE Verified 11/01/22 07:04 OF REACTION ketorolac [From Toradol] AdvReac PT UNSURE Verified 11/01/22 07:04 OF REACTION Social History Smoking Status: Current every day smoker tobacco type: cigarettes EXAM Physical Exam Const Vital Signs: 11/01/22 06:58 11/01/22 07:03 Temperature 97.7 F L Temperature Source Oral Pulse Rate 101 H Respiratory Rate 18 Respiratory Effort Short of Breath Respiratory Pattern Normal Blood Pressure 129/90 H Blood Pressure Mean 103 Pulse Ox 98 Oxygen Delivery Method Room Air MDM MDM MDM Narrative Medical decision making narrative: HISTORY OF PRESENT ILLNESS: 37-year-old female with patient notes body aches sinus pressure nausea and vomiting for 3 days. States she is concerned may have Q-tip stuck in her left ear. Notes this occurred 4 days ago. she further notes skin lesions. No sick contacts. Notes fever and chills. REVIEW OF SYSTEMS: Pertinent positives: Sinus pressure, nausea and vomiting Pertinent negatives: Abdominal pain PHYSICAL EXAM: Nursing triage notes reviewed, Vital signs reviewed Constitutional: please see mdm HENT: MMM, left and right TM pearly hutchins, no hyperemia no evidence of ear foreign body. Eyes: Pupils equal round and reactive to light, Extraocular muscles intact Neck: No stridor, no JVD, full neck ROM Lungs: Clear to auscultation, No wheezing or rales. No increased work of breathing, no conversational dyspnea, no accessory muscle use, no nasal flaring. No respiratory distress noted Heart: Regular rate and rhythm, No murmurs, No rubs and No gallops, 2+ distal pulses (radial, femoral, posterior tibial) in all extremities Abdomen: Soft, there is no tenderness, rigidity, rebound or guarding, no obviousperitoneal signs, no palpable pulsatile abdominal masses, no auscultated abdominal bruit : No CVAT Extremities: No edema Neuro: Alert and oriented x3, neuro exam at baseline, cranial nerves II through XII are intact. No pain with extraocular muscle movement. There is negative test of skew. Normal speech. 5 of 5 strength in upper and lower extremities inflexion extension. Intact sensation to light touch in upper and lower extremitydermatomes. No truncal or extremity ataxia. No dysdiadochokinesia. Normal gait. 2+ reflexes. No meningeal signs. Negative Babinski. NIH of 0 Skin: Scattered excoriations appears like skin picking with surrounding erythemano obvious fluctuance induration or crepitus noted MEDICAL DECISION MAKING: Chief Complaint: Sinus pressure, nausea vomit External records reviewed: Last encounter for bronchitis in 2022, last ED visitfor left foot contusion in September 2022 Factors affecting care: History of opioid abuse Social determinants of health: History of opioid abuse ALL IMAGES (IF OBTAINED) HAVE BEEN PERSONALLY REVIEWED AND INTERPRETED BY MYSELF. [facility] Narrative: The patient was hemodynamically stable, afebrile, nontoxic-appearing I considered the following differential diagnosis: Viral illness, pneumonia I obtained COVID swab, chest x-ray give symptomatic treatment in the form of ibuprofen, Tylenol and Zofran. Chest x-ray by my read shows evidence of left- sided infiltrate. COVID and flu swab are negative. Will give oral antibiotics here for home-going. The patient and/or family, caregivers express understanding. The patient and/orfamily, caregivers agrees with the plan. Shared decision making: I will have a discussion with the patient and or visitors regarding risk/benefits of further testing or admission. They will be made aware of of the risk/benefits inherent in this decision they will be given the opportunity to voice understanding. Total critical care time today provided was at least 0 minutes. This excludes separately billable procedures. Critical care time (if documented) is secondary to the patient having high probability of clinically significant/life threatening deterioration in the patient's condition which required my urgent intervention. Impression: 1. Community-acquired pneumonia Dispo: Discharge Radiography Chest X-Ray - ED: Read by ED Physician Diagnostic Testing: Clinical Impression(s) from Imaging Studies Chest X-Ray 11/01/22 09:30 IMPRESSION: Lingular infiltrate. Electronically Signed: Jhonny Rhodes MD at 9:12 EDT , Chest x-ray read reviewed myself shows evidence of infiltrate. Discharge Plan Triage Chief Complaint: General Illness ED Provider: Jarvis Conde Dx/Rx/DC Orders Clinical Impression: Community acquired pneumonia Prescriptions: New doxycycline hyclate 100 mg capsule 100 mg PO BID 5 Days Qty: 10 0RF ondansetron 4 mg tablet,disintegrating 4 mg PO Q8H PRN (Reason: nausea and vomiting) 3 Days Qty: 9 0RF No Action omeprazole magnesium [Prilosec OTC] 20 mg tablet,delayed release (DR/EC) 20 mg PO DAILY Zubsolv 1.4-0.36 mg tablet, sublingual 1 tab SUBLINGUAL Q24H Patient Comments: DISSOLVE ONE TABLET UNDER THE TONGUE EVERY DAY Stand Alone Forms: ED Work / School Excuse Primary Care Provider: [facility] Tami Estrella Referrals: [facility] Tami Estrella [Primary Care Provider] - Activity Restrictions/Additional Instructions: Thank you for trusting us with your care today! Please take Tylenol (2 pills, 650 mg), ibuprofen (2 pills, 400 mg) every 6 hoursas needed for pain and fever control. Please take antibiotics until course is complete Please return to the emergency department if your symptoms change or worsen. Specifically cannot tell antibiotic by mouth. Develop worsening shortness of breath. Please follow with your primary care physician for further outpatient evaluationand management. Disposition Disposition: Home, Self Care What to do if you have Problems For any increased pain, shortness of breath, bleeding, nausea or vomiting, chestpain, or any unexpected problems, contact your Primary Care Provider. Call [facility] ([phone]) or report to the closest Emergency Room. Call 911 if necessary. 11/01/22 0942 <Electronically signed by Jarvis Conde DO> Cosigner Signature (if applicable): CC: [facility] ~ Signed [facility] Work Phone: [phone]) 285-754703-10-2023 Miscellaneous Notes* Telephone Encounter - Adore Fuchs LPN - 04/27/2022 5:13 PM EST Left message for patient with results and recommendations.Adore Fuchs LPN * Telephone Encounter - Miguel Bryant APRN.CNP - 04/27/2022 4:05 PM EST No abnormal findings noted on chest x-ray. Follow-up with PCP as discussed. Miguel Bryant APRN.VLADIMIR documented in this encounterC[facility]-10-[facility] History of Present illness Narrative* Elton Fowler RT(R) - 04/27/2022 3:40 PM EST Radiology Service Progress Note PATIENT NAME: Marilee Bocanegra DATE OF SERVICE: April 27, 2022 TIME: 3:37 PM PATIENT IDENTITY VERIFICATION COMPLETED USING TWO (2) IDENTIFIERS: Name and Date of confirmedby patient verbally. FALL SCREENING: Has the patient had 2 falls in the last year or 1 fall with injury or currently using an Ambulatory Assistive Device (Walker, Cane, Wheelchair, Crutches, etc.)? No PATIENT GENDER DATA: Female. status: : No status: NO. PATIENT RELEVANT IMPLANT DATA REVIEWED: Not Applicable RADIOLOGY DEPARTMENT: General X-ray: Exam(s) Completed: Chest X-Ray PERIPHERAL IV DATA: Not applicable SIGNED BY: RT John(R) April 27, 2022 3:37 PM documented in this encounterCincinnati [facility]03-10-2023 History of Present illness Narrative* Miguel Bryant APRN.TIE HACKER - 04/27/2022 3:27 PM EST Subjective HPI Nontoxic-appearing female presents urgent care chief complaint cough chest congestion. Duration of symptoms about 1 month. Associated symptoms cough chest congestion shortness of breath with coughing. Was seen here by me about 3 weeks ago. Placed on doxycycline. Finish antibiotics. Did not notice significant improvement. States cough has diminished some. Still has chest congestion. Denies any fever body aches chills productive cough chest pain shortness of breath pleuritic pain hemoptysis nausea vomiting abdominal pain change in bowel or bladder habits. Past medical history prescription medication use and allergies reviewed. .Patient presents with: Cough: Chest congestion, SOB x1 month PAST MEDICAL HISTORY Diagnosis Date Anxiety Depression Fibromyalgia 2000 Migraine S/P shoulder surgery PAST SURGICAL HISTORY Procedure Laterality Date ORTHOPEDIC SURGERY HX Left 11/05/2012 Left knee arthroscopy with chondroplasty ORTHOPEDIC SURGERY HX Left 11/05/2012 Left hip arthroscopy ORTHOPEDIC SURGERY HX Left 10/15/2013 Left hip arthroscopy ORTHOPEDIC SURGERY HX Left Left shoulder x 4 ORTHOPEDICS SURGERY HX L hip surgery x 2 in [place] OVARIAN CYST RIGHT, FLUID removal of right ovarian cyst/ruptured ALLERGIES Ceclor [Cefaclor], Cymbalta [Duloxetine], and Penicillins MEDICATIONS meloxicam (MOBIC) 7.5 mg tablet Take 7.5 mg by mouth once daily. (Patient not taking: Reported on 03/27/2022) naproxen (NAPROSYN) 500 mg tablet Take 500 mg by mouth twice daily with meals. (Patient not taking:Reported on 03/27/2022) DICYCLOMINE HCL (BENTYL ORAL) Take by mouth. (Patient not taking: Reported on 03/27/2022) SERTRALINE HCL (ZOLOFT ORAL) Take by mouth. (Patient not taking: Reported on 03/27/2022) omeprazole (PRILOSEC) 40 mg capsule Take 40 mg by mouth once daily. busPIRone (BUSPAR) 15 mg tablet Take 15 mg by mouth three times daily. (Patient not taking: Reported on 03/27/2022) Pjannmbg-Vv-Aab-Fe-FA tab Take 1 tablet by mouth once daily. (Patient not taking: Reportedon 03/27/2022) FAMILY HISTORY Problem Relation Age of Onset Diabetes Paternal Grandmother Hypertension Mother other (depression) Mother Hypertension Father COPD Father other (Chronic pain) Father Thyroid Maternal Aunt Social History Tobacco Use Smoking status: Every Day Packs/day: 0.50 Years: 8.00 Pack years: 4.00 Types: Cigarettes Smokeless tobacco: Never Substance Use Topics Alcohol use: Yes Comment: rarely Drug use: No BP 130/84 Pulse 79 Temp 36.1 C (97 F) Resp 18 Wt 85.9 kg (189 lb 6.4 oz) LMP 08/05/2016 SpO2 97% BMI 29.66 kg/m Review of Systems Constitutional: Negative for chills, fever and malaise/fatigue. HENT: Positive for congestion. Negative for ear discharge, ear pain, sinus pain and sore throat. Eyes: Negative for blurred vision, pain, discharge and redness. Respiratory: Positive for cough and shortness of breath. Negative for hemoptysis, sputum production, wheezing and stridor. Cardiovascular: Negative for chest pain. Gastrointestinal: Negative for abdominal pain, diarrhea, nausea and vomiting. Musculoskeletal: Negative for myalgias. Skin: Negative for itching and rash. Neurological: Negative for dizziness and headaches. Objective Physical Exam Constitutional: General: She is not in acute distress. Appearance: She is not diaphoretic. HENT: Head: Normocephalic. Nose: Nose normal. Mouth/Throat: Mouth: Mucous membranes are moist. Pharynx: Oropharynx is clear. No oropharyngeal exudate or posterior oropharyngeal erythema. Eyes: Conjunctiva/sclera: Conjunctivae normal. Pupils: Pupils are equal, round, and reactive to light. Cardiovascular: Rate and Rhythm: Normal rate and regular rhythm. Heart sounds: Normal heart sounds. Pulmonary: Effort: Pulmonary effort is normal. No tachypnea, accessory muscle usage or respiratory distress. Breath sounds: Normal breath sounds. No stridor. No wheezing, rhonchi or rales. Abdominal: Palpations: Abdomen is soft. Tenderness: There is no abdominal tenderness. There is no guarding or rebound. Musculoskeletal: Cervical back: Normal range of motion and neck supple. No rigidity or tenderness. Lymphadenopathy: Cervical: No cervical adenopathy. Skin: General: Skin is warm and dry. Neurological: Mental Status: She is alert and oriented to person, place, and time. ASSESSMENT/PLAN: 1. Acute cough - ICD9: 786.2, ICD10: R05.1 - XR CHEST 2V FRONTAL/LAT IMPRESSION: No acute radiographic abnormality. No abnormal findings noted on chest x-ray. Will not start antibiotics at this time. Patient was encouraged to follow-up with PCP 3 to 5 days reevaluation for persistent cough. Red flags prompt reevaluation discussed. Patient was educated on supportive therapies. Patient was instructed to immediately proceed to emergency room for any new, worsening, or symptoms lasting longer than anticipated. Thepatient's clinical presentation is otherwise unremarkable at this time. Based on exam and clinical finding, the patient is stable for discharge. Plan of care was discussed with patient. Patient verbalizes understanding and agrees to plan of care. This note was generated using Care[employer] software. It may contain errors in wording, punctuation, or spelling. Miguel Bryant APRN.VLADIMIR documented in this encounterC[facility]innati [facility]02-14-[address] Martin [facility] April 03, 2022 3:33pm Note Date/Time April 03, 2022 2:23pm [facility] Medical Records Department [address] [place] [address] Emergency Department Summary 04/03/22 MR#: [id number] Acct: [id number] Name: MARILEE BOCANEGRA Taylor Rep #:[id number] : 1985 37 From: Ulises Murguia PCP: Care Physician,No Primary Status :REG ER Location: ED HPI History of Present Illness Chief Complaint: Chest Pain Informant: patient and spouse/S.O. Narrative Narrative: Sent from urgent care for evaluation. Upper respiratory symptoms for the past 2weeks cough mild productive sputum subjective fevers. A week ago saw urgent care placed on doxycycline last dose today. She goes to 180 for history of IV drug use she has been clean for 6 months. Reported as a nurse to evaluate her reported there was Rales. She went back to urgent care and was sent directly here without any testing. States yesterday increasing dyspnea. Tobacco history. Denies recent travel or surgeries. No history of PE or DVT. Denies any asthma or COPD history. Mild chest discomfort with cough. [facility] Medical History Substance abuse Home Medications clindamycin HCl 300 mg capsule (Cleocin HCl) 300 mg PO Q6H #40 CAPSULES 01/27/22[Rx Last Taken Unknown] naproxen 500 mg tablet 500 mg PO BID #14 tabs 01/27/22 [Rx Last Taken Unknown] albuterol sulfate 90 mcg/actuation aerosol inhaler (Ventolin HFA) 1 - 2 puff inhalation Q4H PRN PRN Wheezing ##1 04/03/22 [Rx Last Taken Unknown] Allergy/AdvReac Type Severity Reaction Status Date / Time cefaclor [From Ceclor] Allergy Unknown Verified 04/03/22 14:04 duloxetine [From Cymbalta] Allergy Other Verified 04/03/22 14:04 Penicillins Allergy Unknown Verified 04/03/22 14:04 tramadol Allergy PT UNSURE Verified 04/03/22 14:04 OF REACTION ketorolac [From Toradol] AdvReac PT UNSURE Verified 04/03/22 14:04 OF REACTION Social History Smoking Status: Current every day smoker tobacco type: cigarettes ROS ROS ED Constitutional Constitutional ED: Reports fever(s); Denies chills or sweats Eyes Eyes: Denies change in vision ENT ENT ED: Denies dysphagia or sore throat Cardiovascular Cardiovascular: Denies chest pain, leg edema, palpitations or racing heartbeat Respiratory/Chest Respiratory/Chest: Reports cough and dyspnea; Denies dyspnea on exertion Gastrointestinal Gastrointestinal: Denies abdominal pain, diarrhea, nausea or vomiting Genitourinary Genitourinary ED: Denies dysuria, hematuria or urinary frequency Musculoskeletal Musculoskeletal: Denies back pain, extremity pain or neck pain Integumentary Denies rash or wounds Neurologic Neurologic: Denies headache(s), paresthesias or weakness EXAM Physical Exam Const Vital Signs: 04/03/22 14:02 04/03/22 14:04 Temperature 98.6 F Temperature Source Temporal Pulse Rate 79 Respiratory Rate 24 H Respiratory Effort Normal Blood Pressure 152/104 H Blood Pressure Mean 120 Pulse Ox 98 Oxygen Delivery Method Room Air Positive well nourished and well developed General Appearance ED: well developed and NAD HEENT Reports moist mucous membranes normocephalic and atraumatic Eyes PERRL, EOMs intact bilaterally and conjunctivae normal General Eye ED: Yes normal appearance of both eyes Neck no lymphadenopathy and supple General: Negative for tenderness Chest Wall Chest: Negative for tenderness Resp normal respiratory effort and normal air movement Effort and Inspection: symmetric chest movement; Negative for respiratory distress Cardio regular rate, regular rhythm and no murmurs Peripheral Pulses: pulses 2+ throughout GI normal to inspection, nondistended, normoactive bowel sounds and non-tender Palpation: Negative for guarding or rebound tenderness present Back/Spine no CVA tenderness and no thoracic nor lumbar tenderness Extremity normal to inspection General Extremety ED: Negative for edema or tenderness General Extremity: Negative for edema Neuro oriented x3 and no sensory deficits noted Sensorium / Orientation: awake and alert Skin no rashes or lesions noted and no wounds MDM MDM MDM Narrative Medical decision making narrative: Interventions / MDM: Differential diagnosis: Acute bronchitis, pneumonia, viral syndrome Diagnosis considered but do not suspect: Pulmonary embolism however PERC criteria negative, pneumothorax however symmetric breath sounds. My EKG interpretation: Sinus rate of 69, no ST or T wave changes. Imaging independently reviewed and interpreted by myself: 2 view chest x-ray: Nopneumothorax no infiltrates External documents reviewed: N/A Test considered but not ordered:N/A ED course: All protocol EKG per nursing obtained was normal. History evaluationupper respiratory symptoms with dyspnea she has no PE risk factors PE RC criteria negative. There is no rales on my exam. Two-view chest x-ray interpreted by myself and read by radiology no acute process. Discussed viral syndrome with the patient. Discussed tobacco cessation. I discussed adjunct therapies to help with cough symptoms. She understands. She reports wheezing at home, she has used inhaler before. Albuterol MDI sent to her pharmacy. Return precautions. Outpatient follow-up given. All questions were answered. Re-evaluation: stable Disposition discussed with patient/family/significant other: Case discussed with consulting clinician: N/A Radiography Diagnostic Testing: Clinical Impression(s) from Imaging Studies Chest X-Ray 04/03/22 14:39 IMPRESSION: Normal x-ray examination of the chest. Electronically Signed: Jhonny Rhodes MD at 14:58 EST , EKG Initial EKG: Attestation: I personally reviewed and interpreted this EKG as follows: Comments: Sinus rate of 69, no ST or T wave changes. Discharge Plan Triage Chief Complaint: Chest Pain Other Complaint: Shortness of Breath ED Provider: Ulises Martin Dx/Rx/DC Orders Clinical Impression: Bronchitis, Tobacco dependence Instructions: ED Bronchitis, No Antibiotic (Adult) Prescriptions: New albuterol sulfate [Ventolin HFA] 90 mcg/actuation HFA aerosol inhaler 1 - 2 puff inhalation Q4H PRN PRN (Reason: Wheezing) Qty: 1 0RF No Action clindamycin HCl [Cleocin HCl] 300 mg capsule 300 mg PO Q6H Qty: 40 0RF naproxen 500 mg tablet 500 mg PO BID Qty: 14 0RF Primary Care Provider: Care Physician,No Primary Referrals: Tami Garcia [Non-Staff] - 1-2 Weeks Care Physician,No Primary [Primary Care Provider] - Disposition Disposition: Home, Self Care What to do if you have Problems For any increased pain, shortness of breath, bleeding, nausea or vomiting, chestpain, or any unexpected problems, contact your Primary Care Provider. Call [facility] ([phone]) or report to the closest Emergency Room. Call 911 if necessary. 04/03/22 1533 <Electronically signed by Ulises Murguia> Cosigner Signature (if applicable): CC: No Primary Care Physician ~ Signed [facility] Work Phone: [phone] 843-889602-14-2023 History of Present illness Narrative* ZOË Amaro - 04/03/2022 1:47 PM EST This note was created using [employer] Logicriter. Subjective Marilee Bocanegra is a 37 year old female. HPI 37-year-old female, prior IV drug user presents for cough, chest tightness and shortness of breath. Patient states she has had a cough for over a week. She was seen here 1 week ago and diagnosed with sinobronchitis. She was started on doxycycline. She finished that. She states that her cough isimproved, but she is now having chest tightness where she states she feels like an elephant sitting on her chest. She states that this started last night. She does still a mild cough, but not as severe as last week. She is also reporting shortness of breath and feels like she cannot catch her breath. She states today she felt dizzy as well. No chest pain currently, but does report that it is a pressure on her chest. She denies any fevers. States she has prior history of IV drug use, has been clean for 6 months PAST MEDICAL HISTORY Diagnosis Date Anxiety Depression Fibromyalgia 2000 Migraine S/P shoulder surgery PAST SURGICAL HISTORY Procedure Laterality Date ORTHOPEDIC SURGERY HX Left 11/05/2012 Left knee arthroscopy with chondroplasty ORTHOPEDIC SURGERY HX Left 11/05/2012 Left hip arthroscopy ORTHOPEDIC SURGERY HX Left 10/15/2013 Left hip arthroscopy ORTHOPEDIC SURGERY HX Left Left shoulder x 4 ORTHOPEDICS SURGERY HX L hip surgery x 2 in [place] OVARIAN CYST RIGHT, FLUID removal of right ovarian cyst/ruptured ALLERGIES Ceclor [Cefaclor], Cymbalta [Duloxetine], and Penicillins MEDICATIONS omeprazole (PRILOSEC) 40 mg capsule Take 40 mg by mouth once daily. doxycycline (VIBRA-TABS) 100 mg tablet Take 1 tablet by mouth twice daily for 7 days. (Patient not taking: Reported on 04/03/2022) meloxicam (MOBIC) 7.5 mg tablet Take 7.5 mg by mouth once daily. (Patient not taking: Reported on 03/27/2022) naproxen (NAPROSYN) 500 mg tablet Take 500 mg by mouth twice daily with meals. (Patient not taking:Reported on 03/27/2022) DICYCLOMINE HCL (BENTYL ORAL) Take by mouth. (Patient not taking: Reported on 03/27/2022) SERTRALINE HCL (ZOLOFT ORAL) Take by mouth. (Patient not taking: Reported on 03/27/2022) busPIRone (BUSPAR) 15 mg tablet Take 15 mg by mouth three times daily. (Patient not taking: Reported on 03/27/2022) Cezpniwj-Jy-Puz-Fe-FA tab Take 1 tablet by mouth once daily. (Patient not taking: Reportedon 03/27/2022) FAMILY HISTORY Problem Relation Age of Onset Diabetes Paternal Grandmother Hypertension Mother other (depression) Mother Hypertension Father COPD Father other (Chronic pain) Father Thyroid Maternal Aunt Social History Tobacco Use Smoking status: Every Day Packs/day: 0.50 Years: 8.00 Pack years: 4.00 Types: Cigarettes Smokeless tobacco: Never Substance Use Topics Alcohol use: Yes Comment: rarely Drug use: No Review of Systems Constitutional: Negative for chills and fever. HENT: Negative for congestion, ear pain and sore throat. Respiratory: Positive for cough, chest tightness and shortness of breath. Cardiovascular: Negative for chest pain. Gastrointestinal: Negative for diarrhea and vomiting. Objective BP 124/82 Pulse 98 Temp 36.7 C (98 F) Resp 16 Wt 85.3 kg (188 lb) LMP 08/05/2016 SpO2 98% BMI 29.44 kg/m Physical Exam Vitals and nursing note reviewed. Constitutional: General: She is not in acute distress. Appearance: Normal appearance. She is not toxic-appearing. HENT: Right Ear: Tympanic membrane and ear canal normal. Left Ear: Tympanic membrane and ear canal normal. Nose: Nose normal. Mouth/Throat: Mouth: Mucous membranes are moist. Pharynx: No oropharyngeal exudate or posterior oropharyngeal erythema. Eyes: Conjunctiva/sclera: Conjunctivae normal. Cardiovascular: Rate and Rhythm: Normal rate and regular rhythm. Pulmonary: Effort: Pulmonary effort is normal. Breath sounds: Normal breath sounds. Neurological: Mental Status: She is alert. Assessment and Plan ASSESSMENT/PLAN: 1. Chest tightness - ICD9: 786.59, ICD10: R07.89 (primary diagnosis) Chest pain of unclear etiology, patient with RF of prior IV drug user - evaluation in ER 2. SOB (shortness of breath) - ICD9: 786.05, ICD10: R06.02 Due to patient's chest tightness and feeling like an elephant is sitting on her chest despite her cough improving, I recommended evaluation in the emergency department. She does have history of IV drug use. Possibly this is URI related, but I believe patient will benefit from cardiac work-up due tochest pain/tightness. She will go to [place] ER. ER passport sent. ZOË Amaro [facility] History of Present illness Narrative* Miguel Bryant APRN.TIE HACKER - 03/27/2022 4:39 PM EST Subjective HPI Nontoxic-appearing female presents urgent care chief complaint sinus pressure cough and dental pain. Duration of symptoms sinus pressure and cough for 2 weeks. Dental pain for days. Presents today for evaluation for both. No known sick contacts. No OTC medication use. Sinus pressure has worsened over the last few days. Cough is stayed persistent. Has not worsened or improved. Did break her tooth 4 days ago. Does have a follow-up with a dentist earlier next week. Denies any trismus difficulty swallowing difficulty with secretions pain floor mouth decreased range of motion neck. Denies any fever body aches chills productive cough chest pain shortness of breath pleuritic pain hemoptysis nausea vomiting abdominal pain change in bowel or bladder habits. Past medical history prescription medication use and allergies reviewed. Denies chance of is not breast-feeding. .Patient presents with: Chest Congestion: cough, nasal congestion x 2 weeks, right upper tooth pain(broke off)x 4 days PAST MEDICAL HISTORY Diagnosis Date Anxiety Depression Fibromyalgia 2000 Migraine S/P shoulder surgery PAST SURGICAL HISTORY Procedure Laterality Date ORTHOPEDIC SURGERY HX Left 11/05/2012 Left knee arthroscopy with chondroplasty ORTHOPEDIC SURGERY HX Left 11/05/2012 Left hip arthroscopy ORTHOPEDIC SURGERY HX Left 10/15/2013 Left hip arthroscopy ORTHOPEDIC SURGERY HX Left Left shoulder x 4 ORTHOPEDICS SURGERY HX L hip surgery x 2 in [place] OVARIAN CYST RIGHT, FLUID removal of right ovarian cyst/ruptured ALLERGIES Ceclor [Cefaclor], Cymbalta [Duloxetine], and Penicillins MEDICATIONS omeprazole (PRILOSEC) 40 mg capsule Take 40 mg by mouth once daily. meloxicam (MOBIC) 7.5 mg tablet Take 7.5 mg by mouth once daily. (Patient not taking: Reported on 03/27/2022) naproxen (NAPROSYN) 500 mg tablet Take 500 mg by mouth twice daily with meals. (Patient not taking:Reported on 03/27/2022) CLINDAMYCIN HCL ORAL Take by mouth. DICYCLOMINE HCL (BENTYL ORAL) Take by mouth. (Patient not taking: Reported on 03/27/2022) SERTRALINE HCL (ZOLOFT ORAL) Take by mouth. (Patient not taking: Reported on 03/27/2022) busPIRone (BUSPAR) 15 mg tablet Take 15 mg by mouth three times daily. (Patient not taking: Reported on 03/27/2022) Itubbhia-Fd-Eub-Fe-FA tab Take 1 tablet by mouth once daily. (Patient not taking: Reportedon 03/27/2022) FAMILY HISTORY Problem Relation Age of Onset Diabetes Paternal Grandmother Hypertension Mother other (depression) Mother Hypertension Father COPD Father other (Chronic pain) Father Thyroid Maternal Aunt Social History Tobacco Use Smoking status: Every Day Packs/day: 0.50 Years: 8.00 Pack years: 4.00 Types: Cigarettes Smokeless tobacco: Never Substance Use Topics Alcohol use: Yes Comment: rarely Drug use: No BP 108/64 Pulse 102 Temp 36.9 C (98.4 F) Resp 18 Wt 87.1 kg (192 lb) LMP 08/05/2016 SpO2 98% BMI 30.07 kg/m Review of Systems Constitutional: Negative for chills, fever and malaise/fatigue. HENT: Positive for congestion and sinus pain. Negative for ear discharge, ear pain and sore throat. Eyes: Negative for blurred vision, pain, discharge and redness. Respiratory: Positive for cough. Negative for hemoptysis, sputum production, shortness of breath, wheezing and stridor. Cardiovascular: Negative for chest pain. Gastrointestinal: Negative for abdominal pain, diarrhea, nausea and vomiting. Musculoskeletal: Negative for myalgias. Skin: Negative for itching and rash. Neurological: Negative for dizziness and headaches. Objective Physical Exam Constitutional: General: She is not in acute distress. Appearance: She is not diaphoretic. HENT: Head: Normocephalic. Jaw: No trismus, tenderness, swelling or pain on movement. Mouth/Throat: Lips: [place]. Mouth: Mucous membranes are moist. Dentition: Abnormal dentition. Dental tenderness and dental caries present. No gingival swelling ordental abscesses. Pharynx: Oropharynx is clear. Uvula midline. No pharyngeal swelling, oropharyngeal exudate, posterior oropharyngeal erythema or uvula swelling. Eyes: Conjunctiva/sclera: Conjunctivae normal. Pupils: Pupils are equal, round, and reactive to light. Cardiovascular: Rate and Rhythm: Normal rate and regular rhythm. Heart sounds: Normal heart sounds. Pulmonary: Effort: Pulmonary effort is normal. No tachypnea, accessory muscle usage or respiratory distress. Breath sounds: Normal breath sounds. No stridor. No wheezing, rhonchi or rales. Abdominal: General: There is no distension. Palpations: Abdomen is soft. Tenderness: There is no abdominal tenderness. There is no guarding or rebound. Musculoskeletal: Cervical back: Normal range of motion and neck supple. No rigidity or tenderness. Lymphadenopathy: Cervical: No cervical adenopathy. Skin: General: Skin is warm and dry. Neurological: Mental Status: She is alert and oriented to person, place, and time. ASSESSMENT/PLAN: 1. Sinobronchitis - ICD9: 473.9, 490, ICD10: J32.9, J40 (primary diagnosis) 2. Dental infection - ICD9: 522.4, ICD10: K04.7 Chest x-ray offered declined testing at this time. Patient will be placed on doxycycline. Patient was educated on supportive therapies. Patient will follow up with primary care provider as needed. Patient was instructed to immediately proceed to emergency room for any new, worsening, or symptoms lasting longer than anticipated. The patient's clinical presentation is otherwise unremarkable at thistime. Based on exam and clinical finding, the patient is stable for discharge. Plan of care was discussed with patient. Patient verbalizes understanding and agrees to plan of care. This note was generated using Careem software. It may contain errors in wording, punctuation, or spelling. Miguel Bryant APRN.VLADIMIR documented in this encounterC[facility] CenterDis[facility] summary Author Kevin Gregory [facility] January 03, 2023 11:37am Note Date/Time January 03, 2023 10:13am [facility] [address] [place] [address] Emergency Department Summary 01/03/23 MR#: [id number] Acct: [id number] Name: MARILEE BOCANEGRA Rep #:[id number] : 1985 37 From: Kevin Gregory MD [facility] atus[facility] ER Location: ED HPI HPI - URI History of Present Illness Chief Complaint: Shortness of Breath Narrative Narrative: 37-year-old female presents with upper respiratory infection type symptoms for the last 4 days. She states she has had shortness of breath, cough productive of yellow to green sputum, runny nose, occasional sore throat, and body aches. She had subjective fever as well and started getting the chills. She is a smoker. She states she had pneumonia twice this year already. She denies any exacerbating or alleviating factors, stating that she has cut back on her smoking since she has been ill. ROS ROS ED ROS Narrative Constitutional: Subjective fever, positive chills. HEENT: Occasional ore throat. No neck pain. No loss of vision. Positive rhinorrhea. Cardiovascular: No chest pain. No palpitations. No pedal edema. Respiratory: Productive cough, positive shortness of breath. Abdominal: No abdominal pain. No nausea. No vomiting. Genitourinary: No dysuria. No hematuria. Musculoskeletal: No myalgias. No arthralgias. Neurologic: No headaches. No dizziness. No lightheadedness. Skin: No rash. No change in color. Psychiatric: No depression. No anxiety. PFSH [facility] Medical History History of ischemic colitis Substance abuse Home Medications buprenorphine 1.4 mg-naloxone 0.36 mg sublingual tablet (Zubsolv) 1 tab sublingual Q24H 10/03/22 [History Last Taken Unknown] acetaminophen 500 mg capsule 1,000 mg (2 x 500 mg) PO Q6H PRN pain #30 caps 11/13/22 [Rx Last Taken Unknown] ondansetron 4 mg disintegrating tablet 4 mg PO Q6H PRN nausea and vomiting #10 tabs 11/13/22 [Rx Last Taken Unknown] albuterol sulfate 90 mcg/actuation aerosol inhaler (Ventolin HFA) 1 - 2 puff inhalation Q4H PRN PRN Wheezing #1 ea 01/03/23 [Rx Last Taken Unknown] prednisone 20 mg tablet 40 mg (2 x 20 mg) PO DAILY #7 tabs 01/03/23 [Rx Last Taken Unknown] Allergy/AdvReac Type Severity Reaction Status Date / Time cefaclor [From Ceclor] Allergy Unknown Verified 01/03/23 09:55 duloxetine [From Cymbalta] Allergy Other Verified 01/03/23 09:55 Penicillins Allergy Unknown Verified 01/03/23 09:55 tramadol Allergy PT UNSURE Verified 01/03/23 09:55 OF REACTION ketorolac [From Toradol] AdvReac PT UNSURE Verified 01/03/23 09:55 OF REACTION Social History household members: significant other housing: apartment number of children: 1 current occupational status: employed Smoking Status: Current every day smoker tobacco type: cigarettes alcohol intake: never substance use type: former substance user EXAM Physical Exam Narrative Exam Narrative: Afebrile. Vital signs noted. HEENT: Normocephalic. Atraumatic. PERRL, EOMI. Neck soft and supple. No pointtenderness or step off. Positive nasal congestion. Airway patent. No droolingor trismus. Cardiovascular: Regular rate and rhythm. No murmurs, rubs, or gallops appreciated. Respiratory: No tachypnea. Lungs clear to auscultation bilaterally. Gastrointestinal: Abdomen soft, nontender, with normoactive bowel sounds. No rebound or guarding. Neurological: Awake. Alert. Nonfocal, nonlateralizing. Skin: No rash. Normal color. No pallor. Musculoskeletal: No pedal edema. Full range of motion extremities. Const Vital Signs: 01/03/23 09:57 01/03/23 10:18 Temperature 99 F Temperature Source Temporal Pulse Rate 79 Respiratory Rate 16 Respiratory Effort Normal Respiratory Depth Normal Respiratory Pattern Normal Blood Pressure 117/81 H Blood Pressure Mean 93 Pulse Ox 100 Oxygen Delivery Method Room Air MDM MDM MDM Narrative Medical decision making narrative: In the differential diagnosis of viral syndrome versus pneumonia versus pneumothorax for shortness of breath. She may have COVID versus influenza versus bronchitis as she is a smoker. Smoking cessation was discussed. Her pulse ox is 100% on room air, and I have low concern for pulmonary embolism as she is PERC negative. I do feel two- view chest x-ray is indicated. She will beswabbed for COVID and influenza as well. 2 view chest x-ray interpreted by myself independently shows no evidence of an acute pneumonia or consolidation, no pneumothorax. I do not feel antibiotics are indicated. Her respiratory swabs for COVID and influenza a and B are negative. Smoking cessation was discussed with her. I do not feel antibiotics are indicated for pneumonia, however she will be given prescriptions for an albuterol inhaler and prednisone burst for 7 days which she has taken previously. I do not feel she requires observation at this time. Return instructions to the emergency department were reviewed. Disposition is discharged home in stable condition. Radiography Diagnostic Testing: Clinical Impression(s) from Imaging Studies Chest X-Ray 01/03/23 10:08 IMPRESSION: Stable mild hyperinflation with no acute or active cardiopulmonary disease. Electronically Signed: Kia Brooke MD at 10:56 EST , Discharge Plan Triage Chief Complaint: Shortness of Breath ED Provider: Kevin Gregory Dx/Rx/DC Orders Clinical Impression: URI (upper respiratory infection), Bronchitis Instructions: ED Bronchitis, No Antibiotic (Adult), ED URI, Viral, No Abx (Adult) Prescriptions: New prednisone 20 mg tablet 40 mg PO DAILY Qty: 7 0RF albuterol sulfate [Ventolin HFA] 90 mcg/actuation HFA aerosol inhaler 1 - 2 puff inhalation Q4H PRN PRN (Reason: Wheezing) Qty: 1 0RF No Action Zubsolv 1.4-0.36 mg tablet, sublingual 1 tab SUBLINGUAL Q24H Patient Comments: DISSOLVE ONE TABLET UNDER THE TONGUE EVERY DAY acetaminophen 500 mg capsule 1,000 mg PO Q6H PRN (Reason: pain) Qty: 30 0RF ondansetron 4 mg tablet,disintegrating 4 mg PO Q6H PRN (Reason: nausea and vomiting) Qty: 10 0RF Primary Care Provider: [facility] Est[facility] - 1 Week if not improving Activity Restrictions/Additional Instructions: Stop smoking. Medications as directed. Disposition Disposition: Home, Self Care What to do if you have Problems For any increased pain, shortness of breath, bleeding, nausea or vomiting, chestpain, or any unexpected problems, contact your Primary Care Provider. Call [facility] ([phone]) or report to the closest Emergency Room. Call 911 if necessary. 01/03/23 1137 <Electronically signed by Kevin Gregory MD> Cosigner Signature (if applicable): CC: [facility] ~ Signed [facility] Work Phone: Discharge summary Author Brian Hernadez [facility] May 17, 2023 8:27am Note Date/Time May 17, 2023 7:4 6am [facility] Medical Records Department [address] [place] [address] Emergency Department Summary 05/17/23 MR#: [id number] Acct: [id number] Name: MARILEE BOCANEGRA Rep #:[id number] : 1985 38 From: Brian Hernadez MD PCP: [facility] St atus:REG ER Location: ED HPI History of Present Illness Chief Complaint: Syncope Informant: patient and EMS Narrative Narrative: 38-year-old presents after syncopal episode. 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 She states she has been feeling relatively well lately. She is been drinking plenty of fluids lately, mostly water or occasionally a caffeinated beverage, no more than 1 cup of coffee in the mornings. She had some coffee this morning, she went out to smokeand then when she came back and she felt lightheaded and this progressed to a syncopal episode. She had no injury, she was already sitting. There were otherresidents who witnessed this. She had no other prodromal symptoms that she can recall except she has been having some abdominal cramping since she states she just started her menstrual cycle. No recent illness. No chest discomfort or palpitations or sudden headaches prior to this episode. States she has had thishappen before but it has been a while. PFSH [facility] Medical History Bowel obstruction Depression History of ischemic colitis Low iron Ovarian torsion Substance abuse Home Medications buprenorphine 1.4 mg-naloxone 0.36 mg sublingual tablet (Zubsolv) 1 tab sublingual Q24H 10/03/22 [History Last Taken 01/07/23] acetaminophen 500 mg capsule 1,000 mg (2 x 500 mg) PO Q6H PRN pain #30 caps 11/13/22 [Rx Last Taken Unknown] albuterol sulfate 90 mcg/actuation aerosol inhaler (Ventolin HFA) 1 - 2 puff inhalation Q4H PRN PRN Wheezing #1 ea 01/03/23 [Rx Last Taken Unknown] Allergy/AdvReac Type Severity Reaction Status Date / Time cefaclor [From Ceclor] Allergy Unknown Verified 01/08/23 09:35 duloxetine [From Cymbalta] Allergy Other Verified 01/08/23 09:35 Penicillins Allergy Unknown Verified 01/08/23 09:35 tramadol Allergy PT UNSURE Verified 01/08/23 09:35 OF REACTION ketorolac [From Toradol] AdvReac PT UNSURE Verified 01/08/23 09:35 OF REACTION Surgical History H/O shoulder surgery History of hip surgery Hx of knee surgery Hx of tympanostomy tubes Social History household members: significant other housing: apartment number of children: 1 current occupational status: employed Smoking Status: Current every day smoker tobacco type: cigarettes alcohol intake: never substance use type: former substance user ROS ROS ED Constitutional Constitutional ED: Denies chills or fever(s) Eyes Eyes: Denies change in vision or diplopia ENT ENT ED: Denies rhinorrhea or sore throat Cardiovascular Cardiovascular: Reports lightheadedness and syncope; Denies chest pain or palpitations Respiratory/Chest Respiratory/Chest: Denies cough or dyspnea Gastrointestinal Gastrointestinal: Denies abdominal pain, diarrhea, nausea or vomiting Genitourinary Genitourinary ED: Denies dysuria or hematuria Musculoskeletal Musculoskeletal: Denies back pain or neck pain Integumentary Denies abscess or rash Neurologic Neurologic: Denies headache(s), paresthesias or weakness Psychiatric Psychiatric: Denies anxiety or suicidal thoughts EXAM Physical Exam Const Vital Signs: 05/17/23 07:31 05/17/23 08:09 Temperature 97.2 F L Temperature Source Temporal Pulse Rate 72 Pulse Rate [Lying] 57 L Pulse Rate [Sitting (for 1 minute prior to obtaining)] 55 L Pulse Rate [Standing (for 1 minute prior to obtaining)] 72 Respiratory Rate 15 Blood Pressure 103/84 H Blood Pressure [Lying] 99/60 Blood Pressure [Sitting (for 1 minute prior to obtaining)] 102/73 Blood Pressure [Standing (for 1 minute prior to obtaining)] 109/82 H Blood Pressure Mean 90 Blood Pressure Mean [Lying] 73 Blood Pressure Mean [Sitting (for 1 minute prior to obtaining)] 82 Blood Pressure Mean [Standing (for 1 minute prior to obtaining)] 91 Pulse Ox 100 Oxygen Delivery Method Room Air Positive well nourished and well developed Constitutional Narrative: Well-appearing General Appearance ED: well developed and NAD HEENT Reports moist mucous membranes normocephalic and atraumatic Eyes PERRL and EOMs intact bilaterally Neck full ROM and supple Chest Wall inspection of chest normal and palpation of chest normal Resp normal respiratory effort and clear to auscultation bilaterally Cardio regular rate, regular rhythm and no murmurs GI non-tender and non-distended Auscultation: normoactive bowel sounds Palpation: soft Back/Spine no CVA tenderness General Back: other FROM Extremity normal to inspection General Extremety ED: Negative for edema, pulses abnormal or tenderness General Extremity: Negative for edema or pulses abnormal Neuro oriented x3, CN's II-XII intact bilaterally and no sensory deficits noted Sensorium / Orientation: awake and alert Motor Exam: strength 5/5 throughout Psych mental status grossly normal Skin no rashes or lesions noted and no wounds MDM MDM MDM Narrative Medical decision making narrative: My suspicion is the patient has a vagal episode related to abdominal cramping, related to her menstrual cycle. She feels normal now and she is not dehydrated clinically. Her heart rate is on the low side around 60. She is on no AV nodalblockade medications. She has had iron deficiency anemia in the past, so anemiais in the differential as is dehydration, cardiac dysrhythmia, ectopic , less likely to be a seizure since this was witnessed and there were no reports of that. Patient says she woke up sweaty, but that is a nonspecific symptom that can go along with any cause of syncope. Her EKG is normal. I reviewed her labs they are normal as well, and her is negative ruling out ectopic. No telemetry events here. Orthostatics negative, the patient felta little lightheaded when she first stood up and then it faded and she felt normal, which is a normal reaction. Patient reassured, more likely to be vagal reaction, not able to rule out dysrhythmia but she did not have symptoms to suggest that, and as I discussed with her, this is a low risk syncope and she isstable for discharge and close outpatient follow-up. Lab Data Attestation: I reviewed the patient's lab results. Labs: Laboratory Results - last 24 hr 05/17/23 07:37 WBC 6.0 RBC 4.16 L Hgb 14.0 Hct 40.3 MCV 96.9 MCH 33.7 H MCHC 34.7 RDW Std Deviation 45.7 H RDW Coeff of Celestino 12.7 Plt Count 267 MPV 10.0 Immature Gran % (Auto) 0.200 Neut % (Auto) 39.1 L Lymph % (Auto) 42.9 H Bleckley % (Auto) 9.2 Eos % (Auto) 7.8 H Baso % (Auto) 0.8 Absolute Neuts (auto) 2.3 Absolute Lymphs (auto) 2.57 Nucleated RBC % 0 Sodium 141 Potassium 4.0 Chloride 112 H Carbon Dioxide 25.0 Anion Gap 4 L BUN 12 Creatinine 0.61 Estim Creat Clear Calc 136.80 Est GFR (MDRD) Af Amer 142 Est GFR (MDRD) Non-Af 117 BUN/Creatinine Ratio 19.7 Glucose 104 Calcium 8.6 Serum , Qual NEGATIVE Rhythm Strip Rhythm Strip: Sinus Rhythm Rate: 60 Ectopy: None EKG Initial EKG: Attestation: I personally reviewed and interpreted this EKG as follows: Interpretation: Sinus Rhythm and No Acute Injury Pattern Comments: Normal EKG Prior EKG tracings: available for review Prior: Unchanged Discharge Plan Triage Chief Complaint: Syncope ED Provider: Brian Hernadez Dx/Rx/DC Orders Clinical Impression: Vasovagal syncope Instructions: ED Fainting, Vagal Reaction Prescriptions: No Action Zubsolv 1.4-0.36 mg tablet, sublingual 1 tab SUBLINGUAL Q24H Patient Comments: DISSOLVE ONE TABLET UNDER THE TONGUE EVERY DAY acetaminophen 500 mg capsule 1,000 mg PO Q6H PRN (Reason: pain) Qty: 30 0RF albuterol sulfate [Ventolin HFA] 90 mcg/actuation HFA aerosol inhaler 1 - 2 puff inhalation Q4H PRN PRN (Reason: Wheezing) Qty: 1 0RF [facility] [Primary Care Provider] - 3-5 Days if not improving Disposition Disposition: Home, Self Care What to do if you have Problems For any increased pain, shortness of breath, bleeding, nausea or vomiting, chestpain, or any unexpected problems, contact your Primary Care Provider. Call [facility] ([phone]) or report to the closest Emergency Room. Call 911 if necessary. 05/17/23826 <Electronically signed by Brian Hernadez MD> Cosigner Signature (if applicable): CC: [facility] ~ Signed [facility] Work Phone: Evaluation noteNo assessment information available [facility] Work Phone: Evalulfyov note* Diagnosis Sinobronchitis- Primary Unspecified sinusitis (chronic) Dental infection Acute apical periodontitis of pulpal origin documented in this encounter [facility] note* Diagnosis Chest tightness- Primary Other chest pain SOB (shortness of breath) Shortness of breath [facility]* Diagnosis Acute cough- Primary [facility]* Diagnosis Onset Date Resolution Status Diffuse abdominal pain acute Small bowel obstruction acut e Vomiting acute [facility] Work Phone: Evaluation note* Diagnosis Onset Date Resolution Status Diffuse abdominal pain resol eddie Small bowel obstruction reso lved Vomiting resolved [facility] Work Phone: Evaluation note* Diagnosis Acute cough- Primary documented in this encounter [facility] note* Diagnosis Acute conjunctivitis of both eyes, unspecified acute conjunctivitis type- Primary [facility]* Diagnosis Chemosis of left conjunctiva- Primary Seasonal allergic rhinitis, unspecified trigger [facility]* Diagnosis Acute cough [facility]* Diagnosis Acute cough documented in this encounter [facility] Diagnosis Onset Date Resolution Status Admit Date Hepatitis C acute July 22 1:23pm [facility] Work Phone: Hospital Discharge instructions Additional Instructions Left foot x-ray negative. Continue ibuprofen every 6 hours as needed. Use postop shoe for comfort. Follow-up with your doctor.[facility] Work Phone: Hospital Discharge instructions Additional Instructions Thank you for trusting us with your care today! Please take Tylenol (2 pills, 650 mg), ibuprofen (2 pills, 400 mg) every 6 hours as needed for pain and fever control. Please take antibiotics until course is complete Please return to the emergency department if your symptoms change or worsen. Specifically cannot tell antibiotic by mouth. Develop worsening shortness of breath. Please follow with your primary care physician for further outpatient evaluation and management.[facility] Work Phone: Hospital Discharge instructions Additional Instructions Stop smoking. Medications as directed.[facility] Work Phone: Reason for referral (narrative)No reason for referral information availableWHenry [facility] Work Phone: Summary Purpose Family History No Family History Records FoundNo Family History Records FoundNo Family History Records FoundNo Family History Records FoundNo Family History Records FoundNo Family History Records Found Advance Directives No Advanced Directives Records Found Advance Directive Response Recorded Date/ Time Living Will No January 27 022 8:36pm Power of Stock Selector No January 27, 2022 8:36pm Advance Directive Response Recorded Date/ Time Living Will No April 03, 2 023 2:04pm Power of Stock Selector No April 03, 2022 2:04pm Advance Directive Response Recorded Date/ Time Living Will No April 03, 2 023 3:04pm Power of Stock Selector No April 03, 2022 3:04pm Advance Directive Response Recorded Date/ Time Living Will No October 03 10:37pm Power of Stock Selector No October 03, 2 023 10:37pm Advance Directive Response Recorded Date/ Time Living Will No November 01, 2022 7:03am Power of Stock Selector No October 7:03am Advance Directive Response Recorded Date/ Time Living Will No November 11, 2022 4:49am Power of Stock Selector No October 4:49am Advance Directive Response Recorded Date/ Time Living Will No November 11, 2022 9:38am Power of Stock Selector No October 9:38am Advance Directive Response Recorded Date/ Time Living Will No January 03, 2 023 10:18am Power of Stock Selector No January 03, 2023 10:18am Advance Directive Response Recorded Date/ Time Living Will No January 08, 2 023 10:01am Power of Stock Selector No January 08, 2023 10:01am Advance Directive Response Recorded Date/ Time Living Will No May 17, 2023 7:35am Power of Stock Selector No May 16 7:35am Chief Complaint and Reason for Visit Chief Complaint dental Chief Complaint dental CHEST PAIN Chief Complaint dental CHEST PAIN Other psychoactive substance abuse, in remission Chief Complaint LEFT FOOT INJURY Chief Complaint LEFT FOOT INJURY general illness Chief Complaint LEFT FOOT INJURY general illness SMALL BOWEL OBSTRUCTION Reason for Visit Diffuse abdominal pa in Small bowel obstruction Vomiting Chief Complaint LEFT FOOT INJURY general illness SMALL BOWEL OBSTRUCTION SMALL BOWEL OBSTRUCTION SMALL BOWEL OBSTRUCTION SMALL BOWEL OBSTRUCTION SMALL BOWEL OBSTRUCTION SMALL BOWEL OBSTRUCTION Reason for Visit Diffuse abdominal pa in Small bowel obstruction Vomiting Chief Complaint LEFT FOOT INJURY general illness SMALL BOWEL OBSTRUCTION SMALL BOWEL OBSTRUCTION SMALL BOWEL OBSTRUCTION SMALL BOWEL OBSTRUCTION SMALL BOWEL OBSTRUCTION SMALL BOWEL OBSTRUCTION SOB Reason for Visit Diffuse abdominal pa in Small bowel obstruction Vomiting Chief Complaint LEFT FOOT INJURY general illness SMALL BOWEL OBSTRUCTION SMALL BOWEL OBSTRUCTION SMALL BOWEL OBSTRUCTION SMALL BOWEL OBSTRUCTION SMALL BOWEL OBSTRUCTION SMALL BOWEL OBSTRUCTION SOB COLD Reason for Visit Diffuse abdominal pa in Small bowel obstruction Vomiting Chief Complaint syncope Chief Complaint Admit Date pre colonoscopy abdominal pain July 22, 2024 1:23pm Reason for Visit Admit Date Hepatitis C July 22, 2024 1:23p m Chief Complaint Admit Date pre colonoscopy abdominal pain July 22, 2024 1:23pm 2 ORDERING DOCTORS July 22, 2024 2:33p m Reason for Visit Admit Date Abdominal pain July 22, 2024 1:23p m Hepatitis C July 22, 2024 1:23p m Hx of colonic polyps July 22, 2024 1:23 pm Additional Source Comments INFORMATION SOURCE (unrecogn ized section and content) DATE CREATED AUTHOR 08/07/2017 [facility] ([place]) DATE CREATED AUTHOR AUTHOR'S ORGANIZ ATION 08/14/2017 [facility] DATE CREATED AUTHOR AUTHOR'S ORGANIZ ATION 08/14/2017 [facility] DATE CREATED AUTHOR AUTHOR'S ORGANIZ ATION 08/14/2017 [facility] DATE CREATED AUTHOR AUTHOR'S ORGANIZ ATION 09/11/2023 [facility] DATE CREATED AUTHOR AUTHOR'S ORGANIZ ATION 07/28/2024 [facility] Goals (unrecognized section and content) Goals may be documented in a n alternate sectionGoals may be documented in an alternate sectionGoals may be documented in an alternate sectionGoals may be documented in an alternate sectionGoals may be documented in an alternate sectionGoals may be documented in an alternate sectionGoals may be documented in an alternate sectionGoals may be documented in an alternate sectionGoals may be documented in an alternate sectionGoals may be documented in an alternate sectionGoals may be documented in an alternate sectionGoals may be documented in an alternate section Source Comments (unrecognize d section and content) In the event this informatio n is protected by the Federal Confidentiality of Alcohol and Drug Abuse Patient Records regulations: The Federal rules restrict any use of the information to criminally investigate or prosecute any alcohol or drug abuse patient.[facility] Center[facility] the event this information is protected by the Federal Confidentiality of Alcohol and Drug Abuse Patient Records regulations: The Federal rules restrict any use of the information to criminally investigate or prosecute any alcohol or drug abuse patient.[facility] Center[facility] the event this information is protected by the Federal Confidentiality of Alcohol and Drug Abuse Patient Records regulations: The Federal rules restrict any use of the information to criminally investigate or prosecute any alcohol or drug abuse patient.[facility] Center[facility] the event this information is protected by the Federal Confidentiality of Alcohol and Drug Abuse Patient Records regulations: The Federal rules restrict any use of the information to criminally investigate or prosecute any alcohol or drug abuse patient.[facility] Center[facility] the event this information is protected by the Federal Confidentiality of Alcohol and Drug Abuse Patient Records regulations: The Federal rules restrict any use of the information to criminally investigate or prosecute any alcohol or drug abuse patient.[facility] Center[facility] the event this information is protected by the Federal Confidentiality of Alcohol and Drug Abuse Patient Records regulations: The Federal rules restrict any use of the information to criminally investigate or prosecute any alcohol or drug abuse patient.[facility] Center[facility] the event this information is protected by the Federal Confidentiality of Alcohol and Drug Abuse Patient Records regulations: The Federal rules restrict any use of the information to criminally investigate or prosecute any alcohol or drug abuse patient.[facility] Center[facility] the event this information is protected by the Federal Confidentiality of Alcohol and Drug Abuse Patient Records regulations: The Federal rules restrict any use of the information to criminally investigate or prosecute any alcohol or drug abuse patient.[facility] Center[facility] the event this information is protected by the Federal Confidentiality of Alcohol and Drug Abuse Patient Records regulations: The Federal rules restrict any use of the information to criminally investigate or prosecute any alcohol or drug abuse patient.[facility] Reason for Visit (unrecogniz ed section and content) Reason Comments Chest Congestion cough, nasal congest ion x 2 weeks, right upper tooth pain(broke off)x 4 days Reason Comments Chest Congestion cough, sob seen x 1 week, finished doxycycline x today Reason Comments Cough Chest congestion, SO B x1 month Reason Comments Results Reason Comments Chest Congestion sob x couple weeks Reason Comments Eye Problem Possible bilateral p ink eye x 1 day Reason Comments Conjunctivitis L eye swollen x2 day s, ST and bilateral ear drainage Care Teams (unrecognized sec tion and content) Crop Roller Relationship Specialty Start Date End Date Flakito Renae DO [address] [place] [address] PCP - General Family Medicine 09/04/16 Team Status: Active Member Role Status Dates No Primary Care Physician Family Provider Active No Primary Care Physician Primary Care Provider Active Team Status: Inactive Member Role Status Dates No Primary Care Physician Primary Care Provider Active Dr. Kassandra Wilkinson DO Attending Provider, Emergency Pro vider Active Team Status: Inactive Member Role Status Dates No Primary Care Physician Primary Care Provider Active Dr. Ulises Martin DO Emergency Provider Active Team Status: Active Member Role Status Dates No Primary Care Physician Family Provider Active [facility] Primary Care Provider A ctive Team Status: Inactive Member Role Status Dates No Primary Care Physician Primary Care Provider Active Dr. Ulises Martin DO Attending Provider, Emergency Provide r Active Team Status: Inactive Member Role Status Dates [facility] Primary Care Provider A ctive Jennifer Kwon TIGHT COOPER, TIGHT COOPER-C Attending Provider Active Team Status: Inactive Member Role Status Dates [facility] Primary Care Provider A ctive Jennifer Kwon TIGHT COOPER, TIGHT COOPER-C Attending Provider, Referrin g Provider Active Team Status: Inactive Member Role Status Dates [facility] Primary Care Provider A ctive Dr. Ulises Martin DO Emergency Provider Active Team Status: Inactive Member Role Status Dates [facility] Primary Care Provider A ctive Dr. Ulises Martin DO Attending Provider, Emergency Provide r Active Team Status: Inactive Member Role Status Dates [facility] Primary Care Provider A ctive Dr. Jarvis Conde DO Emergency Provider Active Team Status: Inactive Member Role Status Dates [facility] Primary Care Provider A ctive Dr. Jarvis Conde DO Attending Provider, Emergency P rovider Active Team Status: Active Member Role Status Dates [facility] Primary Care Provider A ctive Dr. Brian Hernadez MD Emergency Provider Active Dr. Patricia Green MD Admit Provider, Attending Prov ider Active Team Status: Active Member Role Status [facility] Primary Care Provider A ctive Dr. Brian Hernadez MD Emergency Provider Active Dr. Patricia Green MD Admit Provider, Other Provider Active Dr. Jose Salas MD Attending Provider, Other Provi gerson Active Team Status: Active Member Role Status [facility] Primary Care Provider A ctive Dr. Brian Hernadez MD Emergency Provider Active Dr. Patricia Green MD Admit Provider, Other Provider Active Dr. Jose Salas MD Other Provider Active Dr. Ananda Cartagena DO Other Provider Active Alejandra CAMP PA-C Attending Provider Active Team Status: Active Member Role Status [facility] Primary Care Provider A ctive Dr. Brian Hernadez MD Emergency Provider Active Dr. Patricia Green MD Admit Provider, Other Provider Active Dr. Jose Salas MD Other Provider Active Dr. Ananda Cartagena DO Attending Provider, Other Provid er Active Team Status: Active Member Role Status [facility] Primary Care Provider A ctive Dr. Brian Hernadez MD Emergency Provider Active Dr. Patricia Green MD Admit Provider, Other Provider Active Dr. Jose Salas MD Attending Provider, Other Provi gerson Active Dr. Ananda Cartagena DO Other Provider Active Team Status: Inactive Member Role Status [facility] Primary Care Provider A ctive Dr. Brian Hernadez MD Emergency Provider Active Dr. Patricia Green MD Admit Provider, Other Provider Active Dr. Jose Salas MD Other Provider Active Dr. Ananda Cartagena DO Attending Provider Active Team Status: Active Member Role Status [facility] Primary Care Provider A ctive Dr. Brian Hernadez MD Emergency Provider Active Dr. Patricia Green MD Admit Provider, Other Provider Active Dr. Jose Salas MD Attending Provider, Other Provi gerson Active Dr. Ananda Cartagena DO Referring Provider Active Team Status: Inactive Member Role Status [facility] Primary Care Provider A ctive Kevin Gregory MD Emergency Provider Active Team Status: Inactive Member Role Status [facility] Primary Care Provider A ctive Dr. Julian Jiménez MD Emergency Provider Active Team Status: Inactive Member Role Status Dates [facility] Primary Care Provider A ctive Kevin Gregory MD Attending Provider, Emergency Provid er Active Team Status: Inactive Member Role Status Dates [facility] Primary Care Provider A ctive Dr. Brian Hernadez MD Emergency Provider Active Crop Roller Relationship Specialty Start Date End Date [facility] [address] [place] [address] PCP - General 05/21/23 Jennifer Kwon NP [address] [place] [address] Referring Family Medicine 09/18/22 Team Status: Active Member Role Status Dates No Primary Care Physician Family Provider Active Jennifer Kwon VSC, TIGHT COOPER-C Primary Care Provider Activ e Team Status: Inactive Member Role Status Dates [facility] Primary Care Provider A ctive Dr. Brian Hernadez MD Attending Provider, Emergency Provider Active Team Status: Inactive Member Role Status Dates Jennifer Kwon VSC, TIGHT COOPER-C Primary Care Provider, Attending Provider, Referring Provider Active Crop Roller Relationship Specialty Start Date End Date [place] [id number] [place] [address] PCP - General 05/21/23 Jennifer Kwon NP [address] [place] [address] Referring Family Medicine 09/18/22 Crop Roller Relationship Specialty Start Date End Date [facility] [address] [place] [address] PCP - General 05/21/23 Jennifer Kwon NP [address] [place] [address] Referring Family Medicine 09/18/22 Crop Roller Relationship Specialty Start Date End Date Clinic, [place] [place] [address] [place] [address] PCP - General 05/21/23 Jennifer Kwon NP [address] [place] [id number] Referring Family Medicine 09/18/22 Team Status: Active Member Role Status Dates Jennifer Kwon VSC, TIGHT COOPER-C Primary Care Provider Activ e Team Status: Inactive Member Role Status Dates Jennifer Doyle VSC, TIGHT COOPER-C Primary Care Provider Activ e Start: March 27, 2024 End: March 27, 2024 Zebulun Beam VSC, TIGHT COOPER-C Attending Provider Active Start: March 27, 2024 End: March 27, 2024 Zebulun Beam VSC, TIGHT COOPER-C Referring Provider Active Start: March 27, 2024 End: March 27, 2024 Team Status: Inactive Member Role Status Dates Jennifer Doyle VSC, TIGHT COOPER-C Primary Care Provider Activ e Start: March 31, 2024 End: March 31, 2024 Zebulun Beam VSC, TIGHT COOPER-C Attending Provider Active Start: March 31, 2024 End: March 31, 2024 Team Status: Inactive Member Role Status Dates Jennifer Doyle VSC, TIGHT COOPER-C Primary Care Provider Activ e Start: July 10, 2024 End: July 10, 2024 Zebulun Beam VSC, TIGHT COOPER-C Attending Provider Active Start: July 10, 2024 End: July 10, 2024 Zebulun Beam VSC, TIGHT COOPER-C Referring Provider Active Start: July 10, 2024 End: July 10, 2024 Team Status: Inactive Member Role Status Dates Jennifer Kwon VSC, TIGHT COOPER-C Primary Care Provider Activ e Start: July 22, 2024 End: July 22, 2024 Jennifer Kwon VSC, TIGHT COOPER-C Referring Provider Active Start: July 22, 2024 End: July 22, 2024 ZOË Benoit Attending Provider Active Start: July 22, 2024 End: July 22, 2024 Team Status: Inactive Member Role Status Dates Jennifer Kwon VSC, TIGHT COOPER-C Primary Care Provider Activ e Start: July 22, 2024 End: July 22, 2024 Zebulun Beam VSC, TIGHT COOPER-C Attending Provider Active Start: July 22, 2024 End: July 22, 2024 Zebulun Beam VSC, TIGHT COOPER-C Referring Provider Active Start: July 22, 2024 End: July 22, 2024 ZOË Benoit Other Provider Active Star t: July 22, 2024 End: July 22, 2024 FOR RECORDS PERTAINING TO PATIENTS WHO ARE OR HAVE BEEN ENROLLED IN A CHEMICAL DEPENDENCY/SUBSTANCEABUSE PROGRAM, SOME INFORMATION MAY BE OMITTED. This clinical summary was aggregated from multiple sources. Caution should be exercised in using it in the provision of clinical care. This summary normalizes information from multiple sources, and as a consequence, information in this document may materially change the coding, format and clinical context of patient data. In addition, data may be omitted in some cases. CLINICAL DECISIONS SHOULD BE BASED ON THE PRIMARY CLINICAL RECORDS. [employer] [facility]. provides no warranty or guarantee of the accuracy or completeness of information in this document.
--- NOTE | 2024-07-30 07:17 | US_ITS ---
PROCEDURE: ABD LIMITED W/ ELASTOGRAPHY REASON FOR EXAM: VIRAL HEP C W/O HEPATIC COMA , RUQ PAIN COMPARISON: None. TECHNIQUE: Right upper quadrant abdominal ultrasound. [employer] ElastQ Imaging shear wave elastography for non-invasive assessment of liver tissue stiffness. [employer] EPIQ Elite. FINDINGS: LIVER: Size: Unremarkable Length: 13.3 cm Echotexture: Diffusely echogenic suggesting fatty infiltration Contour: Normal Lesions: None identified Elastography: EQI Med: 5 kPa EQI Med Steve: 1.29 m/s IQR/Med: 17 %* GALLBLADDER: Normal COMMON BILE DUCT: Normal measuring 6 mm . PANCREAS: Normal Visualized portions of the right kidney are unremarkable. No right upper quadrant ascites. US/ABD Limited w/ Elastography IMPRESSION: NO TO MILD HEPATIC FIBROSIS Fatty infiltration of the liver. Reference Values: SRU <1.37 m/s (5.7kPa): No to mild fibrosis 1.37 m/s - 2.2 m/s: Moderate to severe fibrosis >2.2 m/s (15kPa): Significant fibrosis / cirrhosis METAVIR Score F2 or higher: 1.34 m/s (5.7kPa) F3 or higher: 1.55 m/s (7.3kPa) F4: 1.80 m/s (10kPa) * If the IQR/Med is >30%, the variance in the measurements is a large and the a ccuracy of the measurement may be in question. Reading Location: [id number]
== END | disposition home or self-care (01) ==
PROVIDERS: PCP Nurse Practitioner Family
DX: R10.11 Right upper quadrant pain (principal); B19.20 Unspecified viral hepatitis C without hepatic coma
CPT/HCPCS: 76705; 76981

== ENCOUNTER 2024-09-28 07:03 | Day surgery (SDC) | payer OTHER, SELFPAY ==
--- NOTE | 2024-09-23 14:38 | PAT.ANESEVAL ---
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 When Was Last Pacemaker Check QUESTION #4 FULL TEXT: You/Your Family Experience fever (hyperthermia) with Anesthesia Last Oral Intake Last Oral intake: Last Oral Intake NPO since Meds taken in AM with sips of water? Meds patient instructed to take am of surgery PONV PONV - refrigeration installer: PONV - refrigeration installer Female Yes 09/23/24 10:02 HX of Motion Sickness No 09/23/24 10:02 HX of N/V After Surgery No 09/23/24 10:02 Non-Smoker No 09/23/24 10:02 Duration of Surgery greater No 09/23/24 10:02 than 60 minutes Number of Risk Factors 1 09/23/24 10:02 PONV Score Low Risk 09/23/24 10:02 Height & Weight Height & Weight: Anesthesia: Height & Weight Height 5 ft 8 in 08/04/24 14:19 Respiratory Assessment Respiratory Assessment - refrigeration installer: Respiratory Tract Infection Hx - refrigeration installer Hx Respiratory Tract Infection No 09/23/24 10:02 STOP Sleep Apnea STOP Sleep Apnea - refrigeration installer: STOP Sleep Apnea - refrigeration installer Hx Hypertension No 09/23/24 10:02 Hx Sleep Apnea No 09/23/24 10:02 CPAP BIPAP Do you snore loudly (louder No 09/23/24 10:02 than talking or can be heard Do you often feel tired/ No 09/23/24 10:02 fatigued/ sleepy during daytime? Has anyone observed you stop No 09/23/24 10:02 breathing during sleep? STOP Results Negative 09/23/24 10:02 QUESTION #5 FULL TEXT : Do you snore loudly (louder than talking or can be heard through closed doors)? 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 Specify any problems Hx of Preganancy in last 3 No 09/23/24 10:02 Months Nurse Filling Out Transfusion VCHRISTIN 09/23/24 10:02 & Questions: Date: 09/23/24 09/23/24 10:02 Time: 10:03 09/23/24 10:02 Patient unable to answer at this time (ie. confused, unrespo /Reproduction History /Reproductive History - refrigeration installer: /Reproductive Hx- refrigeration installer Hx Now No 09/23/24 10:02 Gestational Age (in weeks): EDC: Hx Hx Para Hx Section SAB No 09/23/24 10:02 [facility] Medical History (Updated 09/23/24 @ 10:02 by Celina Ventura) Wears contact lenses Wears glasses Arthritis Hepatitis Injury of back Syncope Colitis Gastric reflux Smoker Cyst of ovary, left Hereditary hemochromatosis Fatigue Abnormal liver enzymes GERD (gastroesophageal reflux disease) Ovarian torsion Low iron Depression Bowel obstruction History of ischemic colitis Substance abuse Home Medications ?Medication ?Instructions ?Recorded ?Last Taken ?Type cholecalciferol (vitamin D3) 1,250 1,250 mcg PO QWEEK 1 month #5 caps 07/31/24 Unknown Rx mcg (50,000 unit) capsule glecaprevir 100 mg-pibrentasvir 40 3 tab PO QDAY 8 weeks #168 tabs 07/31/24 Unknown Rx mg tablet (Mavyret) ibuprofen 800 mg tablet 400 mg PO TID PRN PRN pain 07/31/24 Unknown History Allergy/AdvReac Type Severity Reaction Status Date / Time cefaclor (From Ceclor) Allergy Unknown Verified 09/23/24 09:50 duloxetine (From Cymbalta) Allergy Other Verified 09/23/24 09:50 tramadol Allergy PT UNSURE Verified 09/23/24 09:50 OF REACTION ketorolac (From Toradol) AdvReac PT UNSURE Verified 09/23/24 09:50 OF REACTION Family History Father COPD (chronic obstructive pulmonary disease) Mother Melanoma Surgical History (Updated 09/23/24 @ 10:02 by Celina Ventura) History of myringotomy Hx of unilateral oophorectomy Hx of colonoscopy Hx of tympanostomy tubes Hx of knee surgery History of hip surgery H/O shoulder surgery Social History (Updated 08/04/24 @ 14:28 by Jennifer Tidwell) number of children: 1 current occupational status: employed Smoking Status: Current every day smoker tobacco type: cigarettes and e-cigarettes alcohol intake: never substance use type: former substance user Audit: Pertinent Findings Pertinent Findings EKG Perinent findings: 05/17/2023. Normal sinus rhythm with sinus arrhythmia. 60 bpm. Pulmonary function results/spirometer pertinent findings: 02/12/2024. Chest x-ray. No radiological evidence of acute cardiopulmonary disease. Recommendation Anesthesia Recommendation Anesthesia recommendation: OPTIMIZED for anesthesia
[2024-09-28] VITALS (8 sets, daily range): BP systolic 98–118; BP diastolic 67–87; PULSE 59–77; RESP 16; TEMP 36.6–36.9; O2SAT 96–100; BMI 26.8
--- OUTSIDE RECORDS SUMMARY | 2024-09-28 07:13 | XMS RPT_ITS | CCD ---
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 Location Lt brachial Position Sitting Respiration 16 Pulse 78 Pulse Source Monitor Temp 98.5 F Temperature Source Temporal Artery Pulse Oximetry (%) 95 Oxygen Delivery Method room air 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: No Accompanied by: Self Is patient in pain?: No Allergies cefaclor (From Ceclor) Allergy (Verified 08/04/24 14:23) Unknown duloxetine (From Cymbalta) Allergy (Verified 08/04/24 14:23) Other Penicillins Allergy (Verified 08/04/24 14:23) Unknown tramadol Allergy (Verified 08/04/24 14:23) PT UNSURE OF REACTION ketorolac (From Toradol) Adverse Reaction (Verified 08/04/24 14:23) PT UNSURE OF REACTION Medications ???Medication ???Instructions ???Recorded ???Confirmed ???Type omeprazole 40 mg capsule,delayed mg PO QDAY 07/22/24 07/31/24 Histo ry release ciclopirox 8 % topical solution 1 applic topical QHS 07/27/2407/19 History cholecalciferol (vitamin D3) 1,250 1,250 mcg PO QWEEK 1 month #5 ca ps 07/31/24 08/04/24 Rx mcg (50,000 unit) capsule glecaprevir 100 mg-pibrentasvir 40 3 tab PO QDAY 8 weeks #168 tabs 07/31/24 08/04/24 Rx mg tablet (Mavyret) ibuprofen 800 mg tablet 400 mg PO TID PRN PRN pain 5 08/04/24 History fluticasone propionate 50 1 spray intranasal QDAY PRN 08/04/24 History mcg/actuation nasal spray,suspension (Flonase Allergy Relief) Central Venous Access Central Venous Access: No Laboratory Tests 05/01/22 05/27/23 07/10/24 15:54 10:19 10:38 Hgb 15.1 H Iron Saturation 4.5 L 61.4 H 79.0 H Ferritin 23 Exam Physical Exam Narrative ECOG 0 Const alert and oriented x3 Coding Level of Care Code Off vis,new,level 3 Exam Problem Focused Diagnoses Hereditary hemochromatosis E83.110 Assessment and Plan Assessment and Plan (1) Hereditary hemochromatosis: Status: Chronic Comment: Double heterozygote which. low risk to develop clinically relevant symptoms of hereditary hemochromatosis. Plan Double heterozygote which. Low risk to develop clinically relevant symptoms of hereditary hemochromatosis except when there are additional risk factors for chronic liver disease in her case hepatitis C and alcohol consumption. 2024 she has mildly elevated serum iron iron saturation with a low normal ferritin. Collected blood was not fasting. The low normal ferritin rules out any iron overload. Patient complained of fatigue among other symptoms (more content not included)... Normal [facility] Gastroenterology Visit Repor ton 07-31-2024 Gastroenterology Visit Report [facility] Gastroenterology [address] [place] [address] OFFICE VISIT Date of Service: 07/31/24 MR#: [id number] Acct: [id number] Name: MARILEE BOCANEGRA OUSMANE Rep #: [id number] : 1985 Provider: Dr. Justin lozada MD Age/Sex: 39/F Location: [facility] Status: Signed Intake Vital Signs 07/21/24 08:07 07/31/24 08:35 Height 5 ft 8 in 5 ft 8 in Weight: 175 lb BMI 26.6 BP 121/82 H Blood Pressure Location Rt brachial Position Sitting Pulse 76 Pulse Oximetry (%) 96 Oxygen Delivery Method room air Intake Visit Reasons: Hepatitis C Chief Complaint: hep C Allergies cefaclor (From Ceclor) Allergy (Verified 07/31/24 08:23) Unknown duloxetine (From Cymbalta) Allergy (Verified 07/31/24 08:23) Other Penicillins Allergy (Verified 07/31/24 08:23) Unknown tramadol Allergy (Verified 07/31/24 08:23) PT UNSURE OF REACTION ketorolac (From Toradol) Adverse Reaction (Verified 07/31/24 08:23) PT UNSURE OF REACTION Medications ???Medication ???Instructions ???Recorded ???Confirmed ???Type cholecalciferol (vitamin D3) 50 50 mcg PO QDAY 07/22/24 07/31/24 H istory mcg (2,000 unit) capsule omeprazole 40 mg capsule,delayed mg PO QDAY 07/22/24 07/31/24 Histo ry release budesonide 160 mcg-glycopyr 9 2 inh inhalation BID 07/27/2407/19 History mcg-formot 4.8 mcg/actuation HFA inhaler (Breztri Aerosphere) ciclopirox 8 % topical solution 1 applic topical QHS 07/27/2407/19 History fluticasone propionate 50 1 spray intranasal QDAY 07/27/24 0 07/31/24 History mcg/actuation nasal spray,suspension (Flonase Allergy Relief) thiamine HCl (vitamin B1) 100 mg 100 mg PO QDAY 07/27/24 07/31/24 H istory capsule acetaminophen 500 mg capsule 1,000 mg (2 x 500 mg) PO Q8H PRN 0 07/31/24 07/31/24 Rx PRN pain #30 caps cholecalciferol (vitamin D3) 1,250 1,250 mcg PO QWEEK 1 month #5 ca ps 07/31/24 07/31/24 Rx mcg (50,000 unit) capsule glecaprevir 100 mg-pibrentasvir 40 3 tab PO QDAY 8 weeks #168 tabs 07/31/24 07/31/24 Rx mg tablet (Mavyret) ibuprofen 800 mg tablet 400 mg PO TID PRN PRN pain 5 07/31/24 History PFSH Medical History Fatigue Abnormal liver enzymes GERD (gastroesophageal reflux disease) Ovarian torsion Low iron Depression Bowel obstruction History of ischemic colitis Substance abuse Surgical History Hx of colonoscopy Hx of tympanostomy tubes Hx of knee surgery History of hip surgery H/O shoulder surgery Family History Father COPD (chronic obstructive pulmonary disease) Mother Melanoma Social History household members: significant other housing: apartment number of children: 1 current occupational status: employed Smoking Status: Current every day smoker tobacco type: cigarettes and e-cigarettes alcohol intake: never substance use type: former substance user HPI HPI Chief Complaint: hep C Details: MARILEE BOCANEGRA, is a 39 F who presents to the office today for hep c. Pt has hx of IVDU in past but has been sober for about 17 months on Vivitrol. She has been sober from alcohol for 8 years. She has not had treatment for hepatitis C. Per chart she had hep c antibody in 2022 Office visit: 07/31/2024: Complained of abdominal discomfort/cramps 2 to 3 days 2 almost every day, feels like [place] contractions. Does not have relationship with the food with mild nausea about 3-4 times a month. No vomiting. Has dyspeptic symptoms and is on omeprazole. Patient also takes ibuprofen 800 mg 3 times daily as needed for headache, very frequently. Irregular bowel habit, once in 2 to 3 days with mild hardness and firmness. Sometimes blood in the stool. Scheduled for colonoscopy. Complete social history was taken. 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 Patient has been sober for past 18 months. She had about 9 to 10 months of Vivitrol IM injection and then was prescribed oral but she could not tolerate oral therefore did not take it. Smoking: Still smokes 1 pack/day started in high school Alcohol: She started beers/hard liquor on weekend in high school in parties. She also drinking sometimes in her 20s but not a big drinker. Quit alcohol 10 years ago. ROS Const Constitutional: Positive for fatigue and headache(s); No fever(s) or weight change ENT ENT: Positive for headache(s); No difficulty swallowing Resp Respiratory: No shortness of breath or wheezing Cardio Cardiology: No chest pain at rest or dyspnea on exertion Gastro GI: Positive for abdominal pain, bloating, change in bowel habits (more content not included)... Normal [facility] ABD Limited w/ Elastographyo n 07-30-2024 ABD Limited w/ Elastography [facility] Imaging Services [address] [place], [place] [id number] ABD Limited w/ Elastography MR#: [id number] Acct: [id number] Name: MARILEE BOCANEGRA OUSMANE Rep #: [id number] : 1985 F 39 From: Jhonny root MD PCP: Jennifer Kwon [facility], [employer] Status: REG CLI Study: ABD Limited w/ Elastography Date of Exam: 07/19 04/14 Exam# [id number] Ordering Dr: Meenakshi Fernández [facility] [employer]- C PROCEDURE: ABD LIMITED W/ ELASTOGRAPHY REASON FOR EXAM: VIRAL HEP C W/O HEPATIC COMA , RUQ PAIN COMPARISON: None. TECHNIQUE: Right upper quadrant abdominal ultrasound. [employer] ElastQ Imaging shear wave elastography for non- invasive assessment of liver tissue stiffness. [employer] EPIQ Elite. FINDINGS: LIVER: Size: Unremarkable Length: 13.3 cm Echotexture: Diffusely echogenic suggesting fatty infiltration Contour: Normal Lesions: None identified Elastography: EQI Med: 5 kPa EQI Med Steve: 1.29 m/s IQR/Med: 17 %* GALLBLADDER: Normal COMMON BILE DUCT: Normal measuring 6 mm . PANCREAS: Normal Visualized portions of the right kidney are unremarkable. No right upper quadrant ascites. US/ABD Limited w/ Elastography IMPRESSION: NO TO MILD HEPATIC FIBROSIS Fatty infiltration of the liver. Reference Values: SRU <1.37 m/s (5.7kPa): No to mild fibrosis 1.37 m/s - 2.2 m/s: Moderate to severe fibrosis >2.2 m/s (15kPa): Significant fibrosis / cirrhosis METAVIR Score F2 or higher: 1.34 m/s (5.7kPa) F3 or higher: 1.55 m/s (7.3kPa) F4: 1.80 m/s (10kPa) * If the IQR/Med is >30%, the variance in the measurements is a large and the accuracy of the measurement may be in question. Reading Location: [facility] CC: [facility] [employer] [facility] Jennifer Kwon; Meenakshi [facility] REPAIRMANYarielC Pradeep Bar Helper: Signed Normal [facility] L3410.9992on 07-28-2024 [facility] Misc. COMMENT Normal . [facility] Comment on above: Order Comment: 98121 3 HEP C FIBROSURE Result Comment: Test Ordered: [id number] HCV FibroSure Fibrosis Score 0.07 Reference Range: [...] ALT (SGPT) P5P 45 [H ] IU/L Reference Range: 0-40 Interpretations: Comment Reference Range: [...] developed and its performance characteristics determined by [employer]. It has not been cleared or approved by the Food and Drug Administration. The FDA has determined that such clearance or approval is not necessary. For questions regarding this report please contact customer service at . Performed at: - [facility] [id number] Magnetic Testing Technician: Radha Lord MD, Phone: [phone] Performed at: - [facility] [id number] Magnetic Testing Technician: Junior Vo PhD, Phone: [phone] Performed By: #### L 70008000, L3410.9992, L3890.6006 #### [facility] [address] [place] [address]. [place], [place], [id number] L3410.9992on 07-27-2024 [facility] COMMENT Normal . [facility] Comment on above: Order Comment: 39117 5hereditary hemochromatosis Result Comment: Test Ordered: [id number] Hered.Hemochromatosis, DNA Hereditary Hemochromatosis Comment TG Reference Range: . Results: c.845G>A (p.Dzc348Ckk) - Detected, heterozygous c.187C>G (p.Zhy51Ozj) - Detected, heterozygous c.193A>T (p.Zoa83Akc) - Not Detected Associated with a low [...] for patients who are homozygous for c.845G>A (p.Nzh733Ndr) and have yet to experience clinical symptoms. Comments: The most common HFE variants associated with hereditary hemochromatosis are c.845G>A (p.Qjp491Jom), c.187C>G (p.Dzy86Xmw), c.193A>T (p.Ncq16Mpx). While patients homozygous for c.845G>A (p.Vrg387Ber) are the most likely to present clinical symptoms, less than 10% develop clinically significant iron overload with tissue and organ damage. Genetic counseling is recommended to discuss the potential clinical implications of positive results, as well as recommendations for testing family members. Genetic Coordinators are available for health care providers to discuss results at [phone]). Test Details: Three variants analyzed: c.845G>A (p.Yto425Hzd), commonly referred to as C282Y c.187C>G (p.Njw11Zkc), commonly referred to as H63D c.193A>T (p.Ybw72Fgk), commonly referred to as S65C Methods/Limitations: DNA [...] developed and its performance characteristics determined by [employer]. It has not been cleared or approved by the Food and Drug Administration. References: Ignacio BR, Law PC, Andres KV, Stiven LW, Payton ; [employer] Association for the Study of Liver Diseases. Diagnosis and management of hemochromatosis: 2011 practice guideline by the [employer] for the [employer] of Liver Diseases. Hepatology. 2011 Aug;54(1):328-43. doi: 10.1002/hep.25737. PMID: 02196502; PMCID: EGY9129461. Asif G, Aida P, Aury REEVES, Lynn H, Cuong O, Kaiden S, Balta I, Sage M, Saranya S. [facility] best practice guidelines for the molecular genetic diagnosis of hereditary hemochromatosis (HH). Eur J Hum Anali. 2016 May;24(4):479-95. doi: 10.1038/ejhg.2015.128. Epub 2014Aug 25. PMID: 67921332; PMCID: ZAF1902387. Reviewed by: Comment TG Reference Range: . Technical Component performed at [facility] RTP Professional Component performed by: Joe Mack, PhD, [facility] TPTGD5, [facility], [address] [facility] [address] Performed at: [facility] RT [address] [facility], [facility] [place] [id number] Magnetic Testing Technician: Alesia Olivares [facility], Phone: [phone] Performed at: [facility] [address] [id number] Magnetic Testing Technician: Junior Vo PhD, Phone: [phone] Performed By: #### L 500.7155, L300.9354, T5020.8457 ####[facility] [address] [place], [address] Hepatitis C Genotypeon 07-26 HEP C GENOTYPE 1a Normal . [facility] Comment on above: Order Comment: Test( s) 737306-Zzansmllb C Genotype was developed and its performance characteristics determined by [facility]. It has not been cleared or approved by the Food and Drug Administration. Result Comment: Perf ormed at: - [facility] [id number] Magnetic Testing Technician: Radha Lord MD, Phone: [phone] Performed By: #### L 7000.8000, L3410.9992, L3890.6006 #### [facility] [address] [place], [address] Anion gap in Serum or Plasma Ordered By: Xiomara Aguillon on 07-22-2024 Anion gap [Moles/Vol] 13 mmol/L 5-15 [facility] BUN/creatinine ratioOrdered By: Xiomara Aguillon on 07-22-2024 Urea nitrogen/Creatinine [Mass ratio] 21.7 mg/mg High 10-20 [facility] Bilirubin, totalOrdered By: Xiomara Aguillon on 07-22-2024 Bilirubin [Mass/Vol] 0.47 mg/dL 0.00-1.30 [facility] Carbon dioxide, total [Moles /volume] in Central venous bloodOrdered By: Xiomara Aguillon on 07-22-2024 CO2 [Moles/Vol] 19.2 mmol/L Low 21.0-32.0 [facility] Chloride assayOrdered By: Margo Aguillon on 07-22-2024 Chloride [Moles/Vol] 105 mmol/L 98-108 [facility] Comprehensive Metabolic Prof ilon 07-22-2024 Albumin [Mass/Vol] 4.5 g/dL Normal 3.5-5.0 [facility] Comment on above: Performed By: #### L 500.4050, L300.3900, L3410.9992 ####[facility] [address] [place], [address] Albumin/Globulin [Mass ratio] 1.6 {ratio} Normal 0.9-2.4 [facility] Comment on above: Performed By: #### L 500.4050, L300.3900, L3410.9992 ####[facility] [address] [place], [address] ALK PHOS 48 U/L Normal 35-104 [facility] Comment on above: Performed By: #### L 500.4050, L300.3900, L3410.9992 ####[facility] [address] [place], [address] ALT [Catalytic activity/Vol] 43 U/L High <=34 [facility] Comment on above: Performed By: #### L 500.4050, L300.3900, L3410.9992 ####[facility] [address] [place], [address] AST [Catalytic activity/Vol] 27 U/L Normal <=31 [facility] Comment on above: Performed By: #### L 500.4050, L300.3900, L3410.9992 ####[facility] [address] [place], [address] Bilirubin [Mass/Vol] 0.47 mg/dL Normal 0.00-1.30 [facility] Comment on above: Performed By: #### L 500.4050, L300.3900, L3410.9992 ####[facility] [address] [place], [address] BUN/CRE 21.7 RATIO High 10-20 [facility] Comment on above: Performed By: #### L 500.4050, L300.3900, L3410.9992 ####[facility] [address] [place], [address] Calcium [Mass/Vol] 9.2 mg/dL Normal 7.6-11.0 [facility] Comment on above: Performed By: #### L 500.4050, L300.3900, L3410.9992 ####[facility] [address] [place], [address] Chloride [Moles/Vol] 105 mmol/L Normal 98-108 [facility] Comment on above: Performed By: #### L 500.4050, L300.3900, L3410.9992 ####[facility] [address] [place], [address] CO2 [Moles/Vol] 19.2 mmol/L Low 21.0-32.0 [facility] Comment on above: Performed By: #### L 500.4050, L300.3900, L3410.9992 ####[facility] [address] [place], [address] Creatinine [Mass/Vol] 0.63 mg/dL Low 0.70-1.20 [facility] Comment on above: Performed By: #### L 500.4050, L300.3900, L3410.9992 ####[facility] [address] [place], [address] GAP 13 Normal 5-15 [facility] Comment on above: Performed By: #### L 500.4050, L300.3900, L3410.9992 ####[facility] [address] [place], [address] GFR/1.73 sq M.predicted among non-blacks MDRD (S/P/Bld) [Vol rate/Area] 116 mL/min/{1.73_m2} Normal >60 [facility] Comment on above: Result Comment: mL/m in/1.73m2 CKD-EPI Creatinine Equation (2020) Performed By: #### L 500.4050, L300.3900, L3410.9992 ####[facility] [address] [place], [address] Globulin (S) [Mass/Vol] 2.8 g/dL Normal 2.2-4.2 [facility] Comment on above: Performed By: #### L 500.4050, L300.3900, L3410.9992 ####[facility] [address] [place], [address] Glucose [Mass/Vol] 116 mg/dL High 70-99 [facility] Comment on above: Performed By: #### L 500.4050, L300.3900, L3410.9992 ####[facility] [address] [place], [address] Potassium [Moles/Vol] 3.8 mmol/L Normal 3.3-5.1 [facility] Comment on above: Performed By: #### L 500.4050, L300.3900, L3410.9992 ####[facility] [address] [place], [address] Sodium [Moles/Vol] 138 mmol/L Normal 133-145 [facility] Comment on above: Performed By: #### L 500.4050, L300.3900, L3410.9992 ####[facility] [address] [place], [address] T PROT 7.2 g/dL Normal 5.9-8.4 [facility] Comment on above: Performed By: #### L 500.4050, L300.3900, L3410.9992 ####[facility] [address] [place], [address] Urea nitrogen [Mass/Vol] 14 mg/dL Normal 4-19 [facility] Comment on above: Performed By: #### L 500.4050, L300.3900, L3410.9992 ####[facility] [address] [place], [address] Gastroenterology Visit Repor ton 07-22-2024 Gastroenterology Visit Report [facility] Gastroenterology [address] [place] [address] OFFICE VISIT Date of Service: 07/22/24 MR#: [id number] Acct: [id number] Name: MARILEE BOCANEGRA OUSMANE Rep #: [id number] : 1985 Provider: ZOË Benoit Age/Sex: 39/F Location: [facility] Status: Signed Intake Vital Signs 02/12/24 22:31 [...] to the office today for establishment with [facility]. Referred to [facility] from PCP for hep [...] will al (more content not included)... Normal [facility] Glomerular filtration rate ( GFR) estimation/1.73 sq m using serum, plasma, or whole bOrdered By: Xiomara Aguillon on 07-22-2024 GFR/1.73 sq M.predicted among non-blacks MDRD (S/P/Bld) [Vol rate/Area] 116 mL/min/{1.73_m2} >60 [facility] Comment on above: mL/min/1.73m2 CKD-EP I Creatinine Equation (2020) HIVon 07-22-2024 HIV Non-Reactive Normal Nonreactive [facility] Comment on above: Result Comment: Non- Reactive Reactive Repeatedly reactive samples must be confirmed according to CDC recommended confirmatory algorithms. The subresults for either HIVAG or AHIV can be used as an aid in the selection of the confirmation algorithm for reactive samples. Send out specimens with Reactive results to [facility] for confirmation. Order the HIV antibody detection and differentiation: #[id number] Performed By: #### L 7000.8000, L3410.9992, L3890.6006 #### [facility] [address] [place], [address] International normalized rat io (INR) calculationOrdered By: Xiomara Aguillon on 07-22-2024 INR Coag (Bld) [Relative time] 0.9 {INR} [facility] - Chemistry and C hemistry - challengeOrdered By: Xiomara Aguillon on 07-22-2024 AST [Catalytic activity/Vol] 27 U/L <32 [facility] No Panel InformationOrdered By: Meenakshi Fernández on 07-22-2024 HIV (1&2) Antibody Non-Reactive Nonreactive [facility] Comment on above: Non-ReactiveReactive Repeatedly reactive samples must be confirmed according to CDC recommended confirmatory algorithms. The subresults for either HIVAG or AHIV can be used as an aid in the selection of the confirmation algorithm for reactive samples.Send out specimens with Reactive results to [facility] for confirmation.Order the HIV antibody detection and differentiation: #[id number] Potassium measurement (mass/ volume)Ordered By: Xiomara Aguillon on 07-22-2024 Potassium (Unsp spec) [Mass/Vol] 3.8 mmol/L 3.3-5.1 [facility] Prothrombin Time w/INRon INR Coag (PPP) [Relative time] 0.9 {INR} Normal [facility] Comment on above: Performed By: #### L 500.4050, L300.3900, L3410.9992 ####[facility] [address] [place], [address] PT Coag (PPP) [Time] 12.1 s Normal 11.7-14.9 [facility] Comment on above: Performed By: #### L 500.4050, L300.3900, L3410.9992 ####[facility] [address] [facility] [place], [address] Prothrombin timeOrdered By: Xiomara Aguillon on 07-22-2024 PT Coag (PPP) [Time] 12.1 s 11.7-14.9 [facility] Serum creatinine measurement (mass/volume)Ordered By: Xiomara Aguillon on 07-22-2024 Creatinine [Mass/Vol] 0.63 mg/dL Low 0.70-1.20 [facility] Serum globulin measurementOr dered By: Xiomara Aguillon on 07-22-2024 Globulin (S) [Mass/Vol] 2.8 g/dL 2.2-4.2 [facility] Serum glucose measurement (m ass/volume)Ordered By: Xiomara Aguillon on 07-22-2024 Glucose [Mass/Vol] 116 mg/dL High 70-99 [facility] Serum or plasma alanine miranda otransferase (ALT) measurementOrdered By: Xiomara Aguillon on 07-22-2024 ALT [Catalytic activity/Vol] 43 U/L High <35 [facility] Serum or plasma albumin erasto urement (mass/volume)Ordered By: Xiomara Aguillon on 07-22-2024 Albumin [Mass/Vol] 4.5 g/dL 3.5-5.0 [facility] Serum or plasma albumin/glob ulin mass ratioOrdered By: Xiomara Aguillon on 07-22-2024 Albumin/Globulin [Mass ratio] 1.6 {ratio} 0.9-2.4 [facility] Serum or plasma alkaline rigo sphatase measurementOrdered By: Xiomara Aguillon on 07-22-2024 ALP [Catalytic activity/Vol] 48 U/L 35-104 [facility] Serum or plasma calcium erasto urement (mass/volume)Ordered By: Xiomara Aguillon on 07-22-2024 Calcium [Mass/Vol] 9.2 mg/dL 7.6-11.0 [facility] [place] Serum or plasma urea nitroge n measurement (mass/volume)Ordered By: Xiomara Aguillon on 07-22-2024 Urea nitrogen [Mass/Vol] 14 mg/dL 4-19 [facility] Sodium levelOrdered By: Dorota Aguillon on 07-22-2024 Sodium [Moles/Vol] 138 mmol/L 133-145 [facility] Total proteinOrdered By: Alyson Aguillon on 07-22-2024 Protein [Mass/Vol] 7.2 g/dL 5.9-8.4 [facility] Hepatitis Panel Acuteon 05-2 HCV Interpretat Comment Normal . [facility] Comment on above: Result Comment: Posi tive HCV antibody screen with the presence of HCV RNA is consistent with active infection. Performed at: [facility] [address] [id number] Magnetic Testing Technician: Junior Vo PhD, Phone: [phone] Performed at: [facility] [address] [id number] Magnetic Testing Technician: Radha Lord MD, Phone: [phone] Performed By: #### L 503.0106, L400.0001, L501.9520, L503.6550, L506.1001, L503.6030, M100.2200, L100.0100, L3000.0375 ####[facility] [address] [place], [place], [id number] HCV log 10 5.400 Normal . [facility] Comment on above: Result Comment: Resu lt Units: log10 IU/mL Performed By: #### L 503.0106, L400.0001, L501.9520, L503.6550, L506.1001, L503.6030, M100.2200, L100.0100, L3000.0375 ####[facility] [address] [place], [place], [id number] HEP B CORE,IgM Negative Normal Negative [facility] Comment on above: Performed By: #### L 503.0106, L400.0001, L501.9520, L503.6550, L506.1001, L503.6030, M100.2200, L100.0100, L3000.0375 ####[facility] [address] [place], [place], [id number] HEP B SURF AG Negative Normal Negative [facility] Comment on above: Performed By: #### L 503.0106, L400.0001, L501.9520, L503.6550, L506.1001, L503.6030, M100.2200, L100.0100, L3000.0375 ####[facility] [address] [place], [address] Hep C Quant [id number] IU/mL Normal . [facility] Comment on above: Performed By: #### L 503.0106, L400.0001, L501.9520, L503.6550, L506.1001, L503.6030, M100.2200, L100.0100, L3000.0375 ####[facility] [address] [place], [place], [phone] HEP C VIRUS AB Reactive Abnormal Non Reactive [facility] Comment on above: Performed By: #### L 503.0106, L400.0001, L501.9520, L503.6550, L506.1001, L503.6030, M100.2200, L100.0100, L3000.0375 ####[facility] [address] [facility] [place], [address] HEPATITIS A-IgM Negative Normal Negative [facility] Comment on above: Result Comment: A ne gative anti-HAV IgM result suggests no recent or current HAV infection. Performed By: #### L 503.0106, L400.0001, L501.9520, L503.6550, L506.1001, L503.6030, M100.2200, L100.0100, L3000.0375 ####[facility] [address] [facility] [place], [address] Test Informatio Comment Normal . [facility] Comment on above: Result Comment: The quantitative range of this assay is 15 IU/mL to 100 million IU/mL. Performed By: #### L 503.0106, L400.0001, L501.9520, L503.6550, L506.1001, L503.6030, M100.2200, L100.0100, L3000.0375 ####[facility] [address] [facility] [place], [address] Urine Cultureon 07-12-2024 URC Below infection leve l. Mixed Gram Positive Organisms [place] Count <1000 MIXC Mixed contaminants. Submit a new specimen if indicated. Normal [facility] Comment on above: Performed By: #### L 400.2010, M100.2200 ####[facility] [address] [facility]. [place], [place], [phone] URC Below infection leve l. Mixed Gram Positive Organisms [place] Count 1000-10,000 MIXC Mixed contaminants. Submit a new specimen if indicated. Normal [facility] Comment on above: Performed By: #### L 503.0106, L400.0001, L501.9520, L503.6550, L506.1001, L503.6030, M100.2200, L100.0100, L3000.0375 ####[facility] [address] [place], [address] Absolute lymphocyte countOrd ered By: Zebulun Beam on 07-10-2024 Lymphocytes Auto (Unsp spec) [#/Vol] 2.13 10*3/uL 0.83-4.51 [facility] Absolute neutrophil countOrd ered By: Zebulun Beam on 07-10-2024 Neutrophils (Bld) [#/Vol] 4.4 10*3/uL 2.0-7.7 [facility] Automated lymphocyte count a s percentage of total leukocytesOrdered By: Zebulun Beam on 07-10-2024 Lymphocytes/100 WBC Auto (Unsp spec) 28.6 % 19-41 [facility] Basophil percentageOrdered B y: Zebulun Beam on 07-10-2024 Basophils/100 WBC (Bld) 0.4 % 0-1 [facility] Bilirubin Test strip Ql (U)O rdered By: Zebulun Beam on 07-10-2024 Bilirubin Ql (U) Negative Negative [facility] CBC W/Diff, Automatedon 06-19 Absolute Lymph 2.13 X10 3/uL Normal 0.83-4.51 [facility] Comment on above: Performed By: #### L 503.0106, L400.0001, L501.9520, L503.6550, L506.1001, L503.6030, M100.2200, L100.0100, L3000.0375 ####[facility] [address] [place], [address] Absolute Neut 4.4 X10 3/uL Normal 2.0-7.7 [facility] Comment on above: Performed By: #### L 503.0106, L400.0001, L501.9520, L503.6550, L506.1001, L503.6030, M100.2200, L100.0100, L3000.0375 ####[facility] [address] [place], [address] Basophils/100 WBC (Bld) 0.4 % Normal 0-1 [facility] Comment on above: Performed By: #### L 503.0106, L400.0001, L501.9520, L503.6550, L506.1001, L503.6030, M100.2200, L100.0100, L3000.0375 ####[facility] [address] [place], [address] Eosinophils/100 WBC (Bld) 4.6 % Normal 0-5 [facility] Comment on above: Performed By: #### L 503.0106, L400.0001, L501.9520, L503.6550, L506.1001, L503.6030, M100.2200, L100.0100, L3000.0375 ####[facility] [address] [place], [address] Erythrocyte distribution width (RBC) [Ratio] 12.7 % Normal 11.6-14.6 [facility] Comment on above: Performed By: #### L 503.0106, L400.0001, L501.9520, L503.6550, L506.1001, L503.6030, M100.2200, L100.0100, L3000.0375 ####[facility] [address] [place], [address] Hematocrit (Bld) [Volume fraction] 44.3 % Normal 37-47 [facility] Comment on above: Performed By: #### L 503.0106, L400.0001, L501.9520, L503.6550, L506.1001, L503.6030, M100.2200, L100.0100, L3000.0375 ####[facility] [address] [place], [address] Hemoglobin (Bld) [Mass/Vol] 15.1 g/dL High 12.0-15.0 [facility] Comment on above: Performed By: #### L 503.0106, L400.0001, L501.9520, L503.6550, L506.1001, L503.6030, M100.2200, L100.0100, L3000.0375 ####[facility] [address] [place], [address] IG% 0.100 Normal 0.0-0.9 [facility] Comment on above: Result Comment: IG% - Immature Granulocytes (promyelocytes, myelocytes and metamyelocytes) > 1% indicates that a LEFT SHIFT is Present. Performed By: #### L 503.0106, L400.0001, L501.9520, L503.6550, L506.1001, L503.6030, M100.2200, L100.0100, L3000.0375 ####[facility] [address] [place], [address] Lymphocytes/100 WBC (Bld) 28.6 % Normal 19-41 [facility] Comment on above: Performed By: #### L 503.0106, L400.0001, L501.9520, L503.6550, L506.1001, L503.6030, M100.2200, L100.0100, L3000.0375 ####[facility] [address] [place], [address] MCH (RBC) [Entitic mass] 31.9 pg Normal 27.0-32.0 [facility] Comment on above: Performed By: #### L 503.0106, L400.0001, L501.9520, L503.6550, L506.1001, L503.6030, M100.2200, L100.0100, L3000.0375 ####[facility] [address] [place], [address] MCHC (RBC) [Mass/Vol] 34.1 g/dL Normal 32-36 [facility] Comment on above: Performed By: #### L 503.0106, L400.0001, L501.9520, L503.6550, L506.1001, L503.6030, M100.2200, L100.0100, L3000.0375 ####[facility] [address] [place], [address] MCV (RBC) [Entitic vol] 93.7 fL Normal 81-99 [facility] Comment on above: Performed By: #### L 503.0106, L400.0001, L501.9520, L503.6550, L506.1001, L503.6030, M100.2200, L100.0100, L3000.0375 ####[facility] [address] [place], [address] Monocytes/100 WBC (Bld) 7.2 % Normal 0-10 [facility] Comment on above: Performed By: #### L 503.0106, L400.0001, L501.9520, L503.6550, L506.1001, L503.6030, M100.2200, L100.0100, L3000.0375 ####[facility] [address] [place], [address] Neutrophils/100 WBC (Bld) 59.1 % Normal 47-70 [facility] Comment on above: Performed By: #### L 503.0106, L400.0001, L501.9520, L503.6550, L506.1001, L503.6030, M100.2200, L100.0100, L3000.0375 ####[facility] [address] [place], [address] Nucleated RBC (Bld) [#/Vol] 0 10*3/uL Normal 0-5 [facility] Comment on above: Performed By: #### L 503.0106, L400.0001, L501.9520, L503.6550, L506.1001, L503.6030, M100.2200, L100.0100, L3000.0375 ####[facility] [address] [place], [address] Platelet mean volume (Bld) [Entitic vol] 10.4 fL Normal 6.2-12.0 [facility] Comment on above: Performed By: #### L 503.0106, L400.0001, L501.9520, L503.6550, L506.1001, L503.6030, M100.2200, L100.0100, L3000.0375 ####[facility] [address] [place], [address] Platelets (Bld) [#/Vol] 276 10*3/uL Normal 150-450 [facility] Comment on above: Performed By: #### L 503.0106, L400.0001, L501.9520, L503.6550, L506.1001, L503.6030, M100.2200, L100.0100, L3000.0375 ####[facility] [address] [place], [address] RBC (Bld) [#/Vol] 4.73 10*6/uL Normal 4.2-5.4 [facility] Comment on above: Performed By: #### L 503.0106, L400.0001, L501.9520, L503.6550, L506.1001, L503.6030, M100.2200, L100.0100, L3000.0375 ####[facility] [address] [place], [address] RDW SD 44.0 fl High 35.1-43.9 [facility] Comment on above: Performed By: #### L 503.0106, L400.0001, L501.9520, L503.6550, L506.1001, L503.6030, M100.2200, L100.0100, L3000.0375 ####[facility] [address] [place], [place], [address] WBC (Bld) [#/Vol] 7.5 10*3/uL Normal 4.4-11.0 [facility] Comment on above: Performed By: #### L 503.0106, L400.0001, L501.9520, L503.6550, L506.1001, L503.6030, M100.2200, L100.0100, L3000.0375 ####[facility] [address] [place], [place], [phone] Eosinophil percentageOrdered By: Zebulun Beam on 07-10-2024 Eosinophils/100 WBC (Bld) 4.6 % 0-5 [facility] Erythrocyte distribution wid th ratioOrdered By: bulun Beam on 07-10-2024 Erythrocyte distribution width (RBC) [Ratio] 12.7 % 11.6-14.6 [facility] Erythrocyte distribution wid th standard deviationOrdered By: bulun Beam on 07-10-2024 Erythrocyte distribution width (RBC) [Ratio] 44.0 fl High 35.1-43.9 [facility] Ferritinon 07-10-2024 Ferritin [Mass/Vol] 23 ng/mL Normal 22-378 [facility] Comment on above: Performed By: #### L 503.0106, L400.0001, L501.9520, L503.6550, L506.1001, L503.6030, M100.2200, L100.0100, L3000.0375 ####[facility] [address] [place], [place], [id number] Hematocrit Auto (Bld) [Volum e fraction]Ordered By: Zebulun Beam on 07-10-2024 Hematocrit (Bld) [Volume fraction] 44.3 % 37-47 [facility] Hemoglobin measurementOrdere d By: Zebulun Beam on 07-10-2024 Hemoglobin (Bld) [Mass/Vol] 15.1 g/dL High 12.0-15.0 [facility] Immature granulocytes/100 WB C Auto (Bld)Ordered By: Zebulun Beam on 07-10-2024 Immature granulocytes/100 WBC (Bld) 0.100 % 0.0-0.9 [facility] Comment on above: IG% - Immature Granu locytes (promyelocytes, myelocytes and metamyelocytes) > 1% indicates that a LEFT SHIFT is Present. Iron measurement (mass/mass) Ordered By: Zebulun Beam on 07-10-2024 Iron (Unsp spec) [Mass/Mass] 267 ug/dL High 50-170 [facility] Iron+Iron Binding Capacityon 07-10-2024 Iron [Mass/Vol] 267 ug/dL High 50-170 [facility] Comment on above: Performed By: #### L 503.0106, L400.0001, L501.9520, L503.6550, L506.1001, L503.6030, M100.2200, L100.0100, L3000.0375 ####[facility] [address] [place], [address] IRON SATURATION 79.0 High 13-59 [facility] Comment on above: Performed By: #### L 503.0106, L400.0001, L501.9520, L503.6550, L506.1001, L503.6030, M100.2200, L100.0100, L3000.0375 ####[facility] [address] [place], [address] TIBC 337 ug/dL Normal 250-450 [facility] Comment on above: Performed By: #### L 503.0106, L400.0001, L501.9520, L503.6550, L506.1001, L503.6030, M100.2200, L100.0100, L3000.0375 ####[facility] [address] [place], [address] UIBC 70 ug/dL Low 228-428 [facility] Comment on above: Performed By: #### L 503.0106, L400.0001, L501.9520, L503.6550, L506.1001, L503.6030, M100.2200, L100.0100, L3000.0375 ####[facility] [address] [place], [address] Ketones Test strip Ql (U)Ord ered By: christa Fernández on 07-10-2024 Ketones Ql (U) Negative Negative [facility] MCV (mean corpuscular volume ) determinationOrdered By: christa Fernández on 07-10-2024 MCV (RBC) [Entitic vol] 93.7 fL 81-99 [facility] Mean corpuscular hemoglobin (MCH) determinationOrdered By: [facility] Fern[facility] on 07-10-2024 MCH (RBC) [Entitic mass] 31.9 pg 27.0-32.0 [facility] Mean corpuscular hemoglobin concentration (MCHC) determinationOrdered By: lucianapaula Fernández on 07-10-2024 MCHC (RBC) [Mass/Vol] 34.1 g/dL 32-36 [facility] Mean platelet volume determi nationOrdered By: lucianapaula Fernández on 07-10-2024 Platelet mean volume (Bld) [Entitic vol] 10.4 fL 6.2-12.0 [facility] Microscopic analysis of urin e for red blood cells (RBC)Ordered By: Meenakshi Fernández on 07-10-2024 Microscopic analysis of urine for red blood cells (RBC) 0-5 SEEN /hpf 0-5 [facility] Monocyte percentageOrdered B y: Harisalyx Fernández on 07-10-2024 Monocytes/100 WBC (Bld) 7.2 % 0-10 [facility] Mucus LM Ql (Urine sed)Order ed By: christa Fernández on 07-10-2024 Mucus Ql (Urine sed) 0 SEEN /hpf [facility] Neutrophil percentageOrdered By: lucianapaula Fernández on 07-10-2024 Neutrophils/100 WBC (Bld) 59.1 % 47-70 [facility] Nitrite Test strip Ql (U)Ord ered By: christa Fernández on 07-10-2024 Nitrite Ql (U) Negative Negative [facility] No Panel InformationOrdered By: Meenakshi Fernández on 07-10-2024 HCV log10 Confirmation 5.400 . [facility] Comment on above: Result Units: log10 IU/mL Hepatitis C RNA Qnt (PCR) Test Info Comment . [facility] Comment on above: The quantitative ran ge of this assay is 15 IU/mL to 100million IU/mL. Hepatitis C Virus Note Comment . [facility] Comment on above: Positive HCV antibod y screen with the presence of HCV RNAis consistent with active infection.Performed at: [employer] [id number] Director: Junior Vo PhD, Phone: [phone] at: [facility] [address] [id number] Director: Radha Lord MD, Phone: [phone] Unsaturated Iron Binding Capacity 70 ug/dL Low 228-428 [facility] Nucleated red blood cell per centageOrdered By: Meenakshi Fernández on 07-10-2024 Nucleated RBC/100 WBC (Bld) [Ratio] 0 % 0-5 [facility] Platelet countOrdered By: Haris Fernández on 07-10-2024 Platelets (Bld) [#/Vol] 276 10*3/uL 150-450 [facility] Protein Test strip Ql (U)Ord ered By: Meenakshi Fernández on 07-10-2024 Protein Ql (U) Negative Negative [facility] RBC Auto (Bld) [#/Vol]Ordere d By: Meenakshi Fernández on 07-10-2024 RBC (Bld) [#/Vol] 4.73 10*6/uL 4.2-5.4 [facility] Serum or plasma ferritin shelby surement (mass/volume)Ordered By: Meenakshi Fernández on 07-10-2024 Ferritin [Mass/Vol] 23 ng/mL 22-378 [facility] Serum or plasma hepatitis B virus surface antigen detection by immunoassayOrdered By: Meenakshi Fernández on 07-10-2024 HBV surface Ag IA Ql Negative Negative [facility] Serum or plasma iron saturat ion measurement (mass fraction)Ordered By: Meenakshi Fernández on 07-10-2024 Iron saturation [Mass fraction] 79.0 % High 13-59 [facility] Squamous epithelial cells de tection in urine sediment by light microscopyOrdered By: Meenakshi Fernández on 07-10-2024 Epithelial cells.squamous LM Ql (Urine sed) 0-5 SEEN /hpf -10 [facility] TSH DL <= 0.005 mIU/L QnOrde red By: Zebulun Beam on 07-10-2024 TSH Qn 0.883 uIU/mL 0.300-4.200 [facility] Thyroid Stim Hormone (TSH)on 07-10-2024 TSH 0.883 uIU/mL Normal 0.300-4.200 [facility] Comment on above: Performed By: #### L 503.0106, L400.0001, L501.9520, L503.6550, L506.1001, L503.6030, M100.2200, L100.0100, L3000.0375 ####[facility] [address] [place], [place], [id number] Urinalysis, Completeon 07-10 EPI,SQUAMOUS 0-5 SEEN Normal - [facility] Comment on above: Order Comment: Urine , Random Performed By: #### L 503.0106, L400.0001, L501.9520, L503.6550, L506.1001, L503.6030, M100.2200, L100.0100, L3000.0375 ####[facility] [address] [place], [place], [id number] RBC 0-5 SEEN Normal 0-5 [facility] Comment on above: Order Comment: Urine , Random Performed By: #### L 503.0106, L400.0001, L501.9520, L503.6550, L506.1001, L503.6030, M100.2200, L100.0100, L3000.0375 ####[facility] [address] [place], [place], [phone] WBC 0-5 SEEN Normal 0-5 [facility] Comment on above: Order Comment: Urine , Random Performed By: #### L 503.0106, L400.0001, L501.9520, L503.6550, L506.1001, L503.6030, M100.2200, L100.0100, L3000.0375 ####[facility] [address] [place], [address] BACTERIA 0 SEEN Normal None Seen [facility] Comment on above: Order Comment: Urine , Random Performed By: #### L 503.0106, L400.0001, L501.9520, L503.6550, L506.1001, L503.6030, M100.2200, L100.0100, L3000.0375 ####[facility] [address] [place], [address] Mucus Ql (Urine sed) 0 SEEN Normal [facility] Comment on above: Order Comment: Urine , Random Performed By: #### L 503.0106, L400.0001, L501.9520, L503.6550, L506.1001, L503.6030, M100.2200, L100.0100, L3000.0375 ####[facility] [address] [place], [address] Urinalysis, Routine (Dipstic k)on 07-10-2024 BILIRUBIN URINE Negative Normal Negative [facility] Comment on above: Order Comment: Urine , Random Performed By: #### L 400.2010, ####[facility] [address] [place], [address] Clarity (U) Clear Normal Clear [facility] Comment on above: Order Comment: Urine , Random Performed By: #### L 400.2010, ####[facility] [address] [place], [address] Color (U) Straw Normal Yellow [facility] Comment on above: Order Comment: Urine , Random Performed By: #### L 400.2010, ####[facility] [address] [place], [address] GLUCOSE, UR Normal Normal Normal [facility] Comment on above: Order Comment: Urine , Random Performed By: #### L 400.2010, ####[facility] [address] [place], [address] KETONE UR Negative Normal Negative [facility] Comment on above: Order Comment: Urine , Random Performed By: #### L 400.2010, ####[facility] [address] [place], [address] LEUK ESTERASE Negative Normal Negative [facility] Comment on above: Order Comment: Urine , Random Performed By: #### L 400.2010, ####[facility] [address], [address] Nitrite Ql (U) Negative Normal Negative [facility] Comment on above: Order Comment: Urine , Random Performed By: #### L 400.2010, ####[facility] [address] [place], [address] OCCULT BLOOD-UR Negative Normal Negative [facility] Comment on above: Order Comment: Urine , Random Performed By: #### L 400.2010, ####[facility] [address] [place], [address] pH UR 6.5 Normal 5.0 - 8.0 [facility] Comment on above: Order Comment: Urine , Random Performed By: #### L 400.2010, ####[facility] [address] [place], [address] PROT DIPSTX Negative Normal Negative [facility] Comment on above: Order Comment: Urine , Random Performed By: #### L 400.2010, ####[facility] [address] [place], [address] SP.GR. DIPSTX 1.005 Normal 1.002-1.030 [facility] Comment on above: Order Comment: Urine , Random Performed By: #### L 400. ####[facility] [address] [place], [address] UROBILI Normal Normal Normal [facility] Comment on above: Order Comment: Urine , Random Performed By: #### L 400. ####[facility] [address] [place], [place], [address] Urine clarityOrdered By: Can Fernández on 07-10-2024 Clarity (U) Clear Clear [facility] Urine color determinationOrd ered By: Meenakshi Fernández on 07-10-2024 Color (U) Straw Yellow [facility] Urine cultureOrdered By: Can Fernández on 07-10-2024 Bacteria identified Cx Nom (U) Positive Abnormal [facility] Bacteria identified Cx Nom (U) Positive Abnormal [facility] Urine glucose detectionOrder ed By: Meenakshi Fernández on 07-10-2024 Glucose Ql (U) Normal mg/dl Normal [facility] Urine leukocyte esterase det ection by dipstickOrdered By: Meenakshi Fernández on 07-10-2024 Leukocyte esterase Test strip Ql (U) Negative Negative [facility] Urine pHOrdered By: Meenakshi Fernández on 07-10-2024 pH (U) 6.5 [pH] 5.0 - 8.0 [facility] Urine sediment bacteria coun t by microscopy (number/high power field)Ordered By: Meenakshi Fernández on 07-10-2024 Bacteria LM.HPF (Urine sed) [#/Area] 0 /[HPF] None Seen [facility] Urine specific gravity measu rementOrdered By: Meenakshi Fernández on 07-10-2024 Specific gravity (U) [Rel density] 1.005 1.002-1.030 [facility] Urine urobilinogen measureme ntOrdered By: Meenakshi Fernández on 07-10-2024 Urobilinogen Ql (U) Normal mg/dl Normal [facility] Vitamin B12on 07-10-2024 Cobalamin (Vitamin B12) [Mass/Vol] 602 pg/mL Normal 180-914 [facility] Comment on above: Performed By: #### L 503.0106, L400.0001, L501.9520, L503.6550, L506.1001, L503.6030, M100.2200, L100.0100, L3000.0375 ####[facility] [address] [place], [address] Vitamin B12 ser/plasOrdered By: Meenakshi Beam on 07-10-2024 Cobalamin (Vitamin B12) [Mass/Vol] 602 pg/mL 180-914 [facility] Vitamin D,25 Hydroxyon 07-10 Vitamin D 25-OH 27.8 ng/mL Low 30-100 [facility] Comment on above: Result Comment: Bindu min D Status Deficiency: <20 ng/mL (50nmol/L) Insufficiency: 20-30 ng/mL (50-75 nmol/L) Sufficiency: 30-100 ng/mL (75-250 nmol/L) Toxicity: >100 ng/mL (>250 nmol/L) Performed By: #### L 503.0106, L400.0001, L501.9520, L503.6550, L506.1001, L503.6030, M100.2200, L100.0100, L3000.0375 ####[facility] [address] [place], [place], [id number] White blood cell (WBC) count Ordered By: Meenakshi Fernández on 07-10-2024 WBC (Bld) [#/Vol] 7.5 10*3/uL 4.4-11.0 [facility] White blood cell countOrdere d By: Meenakshi Fernández on 07-10-2024 White blood cell count 0-5 SEEN /hpf 0-5 [facility] Absolute lymphocyte countOrd ered By: Meenakshi Fernández on 03-31-2024 Lymphocytes Auto (Unsp spec) [#/Vol] 2.69 10*3/uL 0.83-4.51 [facility] Absolute neutrophil countOrd ered By: Zebulun Beam on 03-31-2024 Neutrophils (Bld) [#/Vol] 2.2 10*3/uL 2.0-7.7 [facility] Albumin to globulin ratioOrd ered By: Zebulun Beam on 03-31-2024 Albumin/Globulin [Mass ratio] 1.0 {ratio} 0.9-2.4 [facility] Automated lymphocyte count a s percentage of total leukocytesOrdered By: Zebulun Beam on 03-31-2024 Lymphocytes/100 WBC Auto (Unsp spec) 46.1 % High 19-41 [facility] Basophil percentageOrdered B y: Zebulun Beam on 03-31-2024 Basophils/100 WBC (Bld) 0.5 % 0-1 [facility] Bilirubin, totalOrdered By: bulun Beam on 03-31-2024 Bilirubin [Mass/Vol] 0.60 mg/dL 0.20-1.00 [facility] Comment on above: For patients on eltr ombopag therapy, use of Dimension [place] TBIL is not recommended. Blood urea nitrogen (BUN)/cr eatinine ratioOrdered By: lucianalun Beam on 03-31-2024 Urea nitrogen/Creatinine [Mass ratio] 27.9 mg/mg High 10-20 [facility] CBC W/Diff, Automatedon 03-21 Absolute Lymph 2.69 X10 3/uL Normal 0.83-4.51 [facility] Comment on above: Performed By: #### L 100.0100, L500.4100, L500.4050, L501.9985, L501.9520 #### [facility] [address] [place], [address] Absolute Neut 2.2 X10 3/uL Normal 2.0-7.7 [facility] Comment on above: Performed By: #### L 100.0100, L500.4100, L500.4050, L501.9985, L501.9520 #### [facility] [address] [place], [address] Basophils/100 WBC (Bld) 0.5 % Normal 0-1 [facility] Comment on above: Performed By: #### L 100.0100, L500.4100, L500.4050, L501.9985, L501.9520 #### [facility] [address] [place], [address] Eosinophils/100 WBC (Bld) 4.8 % Normal 0-5 [facility] Comment on above: Performed By: #### L 100.0100, L500.4100, L500.4050, L501.9985, L501.9520 #### [facility] [address] [place], [address] Erythrocyte distribution width (RBC) [Ratio] 12.8 % Normal 11.6-14.6 [facility] Comment on above: Performed By: #### L 100.0100, L500.4100, L500.4050, L501.9985, L501.9520 #### [facility] [address] [place], [address] Hematocrit (Bld) [Volume fraction] 42.9 % Normal 37-47 [facility] Comment on above: Performed By: #### L 100.0100, L500.4100, L500.4050, L501.9985, L501.9520 #### [facility] [address] [place], [address] Hemoglobin (Bld) [Mass/Vol] 14.4 g/dL Normal 12.0-15.0 [facility] Comment on above: Performed By: #### L 100.0100, L500.4100, L500.4050, L501.9985, L501.9520 #### [facility] [address] [place], [address] IG% 0.200 Normal 0.0-0.9 [facility] Comment on above: Result Comment: IG% - Immature Granulocytes (promyelocytes, myelocytes and metamyelocytes) > 1% indicates that a LEFT SHIFT is Present. Performed By: #### L 100.0100, L500.4100, L500.4050, L501.9985, L501.9520 #### [facility] [address] [place], [address] Lymphocytes/100 WBC (Bld) 46.1 % High 19-41 [facility] Comment on above: Performed By: #### L 100.0100, L500.4100, L500.4050, L501.9985, L501.9520 #### [facility] [address] [place], [address] MCH (RBC) [Entitic mass] 31.2 pg Normal 27.0-32.0 [facility] Comment on above: Performed By: #### L 100.0100, L500.4100, L500.4050, L501.9985, L501.9520 #### [facility] [address] [place], [address] MCHC (RBC) [Mass/Vol] 33.6 g/dL Normal 32-36 [facility] Comment on above: Performed By: #### L 100.0100, L500.4100, L500.4050, L501.9985, L501.9520 #### [facility] [address] [place], [address] MCV (RBC) [Entitic vol] 92.9 fL Normal 81-99 [facility] Comment on above: Performed By: #### L 100.0100, L500.4100, L500.4050, L501.9985, L501.9520 #### [facility] [address] [place], [address] Monocytes/100 WBC (Bld) 10.1 % High 0-10 [facility] Comment on above: Performed By: #### L 100.0100, L500.4100, L500.4050, L501.9985, L501.9520 #### [facility] [address] [place], [address] Neutrophils/100 WBC (Bld) 38.3 % Low 47-70 [facility] Comment on above: Performed By: #### L 100.0100, L500.4100, L500.4050, L501.9985, L501.9520 #### [facility] [address] [place], [address] Nucleated RBC (Bld) [#/Vol] 0 10*3/uL Normal 0-5 [facility] Comment on above: Performed By: #### L 100.0100, L500.4100, L500.4050, L501.9985, L501.9520 #### [facility] [address] [place], [address] Platelet mean volume (Bld) [Entitic vol] 10.4 fL Normal 6.2-12.0 [facility] Comment on above: Performed By: #### L 100.0100, L500.4100, L500.4050, L501.9985, L501.9520 #### [facility] [address] [place], [address] Platelets (Bld) [#/Vol] 250 10*3/uL Normal 150-450 [facility] Comment on above: Performed By: #### L 100.0100, L500.4100, L500.4050, L501.9985, L501.9520 #### [facility] [address] [place], [address] RBC (Bld) [#/Vol] 4.62 10*6/uL Normal 4.2-5.4 [facility] Comment on above: Performed By: #### L 100.0100, L500.4100, L500.4050, L501.9985, L501.9520 #### [facility] [address] [place], [address] RDW SD 43.6 fl Normal 35.1-43.9 [facility] Comment on above: Performed By: #### L 100.0100, L500.4100, L500.4050, L501.9985, L501.9520 #### [facility] [address] [place], [address] WBC (Bld) [#/Vol] 5.8 10*3/uL Normal 4.4-11.0 [facility] Comment on above: Performed By: #### L 100.0100, L500.4100, L500.4050, L501.9985, L501.9520 #### [facility] [address] [place], [address] Carbon dioxide measurementOr dered By: Zebulun Beam on 03-31-2024 CO2 [Moles/Vol] 24.0 mmol/L 21.0-32.0 [facility] Chloride measurementOrdered By: Zebulun Beam on 03-31-2024 Chloride [Moles/Vol] 107 mmol/L 98-107 [facility] Comprehensive Metabolic Prof ilon 03-31-2024 Albumin [Mass/Vol] 3.9 g/dL Normal 3.2-5.0 [facility] Comment on above: Performed By: #### L 100.0100, L500.4100, L500.4050, L501.9985, L501.9520 #### [facility] [address] [place], [address] Albumin/Globulin [Mass ratio] 1.0 {ratio} Normal 0.9-2.4 [facility] Comment on above: Performed By: #### L 100.0100, L500.4100, L500.4050, L501.9985, L501.9520 #### [facility] [address] [place], [address] ALK P 56 U/L Normal 45-117 [facility] Comment on above: Performed By: #### L 100.0100, L500.4100, L500.4050, L501.9985, L501.9520 #### [facility] [address] [place], [address] ALT [Catalytic activity/Vol] 84 U/L High 13-56 [facility] Comment on above: Performed By: #### L 100.0100, L500.4100, L500.4050, L501.9985, L501.9520 #### [facility] [address] [place], [address] AST [Catalytic activity/Vol] 48 U/L High 15-37 [facility] Comment on above: Performed By: #### L 100.0100, L500.4100, L500.4050, L501.9985, L501.9520 #### [facility] [address] [place], [address] Bilirubin [Mass/Vol] 0.60 mg/dL Normal 0.20-1.00 [facility] Comment on above: Result Comment: For patients on eltrombopag therapy, use of Dimension [place] TBIL is not recommended. Performed By: #### L 100.0100, L500.4100, L500.4050, L501.9985, L501.9520 #### [facility] [address] [place], [address] BUN/CRE 27.9 RATIO High 10-20 [facility] Comment on above: Performed By: #### L 100.0100, L500.4100, L500.4050, L501.9985, L501.9520 #### [facility] [address] [place], [address] CA,Total 9.2 mg/dL Normal 8.5-10.1 [facility] Comment on above: Performed By: #### L 100.0100, L500.4100, L500.4050, L501.9985, L501.9520 #### [facility] [address] [place], [address] Chloride [Moles/Vol] 107 mmol/L Normal 98-107 [facility] Comment on above: Performed By: #### L 100.0100, L500.4100, L500.4050, L501.9985, L501.9520 #### [facility] [address] [place], [address] CO2 [Moles/Vol] 24.0 mmol/L Normal 21.0-32.0 [facility] Comment on above: Performed By: #### L 100.0100, L500.4100, L500.4050, L501.9985, L501.9520 #### [facility] [address] [place], [address] Creatinine [Mass/Vol] 0.61 mg/dL Normal 0.55-1.02 [facility] Comment on above: Result Comment: The validity of the calculated GFR GFRAA in patients over 70 years has not been determined. Clinical correlation is essential. Performed By: #### L 100.0100, L500.4100, L500.4050, L501.9985, L501.9520 #### [facility] [address] [place], [address] EST GFR - AA 141 mL/min Normal >60 [facility] Comment on above: Result Comment: Afri can Cymro GFR Calc Performed By: #### L 100.0100, L500.4100, L500.4050, L501.9985, L501.9520 #### [facility] [address] [place], [address] GAP 6 Normal 5-15 [facility] Comment on above: Performed By: #### L 100.0100, L500.4100, L500.4050, L501.9985, L501.9520 #### [facility] [address] [place], [address] GFR/1.73 sq M.predicted among non-blacks MDRD (S/P/Bld) [Vol rate/Area] 116 mL/min/{1.73_m2} Normal >60 [facility] Comment on above: Result Comment: Non- GFR Calc Performed By: #### L 100.0100, L500.4100, L500.4050, L501.9985, L501.9520 #### [facility] [address] [place], [address] Globulin (S) [Mass/Vol] 3.9 g/dL Normal 2.2-4.2 [facility] Comment on above: Performed By: #### L 100.0100, L500.4100, L500.4050, L501.9985, L501.9520 #### [facility] [address] [place], [address] Glucose [Mass/Vol] 89 mg/dL Normal 74-106 [facility] Comment on above: Performed By: #### L 100.0100, L500.4100, L500.4050, L501.9985, L501.9520 #### [facility] [address] [place], [address] Potassium [Moles/Vol] 4.5 mmol/L Normal 3.5-5.1 [facility] Comment on above: Performed By: #### L 100.0100, L500.4100, L500.4050, L501.9985, L501.9520 #### [facility] [address] [place], [address] Sodium [Moles/Vol] 137 mmol/L Normal 136-145 [facility] Comment on above: Performed By: #### L 100.0100, L500.4100, L500.4050, L501.9985, L501.9520 #### [facility] [address] [place], [address] T PROT 7.8 g/dL Normal 6.4-8.2 [facility] Comment on above: Performed By: #### L 100.0100, L500.4100, L500.4050, L501.9985, L501.9520 #### [facility] [address] [place], [address] Urea nitrogen [Mass/Vol] 17 mg/dL Normal 7-18 [facility] Comment on above: Performed By: #### L 100.0100, L500.4100, L500.4050, L501.9985, L501.9520 #### [facility] [address] [place], [address] Eosinophil percentageOrdered By: Meenakshi Fernández on 03-31-2024 Eosinophils/100 WBC (Bld) 4.8 % 0-5 [facility] Erythrocyte distribution wid th ratioOrdered By: Meenakshi Fernández on 03-31-2024 Erythrocyte distribution width (RBC) [Ratio] 12.8 % 11.6-14.6 [facility] Erythrocyte distribution wid th standard deviationOrdered By: Meenakshi Beam on 03-31-2024 Erythrocyte distribution width (RBC) [Ratio] 43.6 fl 35.1-43.9 [facility] Glomerular filtration rate ( GFR) estimationOrdered By: Meenakshi Fernández on 03-31-2024 GFR/1.73 sq M.predicted among non-blacks MDRD (S/P/Bld) [Vol rate/Area] 116 mL/min/{1.73_m2} >60 [facility] Comment on above: Non- GFR Calc Glucose measurementOrdered B y: Meenakshi Fernández on 03-31-2024 Glucose [Mass/Vol] 89 mg/dL 74-106 [facility] Hematocrit Auto (Bld) [Volum e fraction]Ordered By: Meenakshi Fernández on 03-31-2024 Hematocrit (Bld) [Volume fraction] 42.9 % 37-47 [facility] Hemoglobin A1con 03-31-2024 HbA1c (Bld) [Mass fraction] 5.0 % Normal 3.8-5.6 [facility] Comment on above: Result Comment: Norm al < 5.7 % Prediabetic 5.7 - 6.4 % Diabetic >or= 6.5 % Please note range changes. Performed By: #### L 100.0100, L500.4100, L500.4050, L501.9985, L501.9520 ####[facility] [address] [place], [address] Hemoglobin A1c percentageOrd ered By: Meenakshi Fernández on 03-31-2024 HbA1c (Bld) [Mass fraction] 5.0 % 3.8-5.6 [facility] Comment on above: Normal < 5.7 % Predi abetic 5.7 - 6.4 % Diabetic >or= 6.5 % Please note range changes. Hemoglobin measurementOrdere d By: Meenakshi Fernández on 03-31-2024 Hemoglobin (Bld) [Mass/Vol] 14.4 g/dL 12.0-15.0 [facility] High density lipoprotein (HD L) measurementOrdered By: Meenakshi Fernández on 03-31-2024 Cholesterol in HDL [Mass/Vol] 71 mg/dL >40 [facility] Comment on above: The drugs N-Acetylcy steine and Metamizole may falsely depress this assay. Reference Range HDL <40 mg/dL Low HDL Cholesterol HDL >or= 60 mg/dL High HDL Cholesterol Immature granulocytes/100 WB C Auto (Bld)Ordered By: Meenakshi Fernández on 03-31-2024 Immature granulocytes/100 WBC (Bld) 0.200 % 0.0-0.9 [facility] Comment on above: IG% - Immature Granu locytes (promyelocytes, myelocytes and metamyelocytes) > 1% indicates that a LEFT SHIFT is Present. Laboratory - Chemistry and C hemistry - challengeOrdered By: Vianeyn Beam on 03-31-2024 AST [Catalytic activity/Vol] 48 U/L High 15-37 [facility] Lipid Profileon 03-31-2024 Cholesterol [Mass/Vol] 202 mg/dL High 200 [facility] Comment on above: Result Comment: <200 mg/dL Desirable 200-240 mg/dL Borderline >240 mg/dL High Risk Performed By: #### L 100.0100, L500.4100, L500.4050, L501.9985, L501.9520 #### [facility] [address] [place], [address] Cholesterol in HDL [Mass/Vol] 71 mg/dL Normal [facility] Comment on above: Result Comment: The drugs N-Acetylcysteine and Metamizole may falsely depress this assay. Reference Range HDL <40 mg/dL Low HDL Cholesterol HDL >or= 60 mg/dL High HDL Cholesterol Performed By: #### L 100.0100, L500.4100, L500.4050, L501.9985, L501.9520 #### [facility] [address] [place], [address] Cholesterol in LDL [Mass/Vol] 118 mg/dL Normal 0-130 [facility] Comment on above: Performed By: #### L 100.0100, L500.4100, L500.4050, L501.9985, L501.9520 #### [facility] [address] [place], [address] Cholesterol in VLDL [Mass/Vol] 13 mg/dL Normal 5-40 [facility] Comment on above: Performed By: #### L 100.0100, L500.4100, L500.4050, L501.9985, L501.9520 #### [facility] [address] [place], [address] Triglyceride [Mass/Vol] 65 mg/dL Normal [facility] Comment on above: Result Comment: The drugs N-Acetylcysteine and Metamizole may falsely depress this assay. Serum Triglycerides Reference Interval Normal <150 mg/dL Borderline high 150 - 199 mg/dL High 200 - 499 mg/dL Very High > or = 500 mg/dL Performed By: #### L 100.0100, L500.4100, L500.4050, L501.9985, L501.9520 #### [facility] [place], [address] Low density lipoprotein (LDL ) cholesterol measurementOrdered By: Zelucianalun Beam on 03-31-2024 Cholesterol in LDL [Mass/Vol] 118 mg/dL 0-130 [facility] MCV (mean corpuscular volume ) determinationOrdered By: Zebulun Beam on 03-31-2024 MCV (RBC) [Entitic vol] 92.9 fL 81-99 [facility] Mean corpuscular hemoglobin (MCH) determinationOrdered By: Zebulun Beam on 03-31-2024 MCH (RBC) [Entitic mass] 31.2 pg 27.0-32.0 [facility] Mean corpuscular hemoglobin concentration (MCHC) determinationOrdered By: Zebulun Beam on 03-31-2024 MCHC (RBC) [Mass/Vol] 33.6 g/dL 32-36 [facility] Mean platelet volume determi nationOrdered By: Zebulun Beam on 03-31-2024 Platelet mean volume (Bld) [Entitic vol] 10.4 fL 6.2-12.0 [facility] Monocyte percentageOrdered B y: Zebulun Beam on 03-31-2024 Monocytes/100 WBC (Bld) 10.1 % High 0-10 [facility] Neutrophil percentageOrdered By: Zebulun Beam on 03-31-2024 Neutrophils/100 WBC (Bld) 38.3 % Low 47-70 [facility] Nucleated red blood cell per centageOrdered By: Zebulun Beam on 03-31-2024 Nucleated RBC/100 WBC (Bld) [Ratio] 0 % 0-5 [facility] Platelet countOrdered By: Haris Fernández on 03-31-2024 Platelets (Bld) [#/Vol] 250 10*3/uL 150-450 [facility] Potassium measurementOrdered By: Meenakshi Fernández on 03-31-2024 Potassium [Moles/Vol] 4.5 mmol/L 3.5-5.1 [facility] RBC Auto (Bld) [#/Vol]Ordere d By: Meenakshi Beam on 03-31-2024 RBC (Bld) [#/Vol] 4.62 10*6/uL 4.2-5.4 [facility] Serum anion gap measurementO rdered By: Alanlupaula Beam on 03-31-2024 Anion gap [Moles/Vol] 6 mmol/L 5-15 [facility] Serum globulin measurementOr dered By: Meenakshi Fernández on 03-31-2024 Globulin (S) [Mass/Vol] 3.9 g/dL 2.2-4.2 [facility] Serum or plasma alanine miranda otransferase (ALT) measurementOrdered By: Meenakshi Fernández on 03-31-2024 ALT [Catalytic activity/Vol] 84 U/L High 13-56 [facility] Serum or plasma albumin erasto urement (mass/volume)Ordered By: Meenakshi Fernández on 03-31-2024 Albumin [Mass/Vol] 3.9 g/dL 3.2-5.0 [facility] Serum or plasma alkaline rigo sphatase measurementOrdered By: Meenakshi Fernández on 03-31-2024 ALP [Catalytic activity/Vol] 56 U/L 45-117 [facility] Serum or plasma calcium erasto urement (mass/volume)Ordered By: Meenakshi Fernández on 03-31-2024 Calcium [Mass/Vol] 9.2 mg/dL 8.5-10.1 [facility] Serum or plasma cholesterol measurement (mass/volume)Ordered By: Meenakshi Fernández on 03-31-2024 Cholesterol [Mass/Vol] 202 mg/dL High <200 [facility] Comment on above: <200 mg/dL Desirable 200-240 mg/dL Borderline >240 mg/dL High Risk Serum or plasma creatinine m easurement (mass/volume)Ordered By: Meenakshi Fernández on 03-31-2024 Creatinine [Mass/Vol] 0.61 mg/dL 0.55-1.02 [facility] Comment on above: The validity of the calculated GFR & GFRAA in patients over 70 years has not been determined. Clinical correlation is essential. Serum or plasma thyroid stim ulating hormone (TSH) measurement (units/volume)Ordered By: Meenakshi Fernández on 03-31-2024 TSH Qn 1.490 uIU/mL 0.358-3.740 [facility] Serum or plasma urea nitroge n measurement (mass/volume)Ordered By: Meenakshi Fernández on 03-31-2024 Urea nitrogen [Mass/Vol] 17 mg/dL 7-18 [facility] Sodium levelOrdered By: Alan Fernández on 03-31-2024 Sodium [Moles/Vol] 137 mmol/L 136-145 [facility] Thyroid Stim Hormone (TSH)on 03-31-2024 TSH 1.490 uIU/mL Normal 0.358-3.740 [facility] Comment on above: Performed By: #### L 100.0100, L500.4100, L500.4050, L501.9985, L501.9520 #### [facility] [place], [address] Total proteinOrdered By: Can Fernández on 03-31-2024 Protein [Mass/Vol] 7.8 g/dL 6.4-8.2 [facility] Triglycerides measurementOrd ered By: Meenakshi Fernández on 03-31-2024 Triglyceride [Mass/Vol] 65 mg/dL <199 [facility] Comment on above: The drugs N-Acetylcy steine and Metamizole may falsely depress this assay.Serum Triglycerides Reference Interval Normal <150 mg/dL Borderline high 150 - 199 mg/dL High 200 - 499 mg/dL Very High > or = 500 mg/dL Very low density lipoprotein (VLDL) cholesterol measurementOrdered By: Meenakshi Fernández on 03-31-2024 Very low density lipoprotein (VLDL) cholesterol measurement 13 mg/dL 5-40 [facility] White blood cell (WBC) count Ordered By: Meenakshi Fernández on 03-31-2024 WBC (Bld) [#/Vol] 5.8 10*3/uL 4.4-11.0 [facility] Urine Cultureon 03-28-2024 URC Culture exhibits no growth. [facility] Comment on above: Performed By: #### M 100.2200 #### [facility] Laboratory [address] [place], [place], [id number] Urine cultureOrdered By: Can Fernández on 03-27-2024 Bacteria identified Cx Nom (U) Culture exhibits no growth. [facility] M100.678on 02-13-2024 SARS-CoV-2 (COVID-19) RNA JUAN JOSE+probe Ql (Unsp spec) Pending SARS-CoV-2 (COVID 19) Negative INFLUENZA A Negative INFLUENZA B Negative RSV PCR Negative * This is an amended result. * A prior result that was reported as final has been changed. 02/13/24 0855 by GINGER Wallis [facility] Comment on above: Performed By: #### L 7000.8000, L3410.9992, L3890.6006 #### [facility] Laboratory [address] [place], [place], [address] Chest PA and Lateralon 02-11 Chest PA and Lateral [facility] Imaging Services [address] [place], [place] [address] Chest PA and Lateral MR#: [id number] Acct: [id number] Name: MARILEE BOCANEGRA OUSMANE Rep #: [id number] : 1985 F 38 From: Carlos Eduardo cifuentes DO PCP: Jennifer Kwon Bijan, BOOT AND SHOE REPAIRMAN-C Status: REG ER Study: Chest PA and Lateral Date of Exam: 02/12/24 Exam# [id number] Ordering [place]: [place] [id number] EXAM: XR CHEST, 2 VIEWS CLINICAL INDICATION: [...] Salazar DO at 23:10 EST , CC: NEETA BOOT AND SHOE REPAIRMAN-C Jennifer Kwon; Gopi Betts DO Bar Helper: Signed Normal [facility] Emergency Department Summary on 02-12-2024 Emergency Department Summary [facility] Medical Records Department [address] [place] [address] Emergency Department Summary 02/12/24 MR#: [id number] Acct: [id number] Name: MARILEE BOCANEGRA Rep #: [id number] : 1985 38 From: Gopi Betts DO PCP: NEETA Spears, BOOT AND SHOE REPAIRMAN-C Status:REG ER Location: ED HPI History of [...] symptoms and therefore comes in for evaluation [facility] Medical History Ovarian torsion Low iron Depression [...] No a (more content not included)... Normal [facility] Emergency Department Summary on 11-16-2023 Emergency Department Summary [facility] Medical Records Department [address] [place] [address] Emergency Department Summary 11/16/23 MR#: [id number] Acct: [id number] Name: MARILEE BOCANEGRA OUSMANE Rep #: [id number] : 1985 38 From: Duc Oden DO PCP: NEETA Spears, BOOT AND SHOE REPAIRMAN-C Status:REG ER Location: ED HPI History of [...] had been using Tylenol/ibuprofen for pain control. [facility] Medical History Ovarian torsion Low iron Depression [...] follow commands knew that she was at [facility] years 2023 Skin: Warm, dry, intact Const Vital Signs: 11/15/23 22:47 Temperature 97.9 F Temperature Source Oral Pulse Rate 63 Respiratory Rate 18 Blood Pressure 133/91 H Blood Pressure Mean 105 Pulse Ox 100 Oxygen Delivery Method Room Air [facility] MDM Narrative Medical decision making narrative: Patient [...] and do (more content not included)... Normal [facility] CNOVon 09-09-2023 CNOV Office Visit ([facility] ) MARILEE BOCANEGRA ([id number]) 1985 F CHT Date Time Provider Department 09/09/23 8:30 AM JENNIFER FULLER [facility] During your visit today, we recorded the [...] lesions. 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 The history is provided by the patient. No border machine operator was used. Eye Problem This is a [...] HX L hip surgery x 2 in [place] OVARIAN CYST RIGHT, FLUID removal of right [...] daily. (Patient not taking: Reported on 03/27/2022) Vitbsmxu-Mr-Olj-Fe-FA tab Take 1 tablet by mouth once [...] Wt 76.8 (more content not included)... Normal [facility] [place]oy Basophil percentageOrdered B y: [facility] Jnenifer Kwon on 05-27-2023 Bilirubin [Mass/Vol] 0.60 mg/dL 0.20-1.00 [facility] Comment on above: For patients on eltr ombopag therapy, use of Dimension [place] TBIL is not recommended. Chloride [Moles/Vol] 106 mmol/L 98-107 [facility] Glucose [Mass/Vol] 85 mg/dL 74-106 [facility] Hemoglobin (Bld) [Mass/Vol] 14.6 g/dL 12.0-15.0 [facility] Potassium [Moles/Vol] 3.6 mmol/L 3.5-5.1 [facility] Protein [Mass/Vol] 7.7 g/dL 6.4-8.2 [facility] Sodium [Moles/Vol] 138 mmol/L 136-145 [facility] WBC (Bld) [#/Vol] 9.9 10*3/uL 4.4-11.0 [facility] Determination of erythrocyte mean corpuscular volume (MCV)Ordered By: [facility] Jennifer Kwon on 05-27-2023 MCV (RBC) [Entitic vol] 96.8 fL 81-99 [facility] Erythrocyte distribution wid th ratioOrdered By: [facility] Jennifer Kwon on 05-27-2023 Erythrocyte distribution width (RBC) [Ratio] 12.2 % 11.6-14.6 [facility] Erythrocyte distribution wid th standard deviationOrdered By: [facility] Jennifer Kwon on 05-27-2023 Erythrocyte distribution width (RBC) [Entitic vol] 43.8 fL 35.1-43.9 [facility] Hematocrit Auto (Bld) [Volum e fraction]Ordered By: [facility] Jennifer Kwon on 05-27-2023 Hematocrit (Bld) [Volume fraction] 42.1 % 37-47 [facility] Iron measurement (mass/mass) Ordered By: [facility] Jennifer Kwon on 05-27-2023 Iron (Unsp spec) [Mass/Mass] 202 ug/dL 50-170 [facility] Laboratory - Chemistry and C hemistry - challengeOrdered By: [facility] Jennifer Kwon on 05-27-2023 Albumin/Globulin [Mass ratio] 1.1 {ratio} 0.9-2.4 [facility] ALP [Catalytic activity/Vol] 56 U/L 45-117 [facility] ALT [Catalytic activity/Vol] 83 U/L 13-56 [facility] CO2 [Moles/Vol] 25.0 mmol/L 21.0-32.0 [facility] Cobalamin (Vitamin B12) [Mass/Vol] 374 pg/mL 211-911 [facility] Globulin (S) [Mass/Vol] 3.6 g/dL 2.2-4.2 [facility] Urea nitrogen/Creatinine [Mass ratio] 30.1 mg/mg 10-20 [facility] Laboratory - Hematology and Cell countsOrdered By: [facility] Jennifer Kwon on 05-27-2023 MCH (RBC) [Entitic mass] 33.6 pg 27.0-32.0 [facility] MCHC (RBC) [Mass/Vol] 34.7 g/dL 32-36 [facility] Platelet mean volume (Bld) [Entitic vol] 10.0 fL 6.2-12.0 [facility] Platelets (Bld) [#/Vol] 301 10*3/uL 150-450 [facility] No Panel InformationOrdered By: [facility] Jennifer Kwon on 05-27-2023 Estimated GFR (MDRD) Amer 128 mL/min >60 [facility] Comment on above: GFR Calc Estimated GFR (MDRD) Non-Af Amer 106 mL/min >60 [facility] Comment on above: Non- GFR Calc Folate 27.80 ng/mL 3.1-55.4 [facility] Total Iron Binding Capacity 329 ug/dL 250-450 [facility] RBC Auto (Bld) [#/Vol]Ordere d By: [facility] Jennifer Doyle on 05-27-2023 RBC (Bld) [#/Vol] 4.35 10*6/uL 4.2-5.4 [facility] Serum or plasma calcitriol m easurement (mass/volume)Ordered By: [facility] Jennifer Kwon on 05-27-2023 1,25-dihydroxyvitamin D3 [Mass/Vol] 29.3 pg/mL 24.8-81.5 [facility] Comment on above: Performed at: - [address] [employer] [id number] Director: Radha Lord MD, Phone: [phone] Serum or plasma calcium erasto urement (mass/volume)Ordered By: [facility] Jennifer Kown on 05-27-2023 Calcium [Mass/Vol] 9.0 mg/dL 8.5-10.1 [facility] Serum or plasma creatinine m easurement (mass/volume)Ordered By: [facility] K[facility] on 05-27-2023 Creatinine [Mass/Vol] 0.66 mg/dL 0.55-1.02 [facility] Comment on above: The validity of the calculated GFR & GFRAA in patients over 70 years has not been determined. Clinical correlation is essential. Serum or plasma iron saturat ion measurement (mass fraction)Ordered By: [facility] Jennifer Kwon on 05-27-2023 Iron saturation [Mass fraction] 61.4 % 15.0-55.0 [facility] Serum or plasma thyroid stim ulating hormone (TSH) measurement (units/volume)Ordered By: [facility] Jennifer Kwon on 05-27-2023 TSH Qn 0.66 uIU/mL 0.358-3.74 [facility] Serum or plasma urea nitroge n measurement (mass/volume)Ordered By: [facility] Jennifer Kwon on 05-27-2023 Urea nitrogen [Mass/Vol] 20 mg/dL 7-18 [facility] Thin prep Papanicolaou smear with manual screeningOrdered By: [facility] Jennifer Kwon on 05-27-2023 Thin prep Papanicolaou smear with manual screening 4.1 g/dL 3.2-5.0 [facility] Thin prep Papanicolaou smear with manual screening 48 U/L 15-37 [facility] Thin prep Papanicolaou smear with manual screening 7 5-15 [facility] 05[facility]21[facility]20[facility] MAR[facility] BOC[facility]GRA ([id number]) 1985 F T Date Time Provider Department 05/21/23 11:00 AM MIGUEL BRYANT [facility] During your visit today, we recorded the following information about you: Temperature Pulse Respiration Blood pressure 98.1 degrees 70/minute 16/minute 122/70 Weight 76 kg Miguel Bryant, SUPERVISING PRODUCER.EQUIP TECH 05/21/2023 12:04 PM Signed Subjective HPI Nontoxic-appearing female presents urgent care chief complaint cough chest congestion. Duration of symptoms 2 to 3 weeks. Associated symptoms listed above. Most prominent symptom today is cough. He [place]. Was seen by the nurse. Last week states she did have some wheezing as per nurse auscultation. She did have a syncopal episode last week. Was sent to [facility] via EMS. No abnormal findings were noted [...] HX L hip surgery x 2 in [place] OVARIAN CYST RIGHT, FLUID removal of right [...] daily. (Patient not taking: Reported on 03/27/2022) Hxwjkiil-Yi-Tsw-Fe-FA tab Take 1 tablet by mouth once [...] No tachypn (more content not included)... Normal [facility] XR CHEST 2V FRONTAL/LATon XR CHEST 2V [...] tissues: Unremarkable. IMPRESSION: No acute radiographic abnormality. Bar Helper: PSCB Transcribe Date/Time: May 21 2023 11:26A Dictated by : GEOVANNA MIR MD This examination was interpreted and the report reviewed and electronically signed by: GEOVANNA MIR MD on May 21 2023 11:27AM EST [id number] Normal [facility] XR Chest PA and Lateralon IMPRESSION: No acute radiographic abnormality. Bar Helper: ROMAINE Transcribe Date/Time: May 21 2023 11:26A Dictated by : GEOVANNA MIR MD This examination was interpreted and the report reviewed and electronically signed by: GEOVANNA MIR MD on May 21 2023 11:27AM [facility] DIVISION OF RADIOLOGY * * *Final Report* [...] soft tissues: Unremarkable. DIVISION OF RADIOLOGY Provider, [facility] - 05/21/2023 * * *Final Report* * [...] Unremarkable. IMPRESSION IMPRESSION: No acute radiographic abnormality. Bar Helper: ROMAINE Transcribe Date/Time: May 21 2023 11:26A Dictated by : GEOVANNA MIR MD This examination was interpreted and the report reviewed and electronically signed by: GEOVANNA MIR MD on May 21 2023 11:27AM [facility] Radiology Study observation (narrative) [facility] XR Chest PA and LateralOrder ed By: [facility] Provider on 05-21-2023 [facility] Absolute lymphocyte countOrd ered By: Brian Hernadez on 05-17-2023 Lymphocytes Auto (Unsp spec) [#/Vol] 2.57 10*3/uL 0.83-4.51 [facility] Automated lymphocyte count a s percentage of total leukocytesOrdered By: Brian Hernadez on 05-17-2023 Lymphocytes/100 WBC Auto (Unsp spec) 42.9 % 19-41 [facility] Basophil percentageOrdered B y: Brian Hernadez on 05-17-2023 Basophils/100 WBC (Bld) 0.8 % 0-1 [facility] Chloride [Moles/Vol] 112 mmol/L 98-107 [facility] Eosinophils/100 WBC (Bld) 7.8 % 0-5 [facility] Glucose [Mass/Vol] 104 mg/dL 74-106 [facility] Comment on above: Fasting Glucose resu lt from 100 to 125 mg/dL suggests IMPAIRED HOMEOSTASIS per A.D.A. criteria. Hemoglobin (Bld) [Mass/Vol] 14.0 g/dL 12.0-15.0 [facility] Monocytes/100 WBC (Bld) 9.2 % 0-10 [facility] Neutrophils (Bld) [#/Vol] 2.3 10*3/uL 2.0-7.7 [facility] Neutrophils/100 WBC (Bld) 39.1 % 47-70 [facility] Potassium [Moles/Vol] 4.0 mmol/L 3.5-5.1 [facility] Sodium [Moles/Vol] 141 mmol/L 136-145 [facility] WBC (Bld) [#/Vol] 6.0 10*3/uL 4.4-11.0 [facility] Determination of erythrocyte mean corpuscular volume (MCV)Ordered By: Brian Hernadez on 05-17-2023 MCV (RBC) [Entitic vol] 96.9 fL 81-99 [facility] Erythrocyte distribution wid th ratioOrdered By: Brian Hernadez on 05-17-2023 Erythrocyte distribution width (RBC) [Ratio] 12.7 % 11.6-14.6 [facility] Erythrocyte distribution wid th standard deviationOrdered By: Brian Hernadez on 05-17-2023 Erythrocyte distribution width (RBC) [Entitic vol] 45.7 fL 35.1-43.9 [facility] Hematocrit Auto (Bld) [Volum e fraction]Ordered By: Brian Hernadez on 05-17-2023 Hematocrit (Bld) [Volume fraction] 40.3 % 37-47 [facility] Immature granulocytes/100 WB C Auto (Bld)Ordered By: Brian Hernadez on 05-17-2023 Immature granulocytes/100 WBC (Bld) 0.200 % 0.0-0.9 [facility] Comment on above: IG% - Immature Granu locytes (promyelocytes, myelocytes and metamyelocytes) > 1% indicates that a LEFT SHIFT is Present. Laboratory - Chemistry and C hemistry - challengeOrdered By: Brian Hernadez on 05-17-2023 CO2 [Moles/Vol] 25.0 mmol/L 21.0-32.0 [facility] Urea nitrogen/Creatinine [Mass ratio] 19.7 mg/mg 10-20 [facility] Laboratory - Hematology and Cell countsOrdered By: Brian Hernadez on 05-17-2023 MCH (RBC) [Entitic mass] 33.7 pg 27.0-32.0 [facility] MCHC (RBC) [Mass/Vol] 34.7 g/dL 32-36 [facility] Nucleated RBC/100 WBC (Bld) [Ratio] 0 % 0-5 [facility] Platelet mean volume (Bld) [Entitic vol] 10.0 fL 6.2-12.0 [facility] Platelets (Bld) [#/Vol] 267 10*3/uL 150-450 [facility] No Panel InformationOrdered By: Brian Hernadez on 05-17-2023 Estimated Creatinine Clearance Calc 136.80 ml/min [facility] Estimated GFR (MDRD) Amer 142 mL/min >60 [facility] Comment on above: GFR Calc Estimated GFR (MDRD) Non-Af Amer 117 mL/min >60 [facility] Comment on above: Non- GFR Calc RBC Auto (Bld) [#/Vol]Ordere d By: Brian Hernadez on 05-17-2023 RBC (Bld) [#/Vol] 4.16 10*6/uL 4.2-5.4 [facility] Serum or plasma calcium erasto urement (mass/volume)Ordered By: Brian Hernadez on 05-17-2023 Calcium [Mass/Vol] 8.6 mg/dL 8.5-10.1 [facility] Serum or plasma choriogonado tropin detectionOrdered By: Brian Hernadez on 05-17-2023 HCG ( test) Ql Negative [facility] Serum or plasma creatinine m easurement (mass/volume)Ordered By: Brian Hernadez on 05-17-2023 Creatinine [Mass/Vol] 0.61 mg/dL 0.55-1.02 [facility] Comment on above: The validity of the calculated GFR & GFRAA in patients over 70 years has not been determined. Clinical correlation is essential. Serum or plasma urea nitroge n measurement (mass/volume)Ordered By: Brian Hernadez on 05-17-2023 Urea nitrogen [Mass/Vol] 12 mg/dL 7-18 [facility] Thin prep Papanicolaou smear with manual screeningOrdered By: Brian Hernadez on 05-17-2023 Thin prep Papanicolaou smear with manual screening 4 5-15 [facility] Absolute lymphocyte countOrd ered By: Julian Jiménez on 01-08-2023 Lymphocytes Auto (Unsp spec) [#/Vol] 0.78 10*3/uL 0.83-4.51 [facility] Basophil percentageOrdered B y: Julian Jiménez on 01-08-2023 Basophils/100 WBC (Bld) 0.4 % 0-1 [facility] Bilirubin [Mass/Vol] 0.50 mg/dL 0.20-1.00 [facility] Comment on above: For patients on eltr ombopag therapy, use of Dimension [place] TBIL is not recommended. Chloride [Moles/Vol] 105 mmol/L 98-107 [facility] Eosinophils/100 WBC (Bld) 0.0 % 0-5 [facility] Glucose [Mass/Vol] 140 mg/dL 74-106 [facility] Comment on above: Fasting Glucose resu lt greater than or equal to 126 mg/dL suggests DIABETES MELLITUS per A.D.A. criteria. Neutrophils (Bld) [#/Vol] 3.9 10*3/uL 2.0-7.7 [facility] Neutrophils/100 WBC (Bld) 80.8 % 47-70 [facility] Potassium [Moles/Vol] 4.3 mmol/L 3.5-5.1 [facility] Protein [Mass/Vol] 7.4 g/dL 6.4-8.2 [facility] Sodium [Moles/Vol] 135 mmol/L 136-145 [facility] WBC (Bld) [#/Vol] 4.8 10*3/uL 4.4-11.0 [facility] Blood erythrocytes count (nu mber/volume)Ordered By: Julian Jiménez on 01-08-2023 RBC (Bld) [#/Vol] 4.34 10*6/uL 4.2-5.4 [facility] Blood hemoglobin measurement (mass/volume)Ordered By: Julian Jiménez on 01-08-2023 Hemoglobin (Bld) [Mass/Vol] 13.5 g/dL 12.0-15.0 [facility] Blood lymphocytes/100 leukoc ytesOrdered By: Juliantung Jiménez on 01-08-2023 Lymphocytes/100 WBC (Bld) 16.1 % 19-41 [facility] Blood monocytes/100 leukocyt esOrdered By: Juliantung Jiménez on 01-08-2023 Monocytes/100 WBC (Bld) 2.5 % 0-10 [facility] Blood platelet mean volumeOr dered By: Julian Jiménez on 01-08-2023 Platelet mean volume (Bld) [Entitic vol] 9.9 fL 6.2-12.0 [facility] Determination of erythrocyte mean corpuscular volume (MCV)Ordered By: Julian Jiménez on 01-08-2023 MCV (RBC) [Entitic vol] 93.1 fL 81-99 [facility] Erythrocyte sedimentation ra teOrdered By: Julian Jiménez on 01-08-2023 ESR (Bld) [Velocity] 13 mm/h 0-30 [facility] Hematocrit Auto (Bld) [Volum e fraction]Ordered By: Julian Jiménez on 11-21-2023 Hematocrit (Bld) [Volume fraction] 40.4 % 37-47 [facility] Laboratory - Chemistry and C hemistry - challengeOrdered By: Julian Jiménez on 01-08-2023 ALP [Catalytic activity/Vol] 66 U/L 45-117 [facility] ALT [Catalytic activity/Vol] 34 U/L 13-56 [facility] CO2 [Moles/Vol] 26.0 mmol/L 21.0-32.0 [facility] Globulin (S) [Mass/Vol] 3.8 g/dL 2.2-4.2 [facility] Urea nitrogen/Creatinine [Mass ratio] 34.1 mg/mg 10-20 [facility] Laboratory - Drug toxicology Ordered By: Julian Jiménez on 01-08-2023 Amphetamines Ql (U) Positive <1000 ng/mL [facility] Benzodiazepines Ql (U) Negative < 200 ng/mL [facility] Cannabinoids Screen Ql (U) Negative < 50 ng/mL [facility] Cocaine Ql (U) Negative < 300 ng/mL [facility] Opiates Ql (U) Negative < 300 ng/mL [facility] Laboratory - Hematology and Cell countsOrdered By: Juliantung Jiménez on 01-08-2023 Erythrocyte distribution width (RBC) [Entitic vol] 42.6 fL 35.1-43.9 [facility] Erythrocyte distribution width (RBC) [Ratio] 12.3 % 11.6-14.6 [facility] Immature granulocytes/100 WBC (Bld) 0.200 % 0.0-0.9 [facility] Comment on above: IG% - Immature Granu locytes (promyelocytes, myelocytes and metamyelocytes) > 1% indicates that a LEFT SHIFT is Present. MCH (RBC) [Entitic mass] 31.1 pg 27.0-32.0 [facility] Nucleated RBC/100 WBC (Bld) [Ratio] 0 % 0-5 [facility] MCHC Auto (RBC) [Mass/Vol]Or dered By: Julian Jiménez on 01-08-2023 MCHC (RBC) [Mass/Vol] 33.4 g/dL 32-36 [facility] No Panel InformationOrdered By: Juliantung Jiménez on 01-08-2023 Estimated Creatinine Clearance Calc 155.40 ml/min [facility] Estimated GFR (MDRD) Amer 179 mL/min >60 [facility] Comment on above: GFR Calc Estimated GFR (MDRD) Non-Af Amer 148 mL/min >60 [facility] Comment on above: Non- GFR Calc Ethyl Alcohol Level < 3.0 mg/dL [facility] Comment on above: The serum:whole bloo d ethanol ratio is approximately 1.14and varies slightly with hematocrit. Medical Alcohol reference interval and critical value innon-tolerant individuals; 50 - 100 Impairment 100 Intoxication 100 - 250 Severe Poisoning 250 - 400 Deep/possible fatal coma MDMA (Ecstasy) Screen Negative < 500 ng/mL [facility] Urine Barbiturates Screen Negative < 200 ng/mL [facility] Urine Drug Screen Comment [facility] [facility] Comment on above: CONFIRMATORY TESTING FOR ALL [...] Urine Methadone Screen Negative < 300 ng/mL [facility] Platelets bldOrdered By: Julian Jiménez on 01-08-2023 Platelets (Bld) [#/Vol] 398 10*3/uL 150-450 [facility] Serum or plasma albumin erasto urement (mass/volume)Ordered By: Julian Jiménez on 01-08-2023 Albumin [Mass/Vol] 3.6 g/dL 3.2-5.0 [facility] Serum or plasma albumin/glob ulin mass ratioOrdered By: Juliantung Jiménez on 01-08-2023 Albumin/Globulin [Mass ratio] 0.9 {ratio} 0.9-2.4 [facility] Serum or plasma calcium erasto urement (mass/volume)Ordered By: Julian Jiménez on 01-08-2023 Calcium [Mass/Vol] 9.0 mg/dL 8.5-10.1 [facility] Serum or plasma creatinine m easurement (mass/volume)Ordered By: Julian [facility] on 01-08-2023 Creatinine [Mass/Vol] 0.50 mg/dL 0.55-1.02 [facility] Comment on above: The validity of the calculated GFR & GFRAA in patients over 70 years has not been determined. Clinical correlation is essential. Serum or plasma urea nitroge n measurement (mass/volume)[facility]: [facility] 01-08[facility]23 Urea nitrogen [Mass/Vol] 17 mg/dL 7-18 [facility] Thin prep Papanicolaou smear with manual screeningOrdered By: [facility] on 01-08-2023 Thin prep Papanicolaou smear with manual screening 24 U/L 15-37 [facility] Thin prep Papanicolaou smear with manual screening 4 5-15 [facility] Urine phencyclidine (PCP) de tectionOrdered By: [facility] on 01-08-2023 Phencyclidine Ql (U) Negative < 25 ng/mL [facility] Influenza virus A and B and SARS-CoV-2 (COVID-19) Ag panel - Upper respiratory specimOrdered By: Kevin Gregory on 01-03-2023 SARS-CoV-2 (COVID-19) RNA JUAN JOSE+probe Ql (Resp) [facility] Absolute lymphocyte countOrd ered By: Alejandra Britton on 11-13-2022 Lymphocytes Auto (Unsp spec) [#/Vol] 3.05 10*3/uL 0.83-4.51 [facility] Basophil percentageOrdered B y: Alejandra Britton on 11-13-2022 Basophils/100 WBC (Bld) 0.7 % 0-1 [facility] Chloride [Moles/Vol] 108 mmol/L 98-107 [facility] Eosinophils/100 WBC (Bld) 6.5 % 0-5 [facility] Glucose [Mass/Vol] 80 mg/dL 74-106 [facility] Neutrophils (Bld) [#/Vol] 1.7 10*3/uL 2.0-7.7 [facility] Neutrophils/100 WBC (Bld) 30.6 % 47-70 [facility] Potassium [Moles/Vol] 3.9 mmol/L 3.5-5.1 [facility] Sodium [Moles/Vol] 138 mmol/L 136-145 [facility] WBC (Bld) [#/Vol] 5.7 10*3/uL 4.4-11.0 [facility] Blood erythrocytes count (nu mber/volume)Ordered By: Alejandra Britton on 11-13-2022 RBC (Bld) [#/Vol] 3.62 10*6/uL 4.2-5.4 [facility] Blood hemoglobin measurement (mass/volume)Ordered By: Alejandra Britton on 11-13-2022 Hemoglobin (Bld) [Mass/Vol] 11.8 g/dL 12.0-15.0 [facility] Blood lymphocytes/100 leukoc ytesOrdered By: Alejandra Britton on 11-13-2022 Lymphocytes/100 WBC (Bld) 53.7 % 19-41 [facility] Blood monocytes/100 leukocyt esOrdered By: Alejandra Britton on 11-13-2022 Monocytes/100 WBC (Bld) 8.1 % 0-10 [facility] Blood platelet mean volumeOr dered By: Alejandra Britton on 11-13-2022 Platelet mean volume (Bld) [Entitic vol] 10.3 fL 6.2-12.0 [facility] Determination of erythrocyte mean corpuscular volume (MCV)Ordered By: Alejandra Britton on 11-13-2022 MCV (RBC) [Entitic vol] 99.4 fL 81-99 [facility] Hematocrit Auto (Bld) [Volum e fraction]Ordered By: Alejandra Britton on 11-13-2022 Hematocrit (Bld) [Volume fraction] 36.0 % 37-47 [facility] Laboratory - Chemistry and C hemistry - challengeOrdered By: Alejandra Britton on 11-13-2022 CO2 [Moles/Vol] 27.0 mmol/L 21.0-32.0 [facility] Urea nitrogen/Creatinine [Mass ratio] 21.8 mg/mg 10-20 [facility] Laboratory - Hematology and Cell countsOrdered By: Alejandra Britton on 11-13-2022 Erythrocyte distribution width (RBC) [Entitic vol] 46.3 fL 35.1-43.9 [facility] Erythrocyte distribution width (RBC) [Ratio] 12.6 % 11.6-14.6 [facility] Immature granulocytes/100 WBC (Bld) 0.400 % 0.0-0.9 [facility] Comment on above: IG% - Immature Granu locytes (promyelocytes, myelocytes and metamyelocytes) > 1% indicates that a LEFT SHIFT is Present. MCH (RBC) [Entitic mass] 32.6 pg 27.0-32.0 [facility] Nucleated RBC/100 WBC (Bld) [Ratio] 0 % 0-5 [facility] MCHC Auto (RBC) [Mass/Vol]Or dered By: Alejandra Britton on 11-13-2022 MCHC (RBC) [Mass/Vol] 32.8 g/dL 32-36 [facility] No Panel InformationOrdered By: Alejandra Britton on 11-13-2022 Estimated Creatinine Clearance Calc 189.51 ml/min [facility] Estimated GFR (MDRD) Amer 222 mL/min >60 [facility] Comment on above: GFR Calc Estimated GFR (MDRD) Non-Af Amer 184 mL/min >60 [facility] Comment on above: Non- GFR Calc Platelets bldOrdered By: Jennifer Britton on 11-13-2022 Platelets (Bld) [#/Vol] 256 10*3/uL 150-450 [facility] Serum or plasma calcium erasto urement (mass/volume)Ordered By: Alejandra Britton on 11-13-2022 Calcium [Mass/Vol] 8.1 mg/dL 8.5-10.1 [facility] Serum or plasma creatinine m easurement (mass/volume)Ordered By: Alejandra Britton on 11-13-2022 Creatinine [Mass/Vol] 0.41 mg/dL 0.55-1.02 [facility] Comment on above: The validity of the calculated GFR & GFRAA in patients over 70 years has not been determined. Clinical correlation is essential. Serum or plasma urea nitroge n measurement (mass/volume)Ordered By: Alejandra Britton on 11-13-2022 Urea nitrogen [Mass/Vol] 9 mg/dL 7-18 [facility] Thin prep Papanicolaou smear with manual screeningOrdered By: Alejandra Britton on 11-13-2022 Thin prep Papanicolaou smear with manual screening 3 5-15 [facility] Absolute lymphocyte countOrd ered By: Brian Umanaone on 11-11-2022 Lymphocytes Auto (Unsp spec) [#/Vol] 2.66 10*3/uL 0.83-4.51 [facility] Amorphous sediment detection in urine sediment by light microscopyOrdered By: Brian Hernadez on 11-11-2022 Amorphous sediment LM Ql (Urine sed) 1+ [facility] Basophil percentageOrdered B y: Brian Hernadez on 11-11-2022 Basophil percentage 0 SEEN /hpf 0-5 [facility] Basophils/100 WBC (Bld) 0.6 % 0-1 [facility] Bilirubin [Mass/Vol] 0.50 mg/dL 0.20-1.00 [facility] Comment on above: For patients on eltr ombopag therapy, use of Dimension [place] TBIL is not recommended. Chloride [Moles/Vol] 99 mmol/L 98-107 [facility] Eosinophils/100 WBC (Bld) 3.0 % 0-5 [facility] Glucose [Mass/Vol] 131 mg/dL 74-106 [facility] Comment on above: Fasting Glucose resu lt greater than or equal to 126 mg/dL suggests DIABETES MELLITUS per A.D.A. criteria. Lactate [Moles/Vol] 1.2 mmol/L 0.4-2.0 [facility] Neutrophils (Bld) [#/Vol] 8.7 10*3/uL 2.0-7.7 [facility] Neutrophils/100 WBC (Bld) 69.7 % 47-70 [facility] Potassium [Moles/Vol] 4.2 mmol/L 3.5-5.1 [facility] Protein [Mass/Vol] 8.8 g/dL 6.4-8.2 [facility] Sodium [Moles/Vol] 134 mmol/L 136-145 [facility] WBC (Bld) [#/Vol] 12.5 10*3/uL 4.4-11.0 [facility] Beta hCG serum qualOrdered B y: Brian Hernadez on 11-11-2022 Beta HCG ( test) Ql Negative [facility] Bilirubin Test strip Ql (U)O rdered By: Brian Hernadez on 11-11-2022 Bilirubin Ql (U) Negative Negative [facility] Blood erythrocytes count (nu mber/volume)Ordered By: Brian Hernadez on 11-11-2022 RBC (Bld) [#/Vol] 5.44 10*6/uL 4.2-5.4 [facility] Blood hemoglobin measurement (mass/volume)Ordered By: Brian Hernadez on 11-11-2022 Hemoglobin (Bld) [Mass/Vol] 17.5 g/dL 12.0-15.0 [facility] Blood lymphocytes/100 leukoc ytesOrdered By: Brian Hernadez on 11-11-2022 Lymphocytes/100 WBC (Bld) 21.3 % 19-41 [facility] Blood monocytes/100 leukocyt esOrdered By: Brian Hernadez on 11-11-2022 Monocytes/100 WBC (Bld) 5.1 % 0-10 [facility] Blood platelet mean volumeOr dered By: Brian Hernadez on 11-11-2022 Platelet mean volume (Bld) [Entitic vol] 10.2 fL 6.2-12.0 [facility] Determination of erythrocyte mean corpuscular volume (MCV)Ordered By: Brian Hernadez on 11-11-2022 MCV (RBC) [Entitic vol] 97.4 fL 81-99 [facility] Hematocrit Auto (Bld) [Volum e fraction]Ordered By: Brian Hernadez on 11-11-2022 Hematocrit (Bld) [Volume fraction] 53.0 % 37-47 [facility] Ketones Test strip Ql (U)Ord ered By: Brian Hernadez on 11-11-2022 Ketones Ql (U) Negative Negative [facility] Laboratory - Chemistry and C hemistry - challengeOrdered By: Brian Hernadez on 11-11-2022 ALP [Catalytic activity/Vol] 67 U/L 45-117 [facility] ALT [Catalytic activity/Vol] 43 U/L 13-56 [facility] CO2 [Moles/Vol] 30.0 mmol/L 21.0-32.0 [facility] Globulin (S) [Mass/Vol] 4.5 g/dL 2.2-4.2 [facility] Lipase [Catalytic activity/Vol] 19 U/L 13-75 [facility] Comment on above: Please note:LIPASE r evised reference range effective 22. New Lipase methodology. Expected to produce lower values than the previous assay method. NEW Reference Range: 13 - 75 U/L Urea nitrogen/Creatinine [Mass ratio] 14.2 mg/mg 10-20 [facility] Laboratory - Drug toxicology Ordered By: Jeannette Agrawal on 11-11-2022 Amphetamines Ql (U) Negative <1000 ng/mL [facility] Benzodiazepines Ql (U) Negative < 200 ng/mL [facility] Cannabinoids Screen Ql (U) Negative < 50 ng/mL [facility] Cocaine Ql (U) Negative < 300 ng/mL [facility] Opiates Ql (U) Positive < 300 ng/mL [facility] Laboratory - Hematology and Cell countsOrdered By: Brian Hernadez on 11-11-2022 Erythrocyte distribution width (RBC) [Entitic vol] 45.0 fL 35.1-43.9 [facility] Erythrocyte distribution width (RBC) [Ratio] 12.7 % 11.6-14.6 [facility] Immature granulocytes/100 WBC (Bld) 0.300 % 0.0-0.9 [facility] Comment on above: IG% - Immature Granu locytes (promyelocytes, myelocytes and metamyelocytes) > 1% indicates that a LEFT SHIFT is Present. MCH (RBC) [Entitic mass] 32.2 pg 27.0-32.0 [facility] Nucleated RBC/100 WBC (Bld) [Ratio] 0 % 0-5 [facility] MCHC Auto (RBC) [Mass/Vol]Or dered By: Brian Hernadez on 11-11-2022 MCHC (RBC) [Mass/Vol] 33.0 g/dL 32-36 [facility] Mucus LM Ql (Urine sed)Order ed By: Brian Hernadez on 11-11-2022 Mucus Ql (Urine sed) 0 SEEN /hpf [facility] Nitrite Test strip Ql (U)Ord ered By: Brian Hernadez on 11-11-2022 Nitrite Ql (U) Negative Negative [facility] No Panel InformationOrdered By: Jeannette Agrawal on 11-11-2022 MDMA (Ecstasy) Screen Negative < 500 ng/mL [facility] Urine Barbiturates Screen Negative < 200 ng/mL [facility] Urine Drug Screen Comment [facility] Comment on above: CONFIRMATORY TESTING FOR ALL [...] Urine Methadone Screen Negative < 300 ng/mL [facility] No Panel InformationOrdered By: Brian Hernadez on 11-11-2022 Estimated Creatinine Clearance Calc 123.33 ml/min [facility] Estimated GFR (MDRD) Amer 136 mL/min >60 [facility] Comment on above: GFR Calc Estimated GFR (MDRD) Non-Af Amer 112 mL/min >60 [facility] Comment on above: Non- GFR Calc Platelets bldOrdered By: Aristeo Hernadez on 11-11-2022 Platelets (Bld) [#/Vol] 368 10*3/uL 150-450 [facility] Protein Test strip Ql (U)Ord ered By: Brian Hernadez on 11-11-2022 Protein Ql (U) 15 mg/dl Negative [facility] Serum or plasma albumin erasto urement (mass/volume)Ordered By: Brian Hernadez on 11-11-2022 Albumin [Mass/Vol] 4.3 g/dL 3.2-5.0 [facility] Serum or plasma albumin/glob ulin mass ratioOrdered By: Brian Hernadez on 11-11-2022 Albumin/Globulin [Mass ratio] 1.0 {ratio} 0.9-2.4 [facility] Serum or plasma calcium erasto urement (mass/volume)Ordered By: Brian Hernadez on 11-11-2022 Calcium [Mass/Vol] 10.0 mg/dL 8.5-10.1 [facility] Serum or plasma creatinine m easurement (mass/volume)Ordered By: Brian Hernadez on 11-11-2022 Creatinine [Mass/Vol] 0.63 mg/dL 0.55-1.02 [facility] Comment on above: The validity of the calculated GFR & GFRAA in patients over 70 years has not been determined. Clinical correlation is essential. Serum or plasma urea nitroge n measurement (mass/volume)Ordered By: Brian Hernadez on 11-11-2022 Urea nitrogen [Mass/Vol] 9 mg/dL 7-18 [facility] Squamous epithelial cells de tection in urine sediment by light microscopyOrdered By: Brian Hernadez on 11-11-2022 Epithelial cells.squamous LM Ql (Urine sed) 0-5 SEEN /hpf 5-10 [facility] Thin prep Papanicolaou smear with manual screeningOrdered By: Brian Hernadez on 11-11-2022 Thin prep Papanicolaou smear with manual screening 25 U/L 15-37 [facility] Thin prep Papanicolaou smear with manual screening 5 5-15 [facility] Urine blood detectionOrdered By: Brian Hernadez on 11-11-2022 RBC Ql (U) Negative Negative [facility] RBC Ql (U) 0 SEEN /hpf 0-5 [facility] Urine clarityOrdered By: Aristeo Hernadez on 11-11-2022 Clarity (U) Sl. Cloudy Clear [facility] Urine color determinationOrd ered By: Brian Hernadez on 11-11-2022 Color (U) Yellow Yellow [facility] Urine glucose detectionOrder ed By: Brian Hernadez on 11-11-2022 Glucose Ql (U) Normal mg/dl Normal [facility] Urine leukocyte esterase det ection by dipstickOrdered By: Brian Hernadez on 11-11-2022 Leukocyte esterase Test strip Ql (U) Negative Negative [facility] Urine pHOrdered By: Brian Hernadez on 11-11-2022 pH (U) 8.0 [pH] 5.0 - 8.0 [facility] Urine phencyclidine (PCP) de tectionOrdered By: Jeannette Agrawal on 11-11-2022 Phencyclidine Ql (U) Negative < 25 ng/mL [facility] Urine sediment bacteria coun t by microscopy (number/high power field)Ordered By: Brian Hernadez on 11-11-2022 Bacteria LM.HPF (Urine sed) [#/Area] 1 /[HPF] None Seen [facility] Urine specific gravity measu rementOrdered By: Brian Hernadez on 11-11-2022 Specific gravity (U) [Rel density] 1.010 1.002-1.030 [facility] Urobilinogen Auto test strip Ql (U)Ordered By: Brian Hernadez on 11-11-2022 Urobilinogen Ql (U) Normal mg/dl Normal [facility] Influenza virus A and B and SARS-CoV-2 (COVID-19) Ag panel - Upper respiratory specimOrdered By: Jarvis Conde on 11-01-2022 SARS-CoV-2 (COVID-19) RNA JUAN JOSE+probe Ql (Resp) [facility] SARS-CoV-2 (COVID-19) RNA JUAN JOSE+probe Ql (Resp) [facility] PAP TESTon 10-10-2022 ADEQUACY Normal [facility] Comment on above: Order Comment: Speci men Type: FLUID SPECIMEN Ordering Facility: [facility] Address: [address] [place] [address] Result Comment: Sati sfactory for interpretation Lack of menstrual history Excess blood Performed By: #### L [id number] #### [facility] CLIA [id number] [address] [place] [address] STATES OF [facility] CASE REPORT [facility] Comment on above: Order Comment: Speci men Type: FLUID SPECIMEN Ordering Facility: [facility] Address: [address] [place] [address], [place] [address] Result Comment: Gyne cologic Cytology Report Case: [id number] Authorizing Provider: Jennifer Kwon NP Collected: 10/10/2022 11:15 AM Ordering Location: [facility] Received: 10/12/2022 01:56 PM First Screen: [place], Susy, CT, ASCP Specimen: Pap Test, ThinPrep, Cervix Performed By: #### L [id number] #### [facility] CLIA [id number] [address] [place] [address] [place] CLINICAL HISTORY, CYTOLOGY, BUS AND RAIL OPERATOR Routine Exam [facility] Comment on above: Order Comment: Speci men Type: FLUID SPECIMEN Ordering Facility: [facility] Address: [address] [place] [address], [place] [address] Performed By: #### L [id number] #### [facility] CLIA [id number] [address] [place] [address] [place] CYTOLOGY PAP OTHER INT Trichomonas vaginalis [facility] Comment on above: Order Comment: Speci men Type: FLUID SPECIMEN Ordering Facility: [facility] Address: [address] [place] [address], [place] [address] Performed By: #### L [id number] #### [facility] CLIA [id number] [address] [place] [address] [place] FINAL PERFORMING LAB Normal [facility] Comment on above: Order Comment: Speci men Type: FLUID SPECIMEN Ordering Facility: [facility] Address: [address] [place] [address], [place] [address] Result Comment: Tech nical component, residential mortgage manager screening performed at [facility], [address] [place], [place] [id number] CLIA# [id number] Diagnostic interpretation performed at [facility], [address] [place], [place] [id number] CLIA# [id number] Fabrication Engineer: Scott De La Cruz M.D. Performed By: #### L [id number] #### [facility] CLIA [id number] [facility] [place] [address] [place] GROSS DESCRIPTION A. Cervix Normal [facility] Comment on above: Order Comment: Speci men Type: FLUID SPECIMEN Ordering Facility: [facility] Address: [address] [place] [address], [place] [address] Result Comment: Glac ial Acetic Acid added. Performed By: #### L [id number] #### [facility] CLIA [id number] [address] [place] [address] [place] HPV REFLEX No HPV Normal [facility] Comment on above: Order Comment: Speci men Type: FLUID SPECIMEN Ordering Facility: [facility] Address: [address] [place] [address] Performed By: #### L [id number] #### [facility] CLIA [id number] [address] [place] [address] [place] INTERPRETATION, CYTOLOGY, BUS AND RAIL OPERATOR [facility] Comment on above: Order Comment: Speci men Type: FLUID SPECIMEN Ordering Facility: [facility] Address: [address] [place] [address] Result Comment: Nega tive for intraepithelial lesion or malignancy. Performed By: #### L [id number] #### [facility] CLIA [id number] [address] [place] [address] [place] PAP DISCLAIMER COMMENT The Pap Smear is a screening test for cervical cancer. False negative results occur with all screening tests, emphasizing the need for rescreening at recommended intervals, and clinical correlation. [facility] Comment on above: Order Comment: Speci men Type: FLUID SPECIMEN Ordering Facility: [facility] Address: [address] [place] [address] Performed By: #### L [id number] #### [facility] CLIA [id number] [address] [place] [address] [place] PAP POLICE LIAISON COMMENT This specimen has be en analyzed by the ThinPrep Imaging System, an automated imaging and review system, which assists the laboratory in evaluating cells on ThinPrep Pap tests. Following automated imaging, selected beth from every slide are reviewed by a residential mortgage manager. [facility] Comment on above: Order Comment: Speci men Type: FLUID SPECIMEN Ordering Facility: [facility] Address: [address] [place] [address] Performed By: #### L [id number] #### [facility] CLIA [id number] [address] [place] [address] [place] Basophil percentageOrdered B y: Jennifer Kwon on 09-13-2022 Bilirubin [Mass/Vol] 0.40 mg/dL 0.20-1.00 [facility] Comment on above: For patients on eltr ombopag therapy, use of Dimension [place] TBIL is not recommended. Chloride [Moles/Vol] 110 mmol/L 98-107 [facility] Glucose [Mass/Vol] 69 mg/dL 74-106 [facility] Potassium [Moles/Vol] 3.8 mmol/L 3.5-5.1 [facility] Protein [Mass/Vol] 6.9 g/dL 6.4-8.2 [facility] Sodium [Moles/Vol] 142 mmol/L 136-145 [facility] WBC (Bld) [#/Vol] 8.1 10*3/uL 4.4-11.0 [facility] Blood erythrocytes count (nu mber/volume)Ordered By: Jennifer Kwon on 09-13-2022 RBC (Bld) [#/Vol] 3.88 10*6/uL 4.2-5.4 [facility] Blood hemoglobin measurement (mass/volume)Ordered By: Jennifer Kwon on 09-13-2022 Hemoglobin (Bld) [Mass/Vol] 12.6 g/dL 12.0-15.0 [facility] Blood platelet mean volumeOr dered By: Jennifer Kwon on 09-13-2022 Platelet mean volume (Bld) [Entitic vol] 10.7 fL 6.2-12.0 [facility] Determination of erythrocyte mean corpuscular volume (MCV)Ordered By: Jennifer Kwon on 09-13-2022 MCV (RBC) [Entitic vol] 97.2 fL 81-99 [facility] Hematocrit Auto (Bld) [Volum e fraction]Ordered By: Jennifer Kwon on 09-13-2022 Hematocrit (Bld) [Volume fraction] 37.7 % 37-47 [facility] Laboratory - Chemistry and C hemistry - challengeOrdered By: Jennifer Kwon on 09-13-2022 ALP [Catalytic activity/Vol] 49 U/L 45-117 [facility] ALT [Catalytic activity/Vol] 58 U/L 13-56 [facility] CO2 [Moles/Vol] 26.0 mmol/L 21.0-32.0 [facility] Globulin (S) [Mass/Vol] 3.2 g/dL 2.2-4.2 [facility] Urea nitrogen/Creatinine [Mass ratio] 25.3 mg/mg 10-20 [facility] Laboratory - Hematology and Cell countsOrdered By: Jennifer Kwon on 09-13-2022 Erythrocyte distribution width (RBC) [Entitic vol] 50.9 fL 35.1-43.9 [facility] Erythrocyte distribution width (RBC) [Ratio] 14.3 % 11.6-14.6 [facility] MCH (RBC) [Entitic mass] 32.5 pg 27.0-32.0 [facility] MCHC Auto (RBC) [Mass/Vol]Or dered By: Jennifer Kwon on 09-13-2022 MCHC (RBC) [Mass/Vol] 33.4 g/dL 32-36 [facility] No Panel InformationOrdered By: Jennifer Kwon on 09-13-2022 Estimated GFR (MDRD) Amer 127 mL/min >60 [facility] Comment on above: GFR Calc Estimated GFR (MDRD) Non-Af Amer 105 mL/min >60 [facility] Comment on above: Non- GFR Calc Miscellaneous Test See comment [facility] Comment on above: TEST RESULTS LIMITS Iron 100 ug/dL 27 - 139 TESTING PERFORMED AT [facility]. ORIGINAL REPORT ON FILE IN LAB CONTAINS ADDITIONAL TEST SITE INFORMATION. Thyroid Stimulating Hormone (TSH) 1.98 uIU/mL 0.358-3.74 [facility] Total Iron Binding Capacity 279 ug/dL 250-450 [facility] Vitamin D 25-Hydroxy 34.9 ng/mL [facility] Comment on above: Vitamin D 25(OH) Sta tus Range Deficiency <20 ng/mL (50nmol/L) Insufficiency 20 - 30 ng/mL (50 - 75 nmol/L) Sufficiency 30 - 100 ng/mL (75 - 250 nmol/L) Toxicity >100 ng/mL (>250 nmol/L) Platelets bldOrdered By: Giuliana Kwon on 09-13-2022 Platelets (Bld) [#/Vol] 283 10*3/uL 150-450 [facility] Serum or plasma albumin erasto urement (mass/volume)Ordered By: Jennifer Kwon on 09-13-2022 Albumin [Mass/Vol] 3.7 g/dL 3.2-5.0 [facility] Serum or plasma albumin/glob ulin mass ratioOrdered By: Jennifer Kwon on 09-13-2022 Albumin/Globulin [Mass ratio] 1.2 {ratio} 0.9-2.4 [facility] Serum or plasma calcium erasto urement (mass/volume)Ordered By: Jennifer Kwon on 09-13-2022 Calcium [Mass/Vol] 9.0 mg/dL 8.5-10.1 [facility] Serum or plasma creatinine m easurement (mass/volume)Ordered By: Jennifer Kwon on 09-13-2022 Creatinine [Mass/Vol] 0.67 mg/dL 0.55-1.02 [facility] Comment on above: The validity of the calculated GFR & GFRAA in patients over 70 years has not been determined. Clinical correlation is essential. Serum or plasma urea nitroge n measurement (mass/volume)Ordered By: Jennifer Kwon on 09-13-2022 Urea nitrogen [Mass/Vol] 17 mg/dL 7-18 [facility] Thin prep Papanicolaou smear with manual screeningOrdered By: Jennifer Kwon on 09-13-2022 Thin prep Papanicolaou smear with manual screening 32 U/L 15-37 [facility] Thin prep Papanicolaou smear with manual screening 6 5-15 [facility] Absolute lymphocyte countOrd ered By: Jennifer Kwon on 05-01-2022 Lymphocytes Auto (Unsp spec) [#/Vol] 3.38 10*3/uL 0.83-4.51 [facility] Basophil percentageOrdered B y: Jennifer Kwon on 05-01-2022 Basophils/100 WBC (Bld) 0.6 % 0-1 [facility] Bilirubin [Mass/Vol] 0.30 mg/dL 0.20-1.00 [facility] Comment on above: For patients on eltr ombopag therapy, use of Dimension [place] TBIL is not recommended. Chloride [Moles/Vol] 108 mmol/L 98-107 [facility] Eosinophils/100 WBC (Bld) 5.3 % 0-5 [facility] Glucose [Mass/Vol] 83 mg/dL 74-106 [facility] Neutrophils (Bld) [#/Vol] 3.5 10*3/uL 2.0-7.7 [facility] Neutrophils/100 WBC (Bld) 43.4 % 47-70 [facility] Potassium [Moles/Vol] 3.9 mmol/L 3.5-5.1 [facility] Protein [Mass/Vol] 7.7 g/dL 6.4-8.2 [facility] Sodium [Moles/Vol] 139 mmol/L 136-145 [facility] WBC (Bld) [#/Vol] 8.1 10*3/uL 4.4-11.0 [facility] Blood erythrocytes count (nu mber/volume)Ordered By: Jennifer Kwon on 05-01-2022 RBC (Bld) [#/Vol] 4.72 10*6/uL 4.2-5.4 [facility] Blood hemoglobin measurement (mass/volume)Ordered By: Jennifer Kwon on 05-01-2022 Hemoglobin (Bld) [Mass/Vol] 11.2 g/dL 12.0-15.0 [facility] Blood lymphocytes/100 leukoc ytesOrdered By: Jennifer Kwon on 05-01-2022 Lymphocytes/100 WBC (Bld) 41.7 % 19-41 [facility] Blood monocytes/100 leukocyt esOrdered By: Jennifer Kwon on 05-01-2022 Monocytes/100 WBC (Bld) 8.8 % 0-10 [facility] Blood platelet mean volumeOr dered By: Jennifer Kwon on 05-01-2022 Platelet mean volume (Bld) [Entitic vol] 9.5 fL 6.2-12.0 [facility] Determination of erythrocyte mean corpuscular volume (MCV)Ordered By: Jennifer Kwon on 05-01-2022 MCV (RBC) [Entitic vol] 78.6 fL 81-99 [facility] HIV 1 and HIV-2 antibody ass ay with HIV-1 p24 antigen detectionOrdered By: Jennifer Kwon on 05-01-2022 HIV 1+2 Ab+HIV1 p24 Ag IA Ql Non-Reactive Nonreactive [facility] Hematocrit Auto (Bld) [Volum e fraction]Ordered By: Jennifer Kwon on 05-01-2022 Hematocrit (Bld) [Volume fraction] 37.1 % 37-47 [facility] Iron measurement (mass/mass) Ordered By: Jennifer Kwon on 05-01-2022 Iron (Unsp spec) [Mass/Mass] 22 ug/dL 50-170 [facility] Laboratory - Chemistry and C hemistry - challengeOrdered By: Jennifer Kwon on 05-01-2022 ALP [Catalytic activity/Vol] 58 U/L 45-117 [facility] ALT [Catalytic activity/Vol] 70 U/L 13-56 [facility] CO2 [Moles/Vol] 25.0 mmol/L 21.0-32.0 [facility] Globulin (S) [Mass/Vol] 3.8 g/dL 2.2-4.2 [facility] Urea nitrogen/Creatinine [Mass ratio] 16.9 mg/mg 10-20 [facility] Laboratory - Hematology and Cell countsOrdered By: Jennifer Kwon on 05-01-2022 Erythrocyte distribution width (RBC) [Entitic vol] 46.5 fL 35.1-43.9 [facility] Erythrocyte distribution width (RBC) [Ratio] 16.2 % 11.6-14.6 [facility] Immature granulocytes/100 WBC (Bld) 0.200 % 0.0-0.9 [facility] Comment on above: IG% - Immature Granu locytes (promyelocytes, myelocytes and metamyelocytes) > 1% indicates that a LEFT SHIFT is Present. MCH (RBC) [Entitic mass] 23.7 pg 27.0-32.0 [facility] Nucleated RBC/100 WBC (Bld) [Ratio] 0 % 0-5 [facility] MCHC Auto (RBC) [Mass/Vol]Or dered By: Jennifer Kwon on 05-01-2022 MCHC (RBC) [Mass/Vol] 30.2 g/dL 32-36 [facility] No Panel InformationOrdered By: Jennifer Kwon on 05-01-2022 Estimated GFR (MDRD) Amer 132 mL/min >60 [facility] Comment on above: GFR Calc Estimated GFR (MDRD) Non-Af Amer 109 mL/min >60 [facility] Comment on above: Non- GFR Calc Total Iron Binding Capacity 485 ug/dL 250-450 [facility] Platelets bldOrdered By: Giuliana Kwon on 05-01-2022 Platelets (Bld) [#/Vol] 390 10*3/uL 150-450 [facility] Serum hepatitis B virus surf grace antibody IgG detectionOrdered By: Jennifer Kwon on 05-01-2022 HBV surface IgG Ql (S) Reactive [facility] Comment on above: Non Reactive: Incons istent with immunity less than <10 mIU/mL Reactive: Consistent with immunity greater than or equal to 10 mIU/mL Serum or plasma albumin erasto urement (mass/volume)Ordered By: Jennifer Kwon on 05-01-2022 Albumin [Mass/Vol] 3.9 g/dL 3.2-5.0 [facility] Serum or plasma albumin/glob ulin mass ratioOrdered By: Jennifer Kwon on 05-01-2022 Albumin/Globulin [Mass ratio] 1.0 {ratio} 0.9-2.4 [facility] Serum or plasma calcium erasto urement (mass/volume)Ordered By: Jennifer Kwon on 05-01-2022 Calcium [Mass/Vol] 9.3 mg/dL 8.5-10.1 [facility] Serum or plasma creatinine m easurement (mass/volume)Ordered By: Jennifer Kwon on 05-01-2022 Creatinine [Mass/Vol] 0.65 mg/dL 0.55-1.02 [facility] Comment on above: The validity of the calculated GFR & GFRAA in patients over 70 years has not been determined. Clinical correlation is essential. Serum or plasma iron saturat ion measurement (mass fraction)Ordered By: Jennifer Kwon on 05-01-2022 Iron saturation [Mass fraction] 4.5 % 15.0-55.0 [facility] Serum or plasma urea nitroge n measurement (mass/volume)Ordered By: Jennifer Kwon on 05-01-2022 Urea nitrogen [Mass/Vol] 11 mg/dL 7-18 [facility] Thin prep Papanicolaou smear with manual screeningOrdered By: Jennifer Kwon on 05-01-2022 Thin prep Papanicolaou smear with manual screening 30 U/L 15-37 [facility] Thin prep Papanicolaou smear with manual screening 6 5-15 [facility] XR CHEST 2V FRONTAL/LATon [facility] XR Chest PA and Lateralon IMPRESSION: No acute radiographic abnormality. Bar Helper: PSCB Transcribe Date/Time: Apr 27 2022 3:53P Dictated by : GEOVANNA MIR MD This examination was interpreted and the report reviewed and electronically signed by: GEOVANNA MIR MD on Apr 27 2022 3:54PM [facility] DIVISION OF RADIOLOGY * * *Final Report* [...] changes. IMPRESSION IMPRESSION: No acute radiographic abnormality. Bar Helper: PSCB Transcribe Date/Time: Apr 27 2022 3:53P Dictated by : GEOVANNA MIR MD This examination was interpreted and the report reviewed and electronically signed by: GEOVANNA MIR MD on Apr 27 2022 3:54PM EST [facility] Radiology Study observation (narrative) [facility] XR Chest PA and LateralOrder ed By: Ccf Provider on 04-27-2022 [facility] Discharge Summaryon 07-01-19 Discharge Summary Normal [facility] ([place]) .Auto Diffon 06-14-2017 Basophils Auto #/vol (Bld) 0.00 10 3/mcL Normal 0.00-0.27 [facility] ([place]) Comment on above: Performed By: #### C BRUCE POWELL ANEU ####[address] [address] Basophils/100 WBC Auto (Bld) 0.5 % Normal 0.0-2.5 [facility] ([place] Comment on above: Performed By: #### C BRUCE POWELL ANEU ####[address] [address] Eosinophils 0.40 10 3/mcL Normal 0.00-0.65 [facility] ([place] Comment on above: Performed By: #### C BRUCE POWELL ANEU ####[address] [address] Eosinophils/100 leukocytes 7.0 % High 0.0-6.0 [facility] ([place] Comment on above: Performed By: #### C BRUCE POWELL, ANEU ####[address] [address] Lymphocytes 1.70 10 3/mcL Normal 0.90-4.32 [facility] ([place]) Comment on above: Performed By: #### C BRUCE POWELL, ANEU ####[address] [address] Lymphocytes/100 leukocytes 33.1 % Normal 20.0-40.0 [facility] ([place] Comment on above: Performed By: #### C BRUCE POWELL, ANEU ####[address] [address] Monocytes 0.60 10 3/mcL Normal 0.09-1.40 [facility] ([place]) Comment on above: Performed By: #### C BRUCE POWELL, ANEU ####[address] [address] Monocytes/100 leukocytes 12.4 % Normal 2.0-13.0 [facility] ([place] Comment on above: Performed By: #### C BRUCE POWELL, ANEU ####[address] [address] Neutrophils/100 WBC Auto (Bld) 47.0 % Low 50.0-75.0 [facility] ([place] Comment on above: Performed By: #### C BRUCE POWELL, ANEU ####[address] [address] .NEUABSon 06-14-2017 Neutrophils 2.40 10 3/mcL Normal 2.25-8.10 [facility] ([place] Comment on above: Performed By: #### C BRUCE POWELL, ANEU ####[address] [address] CBCon 06-14-2017 Erythrocyte distribution width Auto Ratio (RBC) 13.6 % Normal 11.5-15.5 [facility] ([place] Comment on above: Performed By: #### C BRUCE POWELL, ANEU ####[address] [address] Erythrocytes (RBC) 2.88 10 6/mcL Low 4.10-5.30 [facility] ([place]) Comment on above: Performed By: #### BRUCE STOREY ANEU ####[place] [address] Hematocrit (HCT) 27.6 % Low 34.0-46.0 [facility] ([place] Comment on above: Performed By: #### BRUCE STOREY ANEU ####[place] [address] Hemoglobin mass conc (Bld) 9.6 G/dL Low 12.0-16.0 [facility] ([place] Comment on above: Performed By: #### BRUCE STOREY ANEU ####[place] [address] MCH 33.3 pg High 27.0-33.0 [facility] ([place] Comment on above: Performed By: #### BRUCE STOREY ANEU ####[place] [address] MCHC mass conc (RBC) 34.8 G/dL Normal 32.0-36.0 [facility] ([place] Comment on above: Performed By: #### BRUCE STOREY ANEU ####[place] [address] MCV 95.8 fL Normal 80.0-99.0 [facility] ([place] Comment on above: Performed By: #### BRUCE STOREY ANEU ####[place] [address] Platelet mean volume (PMV) 8.4 fL Normal 6.6-10.5 [facility] ([place] Comment on above: Performed By: #### BRUCE STOREY ANEU ####[place] [address] Platelets 178 10 3/mcL Normal 150-450 [facility] ([place] Comment on above: Performed By: #### BRUCE STOREY ANEU ####[place] [address] WBC (Leukocytes) 5.10 10 3/mcL Normal 4.50-10.80 [facility] ([place]) Comment on above: Performed By: #### C BRUCE POWELL ANEU ####[address] [address] Depart Summaryon 06-14-2017 Depart Summary Normal [facility] ([place] In[place] Patient Summaryon 06-14-2017 Inpatient Patient Summary Normal [facility] ([place] Surgical Progress Noteon Surgical Progress Note Normal [facility]) .Auto Diffon 06-13-2017 Basophils Auto #/vol (Bld) 0.00 10 3/mcL Normal 0.00-0.27 [facility] ([place] Comment on above: Performed By: #### C SHERRY, BRUCE, ANEU, BMP, GFR ####[address] [address] Basophils/100 WBC Auto (Bld) 0.7 % Normal 0.0-2.5 [facility] ([place] Comment on above: Performed By: #### C BC, BRUCE, ANEU, BMP, GFR ####[address] [address] Eosinophils 0.30 10 3/mcL Normal 0.00-0.65 [facility] ([place] Comment on above: Performed By: #### C BC, ROMANIFF, ANEU, BMP, GFR ####[address] [address] Eosinophils/100 leukocytes 6.3 % High 0.0-6.0 [facility] ([place] Comment on above: Performed By: #### C BC, ADIFF, ANEU, BMP, GFR ####[address] [address] Lymphocytes 2.10 10 3/mcL Normal 0.90-4.32 [facility] ([place] Comment on above: Performed By: #### C BC, ADIFF, ANEU, BMP, GFR ####[address] [address] Lymphocytes/100 leukocytes 43.7 % High 20.0-40.0 [facility] ([place] Comment on above: Performed By: #### C BC, BRUCE, ANEU, BMP, GFR ####[address] [address] Monocytes 0.60 10 3/mcL Normal 0.09-1.40 [facility] ([place] Comment on above: Performed By: #### C BC, ADIFF, ANEU, BMP, GFR ####[address] [address] Monocytes/100 leukocytes 11.5 % Normal 2.0-13.0 [facility] ([place] Comment on above: Performed By: #### C BC, ADIFF, ANEU, BMP, GFR ####[address] [address] Neutrophils/100 WBC Auto (Bld) 37.8 % Low 50.0-75.0 [facility] ([place] Comment on above: Performed By: #### C BC, ADIFF, ANEU, BMP, GFR ####[address] [address] .GFRon 06-13-2017 eGFR (non-black) mL/min/{1.73_m2} Normal [facility] ([place]) Comment on above: Result Comment: GFR Population [...] #### C BC, ADIFF, ANEU, BMP, GFR ####[address] [address] .NEUABSon 06-13-2017 Neutrophils 1.90 10 3/mcL Low 2.25-8.10 [facility] ([place] Comment on above: Performed By: #### C BC, ADIFF, ANEU, BMP, GFR ####[address] [address] BMPon 06-13-2017 BUN/Creatinine Ratio 21.6 ratio Normal 10.0-22.0 [facility] ([place] Comment on above: Performed By: #### C BC, ADIFF, ANEU, BMP, GFR ####[place] [address] Calcium 8.3 mg/dL Low 8.4-10.1 [facility] ([place] Comment on above: Performed By: #### C BC, ADIFF, ANEU, BMP, GFR ####[place] [address] Chloride 110 mmol/L Normal 98-110 [facility] ([place] Comment on above: Performed By: #### C BC, ADIFF, ANEU, BMP, GFR ####[place] [address] CO2 27 mmol/L Normal 22-32 [facility] ([place] Comment on above: Performed By: #### C BC, ADIFF, ANEU, BMP, GFR ####[place] [address] Creatinine 0.51 mg/dL Normal 0.50-1.20 [facility] ([place] Comment on above: Performed By: #### C BC, ADIFF, ANEU, BMP, GFR ####[place] [address] Electrolyte Balance 6.0 mEq/L Normal 4.0-15.0 [facility] ([place] Comment on above: Performed By: #### C BC, ADIFF, ANEU, BMP, GFR ####[place] [address] Glucose mass conc 81 mg/dL Normal 70-110 [facility] ([place] Comment on above: Performed By: #### C BC, ADIFF, ANEU, BMP, GFR ####[place] [address] Potassium molar conc 3.9 mmol/L Normal 3.5-5.0 [facility] ([place] Comment on above: Performed By: #### C BC, ADIFF, ANEU, BMP, GFR ####[place] [address] Sodium 143 mmol/L Normal 136-145 [facility] ([place] Comment on above: Performed By: #### C BC, ADIFF, ANEU, BMP, GFR ####[place] [address] Urea nitrogen 11.0 mg/dL Normal 8.0-22.0 [facility] ([place] Comment on above: Performed By: #### C BC, ADIFF, ANEU, BMP, GFR ####[place] [address] CBCon 06-13-2017 Erythrocyte distribution width Auto Ratio (RBC) 13.6 % Normal 11.5-15.5 [facility] ([place] Comment on above: Performed By: #### C BC, ADIFF, ANEU, BMP, GFR ####[place] [address] Erythrocytes (RBC) 2.96 10 6/mcL Low 4.10-5.30 [facility] ([place] Comment on above: Performed By: #### C BC, ADIFF, ANEU, BMP, GFR ####[place] [address] Hematocrit (HCT) 28.2 % Low 34.0-46.0 [facility] ([place] Comment on above: Performed By: #### C BC, ADIFF, ANEU, BMP, GFR ####[place] [address] Hemoglobin mass conc (Bld) 9.8 G/dL Low 12.0-16.0 [facility] ([place] Comment on above: Performed By: #### C BC, ADIFF, ANEU, BMP, GFR ####[place] [address] MCH 33.2 pg High 27.0-33.0 [facility] ([place] Comment on above: Performed By: #### C BC, ADIFF, ANEU, BMP, GFR ####[place] [address] MCHC mass conc (RBC) 34.8 G/dL Normal 32.0-36.0 [facility] ([place] Comment on above: Performed By: #### C BC, ADIFF, ANEU, BMP, GFR ####[address] [address] MCV 95.4 fL Normal 80.0-99.0 [facility] ([place] Comment on above: Performed By: #### C BC, ADIFF, ANEU, BMP, GFR ####[address] [address] Platelet mean volume (PMV) 8.3 fL Normal 6.6-10.5 [facility] ([place] Comment on above: Performed By: #### C BC, ADIFF, ANEU, BMP, GFR ####[place] [address] Platelets 183 10 3/mcL Normal 150-450 [facility] ([place] Comment on above: Performed By: #### C BC, ADIFF, ANEU, BMP, GFR ####[address] [address] WBC (Leukocytes) 4.90 10 3/mcL Normal 4.50-10.80 [facility] ([place] Comment on above: Performed By: #### C BC, ADIFF, ANEU, BMP, GFR ####[address] [address] [address] ABD/PELVIS W/ IV CONTRAST ONLYon 06-13-2017 [...] bruises, complaining of abdominal pain COMPARISON: 06/12/2017 [facility], 07/13/2016 [facility] FINDINGS: The liver is unremarkable [...] PM Sign Date: 06/12/2017 11:01:41 PM Normal [facility] ([place]) CT MAXILLOFACIAL W/O CONTRAS Robert 06-13-2017 CT MAXILLOFACIAL W/O CONTRAST ORIGINALCT MAXILLOFACIAL [...] PM Sign Date: 06/12/2017 10:37:35 PM Normal [facility] ([place] CT SPINE CERVICAL W/O CONTRA STon 06-13-2017 CT SPINE CERVICAL W/O CONTRAST ORIGINALCT [...] resident's findings and interpretation Interpreted By: Stu eD MDPreliminary Report By: Rui Pendleton DOElectronically Signed By: Stu De MD Dictated Date: 06/12/2017 9:42:00 PM Prelim Date: 06/12/2017 9:44:57 PM Sign Date: 06/12/2017 11:53:20 PM Normal [facility] ([place] ED Note-Provideron 8 ED Note-Provider Normal [facility]) History and Physical Pre-Opo n 06-13-2017 History and Physical Pre-Op Normal [facility]) Patient Summary Documentson 06-13-2017 Patient Summary Documents Normal [facility] ([place] XR CHEST 2 VIEWSon 8 Thyroid stimulating [...] PM Sign Date: 06/12/2017 10:28:39 PM Normal [facility] ([place]) .Auto Diffon 06-12-2017 Basophils Auto #/vol (Bld) 0.00 10 3/mcL Normal 0.00-0.27 [facility] ([place] Comment on above: Performed By: #### C BC, ADIFF, ANEU, ABORH, ANTIS ####[address] [address] Basophils/100 WBC Auto (Bld) 0.5 % Normal 0.0-2.5 [facility] above: Performed By: #### C BC, ADIFF, ANEU, ABORH, ANTIS ####[address] [address] Eosinophils 0.20 10 3/mcL Normal 0.00-0.65 [facility] ([place] Comment on above: Performed By: #### C BC, ADIFF, ANEU, ABORH, ANTIS ####[address] [address] Eosinophils/100 leukocytes 2.9 % Normal 0.0-6.0 [facility] ([place] Comment on above: Performed By: #### C BC, ADIFF, ANEU, ABORH, ANTIS ####[address] [address] Lymphocytes 2.20 10 3/mcL Normal 0.90-4.32 [facility] ([place] Comment on above: Performed By: #### C BC, ADIFF, ANEU, ABORH, ANTIS ####[address] [address] Lymphocytes/100 leukocytes 31.2 % Normal 20.0-40.0 [facility] ([place] Comment on above: Performed By: #### C BC, ADIFF, ANEU, ABORH, ANTIS ####[address] [address] Monocytes 0.80 10 3/mcL Normal 0.09-1.40 [facility] ([place] Comment on above: Performed By: #### C BC, ADIFF, ANEU, ABORH, ANTIS ####[address] [address] Monocytes/100 leukocytes 11.4 % Normal 2.0-13.0 [facility] ([place] Comment on above: Performed By: #### C BC, ADIFF, ANEU, ABORH, ANTIS ####[address] [address] Neutrophils/100 WBC Auto (Bld) 54.0 % Normal 50.0-75.0 [facility] ([place] Comment on above: Performed By: #### C BC, ADIFF, ANEU, ABORH, ANTIS ####[address] [address] .GFRon 06-12-2017 eGFR (non-black) mL/min/{1.73_m2} Normal [facility] ([place]) Comment on above: Result Comment: GFR Population [...] Performed By: #### L IP, GFR, CMP ####[place] [address] .NEUABSon 06-12-2017 Neutrophils 3.90 10 3/mcL Normal 2.25-8.10 [facility] ([place] Comment on above: Performed By: #### C BRUCE POWELL ANEU, ABORH, ANTIS ####[place] [address] CBCon 06-12-2017 Erythrocyte distribution width Auto Ratio (RBC) 12.9 % Normal 11.5-15.5 [facility] ([place] Comment on above: Performed By: #### C BRUCE POWELL ANEU, ABORH, ANTIS ####[address] [address] Erythrocytes (RBC) 3.14 10 6/mcL Low 4.10-5.30 [facility] ([place] Comment on above: Performed By: #### C BRUCE POWELL ANEU, ABORH, ANTIS ####[address] [address] Hematocrit (HCT) 29.5 % Low 34.0-46.0 [facility] ([place] Comment on above: Performed By: #### C BC, ADIFF, ANEU, ABORH, ANTIS ####[place] [address] Hemoglobin mass conc (Bld) 10.5 G/dL Low 12.0-16.0 [facility] ([place] Comment on above: Performed By: #### C BC, ADIFF, ANEU, ABORH, ANTIS ####[place] [address] MCH 33.5 pg High 27.0-33.0 [facility] ([place] Comment on above: Performed By: #### C BC, ADIFF, ANEU, ABORH, ANTIS ####[place] [address] MCHC mass conc (RBC) 35.6 G/dL Normal 32.0-36.0 [facility] ([place]) Comment on above: Performed By: #### C BC, ADIFF, ANEU, ABORH, ANTIS ####[place] [address] MCV 94.1 fL Normal 80.0-99.0 [facility] ([place] Comment on above: Performed By: #### C BC, ADIFF, ANEU, ABORH, ANTIS ####[place] [address] Platelet mean volume (PMV) 8.1 fL Normal 6.6-10.5 [facility] ([place] Comment on above: Performed By: #### C BC, ADIFF, ANEU, ABORH, ANTIS ####[place] [address] Platelets 202 10 3/mcL Normal 150-450 [facility] ([place] Comment on above: Performed By: #### C BC, ADIFF, ANEU, ABORH, ANTIS ####[place] [address] WBC (Leukocytes) 7.20 10 3/mcL Normal 4.50-10.80 [facility] ([place]) Comment on above: Performed By: #### C BC, ADIFF, ANEU, ABORH, ANTIS ####[place] [address] CMPon 06-12-2017 Albumin/Globulin Ratio 1.1 {ratio} Normal 0.9-1.6 [facility] ([place]) Comment on above: Performed By: #### L IP, GFR, CMP ####[place] [id number] Alk Phos 86 U/L Normal 38-126 [facility] ([place] Comment on above: Performed By: #### L IP, GFR, CMP ####[place] [address] Bili Total 0.7 mg/dL Normal 0.2-1.2 [facility] ([place]) Comment on above: Performed By: #### L IP, GFR, CMP ####[place] [address] Globulin 2.8 G/dL Normal 1.5-3.8 [facility] ([place] Comment on above: Performed By: #### L IP, GFR, CMP ####[place] [address] Protein 5.9 G/dL Low 6.0-8.5 [facility] ([place] Comment on above: Performed By: #### L IP, GFR, CMP ####[place] [address] Alanine aminotransferase (ALT) 297 U/L High 10-49 [facility] ([place] Comment on above: Performed By: #### L IP, GFR, CMP ####[place] [address] Albumin 3.1 G/dL Low 3.2-4.8 [facility] ([place] Comment on above: Performed By: #### L IP, GFR, CMP ####[address] [address] Aspartate aminotransferase (AST) 159 U/L High 8-34 [facility] ([place] Comment on above: Performed By: #### L IP, GFR, CMP ####[place] [address] BUN/Creatinine Ratio 19.3 ratio Normal 10.0-22.0 [facility] ([place] Comment on above: Performed By: #### L IP, GFR, CMP ####[place] [address] Calcium 8.2 mg/dL Low 8.4-10.1 [facility] ([place] Comment on above: Performed By: #### L IP, GFR, CMP ####[place] [address] Chloride 108 mmol/L Normal 98-110 [facility] ([place] Comment on above: Performed By: #### L IP, GFR, CMP ####[place] [address] CO2 26 mmol/L Normal 22-32 [facility] ([place] Comment on above: Performed By: #### L IP, GFR, CMP ####[place] [address] Creatinine 0.57 mg/dL Normal 0.50-1.20 [facility] ([place] Comment on above: Performed By: #### L IP, GFR, CMP ####[place] [address] Electrolyte Balance 5.0 mEq/L Normal 4.0-15.0 [facility] ([place] Comment on above: Performed By: #### L IP, GFR, CMP ####[place] [address] Glucose mass conc 94 mg/dL Normal 70-110 [facility] ([place] Comment on above: Performed By: #### L IP, GFR, CMP ####[place] [address] Potassium molar conc 4.0 mmol/L Normal 3.5-5.0 [facility] ([place] Comment on above: Performed By: #### L IP, GFR, CMP ####[place] [address] Sodium 139 mmol/L Normal 136-145 [facility] ([place] Comment on above: Performed By: #### L IP, GFR, CMP ####[place] [address] Urea nitrogen 11.0 mg/dL Normal 8.0-22.0 [facility] ([place] Comment on above: Performed By: #### L IP, GFR, CMP ####[place] [address] CT HEAD OR BRAIN W/O CONTRAS Ton [...] soft tissue swelling. Interpreted By: Stu De MDPreliminary Report By: Stu De MDElectronically Signed By: Stu De MD Dictated Date: 06/12/2017 9:40:52 PM Prelim Date: 06/12/2017 9:40:52 PM Sign Date: 06/12/2017 9:42:49 PM Normal [facility] ([place]) LIPon 06-12-2017 Lipase Level 252 U/L Normal 73-393 [facility] ([place] Comment on above: Performed By: #### L IP, GFR, CMP ####[place] [address] TABOon 06-12-2017 ABO/Rh Interp Positive Invalid Interpretation Code [facility] ([place] Comment on above: Performed By: #### C BC, ADIFF, ANEU, ABORH, ANTIS ####[place] [address] TABSon 06-12-2017 Antibody Screen Tango Negative Normal [facility] ([place] Comment on above: Performed By: #### C BC, ADIFF, ANEU, ABORH, ANTIS ####[address] Emergency Room Note on 01-23-2017 [facility] Note Normal [facility] ([place] Patient Summary Documentson 01-23-2017 Patient Summary Documents Normal [facility] ([place]) [facility] Note on 12-21-2016 [facility] Note Normal [facility] ([place] CT HEAD OR BRAIN W/O CONTRAS Ton [...] PM Sign Date: 12/20/2016 8:08:07 PM Normal [facility] ([place]) Patient Summary Documentson 12-20-2016 Patient Summary Documents Normal [facility]) ED Visit Summaryon [facility] Patient: MARILEE BOCANEGRA [address] [facility] MR#: [id number] [place], [place] [address] : 1985 [address] : Dept: Emergency Department Loc: 1EDA ER Physician Documentation Service Dt: 09/26/16 Report#: [id number] Adm Dt: 09/26/16 Dis Dt: 09/26/16 Patient Information - Type Independent: Yes - Chief Complaint Initial Complaint: RT FOOT INJ Chief Complaint: Pain, Foot-Traumatic - Nursing Triage Note Nursing Triage Note: pt states she injured her left medial foot approx 1 week ago, painful ambulattion - Allergies Allergies/Adverse Rxn: Allergies cefaclor [From Ceclor] Allergy (Verified 09/26/16 19:51) Rash Penicillins Allergy [...] (ED) Additional Instructions: Thank you for choosing [facility] for medical needs. I enjoyed meeting you and would like you to the followin. Please make an appointment with podiatry specialist as soon as possible to address her pain. 2. Resume all home medications. 3. Return to the emergency room if your symptoms worsen or new symptoms occur. Take all medications as discussed on discharge. Referrals: Abbi Cheng DPM [Courtesy] - Normal [facility] ED Visit [facility] Patient: MARILEE BOCANEGRA MR#: [id number] [place], [place] [address] : [address] Dept: Emergency Department Loc: 1EDA ER Physician Documentation Service Dt: 09/26/16 Report#: [id number] Adm Dt: 09/26/16 Dis Dt: 09/26/16 Physician [...] main ED provider note. 09/26/16 17:44 Normal [facility] Foot Right - Min 3 Viewson 0 09-26-2016 Foot Right - Min 3 Views [facility] Patient: MARILEE BOCANEGRA MR#: [id number] [place], [place] [address] : 1985 [address] .: Roya Florian PA-C Dept: Diagnostic Imaging Loc: 1EDA DI REPORT Service Dt:09/26/16 Report#: [id number] Adm Dt: 09/26/16 Dis Dt: Comments: STUDY: Right foot dated 09/26/2016. INDICATION: Injury 1 week ago. Tender to palpation 5th metatarsal. COMPARISON: None. ACCESSION NUMBER(S): [id number] ORDERING CLINICIAN: Roya Florian TECHNIQUE: AP, lateral, and oblique radiographs of the right foot. FINDINGS: No fracture or dislocation is evident. There is a plantar calcaneal enthesophyte. No ankle joint effusion is evident.Soft tissues are grossly unremarkable. IMPRESSION: No osseous injury is evident. Dictated by: Cheng Fang Electronically Signed by: Cheng Fang 09/26/2016 6:49 PM Normal [facility] Emergency Room Note on 08-27-2016 [facility] Note Normal [facility] ED Note-Provideron ED Note-Provider Normal [facility] Patient Summary Documentson 08-16-2016 Patient Summary Documents Normal [facility] Vital Signs Date Time Vital Sign Value Performing Clinician Facility 08-04-2024 14:19040 Body height 172.72 cm Jennifer Kwon NP-C Work Phone: 3(929)849-983727 [place] [address] 08-04-2024 14:19040 Body mass index (BMI) [Ratio] 26.4 kg/m2 Jennifer Kwon [employer]OT AND SHOE REPAIRMAN-C Work Phone: 8(996)188-729327 [place] [address] 08-04-2024 14:19040 Body temperature 98.5 [degF] Jennifer Kwon [employer] AND SH[employer] REPAIRMAN-C Work Phone: 3(055)736-278127 [place] [address] 08-04-2024 14:19040 Body weight 78.92 kg Jennifer Kwon [employer] AND SH[employer] REPAIRMAN-C Work Phone: 6(342)748-735027 [place] [address] 08-04-2024 14:19040 Diastolic blood pressure 75 mm[Hg] Jennifer Kwon NP-C Work Phone: 1(826)504-786327 [place] [address] 08-04-2024 14:190400 Heart rate 78 /min Jennifer Kwon [employer] AND SH[employer] REPAIRMAN-C Work Phone: 5(264)676-488627 [place] [address] 08-04-2024 14:190400 Respiratory rate 16 /min Jennfier Doyle [employer] AND SHOE REPAIRMAN-C Work Phone: 0(073)093-117034 [place] [address] 08-04-2024 14:19-0400 SaO2% (BldA) [Mass fraction] 95 % Jennifer Doyle [employer] AND SH[employer] REPAIRMAN-C Work Phone: 5(281)539-904934 [place] [address] 08-04-2024 14:19-0400 Systolic blood pressure 111 mm[Hg] Jennifer Doyle [employer] AND SHOE REPAIRMAN-C Work Phone: 9(293)612-828834 [place] [address] 07-31-2024 08:35-0400 Body height 172.72 cm Jennifer Doyle [employer] AND SH[employer] REPAIRMAN-C Work Phone: 2(295)571-827434 [place] [address] 07-31-2024 08:35-0400 Body mass index (BMI) [Ratio] 26.6 kg/m2 Jennifer Doyle [employer] AND SH[employer] REPAIRMAN-C Work Phone: 4(892)934-692434 [place] [address] 07-31-2024 08:35-0400 Body weight 79.37 kg Jennifer Doyle [employer] AND SHOE REPAIRMAN-C Work Phone: 5(698)709-051034 [place] [address] 07-31-2024 08:35-0400 Diastolic blood pressure 82 mm[Hg] Jennifer Doyle [employer] AND SH[employer] REPAIRMAN-C Work Phone: 9(447)246-925634 [place] [address] 07-31-2024 08:35-0400 Heart rate 76 /min Jennifer Doyle [employer] AND SH[employer] REPAIRMAN-C Work Phone: 2(783)566-409334 [place] [address] 07-31-2024 08:35-0400 SaO2% (BldA) [Mass fraction] 96 % Jennifer Doyle [employer] AND SH[employer] REPAIRMAN-C Work Phone: 3(930)707-358334 [place] [address] 07-31-2024 08:35-0400 Systolic blood pressure 121 mm[Hg] Jennifer Doyle [employer] AND SH[employer] REPAIRMAN-C Work Phone: 8(896)519-556734 [place] [address] 07-21-2024 08:07-0400 Body height 172.72 cm Jennifer Doyle [employer] AND SH[employer] REPAIRMAN-C Work Phone: 9(353)458-173134 [place] [address] 09-11-2023 14:23-0400 Body mass index (BMI) [Ratio] 26.59 kg/m2 Austin Arnett APRN.CNP Work Phone: [facility] 09-11-2023 14:23-0400 Body temperature 98.49 [degF] Austin Arnett SUPERVISING PRODUCER.EQUIP TECH Work Phone: [facility] 09-11-2023 14:23-0400 Body weight 77 kg Austin Melquiades SUPERVISING PRODUCER.EQUIP TECH Work Phone: [facility] 09-11-2023 14:23-0400 Diastolic blood pressure 79 mm[Hg] Austin Melquiades SUPERVISING PRODUCER.EQUIP TECH Work Phone: [facility] 09-11-2023 14:23-0400 Heart rate 85 /min Austin Melquiades SUPERVISING PRODUCER.EQUIP TECH Work Phone: [facility] 09-11-2023 14:23-0400 Respiratory rate 18 /min Austin Melquiades SUPERVISING PRODUCER.EQUIP TECH Work Phone: [facility] 09-11-2023 14:23-0400 SaO2% (BldA) [Mass fraction] 99 % Austin Arnett SUPERVISING PRODUCER.EQUIP TECH Work Phone: [facility] 09-11-2023 14:23-0400 Systolic blood pressure 131 mm[Hg] Austinradha Arnett SUPERVISING PRODUCER.EQUIP TECH Work Phone: [facility] 09-09-2023 08:41-0400 Body mass index (BMI) [Ratio] 26.52 kg/m2 Jennifer Fuller SUPERVISING PRODUCER.EQUIP TECH Work Phone: [facility] 09-09-2023 08:41-0400 Body temperature 98.2 [degF] Jennifer Fuller SUPERVISING PRODUCER.EQUIP TECH Work Phone: [facility] 09-09-2023 08:41-0400 Body weight 76.8 kg Jennifer Fuller SUPERVISING PRODUCER.EQUIP TECH Work Phone: [facility] 09-09-2023 08:41-0400 Diastolic blood pressure 80 mm[Hg] Jennifer Fuller SUPERVISING PRODUCER.EQUIP TECH Work Phone: [facility] 09-09-2023 08:41-0400 Heart rate 82 /min Jennifer Fuller SUPERVISING PRODUCER.EQUIP TECH Work Phone: [facility] 09-09-2023 08:41-0400 Respiratory rate 20 /min Jennifer Fuller SUPERVISING PRODUCER.EQUIP TECH Work Phone: [facility] 09-09-2023 08:41-0400 SaO2% (BldA) [Mass fraction] 98 % Jennifer Fuller SUPERVISING PRODUCER.EQUIP TECH Work Phone: [facility] 09-09-2023 08:41-0400 Systolic blood pressure 120 mm[Hg] Jennifer Fuller SUPERVISING PRODUCER.EQUIP TECH Work Phone: [facility] 05-21-2023 10:58-0400 Body temperature 98.1 [degF] Miguel Pendlebury SUPERVISING PRODUCER.EQUIP TECH Work Phone: [facility] 05-21-2023 10:58-0400 Body weight 76 kg Miguelcherelle Smithaleta SUPERVISING PRODUCER.EQUIP TECH Work Phone: [facility] 05-21-2023 10:58-0400 Diastolic blood pressure 70 mm[Hg] Miguel Pendletayla SUPERVISING PRODUCER.EQUIP TECH Work Phone: [facility] 05-21-2023 10:58-0400 Heart rate 70 /min Miguel Pendlebury SUPERVISING PRODUCER.EQUIP TECH Work Phone: [facility] 05-21-2023 10:58-0400 Respiratory rate 16 /min Miguel Juddtayla SUPERVISING PRODUCER.EQUIP TECH Work Phone: [facility] 05-21-2023 10:58-0400 SaO2% (BldA) [Mass fraction] 99 % Miguel Manny SUPERVISING PRODUCER.EQUIP TECH Work Phone: [facility] 05-21-2023 10:58-0400 Systolic blood pressure 122 mm[Hg] [facility] SUPERVISING PRODUCER.EQUIP TECH Work Phone: [facility] 05-17-2023 08:40-0400 Body temperature 97.9 [degF] [facility] 05-17-2023 08:40-0400 Diastolic blood pressure 68 mm[Hg] [facility] 05-17-2023 08:40-0400 Heart rate 60 /min [facility] [place] [facility] 03-29-2024 08:40-0400 Respiratory rate 16 /min [facility] 05-17-2023 08:40-0400 SaO2% (BldA) [Mass fraction] 98 % [facility] 05-17-2023 08:40-0400 Systolic blood pressure 91 mm[Hg] [facility] 05-17-2023 07:31-0400 Body height 172.72 cm [facility] [place] [facility] 05-17-2023 07:31-0400 Body mass index (BMI) [Ratio] 25.9 kg/m2 [facility] 05-17-2023 07:31-0400 Body weight 77.4 kg [facility] [place] [facility] 01-08-2023 09:35-0500 Body height 172.72 cm [facility] Work Phone: 9(674)171-504834 [place] [address] 01-08-2023 09:35-0500 Body mass index (BMI) [Ratio] 23.2 kg/m2 [facility] Work Phone: 0(023)532-992434 [place] [address] 01-08-2023 09:35-0500 Body temperature 98.1 [degF] [facility] Work Phone: 1(510)522-435534 [place] [address] 01-08-2023 09:35-0500 Body weight 69.4 kg [facility] Work Phone: 8(547)702-743834 [place] [address] 01-08-2023 09:35-0500 Diastolic blood pressure 83 mm[Hg] [facility] Work Phone: 8(072)890-309034 [place] [address] 01-08-2023 09:35-0500 Heart rate 93 /min [facility] Work Phone: 5(187)245-623834 [place] [address] 01-08-2023 09:35-0500 Respiratory rate 14 /min [facility] Work Phone: 3(457)338-983134 [place] [address] 01-08-2023 09:35-0500 SaO2% (BldA) [Mass fraction] 98 % [facility] Work Phone: 5(674)030-337434 [place] [address] 01-08-2023 09:35-0500 Systolic blood pressure 134 mm[Hg] [facility] Work Phone: 0(273)769-853434 [place] [address] 01-03-2023 09:57-0500 Body height 172.72 cm [facility] Work Phone: 0(642)363-597434 [place] [address] 01-03-2023 09:57-0500 Body mass index (BMI) [Ratio] 23.4 kg/m2 [facility] Work Phone: 3(682)610-034334 [place] [address] 01-03-2023 09:57-0500 Body temperature 99 [degF] [facility] Work Phone: 2(415)857-382234 [place] [address] 01-03-2023 09:57-0500 Body weight 70 kg [facility] Work Phone: 7(991)665-756434 [place] [address] 01-03-2023 09:57-0500 Diastolic blood pressure 81 mm[Hg] [facility] Work Phone: 6(049)980-902234 [place] [address] 01-03-2023 09:57-0500 Heart rate 79 /min [facility] Work Phone: 0(444)280-557634 [place] [address] 01-03-2023 09:57-0500 Respiratory rate 16 /min [facility] Work Phone: 0(575)877-039934 [place] [address] 01-03-2023 09:57-0500 SaO2% (BldA) [Mass fraction] 100 % [facility] Work Phone: 2(333)575-606734 [place] [address] 01-03-2023 09:57-0500 Systolic blood pressure 117 mm[Hg] [facility] Work Phone: 8(985)906-047934 [place] [address] 11-13-2022 09:18-0400 Body temperature 97.8 [degF] [facility] Work Phone: 8(217)500-420134 [place] [address] 11-13-2022 09:18-0400 Diastolic blood pressure 47 mm[Hg] [facility] Work Phone: 1(062)560-429634 [place] [address] 11-13-2022 09:18-0400 Heart rate 50 /min [facility] Work Phone: 6(439)237-964534 [place] [address] 11-13-2022 09:18-0400 Respiratory rate 18 /min [facility] Work Phone: 8(551)801-278034 [place] [address] 11-13-2022 09:18-0400 SaO2% (BldA) [Mass fraction] 98 % [facility] Work Phone: [facility] 11-13-2022 09:18-0400 Systolic blood pressure 96 mm[Hg] [facility] Work Phone: 0(506)896-365527 [place] [address] 11-11-2022 16:20-0400 Body height 172.72 cm [facility] Work Phone: 2(025)741-302327 [place] [address] 11-11-2022 16:20-0400 Body weight 71.6 kg [facility] Work Phone: 7(084)572-026727 [place] [address] 11-11-2022 09:45-0400 Body mass index (BMI) [Ratio] 24 kg/m2 [facility] Work Phone: 4(227)026-436027 [place] [address] 11-11-2022 08:24-0400 Body temperature 96.4 [degF] [facility] 11-11-2022 08:24-0400 Diastolic blood pressure 97 mm[Hg] [facility] 11-11-2022 08:24-0400 Heart rate 58 /min [facility] [place] [facility] 11-11-2022 08:24-0400 Respiratory rate 14 /min [facility] 11-11-2022 08:24-0400 SaO2% (BldA) [Mass fraction] 95 % [facility] 11-11-2022 08:24-0400 Systolic blood pressure 160 mm[Hg] [facility] 11-11-2022 04:49-0400 Body height 172.72 cm [facility] [place] [facility] 11-11-2022 04:49-0400 Body mass index (BMI) [Ratio] 24.5 kg/m2 [facility] 11-11-2022 04:49-0400 Body weight 73.3 kg [facility] [place] [facility] 11-01-2022 10:04-0400 Body temperature 98 [degF] [facility] 11-01-2022 10:04-0400 Diastolic blood pressure 81 mm[Hg] [facility] 11-01-2022 10:04-0400 Heart rate 68 /min [facility] [place] [facility] 11-01-2022 10:04-0400 Respiratory rate 16 /min [facility] 11-01-2022 10:04-0400 SaO2% (BldA) [Mass fraction] 98 % [facility] 11-01-2022 10:04-0400 Systolic blood pressure 120 mm[Hg] [facility] 11-01-2022 06:58-0400 Body height 172.72 cm [facility] [place] [facility] 11-01-2022 06:58-0400 Body mass index (BMI) [Ratio] 24.5 kg/m2 [facility] 11-01-2022 06:58-0400 Body weight 73.1 kg [facility] [place] [facility] 10-03-2022 23:59-0400 Heart rate 78 /min [facility] [place] [facility] 10-03-2022 23:59-0400 Respiratory rate 18 /min [facility] 10-03-2022 23:59-0400 SaO2% (BldA) [Mass fraction] 97 % [facility] 10-03-2022 22:37-0400 Body height 172.72 cm [facility] [place] [facility] 10-03-2022 22:37-0400 Body mass index (BMI) [Ratio] 25 kg/m2 [facility] 10-03-2022 22:37-0400 Body temperature 97.6 [degF] [facility] 10-03-2022 22:37-0400 Body weight 74.75 kg [facility] [place] [facility] 10-03-2022 22:37-0400 Diastolic blood pressure 90 mm[Hg] [facility] 10-03-2022 22:37-0400 Systolic blood pressure 137 mm[Hg] [facility] 04-27-2022 15:22-0500 Body temperature 97 [degF] Miguel Bryant APRN.EQUIP TECH Work Phone: [facility] 04-27-2022 15:22-0500 Body weight 85.91 kg Miguel Bryant APRN.EQUIP TECH Work Phone: [facility] 04-27-2022 15:22-0500 Diastolic blood pressure 84 mm[Hg] Miguel Bryant APRN.EQUIP TECH Work Phone: [facility] 04-27-2022 15:22-0500 Heart rate 79 /min Miguel Bryant SUPERVISING PRODUCER.EQUIP TECH Work Phone: [facility] 04-27-2022 15:22-0500 Respiratory rate 18 /min [facility] SUPERVISING PRODUCER.EQUIP TECH Work Phone: [facility] 04-27-2022 15:22-0500 SaO2% (BldA) [Mass fraction] 97 % [facility] SUPERVISING PRODUCER.EQUIP TECH Work Phone: [facility] 04-27-2022 15:22-0500 Systolic blood pressure 130 mm[Hg] [facility] SUPERVISING PRODUCER.EQUIP TECH Work Phone: [facility] 04-03-2022 14:02-0500 Body height 170.18 cm [facility] [place] [facility] 04-03-2022 14:02-0500 Body mass index (BMI) [Ratio] 28 kg/m2 [facility] 04-03-2022 14:02-0500 Body temperature 98.6 [degF] [facility] 04-03-2022 14:02-0500 Body weight 81.19 kg [facility] [place] [facility] 04-03-2022 14:02-0500 Diastolic blood pressure 104 mm[Hg] [facility] 04-03-2022 14:02-0500 Heart rate 79 /min [facility] [place] [facility] 04-03-2022 14:02-0500 Respiratory rate 24 /min [facility] 04-03-2022 14:02-0500 SaO2% (BldA) [Mass fraction] 98 % [facility] 04-03-2022 14:02-0500 Systolic blood pressure 152 mm[Hg] [facility] 04-03-2022 13:29-0500 Body temperature 98.01 [degF] Lokesh Colongg PA Work Phone: [facility] 04-03-2022 13:29-0500 Body weight 85.28 kg Yosilypaula Aberegg PA Work Phone: [facility] 04-03-2022 13:29-0500 Diastolic blood pressure 82 mm[Hg] Lokesh Aberegg PA Work Phone: [facility] 04-03-2022 13:29-0500 Heart rate 98 /min Krislyn Aberegg PA Work Phone: [facility] 04-03-2022 13:29-0500 Respiratory rate 16 /min Krislyn Aberegg PA Work Phone: [facility] 04-03-2022 13:29-0500 SaO2% (BldA) [Mass fraction] 98 % Krislyn Aberegg PA Work Phone: [facility] 04-03-2022 13:29-0500 Systolic blood pressure 124 mm[Hg] Krislyn Aberegg PA Work Phone: [facility] 03-27-2022 16:21-0500 Body temperature 98.4 [degF] Miguel Pendlebury SUPERVISING PRODUCER.EQUIP TECH Work Phone: [facility] 03-27-2022 16:21-0500 Body weight 87.09 kg Miguel Pendlebury SUPERVISING PRODUCER.EQUIP TECH Work Phone: [facility] 03-27-2022 16:21-0500 Diastolic blood pressure 64 mm[Hg] Miguel Pendlebury SUPERVISING PRODUCER.EQUIP TECH Work Phone: [facility] 03-27-2022 16:21-0500 Heart rate 102 /min Miguel Pendlebury SUPERVISING PRODUCER.EQUIP TECH Work Phone: [facility] 03-27-2022 16:21-0500 Respiratory rate 18 /min Miguel Pendlebury SUPERVISING PRODUCER.EQUIP TECH Work Phone: [facility] 03-27-2022 16:21-0500 SaO2% (BldA) [Mass fraction] 98 % Miguel Pendlebury SUPERVISING PRODUCER.EQUIP TECH Work Phone: [facility] 03-27-2022 16:21-0500 Systolic blood pressure 108 mm[Hg] Miguel Pendlebury SUPERVISING PRODUCER.EQUIP TECH Work Phone: [facility] 01-27-2022 21:17-0500 Diastolic blood pressure 67 mm[Hg] [facility] 01-27-2022 21:17-0500 Heart rate 70 /min [facility] [place] [facility] 01-27-2022 21:17-0500 Respiratory rate 16 /min [facility] 01-27-2022 21:17-0500 Systolic blood pressure 130 mm[Hg] [facility] 01-27-2022 20:32-0500 Body height 165.1 cm [facility] [place] [facility] Work Phone: 01-27-2022 20:32-0500 Body mass index (BMI) [Ratio] 29.1 kg/m2 [facility] 01-27-2022 20:32-0500 Body temperature 97.2 [degF] [facility] 01-27-2022 20:32-0500 Body weight 79.37 kg [facility] [place] [facility] 01-27-2022 20:32-0500 SaO2% (BldA) [Mass fraction] 99 % [facility] Encounters Encounter Date Encounter Type Care Provider Facility Start: 09-28-2024 ambulatory [facility] Facility :[facility] Start: 09-25-2024 Encounter for other preprocedural examination [facility] Start: 08-06-2024 ambulatory Delta Cash ty:[facility] Start: 08-04-2024 End: 08-04-[address] Delta Nassar MD -[facility] Work Phone: Start: 08-04-2024 End: 08-04-2024 ambulatory Jennifer Kwon NP-C Work Phone: [facility] Work Phone: Start: 07-31-2024 End: 07-31-[address] Justin Hopper MD -[facility] Work Phone: Start: 07-31-2024 End: 07-31-2024 ambulatory Jennifer Kwon NP-C Work Phone: [facility] Work Phone: Start: 07-30-2024 End: 07-30-2024 ambulatory Jennifer Kwon NP-C Work Phone: [facility] Work Phone: Start: 07-30-2024 End: 07-30-2024 Patient encounter procedure Zebulun Beam BOOT AND SHOE REPAIRMAN-C -Ultrasound [facility] Work Phone: Start: 07-30-2024 End: 07-30-2024 ambulatory Jennifer Kwon VSC Facility:[facility] Start: 07-27-2024 Non-patient / Non-visit Nicole Orr er -[facility] Work Phone: Start: 07-27-2024 ambulatory Nicole Carranza Facility :[facility] Start: 07-22-2024 End: 07-22-2024 ambulatory Jennifer Kwon [employer]OT AND SHOE REPAIRMAN-C Work Phone: [facility] Work Phone: Start: 07-22-2024 End: 07-22-2024 Patient encounter procedure Zebudaniellan Beam [employer]OT AND SHOE REPAIRMAN-C -Laboratory Work Phone: Start: 07-22-2024 End: 07-22-2024 Patient encounter procedure Xiomara Aguillon [facility] Work Phone: Start: 07-22-2024 End: 07-22-2024 ambulatory Jennifer Kwon BOOT AND SHOE REPAIRMAN-C Work Phone: [facility] Work Phone: Start: 07-22-2024 End: 07-22-2024 ambulatory Xiomara Aguillon Facility:[facility] Start: 07-10-2024 End: 07-10-2024 ambulatory Jennifer Kwon [employer]OT AND SHOE REPAIRMAN-C Work Phone: [facility] Work Phone: Start: 07-10-2024 End: 07-10-2024 Patient encounter procedure Zebudaniellan Beam [employer]OT AND SHOE REPAIRMAN-C -Laboratory Work Phone: Start: 07-10-2024 End: 07-10-2024 ambulatory Zebulun Beam Facility:[facility] Start: 03-31-2024 End: 03-31-2024 Patient encounter procedure Zebulun Beam BOOT AND SHOE REPAIRMAN-C -Laboratory Tami Garcia Start: 03-31-2024 End: 03-31-2024 ambulatory [facility] Facility:[facility] Start: 03-27-2024 End: 03-27-2024 Patient encounter procedure [facility] BOOT AND SHOE REPAIRMAN-C -Laboratory Specimen Work Phone: Start: 03-27-2024 End: 03-27-2024 ambulatory [facility] Facility:[facility] Start: 02-12-2024 End: 02-13-2024 Emergency department patient visit Gopi Betts Facility:[facility] Start: 11-15-2023 End: 11-16-2023 Emergency department patient visit Duc Oden Facility:[facility] Start: 09-11-2023 End: 09-11-2023 Patient encounter procedure Austin Arnett SUPERVISING PRODUCER.EQUIP TECH Work Phone: [facility] Comment on above: Chemosis of left con junctiva (Primary Dx); Seasonal allergic rhinitis, unspecified trigger Start: 09-09-2023 End: 09-09-2023 ambulatory [facility] Facility:[facility] Start: 09-09-2023 End: 09-09-2023 Patient encounter procedure Jennifer Fuller SUPERVISING PRODUCER.EQUIP TECH Work Phone: [facility] Comment on above: Acute conjunctivitis of both eyes, unspecified acute conjunctivitis type (Primary Dx) Start: 05-27-2023 End: 05-27-2023 [facility] Work Phone: Start: 05-27-2023 End: 05-27-2023 Patient encounter procedure [facility]-Laboratory Work Phone: Start: 05-21-2023 End: 05-21-2023 Subsequent hospital visit by physician [facility] Work Phone: Radiology Comment on above: Acute cough [R05.1] Start: 05-21-2023 End: 05-21-2023 ambulatory [facility] Facility:[facility] Start: 05-21-2023 End: 05-21-2023 Office outpatient visit 15 minutes Miguelcherelle Bryant SUPERVISING PRODUCER.EQUIP TECH Work Phone: [facility] Comment on above: Acute cough (Primary Dx) Start: 05-17-2023 End: 05-17-2023 [facility] Work [facility]: Start: 01-08-2023 End: 01-08-2023 Emergency department [facility]: Start: 01-03-2023 End: 01-03-2023 Emergency department patient visit [facility] Work Phone: [facility] Work Phone: Start: 11-13-2022 Non-patient / Non-visit [facility] Work Phone: [facility] Start: 11-13-2022 Non-patient / Non-visit [facility] Work Phone: [facility] Work Phone: Start: 11-12-2022 Non-patient / Non-visit [facility] Work Phone: [facility] Work Phone: Start: 11-11-2022 Non-patient / Non-visit [facility] Work Phone: [facility] Start: 11-11-2022 [facility] Work [facility]: Start: 11-11-2022 End: 11-13-2022 Evaluation and management of inpatient [facility] Work Phone: Start: 11-01-2022 End: 11-01-2022 [facility] Work [facility]: Start: 10-03-2022 End: 10-04-2022 [facility] Work Phone: Start: 09-13-2022 End: 09-13-2022 ambulatory [facility] Work Phone: Start: 09-13-2022 End: 09-13-2022 Patient encounter procedure [facility] Work Phone: Start: 05-01-2022 End: 05-01-2022 ambulatory [facility] Work Phone: Start: 05-01-2022 End: 05-01-2022 Patient encounter procedure [facility]Labor[facility] Start: 04-27-2022 End: 04-27-2022 Subsequent hospital visit by physician [facility] Work Phone: Radiology Comment on above: Acute cough [R05.1] Start: 04-27-2022 End: 04-27-2022 Office outpatient visit 15 minutes Miguel Bryant SUPERVISING PRODUCER.EQUIP TECH Work Phone: [facility] Comment on above: Acute cough (Primary Dx) Start: 04-27-2022 Telephone encounter Miguel madden SUPERVISING PRODUCER.EQUIP TECH Work Phone: [facility] Comment on above: Results Start: 04-03-2022 End: 04-03-2022 Emergency department patient visit [facility] Start: 04-03-2022 End: 04-03-2022 Patient encounter procedure Lokesh CAMP Work Phone: [facility] Comment on above: Chest tightness (Courtney enzo Dx); SOB (shortness of breath) Start: 03-27-2022 End: 03-27-2022 Office outpatient visit 25 minutes Miguel Bryant SUPERVISING PRODUCER.EQUIP TECH Work Phone: [facility] Comment on above: Sinobronchitis (Prim carmelita Dx); Dental infection Start: 01-27-2022 End: 01-27-2022 Emergency department patient visit [facility] Start: 06-12-2017 End: 06-14-2017 Ambulatory FLAKITO PLUMMER Facility:A Start: 01-23-2017 End: 01-23-2017 Emergency department patient visit LISA DOTY Facility:B Start: 12-20-2016 End: 12-20-2016 Emergency department patient visit MIRIAM MILLER Facility:B Start: 09-26-2016 End: 09-26-2016 Emergency department patient visit Duke Mckeon Facility:[facility] Start: 09-26-2016 Ambulatory Facility:[id number] Start: 08-16-2016 End: 08-16-2016 Emergency department patient visit ARNOLDO OZUNA Facility:[facility] Procedures Date Procedure Procedure Detail Performing Clinician Start: 07-30-2024 Ultrasound elastography of liver Jennifer Kwon [employer] AND SHOE REPAIRMAN-C Work Phone: Start: 07-22-2024 Hepatitis C virus genotype determination Jennifer Kwon [employer]OT AND SHOE REPAIRMAN-C Work Phone: Comment on above: Performed at: [address] [id number] Director: Radha Lord MD, Phone: [phone] Start: 07-22-2024 Procedure Jennifer Kwon [employer] AND SHOE REPAIRMAN-C Work Phone: Comment on above: Test Ordered: [id number] HCV FibroSureFibros is Score 0.07 Reference Range: 0.00-0.21Fibrosis Stage Comment BN Reference Range: . F0 - No fibrosisNecroinflammat Activity Score 0.19 [H ] BN Reference Range: 0.00-0.17Necroinflammat Activity Grade A0-A1 BN Reference Range: .Methodology: Comment BN Reference Range: .The analytes tested are performed by FibroSure-Specificmethods. Not intended for use with other diagnosticconsiderations.Alpha 2-Macroglobulins, Qn 229 mg/dL BN Reference Range: 110-276Haptoglobin 92 mg/dL BN Reference Range: 33-278Apolipoprotein A-1 161 mg/dL BN Reference Range: 116-209Bilirubin, Total 0.2 mg/dL BN Reference Range: 0.0-1.2GGT 12 IU/L BN Reference Range: 0-60ALT (SGPT) P5P 45 [H ] IU/L BN Reference Range: 0-40Interpretations: Comment BN Reference Range: .Quantitative results of 6 biochemical tests are analyzedusing a computational algorithm to provide a quantitativesurrogate marker (0.0-1.0) for liver fibrosis (METAVIR F0-F4) and for necroinflammatory activity (METAVIR A0-A3).Fibrosis Scoring: Comment Reference Range: . <=0.21 = Stage F0 - No fibrosis0.21 - 0.27 = Stage F0 - F10.27 - 0.31 = Stage F1 - Portal fibrosis0.31 - 0.48 = Stage F1 - F20.48 - 0.58 = Stage F2 - Bridging fibrosis with few septa0.58 - 0.72 = Stage F3 - Bridging fibrosis with many septa0.72 - 0.74 = Stage F3 - F4 >0.74 = Stage F4 - CirrhosisNecroinflamm Activity Scoring: Comment Reference Range: . <0.17 = Grade A0 - No Activity0.17 - 0.29 = Grade A0 - A10.29 - 0.36 = Grade A1 - Minimal activity0.36 - 0.52 = Grade A1 - A20.52 - 0.60 = Grade A2 - Moderate activity0.60 - 0.62 = Grade A2 - A3 >0.62 = Grade A3 - Severe activityLimitations: Comment Reference Range: .The negative predictive value of a Fibrotest score <0.31(absence of clinically significant fibrosis) was 85% whencompared to liver biopsy in 1,270 HCV infected patientswith a 38% prevalence of significant liver fibrosis (F2, 3or 4). The positive predictive value of a Fibro-test score>0.48 (F2, 3, 4) was 61% in that same patient cohort. HCVFibroSURE is not recommended in patients with GilbertDisease, acute hemolysis (e.g. HCV ribavirin therapymediated hemolysis) acute hepa-titis of the liver, extra-hepatic cholestasis, transplant patients, and/or renalinsufficiency patients. Any of these clinical situationsmay lead to inaccurate quantitative predictions offibrosis and necroinflammatory activity in the liver.Comment: Comment Reference Range: .This test was developed and its performance characteristicsdetermined by [facility] [employer] [facility]. It has not been cleared or approvedby the Food and Drug Administration. The FDA hasdetermined that such clearance or approval is notnecessary.For questions regarding this report please contact customerservice at .Performed at: [address] [id number] Director: Radha Lord MD, Phone: [phone] at: CB - [facility] [address] [id number] Director: Junior Vo PhD, Phone: [phone] Start: 07-10-2024 Urnls dip stick/tablet reagent auto microscopy Jennifer Kwon [employer]OT AND SHOE REPAIRMAN-C Work Phone: Start: 07-10-2024 Urine culture Jennifer Kwon [employer]OT AND SHOE REPAIRMAN-C Work Phone: Start: 07-10-2024 Hepatitis A virus antibody, IgM type Jennifer Kwon [employer] AND SHOE REPAIRMAN-C Work Phone: Comment on above: A negative anti-HAV IgM result suggests no recent orcurrent HAV infection. Start: 07-10-2024 Hepatitis B core antibody measurement, IgM type Jennifer Kwon [employer] AND SHOE REPAIRMAN-C Work Phone: Start: 07-10-2024 Hepatitis C antibody measurement Jennifer Kwon [employer] AND SHOE REPAIRMAN-C Work Phone: Start: 07-10-2024 Hepatitis C virus RNA assay Jennifer Thibodeauxpaula villegas BOOT AND SHOE REPAIRMAN-C Work Phone: Start: 07-10-2024 Total iron binding capacity measurement Jennifer Kwon [employer]OT AND SHOE REPAIRMAN-C Work Phone: Start: 07-10-2024 Vitamin D, 25-hydroxy measurement Dion Kwon BOOT AND SHOE REPAIRMAN-C Work Phone: Comment on above: Vitamin D StatusDeficiency: <20 ng/mL (5 0nmol/L)Insufficiency: 20-30 ng/mL (50-75 nmol/L)Sufficiency: 30-100 ng/mL (75-250 nmol/L)Toxicity: >100 ng/mL (>250 nmol/L) Start: 03-31-2024 Measurement of renal function Jenniferzion huff BOOT AND SHOE REPAIRMAN-C Work Phone: Comment on above: GFR Calc Start: 03-27-2024 Urine culture Jennifer Kwon [employer] AND SHOE REPAIRMAN-C Work Phone: Start: 05-21-2023 Radiologic exam chest 2 views Miguel madden SUPERVISING PRODUCER.EQUIP TECH Work Phone: Start: 01-03-2023 SARS-CoV-2 & FLU Antigen (Rapid) [facility] Work Phone: Start: 01-03-2023 Plain chest X-ray [facility] Work Phone: Start: 11-11-2022 Small bowel series [facility] Work Phone: Start: 11-11-2022 Plain X-ray abdomen Start: 11-11-2022 Computed tomography of abdomen and pelvis with intravenous contrast Start: 11-01-2022 SARS-CoV-2 & FLU Antigen (Rapid) Start: 11-01-2022 Plain chest X-ray Start: 10-03-2022 X-ray of both feet Start: 04-27-2022 Radiologic exam chest 2 views Miguel madden APRN.CNP Work Phone: Start: 04-03-2022 Plain chest X-ray Plan of Treatment Date Care Activity Detail Author Start: 10-11-2027 Screening for malignant neoplasm of cervix [facility] Start: 04-09-2027 HPV TESTING HPV TESTING [facility] Start: 04-09-2027 PAP TESTING PAP TESTING [facility] Start: 07-22-2024 End: 07-22-2024 Procedure [facility] Start: 10-20-2023 Covid-19 Vaccine ( season) Covid-19 Vaccine ( season) [facility] Start: 10-20-2023 Covid-19 Vaccine ( season) Covid-19 Vaccine () [facility] Start: 10-20-2023 Influenza vaccination [facility] Start: 10-11-2023 Screening for malignant neoplasm of cervix Cervical Cancer Screening [facility] Start: 05-17-2023 [facility] Start: 02-18-2023 Behavioral Health Screening Behavioral Health Screening [facility] Start: 02-18-2023 Depression Assessment Depression Assessment [facility] Start: 01-08-2023 [facility] Start: 01-08-2023 Referral to service [facility] Start: 01-03-2023 [facility] Start: 11-13-2022 Patient discharge [facility] Start: 11-11-2022 Application of intermittent pneumatic compression device [facility] Start: 11-11-2022 Following clinical pathway protocol [facility] Start: 11-11-2022 Assessment of risk of venous thromboembolism [facility] Start: 11-11-2022 Insertion of catheter into peripheral vein [facility] Start: 11-11-2022 Providing care according to standard [facility] Start: 11-11-2022 Provision of activity privileges [facility] Start: 11-11-2022 Referral to general surgeon [facility] Start: 11-11-2022 Referral to occupational therapist [facility] Start: 11-11-2022 Referral to service [facility] Start: 11-11-2022 [facility] Start: 11-11-2022 Admission procedure [facility] Start: 11-11-2022 Verification routine [facility] Start: 11-11-2022 Consultation [facility] Start: 11-11-2022 Patient referral to dietitian [facility] Start: 11-01-2022 [facility] Start: 10-19-2022 Covid-19 Vaccine ( season) Covid-19 Vaccine () [facility] Start: 02-18-2022 DEPRESSION ASSESSMENT DEPRESSION ASSESSMENT [facility] Start: 10-19-2021 Influenza vaccination INFLUENZA (#1) [facility] Start: 05-10-2018 Urine microalbumin profile DTaP,Tdap,Td Vaccine (3 - Td or Tdap) [facility] Start: 03-23-2016 PAP TESTING PAP TESTING [facility] Start: 2015 HPV TESTING HPV TESTING [facility] Start: 2004 Urine microalbumin profile DTAP,TDAP,TD (1 - Tdap) [facility] Start: 2003 Anxiety Screening Anxiety Screening [facility] Start: 2003 Depression Screening Depression Screening [facility] Start: 2003 HEPATITIS C SCREENING HEPATITIS C SCREENING [facility] Start: 2003 Hepatitis C screening Hepatitis C Screening [facility] Start: 2003 HIV SCREENING HIV SCREENING [facility] Start: 2003 HIV screening HIV Screening [facility] Start: 1991 PNEUMOCOCCAL (1 - PCV) PNEUMOCOCCAL (1 - PCV) [facility] Start: 1991 Pneumococcal vaccination Pneumococcal Vaccine (1 of 2 - PCV) [facility] Start: 1985 COVID-19 VACCINE (#1) COVID-19 VACCINE (#1) [facility] Start: 1985 HEPATITIS B (1 of 3 - 3-dose series) HEPATITIS B (1 of 3 - 3-dose series) [facility] C reactive protein [Mass/volume] in Serum or Plasma [facility] CBC W Auto Different ial panel - Blood [facility] metabo lic 1999 panel - Serum or Plasma [facility] Comprehensive metabo lic 1999 panel - Serum or Plasma [facility] Cytoplasmic ANCA Screen [facility] Ferritin [Mass/volum e] in Serum or Plasma [facility] Ferritin [Mass/volum e] in Serum or Plasma [facility] Hemoglobin A1c/Hemoglobin.total in Blood [facility] Hepatitis A virus Ab [Presence] in Serum [facility] Hepatitis A virus Ig M Ab [Presence] in Serum [facility] Hepatitis B core ant ibody measurement, IgM type [facility] Hepatitis B surface antigen measurement [facility] Hepatitis B virus sanders rface Ab [Presence] in Serum [facility] Hepatitis C antibody measurement [facility] Hepatitis C virus RN A assay [facility] Iron and Iron bindin g capacity panel - Serum or Plasma [facility] Iron and Iron bindin g capacity panel - Serum or Plasma [facility] Liver stiffness by US.transient elastography [facility] Mitochondria Ab [Pre sence] in Serum [facility] Patient Education [facility] Work Phone: Patient referral [facility] Work Phone: Prothrombin time [facility] Prothrombin time [facility] Smooth muscle Ab [Presence] in Serum [facility] Transferrin [Mass/vo lume] in Serum or Plasma [facility] Immunizations Immunization Date Immunization Notes Care Provider Sienna mtz 04-04-2016 influenza virus vaccine, unspecified formulation Miguel Bryant APRN.CNP Work Phone: [facility] Payers Date Payer Category Payer Unknown [id number] 2023 Self-pay [id number] 2022 Medicaid [id number] 2022 Unknown [id number] 2016 Private Health Insurance [id number] Unknown [id number] 2.16.8 [id number] Unknown [id number] 2.16.8 [id number] Unknown [id number] 2.16.8 [id number] Unknown [id number] 2.16.8 [id number] Unknown [id number] 2.16.8 [id number] Unknown [id number] 2.16.8 [id number] Unknown [id number] 2.16.8 [id number] Unknown [id number] 2.16.8 [id number] Unknown [id number] 2.16.8 [id number] Unknown [id number] 2.16.8 [id number] Unknown [id number] 2.16.8 [id number] Unknown [id number] 2.16.8 [id number] Unknown [id number] 2.16.8 [id number] Social History Date Type Detail Facility Start: 01-27-2022 End: 05-17-2023 Tobacco smoking status OHIS Unknown if ever smoked [facility] Start: 1985 Sex Assigned At Female [facility] Start: 03-23-2011 End: 08-04-2024 Tobacco smoking status NHIS Smokes tobacco daily [facility] History of tobacco use Cigarette Smoker [facility] Start: 03-23-2011 End: 04-27-2022 Cigarettes smoked current (pack per day) - Reported 0.5 [facility] Start: 03-23-2011 Tobacco use and exposure Smokeless tobacco non-user [facility] Start: 03-27-2022 End: 04-27-2022 Alcohol intake Current drinker of alcohol (finding) [facility] Start: 12-31-2010 [facility] Start: 1985 Sex Assigned At Not on file C [facility] Start: 04-27-2022 End: 05-21-2023 Tobacco use panel [facility] NEGATED: Highlighted row [facility] Work Phone: NEGATED: Highlighted row [facility] Goals Date Patient Goal Desired Activity /State Functional Status Date Assessment Result Facility 11-13-2022 Functional status Ambulates;Up a d carol;Bathroom Privilege [facility] Work Phone: 11-12-2022 Functional status None [facility] Work Phone: Mental Status Date Assessment Result Facility 05-17-2023 Cognitive function Level Of Cons ciousness Awake;Alert;Appropriate;Follow s Commands [facility] Work Phone: 11-13-2022 Cognitive function Voice/Name [facility] Work Phone: 11-01-2022 Cognitive function Level Of Cons ciousness Awake;Alert;Appropriate;Follow s Commands [facility] Work Phone: 04-03-2022 Cognitive function Voice/Name [facility] Work Phone: Clinical Notes 03-27-2022 to 07-31-2024 Note Date & Type Note Facility 07-31-2024 Radiology Diagnostic study note [facility] Imaging Services [address] [place] [address] ABD Limited w/ Elastography MR#: [id number] Acct: [id number] Name: MARILEE BOCANEGRA Rep #: [id number] : 1985 F 39 From: Lavon Rhodes MD PCP: Jennifer Kwon [facility], BOOT AND SHOE REPAIRMAN-C Status: REG CLI Study:ABD Limited w/ Elastography Date of Exa m: 07/30/24 Exam# [id number] Ordering Dr: Can Fernández [facility] BOOT AND SHOE REPAIRMAN-C PROCEDURE: ABD LIMITED W/ ELASTOGRAPHY REASON FOR EXAM: VIRAL HEP C W/O HEPATIC COMA , RUQ PAIN COMPARISON: None. TECHNIQUE: Right upper quadrant abdominal ultrasound. [employer] ElastQ Imaging shear wave elastography for non-invasive assessment of liver tissue stiffness. [employer] EPIQ Elite. FINDINGS: LIVER: Size: Unremarkable Length: 13.3 cm Echotexture: Diffusely echogenic suggesting fatty infiltration Contour: Normal Lesions: None identified Elastography: EQI Med: 5 kPa EQI Med Steve: 1.29 m/s IQR/Med: 17 %* GALLBLADDER: Normal COMMON BILE DUCT: Normal measuring 6 mm . PANCREAS: Normal Visualized portions of the right kidney are unremarkable. No right upper quadrant ascites. US/ABD Limited w/ Elastography IMPRESSION: NO TO MILD HEPATIC FIBROSIS Fatty infiltration of the liver. Reference Values: SRU <1.37 m/s (5.7kPa): No to mild fibrosis 1.37 m/s - 2.2 m/s: Moderate to severe fibrosis >2.2 m/s (15kPa): Significant fibrosis / cirrhosis METAVIR Score F2 or higher: 1.34 m/s (5.7kPa) F3 or higher: 1.55 m/s (7.3kPa) F4: 1.80 m/s (10kPa) * If the IQR/Med is >30%, the variance in the measurements is a large and the accuracy of the measurement may be in question. Reading Location: [id number] CC: [facility] BOOT AND SHOE REPAIRMAN-C Jennifer Kwon; Meenakshi [facility] BOOT AND SHOE REPAIRMANYarielC Pradeep ~ Bar Helper: Signed [facility] 07-22-2024 Evaluation note Diagnosis Onset Date Resolution Abdominal pain acute July 22, 2024 1:23pm Hepatitis C acute July 22 1:23pm Hx of colonic polyps acute July 22, 2024 1:23pm [facility] Work Phone: 1(379) 522-664306-04-2025 Evaluation note* Diagnosis Onset Date Resolution Status Admit Date Abdominal pain acute July 22, 2024 1:23pm Hepatitis C acute July 22 1:23pm Hx of colonic polyps acute July 22, 2024 1:23pm Hepatitis C acute July 31 8:21am [facility] Work Phone: 1(971) 409-757306-04-2025 Evaluation note* Diagnosis Onset Date Resolution Status Admit Date Abdominal pain acute July 22, 2024 1:23pm Hx of colonic polyps acute July 22, 2024 1:23pm Hepatitis C chronic July 22 1:23pm Abdominal pain acute July 31, 2024 8:21am Hx of colonic polyps acute July 31, 2024 8:21am Hepatitis C chronic July 31 8:21am Abnormal iron saturation deleted July 31, 2024 8:21am [facility] Work Phone: 1([phone]) 101-583006-04-2025 Evaluation note* Diagnosis Onset Date Resolution Status Admit Date Abdominal pain acute July 22, 2024 1:23pm Hx of colonic polyps acute July 22, 2024 1:23pm Hepatitis C chronic July 22 1:23pm Abdominal pain acute July 31, 2024 8:21am Hx of colonic polyps acute July 31, 2024 8:21am Hepatitis C chronic July 31 8:21am Abnormal iron saturation deleted July 31, 2024 8:21am Hereditary hemochromatosis chronic August 04, 2024 1:54pm [facility] Work Phone: [phone]) 896-321707-24-2024 History of Present illness Narrative* Austin Arnett APRN.EQUIP TECH - 09/11/2023 2:34 PM EDT Subjective HPI [...] HX L hip surgery x 2 in [place] OVARIAN CYST RIGHT, FLUID removal of right [...] daily. (Patient not taking: Reported on 03/27/2022) Nhazlyie-Th-Jja-Fe-FA tab Take 1 tablet by mouth once [...] symptoms persist, worsen, change - with eye drMk Urgent f/u for worsening s/s. - OLOPATADINE 0.1 % EYE DROPS 2. Seasonal allergic rhinitis, unspecified trigger - ICD9: 477.9, ICD10: J30.2 -use medication as prescribed -follow up if symptoms persist, worsen, change - PREDNISONE 20 MG TABLET Austin Arnett APRN.EQUIP TECH documented in this encounterRegency [facility]24 NoteHNO ID: [id number] Author: JENNIFER FULLER APRN.VLADIMIR Service: ? Author Type: Nurse Practitioner Type: [...] lesions. 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 The history is provided by the patient. No border machine operator was used. Eye Problem This is a [...] HX L hip surgery x 2 in [place] OVARIAN CYST RIGHT, FLUID removal of right [...] daily. (Patient not taking: Reported on 03/27/2022) Uzoflhfc-Kg-Alu-Fe-FA tab Take 1 tablet by mouth once [...] ill-appearing, toxic-appearing or diaphoretic. (more content not included)...[facility]07-22-2024 History of Present illness Narrative* Jennifer Fuller APRN.[facility] - 09/09/2023 8:46 AM EDT This note was created using Solsticeriter. Subjective Marilee Bocanegra is a 38 year [...] lesions. 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 The history is provided by the patient. No border machine operator was used. Eye Problem This is a [...] HX L hip surgery x 2 in [place] OVARIAN CYST RIGHT, FLUID removal of right [...] daily. (Patient not taking: Reported on 03/27/2022) Hwfeyujd-Vf-Itg-Fe-FA tab Take 1 tablet by mouth once [...] contact lens Discussed red flags Jennifer Fuller APRN.EQUIP TECH documented in this encounterRegency Hospital [facility]04-02-2024 History of Present illness Narrative* Elton Fowler [...] PATIENT PRESENTS WITH AN IMPLANTABLE OR ATTACHED GRADE CHECKER: No RADIOLOGY DEPARTMENT: General X-ray: Exam(s) Completed: Chest X-Ray PERIPHERAL IV DATA: Not applicable SIGNED BY: AUSTIN Lopez) May 21, 2023 11:18 AM documented in this encounterRegency Hospital [facility]04-02-2024 NoteHNO ID: [id number] Author: ELTON FOWLER RT (R) Service: Radiology Author Type: Technologist Type: Progress [...] PATIENT PRESENTS WITH AN IMPLANTABLE OR ATTACHED GRADE CHECKER: No RADIOLOGY DEPARTMENT: General X-ray: Exam(s) Completed: Chest X-Ray PERIPHERAL IV DATA: Not applicable SIGNED BY: RT John(Eliecer) May 21, 2023 11:18 [facility]04-02-2024 NoteHNO ID: [id number] Author: MIGUEL BRYANT APRN.EQUIP TECH Service: ? Author Type: Nurse Practitioner Type: Progress Notes Filed: 05/21/2023 12:04 Note Text: Subjective HPI Nontoxic-appearing female presents urgent care chief complaint cough chest congestion. Duration of symptoms 2 to 3 weeks. Associated symptoms listed above. Most prominent symptom today is cough. He [place] living [place]. Was seen by the nurse. Last week states she did have some wheezing as per nurse auscultation. She did have a syncopal episode last week. Was sent to [facility] via EMS. No abnormal findings were noted [...] HX L hip surgery x 2 in [place] OVARIAN CYST RIGHT, FLUID removal of right [...] daily. (Patient not taking: Reported on 03/27/2022) Nuvgexvo-Fr-Zdd-Fe-FA tab Take 1 tablet by mouth once [...] no guarding or reboun (more content not included)...[facility]04-02-2024 History of Present illness Narrative* Miguel Bryant APRN.EQUIP TECH - 05/21/2023 11:01 AM EDT Subjective HPI Nontoxic-appearing female presents urgent care chief complaint cough chest congestion. Duration of symptoms 2 to 3 weeks. Associated symptoms listed above. Most prominent symptom today is cough. He is currently living [place]. Was seen by the nurse. Last week states she did have some wheezing as per nurse auscultation. She did have a syncopal episode last week. Was sent to [facility] via EMS. No abnormal findings were noted [...] HX L hip surgery x 2 in [place] OVARIAN CYST RIGHT, FLUID removal of right [...] daily. (Patient not taking: Reported on 03/27/2022) Cllfaxzv-Xy-Upi-Fe-FA tab Take 1 tablet by mouth once [...] of care. This note was generated using Walk Score software. It may contain errors in wording, punctuation, or spelling. Miguel Bryant APRN.EQUIP TECH documented in this encounterRegency Hospital [facility]11-21-2023 Discharge summary Author Julian Jiménez [facility] January 08, 2023 11:52am Note Date/Time January 08, 2023 10:09am [facility] Medical Records Department [address] [place] [address] Emergency Department Summary 01/08/23 MR#: [id number] Acct: [id number] Name: MARILEE BOCANEGRA Rep #:[id number] : 1985 37 From: Julian Jiménez MD PCP: [facility] atus:[facility] ER Location: ED HPI History of Present [...] Prior similar symptoms: Yes Recent Illness/Hospitalization: Yes [facility] Medical History Bowel obstruction Depression History of [...] 80.8 H Lymph % (Auto) 16.1 L Lynn % (Auto) 2.5 Eos % (Auto) 0.0 [...] < 3.0 Management Discussion w/another healthcare provider: hand worker/Case management (Patientdoes have a a home health care case manager. She will be contacted. Arrangements have been made04/19/1983 alf etc.) Discharge Plan Triage Chief Complaint: Cough [...] Wheezing) Qty: 1 0RF [facility] Garcia [Primary Care Provider] - 3-5 Days if not improving Disposition Disposition: Home, Self Care What to do if you have Problems For any increased pain, shortness of breath, bleeding, nausea or vomiting, chestpain, or any unexpected problems, contact your Primary Care Provider. Call [facility] ([phone]) or report to the closest Emergency Room. Call 911 if necessary. 01/08/23 1152 <Electronically signed by Julian Jiménez MD> Cosigner Signature (if applicable): CC: [facility] ~ Signed [facility] Work Phone: 1(207) 706-788609-26-2023 Consult note Author Maxwell Ragland [facility] November 13, 2022 11:06am Note Date/Time November 13, 2022 11:06am [facility] Medical Records Department [address] [place] [address] Counseling Note - Pharmacy 11/13/22 1105 MR#: [id number] Acct: [id number] Name: MARILEE BOCANEGRA Rep #:[id number] : 1985 37 From: Maxwell Ragland PCP: [facility] atus:ADM IN Y Location: [facility] [id number] Pharmacy [facility] Service has performed discharge medication reconciliation [...] Signature (if applicable): Date CC: ~ Signed [facility] Work Phone: 1(498) 652-126109-26-2023 Discharge summary Author Ananda Cartagena [facility] November 13, 2022 10:30am Note Date/Time November 13, 2022 10:22am [facility] Medical Records Department [address] [place] [address] Discharge Summary 11/13/22 1017 MR#: [id number] Acct: [id number] Name: MARILEE BOCANEGRA Rep #:[id number] : 1985 37 From: Ananda Cartagena DO PCP: [facility] St atus:ADM IN Location: [facility] [id number] Providers Date of Admission: 11/11/22 Primary Care Physician: [facility] Consultations 11/11/22 09:38 Consult: General Surgery [...] 11/12. Has tolerated diet. general surgery following constance Thompson for discharge. Plan H/O substance [...] 30.6 L, Lymph % (Auto) 53.7 H, Lynn % (Auto) 8.1, Eos % (Auto) 6.5 [...] Calcium8.1 L D/C Instructions Discharge Diet: - ([place] diet, advance as tolerated. Avoid high-fiber foods. ) Call your doctor if you observe: - (worsening abdominal pain. ) Meaningful Use Info Meaningful Use Diagnoses (Choose all that apply): None applicable Discharge Plan Admission Admit Date/Time: 11/11/22 07:47 Attending Provider: Ananda Cartagena [facility] Providers: Jose Salas; Patricia Green [...] TONGUE EVERY DAY [facility] - Within 2 Weeks Disposition Disposition (needs filled in before D/C Order can be placed): Home, Self Care Charges/Coding Visit Charges Inpatient E&M: 67014 Disch Hosp >30min 11/13/22 1030 <Electronically signed by Ananda Cartagena DO> Cosigner Signature (if applicable): CC: Dr. Ananda Cartagena DO; [facility]~ Signed [facility] Work Phone: 1(429) 953-512409-26-2023 Progress note Author Jose Salas [facility] November 13, 2022 10:17am Note Date/Time November 13, 2022 9:42am [facility] Medical Records Department [address] [place] [address] Progress Note - Surgery 11/13/22 0941 MR#: [id number] Acct: [id number] Name: MARILEE BOCANEGRA Rep #:[id number] : 1985 37 From: Jose Lozada PCP: [facility] atus:ADM IN Location: [place] [address] Subjective Subjective Patient seen and examined during [...] 30.6 L, Lymph % (Auto) 53.7 H, Lynn % (Auto) 8.1, Eos % (Auto) 6.5 [...] discharge today. Charges/Coding Visit Charges Inpatient E&M: 74248 Subs Hosp L2 11/13/22 1017 <Electronically signed by Jose Salas MD> Cosigner Signature (if applicable): CC: ~ Signed [facility] Work Phone: 1(999) 141-207709-26-2023 Progress note Author Ananda Cartagena [facility] November 13, 2022 10:16am Note Date/Time November 13, 2022 8:31am [facility] Medical Records Department [address] [place] [address] Progress Note - Hospitalist 11/13/22 0829 MR#: [id number] Acct: [id number] Name: MARILEE BOCANEGRA Rep #:[id number] : 1985 37 From: Ananda Cartagena DO PCP: [facility] atus:ADM IN Location: [facility] [id number] Reason for Visit Reason for Visit: [...] 30.6 L, Lymph % (Auto) 53.7 H, Lynn % (Auto) 8.1, Eos % (Auto) 6.5 [...] surgery following DW constance Thompson for discharge. PLAN: Plan DVT prophylaxis: lovenox 11/13/22 1016 <Electronically signed by Ananda Cartagena DO> Cosigner Signature (if applicable): CC: ~ Signed [facility] Work Phone: 1(813) 942-463109-25-2023 Progress note Author Ananda Cartagena [facility] November 12, 2022 2:43pm Note Date/Time November 12, 2022 8:47am [facility] Medical Records Department [address] [place] [address] Progress Note - Hospitalist 11/12/22 0844 MR#: [id number] Acct: [id number] Name: MARILEE BOCANEGRA Rep #:[id number] : 1985 37 From: Ananda Cartagena DO PCP: [facility] atus:ADM IN Location: [facility] [id number]- [id number] Reason for Visit Reason for Visit: [...] % (Auto) 58.1, Lymph % (Auto) 30.1, Lynn % (Auto) 10.3 H, Eos % (Auto) [...] prophylaxis: lovenox Charges/Coding Visit Charges Inpatient E&M: 28846 Subs Hosp L2 11/12/22 1443 <Electronically signed by Ananda Cartagena DO> Cosigner Signature (if applicable): CC: ~ Signed [facility] Work Phone: 1([phone]) 864-109609-25-2023 Progress note Author Alejandra Britton [facility] November 12, 2022 8:36am Note Date/Time November 12, 2022 8:37am [facility] Medical Records Department [address] [place] [address] Progress Note - Surgery 11/12/22 0828 MR#: [id number] Acct: [id number] Name: MARILEE BOCANEGRA Rep #:[id number] : 1985 37 From: Alejandra CAMP PA-C PCP: [facility] atus:ADM IN Location: [place] [address] Subjective Subjective Patient was evaluated this morning [...] % (Auto) 58.1, Lymph % (Auto) 30.1, Lynn % (Auto) 10.3 H, Eos % (Auto) [...] this patient Charges/Coding Visit Charges Inpatient E&M: 33649 Subs Hosp L1 11/12/22 0836 <Electronically signed by Alejandra CAMP PA-C> Cosigner Signature (if applicable): CC: ~ Signed [facility] Work Phone: 1(862) 778-501309-24-2023 Consult note Author Jose Salas [facility] November 11, 2022 3:05pm Note Date/Time November 11, 2022 2:28pm [facility] Medical Records Department [address] [place] [id number] Consultation - Surgical 11/11/22 1428 MR#: [id number] Acct: [id number] Name: MARILEE BOCANEGRA Rep #:[id number] : 1985 37 From: Jose Lozada PCP: [facility] atus:ADM IN Location: [place] [address] Assessment & Plan Assessment/Plan (1) Small bowel [...] is a 37 F who presented to [facility] earlier today due to complaints of severe [...] inflammatory bowel disease or other GI diagnoses. [facility] Medical History History of ischemic colitis Substance [...] % (Auto) 69.7, Lymph % (Auto) 21.3, Lynn % (Auto) 5.1, Eos % (Auto) 3.0, [...] Sl. Cloudy, Urine pH 8.0, Ur Specific [place] 1.010, Urine Protein 15 H, Urine Glucose [...] Signed: Vandana Jenkins MD at 8:09 EDT , Charges/Coding Visit Charges Inpatient E&M: 24342 Init Hosp L2 11/11/22 150 <Electronically signed by Jose Salas MD> Cosigner Signature (if applicable): CC: Dr. Jose Salas MD; [facility]~ Signed [facility] Work Phone: 1(490) [phone] Discharge summary Author Brian Maricarmen [facility] November 11, 2022 8:02am Note Date/Time November 11, 2022 5:08am [facility] Medical Records Department [address] [place] [address] Emergency Department Summary 11/11/22 MR#: [id number] Acct: [id number] Name: MARILEE BOCANEGRA Rep #:[id number] : 1985 37 From: Brian Hernadez MD PCP: [facility] St atus:REG ER Location: ED HPI HPI [...] % (Auto) 69.7 Lymph % (Auto) 21.3 Lynn % (Auto) 5.1 Eos % (Auto) 3.0 [...] Sl. Cloudy Urine pH 8.0 Ur Specific Republic 1.010 Urine Protein 15 H Urine Glucose [...] 6:47 EDT Reading Location ID and State: [id number] / [place] Management Discussion w/another healthcare provider: Hospitalist and Special Client Bus Driver (Elijah Salas) Discharge Plan Dx/Rx/DC Orders Clinical Impression: Small bowel obstruction, Diffuse abdominal pain, Vomiting Disposition Disposition: Acute Care Hospital [facility] What to do if you have Problems For any increased pain, shortness of breath, bleeding, nausea or vomiting, chestpain, or any unexpected problems, contact your Primary Care Provider. Call [facility] ([phone]) or report to the closest Emergency Room. Call 911 if necessary. 11/11/22801 <Electronically signed by Brian Hernadez MD> Cosigner Signature (if applicable): CC: [facility] ~ Signed [facility] Work Phone: 1(907) 422-454309-24-2023 Discharge summary Author Brian Hernadez [facility] November 11, 2022 8:02am Note Date/Time November 11, 2022 5:08am [facility] Medical Records Department [address] [place] [address] Emergency Department Summary 11/11/22 MR#: [id number] Acct: [id number] Name: MARILEE BOCANEGRA Rep #:[id number] : 1985 37 From: Brian Hernadez MD PCP: [facility] St atus:REG ER Location: ED HPI HPI [...] poor informant, limiting the history and exam. [facility] Medical History History of ischemic colitis Substance [...] % (Auto) 69.7 Lymph % (Auto) 21.3 Lynn % (Auto) 5.1 Eos % (Auto) 3.0 [...] Sl. Cloudy Urine pH 8.0 Ur Specific Republic 1.010 Urine Protein 15 H Urine Glucose [...] 6:47 EDT Reading Location ID and State: [facility] / [place] Management Discussion w/another healthcare provider: Hospitalist and Special Client Bus Driver (Elijah Salas) Discharge Plan Dx/Rx/DC Orders Clinical Impression: Small bowel obstruction, Diffuse abdominal pain, Vomiting Disposition Disposition: Acute Care Hospital [facility] What to do if you have Problems For any increased pain, shortness of breath, bleeding, nausea or vomiting, chestpain, or any unexpected problems, contact your Primary Care Provider. Call [facility] ([phone]) or report to the closest Emergency Room. Call 911 if necessary. 11/11/22 0802 <Electronically signed by Brian Hernadez MD> Cosigner Signature (if applicable): CC: [facility] ~ Signed [facility] Work Phone: [phone]) 580-707009-14-2023 Discharge summary Author Jarvis Conde [facility] November 01, 2022 9:42am Note Date/Time November 01, 2022 7:29am [facility] Medical Records Department [address] [facility] [place] [address] Emergency Department Summary 11/01/22 MR#: [id number] Acct: [id number] Name: MARILEE BOCANEGRA Rep #:[id number] : 1985 37 From: Jarvis Piña [facility] atus:REG ER Location: ED HPI History [...] BEEN PERSONALLY REVIEWED AND INTERPRETED BY MYSELF. [facility] Narrative: The patient was hemodynamically stable, afebrile, [...] Work / School Excuse Primary Care Provider: [facility] Tami Estrella Referrals: [facility] Tami Estrella [Primary Care Provider] - Activity [...] your Primary Care Provider. Call [facility] ([phone]) or report to the closest Emergency Room. Call 911 if necessary. 11/01/22941 <Electronically signed by Jarvis Conde DO> Cosigner Signature (if applicable): CC: [facility] ~ Signed [facility] Work Phone: 1(771) [phone] Miscellaneous Notes* Telephone Encounter - Adore Fuchs LPN - 04/27/2022 5:13 PM EST Left message for patient with results and recommendations.Adore Fuchs LPN * Telephone Encounter - Miguel Bryant APRN.CNP - 04/27/2022 4:05 PM EST No abnormal findings noted on chest x-ray. Follow-up with PCP as discussed. Miguel Bryant APRN.CNP documented in this encounterRegency Hospital [facility]03-10-2023 History of Present illness Narrative* Elton Fowler [...] 27, 2022 3:37 PM documented in this encounterRegency Hospital [facility]03-10-2023 History of Present illness Narrative* Miguel Bryant APRN.[facility] - 04/27/2022 3:27 PM EST Subjective HPI [...] HX L hip surgery x 2 in [place] OVARIAN CYST RIGHT, FLUID removal of right [...] daily. (Patient not taking: Reported on 03/27/2022) Rfkgrvau-Oa-Udl-Fe-FA tab Take 1 tablet by mouth once [...] of care. This note was generated using Walk Score software. It may contain errors in wording, punctuation, or spelling. Miguel Bryant APRN.VLADIMIR documented in this encounterRegency Hospital [facility]02-14-[address] Martin [facility] April 03, 2022 3:33pm Note Date/Time April 03, 2022 2:23pm [facility] Medical Records Department [address] [address] Emergency Department Summary 04/03/22 MR#: [id number] Acct: [id number] Name: MARILEE BOCANEGRA Rep #:[id number] : 1985 37 From: Ulises Murguia PCP: [...] COPD history. Mild chest discomfort with cough. [facility] Medical History Substance abuse Home Medications clindamycin [...] your Primary Care Provider. Call [facility] ([phone]) or report to the closest Emergency Room. Call 911 if necessary. 04/03/22 1783 <Electronically signed by Ulises Murguia> Cosigner Signature (if applicable): CC: No Primary Care Physician ~ Signed [facility] Work Phone: 1(588) 697-177702-14-2023 History of Present illness Narrative* Lokesh Savage, ZOË - 04/03/2022 1:47 PM EST This note was created using Solsticeriter. Subjective Marilee Bocanegra is a 37 year [...] HX L hip surgery x 2 in [place] OVARIAN CYST RIGHT, FLUID removal of right [...] daily. (Patient not taking: Reported on 03/27/2022) Roanzzgp-Jx-Wwo-Fe-FA tab Take 1 tablet by mouth once [...] due tochest pain/tightness. She will go to [facility]. ER passport sent. ZOË Amaro documented in this encounterRegency Hospital [facility]02-07-2023 History of Present illness Narrative* Miguel Bryant APRN.[facility] - 03/27/2022 4:39 PM EST Subjective HPI [...] HX L hip surgery x 2 in [place] OVARIAN CYST RIGHT, FLUID removal of right [...] daily. (Patient not taking: Reported on 03/27/2022) Hpxnhelr-Yo-Zgl-Fe-FA tab Take 1 tablet by mouth once [...] swelling or pain on movement. Mouth/Throat: Lips: Alpha. Mouth: Mucous membranes are moist. Dentition: Abnormal [...] of care. This note was generated using Walk Score software. It may contain errors in wording, punctuation, or spelling. Miguel Bryant APRN.VLADIMIR documented in this encounterCleveland ClinicDischarge summary Author Kevin Gregory [facility] January 03, 2023 11:37am Note Date/Time January 03, 2023 10:13am [facility] Medical Records Department [address] [place] [address] Emergency Department Summary 01/03/23 MR#: [id number] Acct: [id number] Name: MARILEE BOCANEGRA Rep #:[id number] : 1985 37 From: Kevin Gregory MD PCP: [facility] St atus:REG ER Location: ED HPI HPI [...] in color. Psychiatric: No depression. No anxiety. [facility] Medical History History of ischemic colitis Substance [...] vomiting) Qty: 10 0RF Primary Care Provider: Tami Bowers Referrals: [facility] Sameer,Tami Garcia [Primary Care Provider] - 1 Week if not improving Activity Restrictions/Additional Instructions: Stop smoking. Medications as directed. Disposition Disposition: Home, Self Care What to do if you have Problems For any increased pain, shortness of breath, bleeding, nausea or vomiting, chestpain, or any unexpected problems, contact your Primary Care Provider. Call [facility] ([phone]) or report to the closest Emergency Room. Call 911 if necessary. 01/03/23 1137 <Electronically signed by Kevin Gregory MD> Cosigner Signature (if applicable): CC: [facility] ~ Signed [facility] Work Phone: Discharge summary Author Brian Hernadez [facility] May 17, 2023 8:27am Note Date/Time May 17, 2023 7:4 6am [facility] Medical Records Department [address] [place] [address] Emergency Department Summary 05/17/23 MR#: [id number] Acct: [id number] Name: MARILEE BOCANEGRA Rep #:[id number] : 1985 38 From: Brian Hernadez MD PCP: [facility] St atus:REG ER Location: ED HPI History [...] before but it has been a while. [facility] Medical History Bowel obstruction Depression History of [...] 39.1 L Lymph % (Auto) 42.9 H Lynn % (Auto) 9.2 Eos % (Auto) 7.8 [...] Wheezing) Qty: 1 0RF [facility] Garcia [Primary Care Provider] - 3-5 Days if not improving Disposition Disposition: Home, Self Care What to do if you have Problems For any increased pain, shortness of breath, bleeding, nausea or vomiting, chestpain, or any unexpected problems, contact your Primary Care Provider. Call [facility] ([phone]) or report to the closest Emergency Room. Call 911 if necessary. 05/17/23826 <Electronically signed by Brian Hernadez MD> Cosigner Signature (if applicable): CC: [facility] ~ Signed [facility] Work Phone: Evaluation noteNo assessment information available [facility] Work Phone: Evaluation note* Diagnosis Sinobronchitis- Primary Unspecified sinusitis (chronic) Dental infection Acute apical periodontitis of pulpal origin [facility] Diagnosis Chest tightness- Primary Other chest pain SOB (shortness of breath) Shortness of breath [facility] Diagnosis Acute cough- Primary documented in this encounter [facility] note* Diagnosis Onset Date Resolution Status Diffuse abdominal pain acute Small bowel obstruction acut e Vomiting acute [facility] Work Phone: Evaluation note* Diagnosis Onset Date Resolution Status Diffuse abdominal pain resol eddie Small bowel obstruction reso lved Vomiting resolved [facility] Work Phone: Evaluation note* Diagnosis Acute cough- Primary documented in this encounter [facility] note* Diagnosis Acute conjunctivitis of both eyes, unspecified acute conjunctivitis type- Primary documented in this encounter [facility] note* Diagnosis Chemosis of left conjunctiva- Primary Seasonal allergic rhinitis, unspecified trigger documented in this encounter [facility] note* Diagnosis Acute cough documented in this encounter [facility] note* Diagnosis Acute cough documented in this encounter [facility] note* Diagnosis Onset Date Resolution Status Admit Date Hepatitis C acute July 22 1:23pm [facility] Work Phone: Hospital Discharge instructions Additional Instructions Left foot x-ray negative. Continue ibuprofen every 6 hours as needed. Use postop shoe for comfort. Follow-up with your doctor.[facility] Work Phone: Hospital Discharge instructions Additional Instructions [...] care physician for further outpatient evaluation and management.[facility] Work Phone: Hospital Discharge instructions Additional Instructions Stop smoking. Medications as directed.[facility] Work Phone: Reason for referral (narrative)No reason for [facility] Work Phone: Summary Purpose Family History No Family History Records Found Relationship Condition Age at Onset Recorded Date/T cindy father Chronic obstructive pulmonary disease Unk nown mother Malignant melanoma Unknown Advance Directives No Advanced Directives Records Found Advance Directive Response Recorded Date/ Time Living Will No January 27, 2 022 8:36pm Power of Payroll Specialist No January 27, 2022 8:36pm Advance Directive Response Recorded Date/ Time Living Will No April 03, 2 023 2:04pm Power of Payroll Specialist No April 03, 2022 2:04pm Advance Directive Response Recorded Date/ Time Living Will No April 03, 2 023 3:04pm Power of Payroll Specialist No April 03, 2022 3:04pm Advance Directive Response Recorded Date/ Time Living Will No October 03 10:37pm Power of Payroll Specialist No October 03, 2 023 10:37pm Advance Directive Response Recorded Date/ Time Living Will No November 01, 2022 7:03am Power of Payroll Specialist No October 7:03am Advance Directive Response Recorded Date/ Time Living Will No November 11, 2022 4:49am Power of Payroll Specialist No October 4:49am Advance Directive Response Recorded Date/ Time Living Will No November 11, 2022 9:38am Power of Payroll Specialist No October 9:38am Advance Directive Response Recorded Date/ Time Living Will No January 03, 2 023 10:18am Power of Payroll Specialist No January 03, 2023 10:18am Advance Directive Response Recorded Date/ Time Living Will No January 08, 2 023 10:01am Power of Payroll Specialist No January 08, 2023 10:01am Advance Directive Response Recorded Date/ Time Living Will No May 17, 2023 7:35am Power of Payroll Specialist No May 16 7:35am Chief Complaint and [...] colonic polyps July 22, 2024 1:23 pm Chief Complaint Admit Date pre colonoscopy abdominal pain July 22, 2024 1:23pm 2 ORDERING DOCTORS July 22, 2024 2:33p m Amb Documentation July 27, 2024 8:59a m RUQ PAIN July 30, 2024 7:10 am Hepatitis C July 31, 2024 8:21 am Reason for Visit Admit Date Abdominal pain July 22, 2024 1:23p m Hepatitis C July 22, 2024 1:23p m Hx of colonic polyps July 22, 2024 1:23 pm Hepatitis C July 31, 2024 8:21 am Chief Complaint Admit Date pre colonoscopy abdominal pain July 22, 2024 1:23pm 2 ORDERING DOCTORS July 22, 2024 2:33p m Amb Documentation July 27, 2024 8:59a m RUQ PAIN July 30, 2024 7:10 am Hepatitis C July 31, 2024 8:21 am HIGH IRON August 04, 2024 1:54 pm Reason for Visit Admit Date Abdominal pain July 22, 2024 1:23p m Hx of colonic polyps July 22, 2024 1:23 pm Hepatitis C July 22, 2024 1:23p m Abdominal pain July 31, 2024 8:21 am Hx of colonic polyps July 31, 2024 8:2 1am Hepatitis C July 31, 2024 8:21 am Abnormal iron saturation July 31, 2024 8:21am Reason for Visit Admit Date Abdominal pain July 22, 2024 1:23p m Hx of colonic polyps July 22, 2024 1:23 pm Hepatitis C July 22, 2024 1:23p m Abdominal pain July 31, 2024 8:21 am Hx of colonic polyps July 31, 2024 8:2 1am Hepatitis C July 31, 2024 8:21 am Abnormal iron saturation July 31, 2024 8:21am Hereditary hemochromatosis August 04 1:54pm Additional Source Comments INFORMATION SOURCE (unrecogn ized section and content) DATE CREATED AUTHOR 08/07/2017 [facility] ([place]) DATE CREATED AUTHOR AUTHOR'S ORGANIZ ATION 08/14/2017 [facility] DATE CREATED AUTHOR AUTHOR'S ORGANIZ ATION 08/14/2017 [facility] DATE CREATED AUTHOR AUTHOR'S ORGANIZ ATION [facility]/14/2017 [facility] DATE CREATED AUTHOR AUTHOR'S ORGANIZ ATION 09/11/2023 [facility] DATE CREATED AUTHOR AUTHOR'S ORGANIZ ATION 09/27/2024 [facility] Goals (unrecognized section and content) [...] or prosecute any alcohol or drug abuse patient.[facility] the event this information is protected by the Federal Confidentiality of Alcohol and Drug Abuse Patient Records regulations: The Federal rules restrict any use of the information to criminally investigate or prosecute any alcohol or drug abuse patient.[facility] the event this information is protected by the Federal Confidentiality of Alcohol and Drug Abuse Patient Records regulations: The Federal rules restrict any use of the information to criminally investigate or prosecute any alcohol or drug abuse patient.[facility] the event this information is protected by the Federal Confidentiality of Alcohol and Drug Abuse Patient Records regulations: The Federal rules restrict any use of the information to criminally investigate or prosecute any alcohol or drug abuse patient.[facility] the event this information is protected by the Federal Confidentiality of Alcohol and Drug Abuse Patient Records regulations: The Federal rules restrict any use of the information to criminally investigate or prosecute any alcohol or drug abuse patient.[facility] the event this information is protected by the Federal Confidentiality of Alcohol and Drug Abuse Patient Records regulations: The Federal rules restrict any use of the information to criminally investigate or prosecute any alcohol or drug abuse patient.[facility] the event this information is protected by the Federal Confidentiality of Alcohol and Drug Abuse Patient Records regulations: The Federal rules restrict any use of the information to criminally investigate or prosecute any alcohol or drug abuse patient.[facility] the event this information is protected by the Federal Confidentiality of Alcohol and Drug Abuse Patient Records regulations: The Federal rules restrict any use of the information to criminally investigate or prosecute any alcohol or drug abuse patient.[facility] the event this information is protected by the Federal Confidentiality of Alcohol and Drug Abuse Patient Records regulations: The Federal rules restrict any use of the information to criminally investigate or prosecute any alcohol or drug abuse patient.[facility] Reason for Visit (unrecogniz ed section and [...] Care Teams (unrecognized sec tion and content) 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 Primary Care Provider A ctive Team Status: Inactive Member Role Status Dates No Primary Care Physician Primary Care Provider Active Dr. Ulises Martin DO Attending Provider, Emergency Provide r Active Team Status: Inactive Member Role Status Dates [facility] Primary Care Provider A ctive Jennifer Kwon BOOT AND SHOE REPAIRMAN, BOOT AND SHOE REPAIRMAN-C Attending Provider Active Team Status: Inactive Member Role Status [facility] Primary Care Provider A ctive Jennifer Kwon BOOT AND SHOE REPAIRMAN, BOOT AND SHOE REPAIRMAN-C Attending Provider, Referrin g Provider Active Team Status: Inactive Member Role Status [facility] Primary Care Provider A ctive Dr. Ulises Martin DO Emergency Provider Active Team Status: Inactive Member Role Status Dates [facility] Primary Care Provider A ctive Dr. Ulises Martin DO Attending Provider, Emergency Provide r Active Team Status: Inactive Member Role Status Dates [facility] Primary Care Provider A ctive Dr. Jarvis Conde DO Emergency Provider Active Team Status: Inactive Member Role Status Dates [facility] Primary Care Provider A ctive Dr. Jarvis Conde DO Attending Provider, Emergency P rovider Active Team Status: Active Member Role Status [facility] Primary Care Provider A ctive Dr. Brian Hernadez MD Emergency Provider Active Dr. Patricia Green MD Admit Provider, Attending Prov ider Active Team Status: Active Member Role Status Dates [facility] Primary Care Provider A ctive Dr. Brian Hernadez MD Emergency Provider Active Dr. Patricia Green MD Admit Provider, Other Provider Active Dr. Jose Salas MD Attending Provider, Other Provi gerson Active Team Status: Active Member Role Status [facility] Primary Care Provider A ctive Dr. Brian Hernadez MD Emergency Provider Active Dr. Patricia Green MD Admit Provider, Other Provider Active Dr. Jose Salas MD Other Provider Active Dr. Ananda Cartagena DO Other Provider Active Alejandra CAMP PA-C Attending Provider Active Team Status: Active Member Role Status [facility] Primary Care Provider A ctive Dr. Brian Hernadez MD Emergency Provider Active Dr. Patricia Green MD Admit Provider, Other Provider Active Dr. Jose Salas MD Other Provider Active Dr. Ananda Cartagena DO Attending Provider, Other Provid er Active Team Status: Active Member Role Status [facility] Primary Care Provider A ctive Dr. Brian Hernadez MD Emergency Provider Active Dr. Patricia Green MD Admit Provider, Other Provider Active Dr. Jose Salas MD Attending Provider, Other Provi gerson Active Dr. Ananda Cartagena DO Other Provider Active Team Status: Inactive Member Role Status [facility] Primary Care Provider A ctive Dr. Brian Hernadez MD Emergency Provider Active Dr. Patricia Green MD Admit Provider, Other Provider Active Dr. Jose Salas MD Other Provider Active Dr. Ananda Cartagena DO Attending Provider Active Team Status: Active Member Role Status [facility] Primary Care Provider A ctive Dr. Brian Hernadez MD Emergency Provider Active Dr. Patricia Green MD Admit Provider, Other Provider Active Dr. Jose Salas MD Attending Provider, Other Provi gerson Active Dr. Ananda Cartagena DO Referring Provider Active Team Status: Inactive Member Role Status [facility] Primary Care Provider A ctive Kevin Gregory MD Emergency Provider Active Team Status: Inactive Member Role Status [facility] Primary Care Provider A ctive Dr. Julian Jiménez MD Emergency Provider Active Team Status: Inactive Member Role Status Dates [facility] Primary Care Provider A ctive Kevin Gregory MD Attending Provider, Emergency Provid er Active Team Status: Inactive Member Role Status Dates [facility] Primary Care Provider A ctive Dr. 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 Primary Care Provider A ctive Dr. Brian Hernadez MD Attending Provider, Emergency Provider Active Team Status: Inactive Member Role Status Dates Jennifer JAQUEZC, BOOT AND SHOE REPAIRMAN-C Primary Care Provider, Attending Provider, Referring Provider Active Kettle Operator Head Relationship Specialty Start Date End Date [facility], [place] [facility] [address] [place] [address] PCP - General 05/21/23 Jennifer Kwon NP [address] [place] [address] Referring Family Medicine 09/18/22 Kettle Operator Head Relationship Specialty Start Date End Date [facility], [place] [facility] [address] [place] [address] PCP - General 05/21/23 Jennifer Kwon NP [address] [place] [address] Referring Family Medicine 09/18/22 Kettle Operator Head Relationship Specialty Start Date End Date [facility], [place] [facility] [address] [place] [address] PCP - General 05/21/23 Jennifer Kwon NP [address] [place] [id number] Referring Family Medicine 09/18/22 Team Status: Active Member Role Status Dates Jennifer Kwon VSC, BOOT AND SHOE REPAIRMAN-C Primary Care Provider Activ e Team Status: Inactive Member Role Status Dates Jennifer JAQUEZC, BOOT AND SHOE REPAIRMAN-C Primary Care Provider Activ e Start: March 27, 2024 End: March 27, 2024 Zebulun Beam VSC, BOOT AND SHOE REPAIRMAN-C Attending Provider Active Start: March 27, 2024 End: March 27, 2024 Zebulun Beam VSC, BOOT AND SHOE REPAIRMAN-C Referring Provider Active Start: March 27, 2024 End: March 27, 2024 Team Status: Inactive Member Role Status Dates Jennifer Kwon VSC, BOOT AND SHOE REPAIRMAN-C Primary Care Provider Activ e Start: March 31, 2024 End: March 31, 2024 Zebulun Beam VSC, BOOT AND SHOE REPAIRMAN-C Attending Provider Active Start: March 31, 2024 End: March 31, 2024 Team Status: Inactive Member Role Status Dates Jennifer Kwon VSC, BOOT AND SHOE REPAIRMAN-C Primary Care Provider Activ e Start: July 10, 2024 End: July 10, 2024 Zebulun Beam VSC, BOOT AND SHOE REPAIRMAN-C Attending Provider Active Start: July 10, 2024 End: July 10, 2024 Zebulun Beam VSC, BOOT AND SHOE REPAIRMAN-C Referring Provider Active Start: July 10, 2024 End: July 10, 2024 Team Status: Inactive Member Role Status Dates Jennifer Kwon VSC, BOOT AND SHOE REPAIRMAN-C Primary Care Provider Activ e Start: July 22, 2024 End: July 22, 2024 Jennifer Kwon VSC, BOOT AND SHOE REPAIRMAN-C Referring Provider Active Start: July 22, 2024 End: July 22, 2024 ZOË Benoit Attending Provider Active Start: July 22, 2024 End: July 22, 2024 Team Status: Inactive Member Role Status Dates Jennifer Kwon VSC, BOOT AND SHOE REPAIRMAN-C Primary Care Provider Activ e Start: July 22, 2024 End: July 22, 2024 Zebulun Beam VSC, BOOT AND SHOE REPAIRMAN-C Attending Provider Active Start: July 22, 2024 End: July 22, 2024 Zebulun Beam VSC, BOOT AND SHOE REPAIRMAN-C Referring Provider Active Start: July 22, 2024 End: July 22, 2024 ZOË Benoit Other Provider Active Star t: July 22, 2024 End: July 22, 2024 Team Status: Active Member Role Status Dates Jennifer Kwon VSC, BOOT AND SHOE REPAIRMAN-C Primary Care Provider Activ e Start: July 27, 2024 Nicole Carranza Attending Provider Active Start: July 27, 2024 Team Status: Active Member Role Status Dates Jennifer Kwon VSC, BOOT AND SHOE REPAIRMAN-C Primary Care Provider Activ e Start: July 30, 2024 Harisbulun Beam VSC, BOOT AND SHOE REPAIRMAN-C Attending Provider Active Start: July 30, 2024 Zebulun Beam VSC, BOOT AND SHOE REPAIRMAN-C Referring Provider Active Start: July 30, 2024 Team Status: Inactive Member Role Status Dates Jennifer Kwon VSC, BOOT AND SHOE REPAIRMAN-C Primary Care Provider Activ e Start: July 31, 2024 End: July 31, 2024 Jennifer Kwon VSC, BOOT AND SHOE REPAIRMAN-C Referring Provider Active Start: July 31, 2024 End: July 31, 2024 Dr. Justin Hopper MD Attending Provider Active Start: July 31, 2024 End: July 31, 2024 Team Status: Inactive Member Role Status Dates Jennifer Kwon VSC, BOOT AND SHOE REPAIRMAN-C Primary Care Provider Activ e Start: August 04, 2024 End: August 04, 2024 Stephany Tabor BOOT AND SHOE REPAIRMAN-C Referring Provider Active Start: August 04, 2024 End: August 04, 2024 Dr. Delta Nassar MD Attending Provider Active Start: August 04, 2024 End: August 04, 2024 Team Status: Inactive Member Role Status Dates Jennifer Kwon VSC, BOOT AND SHOE REPAIRMAN-C Primary Care Provider Activ e Start: July 30, 2024 End: July 30, 2024 Harisbulupaula Beam VSC, BOOT AND SHOE REPAIRMAN-C Attending Provider Active Start: July 30, 2024 End: July 30, 2024 Zebulun Beam VSC, BOOT AND SHOE REPAIRMAN-C Referring Provider Active Start: July 30, 2024 End: July 30, 2024 FOR RECORDS PERTAINING TO PATIENTS WHO [...] BE BASED ON THE PRIMARY CLINICAL RECORDS. [facility] [employer] [facility]. provides no warranty or guarantee of the accuracy or completeness of information in this document.
--- NOTE | 2024-09-28 07:16 | PCM.HP.STD ---
[facility] - General General Date of Admission: 09/28/24 Date of Service: 10/21/24 Chief Complaint: Abdominal pain HPI Narrative MARILY BOCANEGRA, is a 39 F who presents for the evaluation of abdominal pain. She has a past medical history of hep c. Pt has hx of IVDU in past but has been sober for about 17 months on Vivitrol. She has been sober from alcohol for 8 years. She has not had treatment for hepatitis C. Per chart she had hep c antibody in 2022 Office visit: 07/31/2024: Complained of abdominal discomfort/cramps 2 to 3 days 2 almost every day, feels like [place] contractions. Does not have relationship with the food with mild nausea about 3-4 times a month. No vomiting. Has dyspeptic symptoms and is on omeprazole. Patient also takes ibuprofen 800 mg 3 times daily as needed for headache, very frequently. Irregular bowel habit, once in 2 to 3 days with mild hardness and firmness. Sometimes blood in the stool. Scheduled for colonoscopy. Complete social history was taken. 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 Patient has been sober for past 18 months. She had about 9 to 10 months of Vivitrol IM injection and then was prescribed oral but she could not tolerate oral therefore did not take it. Smoking: Still smokes 1 pack/day started in high school Alcohol: She started beers/hard liquor on weekend in high school in parties. She also drinking sometimes in her 20s but not a big drinker. Quit alcohol 10 years ago. [facility]LY [facility] Medical History Wears contact lenses Wears glasses Arthritis Hepatitis Injury of back Syncope Colitis Gastric reflux Smoker Cyst of ovary, left Hereditary hemochromatosis Fatigue Abnormal liver enzymes GERD (gastroesophageal reflux disease) Ovarian torsion Low iron Depression Bowel obstruction History of ischemic colitis Substance abuse Home Medications ?Medication ?Instructions ?Recorded ?Last Taken ?Type cholecalciferol (vitamin D3) 1,250 1,250 mcg PO QWEEK 1 month #5 caps 07/31/24 Unknown Rx mcg (50,000 unit) capsule ibuprofen 800 mg tablet 400 mg PO TID PRN PRN pain 07/31/24 Unknown History Allergy/AdvReac Type Severity Reaction Status Date / Time cefaclor (From [facility]) Allergy Unknown Verified 09/23/24 09:50 duloxetine (From Cymbalta) Allergy Other Verified 09/23/24 09:50 tramadol Allergy PT UNSURE Verified 09/23/24 09:50 OF REACTION ketorolac (From Toradol) AdvReac PT UNSURE Verified 09/23/24 09:50 OF REACTION Family History Father COPD (chronic obstructive pulmonary disease) Mother Melanoma Surgical History History of myringotomy Hx of unilateral oophorectomy Hx of colonoscopy Hx of tympanostomy tubes Hx of knee surgery History of hip surgery H/O shoulder surgery Social History number of children: 1 current occupational status: employed Smoking Status: Current every day smoker tobacco type: cigarettes and e-cigarettes alcohol intake: never substance use type: former substance user ROS Constitutional Constitutional: Denies fatigue, fever(s), poor appetite, weight gain or weight loss Gastrointestinal Gastrointestinal: Denies belching, bloating, change in bowel habits, change in stool character, chewing difficulty, coffee ground emesis, constipation, cramping, diarrhea, dyspepsia, dysphagia, early satiety, excessive flatus, fecal incontinence, heartburn, hematemesis, hematochezia, hemorrhoids, loose stools, melena, nausea, odynophagia, rectal bleeding, tenesmus, vomiting or weight changes Physical Exam Const alert, oriented x3, no apparent distress and healthy appearing General Appearance: cooperative GI normal to inspection, nondistended, normoactive bowel sounds, soft to palpation, non-tender and non-distended Percussion: normal to percussion Rectal Exam: deferred Assessment & Plan Assessment/Plan (1) Abdominal pain: (2) Hx of colonic polyps: (3) Hepatitis C: (4) Hereditary hemochromatosis: (5) Suicidal ideation: PLAN: Assessment and Plan Assessment and Plan (1) Hepatitis C: Status: Chronic Plan: During first visit, seen by Xiomara had labs done and reviewed. HCV antibody reactive, genotype Ia, HCVRNA quantitative 251,000. HIV 1 and 2 antibody nonreactive. Surface antigen and IgM core negative. Hep B antibody reactive in 04/2022. Hep A IgM antibody negative. Liver chemistry shows ALT 43 elevated, AST alkaline phosphatase and albumin normal. Albumin 4.5. Liver ultrasound with elastography reviewed with the patient, median velocity 1.29 m/s, no to mild fibrosis. Diffusely echogenic suggesting fatty infiltration. Contour normal. No lesions identified. GB and bile duct normal. Pancreas normal [facility] hep C FibroSure test was done which shows fibrosis score 0.07 which is normal. Necroinflammatory activity score, Hoang 0.19 grade is 0 to a 1, (normal 0.0-0.17). ALT reported 45, GGT 12, total bili 0.2. Discussed about the hepatitis C medication, Mavyret patient prescribed for 8 weeks. She agreed and prescribed. Lab work ordered after completion of Mavyret. Follow-up in 3 months (2) Abdominal pain: Status: Acute Plan: Hold abdominal pain probably mainly from gastritis/GERD from ibuprofen. Advised to minimize the dose to 400 mg once a day. Omeprazole/PPI impairs the absorption of Mavyret therefore advised him time gap of 3 hours. PPI 1 hour before food. (3) Hx of colonic polyps: Status: Acute Plan: Complain of mild constipation and blood. Scheduled for colonoscopy. 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 Serine 65 not detected. Associated with low risk to develop clinically relevant transferrin iron saturation. Iron saturation and ferritin every 6 months. Orders: Orders CBC W/Diff, Automated 9 Weeks B19.20 - Unspecified viral hepatitis C without hepatic coma, R10.9 - Unspecified abdominal pain, R74.8 - Abnormal levels of other serum enzymes Comprehensive Metabolic Profil 9 Weeks B19.20 - Unspecified viral hepatitis C without hepatic coma, R10.9 - Unspecified abdominal pain, R74.8 - Abnormal levels of other serum enzymes CRP 9 Weeks B19.20 - Unspecified viral hepatitis C without hepatic coma, R10.9 - Unspecified abdominal pain, R74.8 - Abnormal levels of other serum enzymes Prothrombin Time w/INR 9 Weeks B19.20 - Unspecified viral hepatitis C without hepatic coma, R10.9 - Unspecified abdominal pain, R74.8 - Abnormal levels of other serum enzymes Hepatitis B Surface Antibody 9 Weeks B19.20 - Unspecified viral hepatitis C without hepatic coma, R10.9 - Unspecified abdominal pain, R74.8 - Abnormal levels of other serum enzymes Hemoglobin A1c 9 Weeks B19.20 - Unspecified viral hepatitis C without hepatic coma, R10.9 - Unspecified abdominal pain, R74.8 - Abnormal levels of other serum enzymes Hepatitis C,RNA PCR Viral Load 9 Weeks B19.20 - Unspecified viral hepatitis C without hepatic coma, R10.9 - Unspecified abdominal pain, R74.8 - Abnormal levels of other serum enzymes MIREILLE w/ Reflex Mult Confirm 9 Weeks B19.20 - Unspecified viral hepatitis C without hepatic coma, R10.9 - Unspecified abdominal pain, R74.8 - Abnormal levels of other serum enzymes Anti-Mitochondrial AB 9 Weeks B19.20 - Unspecified viral hepatitis C without hepatic coma, R10.9 - Unspecified abdominal pain, R74.8 - Abnormal levels of other serum enzymes Anti-Smooth Muscle ABS 9 Weeks B19.20 - Unspecified viral hepatitis C without hepatic coma, R10.9 - Unspecified abdominal pain, R74.8 - Abnormal levels of other serum enzymes Medications: New glecaprevir-pibrentasvir 100-40 mg (Mavyret) must administer with a meal/food 3 tabs PO QDAY 8 weeks 168 tabs 0RF cholecalciferol (vitamin D3) 1,250 mcg PO QWEEK 1 month 5 caps 2RF Changed From ibuprofen 800 mg PO TID PRN PRN pain To ibuprofen 400 mg PO TID PRN PRN pain From acetaminophen 1,000 mg (2 x 500 mg) PO Q6H PRN 30 caps 0RF pain To acetaminophen 1,000 mg (2 x 500 mg) PO Q8H PRN PRN 30 caps 0RF pain
[2024-09-28 07:34] LABS: Internal QC Validated? YES +Cl - CLEAR BKGD; Pregnancy, Urine Negative Negative; Record Kit Lot#,Urine Preg 962302
[2024-09-28] MEDS: Lactated Ringers 1,000 ML 15 ML IV (07:36)
--- NOTE | 2024-09-28 07:56 | PRE.ANES_ITS ---
ASA Classification* ASA Classification ASA Classification: 2 Assessment & Plan Anesthesia* Anesthesia Assessment Anesthesia Assessment: Discussed sedation and/or anesthesia options, risks, benefits, and alternatives with patient/parents/legal guardian/POA. Questions invited. The patient/parents/legal guardian/POA seems to understand and agrees to proceed with anesthesia plan. Reviewed the physical assessment, medical history, allergy history and patient home medications list prior to surgery/procedure/anesthetic and documented any changes. Performed airway and anesthesia risk assessments. Anesthesia Type Anesthesia Type: MAC History Source History Obtained from:: Patient and Chart Anesthesia Focused Assessment* Temperature: 97.9 F Pulse Rate: 73 Blood Pressure: 118/72 Respiratory Rate: 16 Pulse Ox: 98 Oxygen Delivery Method: Room Air Airway Assessment Mouth opens: >3 cm Mallampati Score: I Teeth Condition: Missing (Patient has several missing teeth. Rest are tight.) Neck Range of motion (ROM): Full ROM Labs Anesthesia Preop lab: CBC WBC 7.5 K/mm3 (4.4-11.0) 07/10/24 10:38 07/10/24 RBC 4.73 M/mm3 (4.2-5.4) 07/10/24 10:38 07/10/24 Hgb 15.1 g/dL (12.0-15.0) H 07/10/24 10:38 5 Hct 44.3 % (37-47) 07/10/24 10:38 07/10/24 Plt Count 276 K/mm3 (150-450) 07/10/24 10:38 07/10/24 CHEMISTRY Potassium 3.8 mmol/L (3.3-5.1) 07/22/24 14:38 07/22/24 Sodium 138 mmol/L (133-145) 07/22/24 14:38 07/22/24 BUN 14 mg/dL (4-19) 07/22/24 14:38 07/22/24 Creatinine 0.63 mg/dL (0.70-1.20) L 07/22/24 14:38 Glucose 116 mg/dL (70-99) H 07/22/24 14:38 07/22/24 TSH 0.883 uIU/mL (0.300-4.200) 07/10/24 10:38 05/05/12 COAG PT 12.1 SECONDS (11.7-14.9) 07/22/24 14:38 Urine Test Negative Negative 09/28/24 07:13 09/28/24 Pre-Assessment Diagnosis/Proposed Procedure Planned Operative Procedure(s): COLONOSCOPY Anesthesia History 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 When Was Last Pacemaker Check QUESTION #4 FULL TEXT: You/Your Family Experience fever (hyperthermia) with Anesthesia Last Oral Intake Last Oral intake: Last Oral Intake NPO since 06:30 09/28/24 07:26 Meds taken in AM with sips of No 09/28/24 07:26 water? 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 technician Female Yes 09/23/24 10:02 HX of Motion Sickness No 09/23/24 10:02 HX of N/V After Surgery No 09/23/24 10:02 Non-Smoker No 09/23/24 10:02 Duration of Surgery greater No 09/23/24 10:02 than 60 minutes Number of Risk Factors 1 09/23/24 10:02 PONV Score Low Risk 09/23/24 10:02 Height & Weight Height & Weight: Anesthesia: Height & Weight Height 5 ft 8 in 09/28/24 07:26 Weight: 80 kg 09/28/24 07:26 Body Mass Index (BMI) 26.8 09/28/24 07:26 Respiratory Assessment Respiratory Assessment - office equipment technician: Respiratory Tract Infection Hx - office equipment technician Hx Respiratory Tract Infection No 09/23/24 10:02 STOP Sleep Apnea STOP Sleep Apnea - office equipment technician: STOP Sleep Apnea - office equipment technician Hx Hypertension No 09/23/24 10:02 Hx Sleep Apnea No 09/23/24 10:02 CPAP BIPAP Do you snore loudly (louder No 09/23/24 10:02 than talking or can be heard Do you often feel tired/ No 09/23/24 10:02 fatigued/ sleepy during daytime? Has anyone observed you stop No 09/23/24 10:02 breathing during sleep? STOP Results Negative 09/23/24 10:02 QUESTION #5 FULL TEXT : Do you snore loudly (louder than talking or can be heard through closed doors)? 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 Specify any problems Hx of Preganancy in last 3 No 09/23/24 10:02 Months Nurse Filling Out Transfusion VCHRISTIN 09/23/24 10:02 & Questions: Date: 09/23/24 09/23/24 10:02 Time: 10:03 09/23/24 10:02 Patient unable to answer at this time (ie. confused, unrespo /Reproduction History /Reproductive History - office equipment technician: /Reproductive Hx- office equipment technician Hx Now No 09/23/24 10:02 Gestational Age (in weeks): EDC: Hx Hx Para Hx Section SAB No 09/23/24 10:02 Active Medications Active Medications: Current Medications Generic Name Dose Route Start Last Admin Trade Name Freq PRN Reason Stop Dose Admin Lactated Ringer's 1,000 mls @ 15 mls/hr 09/28/24 07:15 09/28/24 07:36 IV 15 mls/hr .Q48H MAYA Administration PFSH Medical History Wears contact lenses Wears glasses Arthritis Hepatitis Injury of back Syncope Colitis Gastric reflux Smoker Cyst of ovary, left Hereditary hemochromatosis Fatigue Abnormal liver enzymes GERD (gastroesophageal reflux disease) Ovarian torsion Low iron Depression Bowel obstruction History of ischemic colitis Substance abuse Home Medications ?Medication ?Instructions ?Recorded ?Last Taken ?Type cholecalciferol (vitamin D3) 1,250 1,250 mcg PO QWEEK 1 month #5 caps 07/31/24 Unknown Rx mcg (50,000 unit) capsule ibuprofen 800 mg tablet 400 mg PO TID PRN PRN pain 0 07/31/24 Unknown History glecaprevir 100 mg-pibrentasvir 40 3 tab PO DAILY 09/1809/27/24 History mg tablet (Mavyret) Allergy/AdvReac Type Severity Reaction Status Date / Time cefaclor (From Ceclor) Allergy Unknown Verified 09/28/24 07:24 duloxetine (From Cymbalta) Allergy Other Verified 09/28/24 07:24 tramadol Allergy PT UNSURE Verified 09/28/24 07:24 OF REACTION ketorolac (From Toradol) AdvReac PT UNSURE Verified 09/28/24 07:24 OF REACTION Family History Father COPD (chronic obstructive pulmonary disease) Mother Melanoma Surgical History History of myringotomy Hx of unilateral oophorectomy Hx of colonoscopy Hx of tympanostomy tubes Hx of knee surgery History of hip surgery H/O shoulder surgery Social History number of children: 1 current occupational status: employed Smoking Status: Current every day smoker tobacco type: cigarettes and e- cigarettes alcohol intake: never substance use type: former substance user Review of Systems (Anesthesia) ROS Narrative System reviewed and no additional complaints, except as documented.
--- NOTE | 2024-09-28 08:30 | COLBX_PTH ---
PATIENT: MARILY BOCANEGRA LOC: EN U#:[id number] AGE/SX: 39/F ROOM: RE09/28/[address]: Dr. Pepito March DO : 1985 BED: DIS: 09/28/2024 SPEC #: [id number] RECD: 09/28/24 09:44 STATUS: CATRACHITO JARRETT #: [id number] CHHAYA: 09/28/24 08:[address]: Pepito March DEPT: SURGICAL PATHOLOGY RECD BY: Vu Dos Santos ENTERED: 09/28/24 11:53 SP TYPE: COLON BX OTHR DR: Jennifer Kwon, [facility], TOMATO PASTE MAKER-C Tissues: A - Ileum, NOS B - Cecum, NOS Procedures: Surgery Specimen Level IV HEADER OPERATION: Colonoscopy with biopsy PRE-OP DIAGNOSIS: Abdominal pain, history of colonic polyps, hepatitis C, hereditary hemochromatosis, suicidal ideation TISSUE SUBMITTED: A- Terminal ileum biopsy, B- Cecal biopsy MICROSCOPIC DIAGNOSIS A. Terminal ileum, biopsy: - Normal villous architecture with no specific pathologic change. B. Cecum, colon, biopsy: - Mucosal prolapse. MICROSCOPIC DESCRIPTION Slides are reviewed. GROSS DESCRIPTION A. Received in fixative is one container labeled with the patient's name and designated Terminal ileum biopsy. The specimen consists of three irregular fragments of light reyez soft tissue that measure 0.2 to 0.3 cm. The specimen is totally submitted in one cassette. B. Received in fixative is one container labeled with the patient's name and designated Cecal biopsy. The specimen consists of two irregular fragments of light reyez soft tissue, each measuring 0.3 cm. The specimen is totally submitted in one cassette. [place] 09/28/2024 CPT:24658a9
--- NOTE | 2024-09-28 09:31 | OP.PROVAT_ITS ---
09/28/2024 Jennifer Kwon [facility], Burner Machine Operator-c Re : Colonoscopy procedure for Marilee Nicolas Dear Doyle This procedure was performed on Saturday, September 28, 2024. My impressions and recommendations are as follows: Impressions : - Diverticulosis in the recto-sigmoid colon, at the splenic flexure and at the hepatic flexure. - Congested mucosa in the cecum. Biopsied. - Congested mucosa in the terminal ileum. Biopsied. Recommendations : - Discharge patient to home. - Resume previous diet. - Continue present medications. - Await pathology results. - Repeat colonoscopy in 5 years for surveillance. My findings are described in the full procedure note, which is enclosed. If I can be of further assistance, please feel free to contact me at . Sincerely, Pepito Friend, 09/28/2024 9:30:41 AM This report has been signed electronically.
--- NOTE | 2024-09-28 09:31 | OP.COLON_ITS ---
Patient Name: Marilee Nicolas Procedure Date: 09/28/2024 8:55 AM Date of : 1985 Age: 39 Procedure: Colonoscopy Indications: Epigastric abdominal pain, Abdominal pain in the left lower quadrant, Clinically significant diarrhea of unexplained origin Providers: Pepito March DO Medicines: Monitored Anesthesia Care Patient Profile: This is a 39 year old female. Last Colonoscopy: none. The patient's first colonoscopy is today. Complications: No immediate complications. Procedure: Pre-Anesthesia Assessment: - Prior to the procedure, a History and Physical was performed, and patient medications and allergies were reviewed. The patient is competent. The risks and benefits of the procedure and the sedation options and risks were discussed with the patient. All questions were answered and informed consent was obtained. Patient identification and proposed procedure were verified by the physician. Mental Status Examination: alert and oriented. Airway Examination: normal oropharyngeal airway and neck mobility. Respiratory Examination: clear to auscultation. CV Examination: normal. Prophylactic Antibiotics: The patient does not require prophylactic antibiotics. Prior Anticoagulants: The patient has taken no anticoagulant or antiplatelet agents except for NSAID medication. ASA Grade Assessment: II - A patient with mild systemic disease. After reviewing the risks and benefits, the patient was deemed in satisfactory condition to undergo the procedure. The anesthesia plan was to use monitored anesthesia care (MAC). Immediately prior to administration of medications, the patient was re-assessed for adequacy to receive sedatives. The heart rate, respiratory rate, oxygen saturations, blood pressure, adequacy of pulmonary ventilation, and response to care were monitored throughout the procedure. The physical status of the patient was re-assessed after the procedure. After I obtained informed consent, the scope was passed under direct vision. Throughout the procedure, the patient's blood pressure, pulse, and oxygen saturations were monitored continuously. The Colonoscope was introduced through the anus and advanced to the terminal ileum. The colonoscopy was performed with ease. The patient tolerated the procedure well. The quality of the bowel preparation was adequate. The terminal ileum, ileocecal valve, appendiceal orifice, and rectum were photographed. Scope In: 9:10:02 AM Scope Withdrawal Time 0 hours 10 minutes 26 seconds Scope Out: 9:25:04 AM Total Procedure Duration Time 0 hours 15 minutes 2 seconds Findings: The perianal and digital rectal examinations were normal. A few small-mouthed diverticula were found in the recto-sigmoid colon, splenic flexure and hepatic flexure. An area of mildly congested mucosa was found in the cecum. Biopsies were taken with a cold forceps for histology. Verification of patient identification for the specimen was done. Estimated blood loss was minimal. A patchy area of the terminal ileum was congested. Biopsies were taken with a cold forceps for histology. Verification of patient identification for the specimen was done. Estimated blood loss was minimal. Impression: - Diverticulosis in the recto-sigmoid colon, at the splenic flexure and at the hepatic flexure. - Congested mucosa in the cecum. Biopsied. - Congested mucosa in the terminal ileum. Biopsied. Recommendation: - Discharge patient to home. - Resume previous diet. - Continue present medications. - Await pathology results. - Repeat colonoscopy in 5 years for surveillance. Procedure Code(s): --- Professional --- 83817, Colonoscopy, flexible; with biopsy, single or multiple CPT copyright 2021 [employer]. All rights reserved. The codes documented in this report are preliminary and upon lamp developer review may be revised to meet current compliance requirements. Pepito March DO 09/28/2024 9:30:41 AM This report has been signed electronically. Number of Addenda: 0 Note Initiated On: 09/28/2024 8:55 AM
--- NOTE | 2024-09-28 09:37 | PCM.POST.ANE ---
Anesthesia: Postop Eval I Current Vital Signs Temperature: 98.1 F Pulse Rate: 77 Blood Pressure: 98/87 Respiratory Rate: 16 Pulse Ox: 99 Oxygen Delivery Method: Room Air Assessment Airway patent: Yes Spontaneous unlabored respirations: Yes Mental status: Awake and Calm nausea: No Vomiting: No Anesthesia Complication: No Fluid Hydration Crystalloid volume administer (ml): 800 Total IV fluid infused: 800 Progress Note Anesthesia document: Postop Eval 1 completed: Yes
--- NOTE | 2024-09-28 11:13 | PCM.POSTANE2 ---
Anesthesia Postop Eval I Sum Postop Eval Completion status Anesthesia document: Postop Eval 1 completed: Yes Anesthesia Postop Eval I Summary Anesthesia Postop Eval I Summary: Anesthesia Postop Eval I: Assessment Summary Airway patent Yes 09/28/24 09:38 [email or web address] Spontaneous unlabored Yes 09/28/24 09:38 [email or web address] respirations Mental status Awake,Calm 09/28/24 09:38 [email or web address] nausea No 09/28/24 09:38 [email or web address] Vomiting No 09/28/24 09:38 [email or web address] Anesthesia Postop Eval I: Fluid Summary Crystalloid volume administer 800 09/28/24 09:38 [email or web address] (ml) Colloids volume administered ( ml) Blood Product volume administered (ml) Total IV fluid infused 800 09/28/24 09:38 [email or web address] Anesthesia Postop Eval I: Summary Notes Anesthesia Complication No 09/28/24 09:38 [email or web address] Anesthesia Complication Comment: Post-operative progress note Anesthesia: Postop Eval II Evaluation Mental status: Awake Pain Level: 0 nausea: No Vomiting: No
== END 2024-09-28 10:06 | disposition home or self-care (01) ==
LOC: EN 07:04 → AC 07:05
PROVIDERS: Anesthesiology; PCP Nurse Practitioner Family; Referring Provider Nurse Practitioner Family; Visit Provider Internal Medicine Gastroenterology
PROC: 0DJD8ZZ Inspection of Lower Intestinal Tract, Via Natural or Artificial Opening Endoscopic (ICD-10-PCS; CPT 45378; principal; 2024-09-28 08:25)
DX: K57.90 Diverticulosis of intestine, part unspecified, without perforation or abscess without bleeding (principal); R19.7 Diarrhea, unspecified; Z86.0100 Personal history of colon polyps, unspecified; B19.20 Unspecified viral hepatitis C without hepatic coma; E83.110 Hereditary hemochromatosis; F17.210 Nicotine dependence, cigarettes, uncomplicated; K63.89 Other specified diseases of intestine; R74.8 Abnormal levels of other serum enzymes; K63.4 Enteroptosis; R45.851 Suicidal ideations; R10.9 Unspecified abdominal pain
CPT/HCPCS: 45380; 81025; 88305; J2405

== ENCOUNTER → 2024-10-30 | Outpatient (CLI) | payer OTHER, SELFPAY ==
[2024-10-30 10:39] LABS: Hematocrit 38.1 % (37-47); Hemoglobin 13.3 g/dL (12.0-15.0); Immature Granulocytes Count 0.010 X10^3/uL (0.0-0.0); Mean Corp Hgb Conc 34.9 g/dL (32-36); Mean Corpuscular Volume 94.5 fL (81-99); Mean Platelet Vol. 11.1 fl (6.2-12.0); NRBC Flagged by Analyzer 0 % (0-5); Platelet Count 227 K/mm3 (150-450); RBC Distribution Width CV 12.5 % (11.6-14.6); RBC Distribution Width SD 43.6 fl (35.1-43.9); Red Blood Count 4.03 M/mm3 (4.2-5.4); White Blood Count 6.6 K/mm3 (4.4-11.0)
[2024-10-30 10:51] LABS: Prothrombin Time (Protime)PT. 13.4 SECONDS (11.7-14.9)
[2024-10-30 11:48] LABS: Ferritin 24 ng/mL (22-378)
[2024-10-30 11:59] LABS: AST(SGOT) 15 U/L (<=31); Alanine Aminotransfer ALT/SGPT 11 U/L (<=34); Albumin, Serum 4.4 g/dL (3.5-5.0); Alkaline Phosphatase 47 U/L (35-104); Anion Gap 11 (5-15); BUN 16 mg/dL (4-19); BUN/Creat Ratio 25.7 RATIO (10-20); Calcium,Total 9.6 mg/dL (7.6-11.0); Carbon Dioxide 23.4 mmol/L (21.0-32.0); Chloride 106 mmol/L (98-108); Globulin 2.7 g/dL (2.2-4.2); Glucose 80 mg/dL (70-99); Potassium 4.4 mmol/L (3.3-5.1)
[2024-10-30 13:22] LABS: CRP < 3.00 mg/L (0.0-3.0)
[2024-10-31 18:08] LABS: Anti-Smooth Muscle ABS 6 Units (0-19); HCV Quant. RNA PCR HCV Not Detected IU/mL (.)
[2024-11-02 16:08] LABS: ANTINUCLEAR ANTIBODIES DIRECT Negative (Negative)
== END | disposition home or self-care (01) ==
PROVIDERS: PCP Nurse Practitioner Family; Referring Provider Internal Medicine; Visit Provider Internal Medicine
DX: R10.9 Unspecified abdominal pain (principal); B19.20 Unspecified viral hepatitis C without hepatic coma; R74.8 Abnormal levels of other serum enzymes; E83.110 Hereditary hemochromatosis
CPT/HCPCS: 36415; 80053; 82728; 83036; 83516; 85025; 85610; 86038; 86140; 86225; 86706; 87522

== ENCOUNTER 2025-01-12 12:14 | Emergency (ER) | payer OTHER, SELFPAY ==
[2025-01-12 12:15] VITALS: BP 145/91; PULSE 86; RESP 16; TEMP 36.8; O2SAT 100; BMI 27.7
--- NOTE | 2025-01-12 13:16 | EX.ED.VIS.UR ---
HPI HPI - URI History of Present Illness Chief Complaint: Ear Problem Informant: patient Onset/Context/Timing Onset: Days Context: Gradual Onset Timing: Continuous Current Severity: Mild Maximum Severity: Mild Associated Symptoms Associated Symptoms: Negative for Nausea, Vomiting, Diarrhea, Shortness of Breath, Chest Pain, Nonproductive cough or Productive Cough Narrative Narrative: 39-year-old female history of hemochromatosis and hep C. Has been having ear pain last several days. In May Dr. Mango Roberson placed a 10 ostomy tube. States last Saturday she was seen by the PA in our office. Was placed on eardrops. Also saw the urgent care the [facility] was started on on Augmentin. She denies any cough or shortness of breath she denies any abdominal pain. Prior similar symptoms: Yes Recent Illness/Hospitalization: No ROS ROS ED ROS Narrative Malaise. Right ear ache. Constitutional Constitutional ED: Denies chills or fever(s) Eyes Eyes: Denies blurry vision ENT ENT ED: Reports ear pain; Denies rhinorrhea or sore throat Cardiovascular Cardiovascular: Denies chest pain Respiratory/Chest Respiratory/Chest: Denies cough or dyspnea Gastrointestinal Gastrointestinal: Denies abdominal pain, diarrhea, nausea or vomiting Genitourinary Genitourinary ED: Denies dysuria Musculoskeletal Musculoskeletal: Denies arthralgias Integumentary Denies abscess Neurologic Neurologic: Denies headache(s) Psychiatric Psychiatric: Denies anxiety Endocrine Endocrinology: Denies cold intolerance Hematologic/Lymphatic Hematologic/Lymphatic: Denies easy bleeding, easy bruising or lymphadenopathy Allergic/Immunologic Allergic/Immunologic ED: Denies mouth swelling, tongue swelling or urticaria PFSH PFSH Medical History Wears contact lenses Wears glasses Arthritis Hepatitis Injury of back Syncope Colitis Gastric reflux Smoker Cyst of ovary, left Hereditary hemochromatosis Fatigue Abnormal liver enzymes GERD (gastroesophageal reflux disease) Ovarian torsion Low iron Depression Bowel obstruction History of ischemic colitis Substance abuse Home Medications ?Medication ?Instructions ?Recorded ?Last Taken ?Type cholecalciferol (vitamin D3) 1,250 1,250 mcg PO QWEEK 1 month #5 caps 07/31/24 Unknown Rx mcg (50,000 unit) capsule ibuprofen 800 mg tablet 400 mg PO TID PRN PRN pain 07/31/24 Unknown History amoxicillin 875 mg-potassium 1 tab PO BID 01/12/25 Unknown History clavulanate 125 mg tablet Allergy/AdvReac Type Severity Reaction Status Date / Time cefaclor (From Ceclor) Allergy Unknown Verified 01/12/25 12:16 duloxetine (From Cymbalta) Allergy Other Verified 01/12/25 12:16 tramadol Allergy PT UNSURE Verified 01/12/25 12:16 OF REACTION ketorolac (From Toradol) AdvReac PT UNSURE Verified 01/12/25 12:16 OF REACTION Family History Father COPD (chronic obstructive pulmonary disease) Mother Melanoma Surgical History History of myringotomy Hx of unilateral oophorectomy Hx of colonoscopy Hx of tympanostomy tubes Hx of knee surgery History of hip surgery H/O shoulder surgery Social History number of children: 1 current occupational status: employed Smoking Status: Current every day smoker tobacco type: cigarettes and e-cigarettes alcohol intake: never substance use type: former substance user EXAM Physical Exam Narrative Exam Narrative: 39-year-old female sitting upright in bed vital signs stable afebrile. Pulse ox 100% on room air no signs hypoxia. Patient does look sick. She is in no distress. She does not look septic or toxic. She does not look dehydrated. H EENT exam pupils round react light. Moist mucous membranes posterior pharynx unremarkable left canal and TM normal. Right canal has a fair amount of blood as does the tympanic membrane primarily on the right side of it I suspect the perforation. I do not see a tenotomy tube at this time. The ear canal itself is not swollen. No mastoid tenderness. Neck nontender no lymphadenopathy. Lungs clear to auscultation. Heart regular rhythm no murmur rate about 85. Chest wall ribs nontender. Abdomen soft nontender. Moving all 4 extremities. Normal strength. Normal range of motion. Nontender no edema. Back nontender. Neurologically patient is awake alert. Answer questions following commands. Const Vital Signs: 01/12/25 12:15 Temperature 98.2 F Temperature Source Oral Pulse Rate 86 Respiratory Rate 16 Blood Pressure 145/91 H Blood Pressure Mean 109 Pulse Ox 100 Oxygen Delivery Method Room Air MDM MDM MDM Narrative Medical decision making narrative: 39-year-old female on Augmentin and eardrops has a perforated right eardrum with blood in the canal. Otherwise exam is benign. Said she has been feeling well recently but has a benign exam. BGT will be obtained. Patient had recent labs in October that were unremarkable. History & Record Review Discussion w/independent historian: Patient Additional record(s) reviewed:: Prior outpatient record, Prior ED visit and Prior labs Lab Data Attestation: I reviewed the patient's lab results. Lab results narrative: Blood sugar was 93. Discharge Plan Triage Chief Complaint: Ear Problem ED Provider: Pipo Delgado Dx/Rx/DC Orders Clinical Impression: Acute pain of right ear, Acute otitis media of right ear with perforated tympanic membrane, History of hepatitis C Instructions: ED PERFORATED TM Infected [Adult] Prescriptions: No Action ibuprofen 800 mg tablet 400 mg PO TID PRN PRN (Reason: pain) cholecalciferol (vitamin D3) 1,250 mcg (50,000 unit) capsule 1,250 mcg PO QWEEK 30 Days Qty: 5 2RF amoxicillin-pot clavulanate 875-125 mg tablet 1 tab PO BID Primary Care Provider: Jennifer Kwon Referrals: Mango Roberson MD [Med Staff - Active Staff, Ear Nose Throat (ENT)] - 3-5 Days Jennifer Kwon, [employer] PROFESSOR-C [Primary Care Provider, Family Practice] Activity Restrictions/Additional Instructions: Continue your antibiotic Augmentin. Continue your eardrops. You have a perforated right eardrum. Use cotton balls to keep water out of your ear when you shower or bathe. Call and follow-up with your ENT as soon as possible. Motrin and Tylenol for pain. Print Language: Estonian Disposition Disposition: Home, Self Care
--- NOTE | 2025-01-12 13:49 | ED.RN ---
1347: PT. FOUND EXITING THE DEPARTMENT THIS NURSE WAS GRABBING A WHEELCHAIR FOR ANOTHER PATIENT. PT. ASKED ABOUT D/C INSTRUCTIONS AND STATED NO, I AM NOT GOING TO WAIT FOR THEM. I AM JUST GOING HOME PT. CONTINUED TO AMBULATE PAST THIS NURSE TOWARD DEPARTMENT EXIT. 1351: PROVIDER NOTIFIED OF ELOPEMENT.
== END 2025-01-12 13:53 | disposition home or self-care (01) ==
PROVIDERS: Emergency Provider Emergency Medicine; PCP Nurse Practitioner Family; Visit Provider Emergency Medicine
DX: H66.91 Otitis media, unspecified, right ear (principal); F17.210 Nicotine dependence, cigarettes, uncomplicated; H72.91 Unspecified perforation of tympanic membrane, right ear; K21.9 Gastro-esophageal reflux disease without esophagitis; F17.290 Nicotine dependence, other tobacco product, uncomplicated; Z86.19 Personal history of other infectious and parasitic diseases
CPT/HCPCS: 82962; 99282